=== PATIENT | male | born 1960 | race Caucasian/White ===

== ENCOUNTER 2021-01-16 08:51 | Inpatient (IN) | payer MEDICARE, OTHER ==
--- NOTE | 2021-01-16 10:03 | ED ---
Weakness HPI - General Chief complaint: Weakness Stated complaint: SOB Time Seen by Provider: 01/16/21 09:28 Source: patient, family, RN notes reviewed Mode of arrival: wheelchair Limitations: no limitations - History of Present Illness Initial comments: This is a 60-year-old male with no major medical issues who did have approximately 20 pound weight loss to trying to do this during the cold without break. Who presents with complaints of some generalized weakness and low energy some decreased oral intake exertional dyspnea and increased heart rate with source of breath when he does try to exert himself also abdominal both bloating and is getting worse. This is For about 6 months. No nausea vomiting no diarrhea he's urine has become dark apparently. No history of cold and 19 he did get vaccine the last one was on August 23. No other current complaints modifying factors he does state that he get a new mattress over [place] this past year he's been sleeping as abdomen a lot breast didn't hurt for a while now and not quite as tender. There is a family history of a sister with breast cancer but no male breast cancer. MD Complaint: generalized weakness - Related Data Home Medications Medication Instructions Recorded Confirmed No Known Home Medications 01/16/21 01/16/21 Allergies Allergy/AdvReac Type Severity Reaction Status Date / Time Penicillins Allergy Rash/Hives Verified 01/16/21 10:23 Review of Systems ROS Statement: Those systems with pertinent positive or pertinent negative responses have been documented in the HPI. ROS Other: All systems not noted in ROS Statement are negative. Past Medical History Past Medical History: No Reported History History of Any Multi-Drug Resistant Organisms: None Reported Past Surgical History: No Surgical Hx Reported Past Psychological History: No Psychological Hx Reported Smoking Status: Current every day smoker Past Alcohol Use History: Daily Past Drug Use History: Marijuana General Exam - General Exam Comments Initial Comments: This is a well-developed asthenic appearing male who is awake alert oriented 3 Limitations: no limitations General appearance: alert, in no apparent distress Head exam: Present: atraumatic, normocephalic, normal inspection Eye exam: Present: normal appearance, PERRL, EOMI. Absent: scleral icterus, conjunctival injection, periorbital swelling ENT exam: Present: mucous membranes dry Neck exam: Present: normal inspection, full ROM, other. Absent: tenderness, meningismus, lymphadenopathy Respiratory exam: Present: normal lung sounds bilaterally. Absent: respiratory distress, wheezes, rales, rhonchi, stridor Cardiovascular Exam: Present: normal rhythm, tachycardia, normal heart sounds. Absent: systolic murmur, diastolic murmur, rubs, gallop, clicks GI/Abdominal exam: Present: soft, distended, normal bowel sounds, other (Fullness on examination). Absent: tenderness, guarding, rebound, rigid, bruit, pulsatile mass Rectal exam: Present: deferred Extremities exam: Present: normal inspection, full ROM, normal capillary refill. Absent: tenderness, pedal edema, joint swelling, calf tenderness Back exam: Present: normal inspection Neurological exam: Present: alert, oriented X3, CN II-XII intact Psychiatric exam: Present: normal affect, normal mood Skin exam: Present: warm, dry, intact, normal color. Absent: rash Course Vital Signs 01/16/21 01/16/21 09:08 10:20 Temperature 98.8 F Pulse Rate 113 H 114 H Respiratory 18 22 Rate Blood Pressure 99/62 117/82 O2 Sat by Pulse 100 100 Oximetry Medical Decision Making - Medical Decision Making I did discuss the findings with patient family as well as Dr. Abreu who did come the emergency department see the patient patient will be admitted for inpatient evaluation and treatment of anemia. Evaluation will include a CAT scan of the chest abdomen pelvis. - Lab Data Result diagrams: 01/16/21 10:06 01/16/21 10:06 Lab Results 01/16/21 01/16/21 01/16/21 Range/Units 10:06 10:06 10:06 WBC 7.6 (3.8-10.6) k/uL RBC 2.42 L (4.30-5.90) m/uL Hgb 5.0 L* (13.0-17.5) gm/dL Hct 17.3 L* (39.0-53.0) % MCV 71.7 L (80.0-100.0) fL MCH 20.8 L (25.0-35.0) pg MCHC 29.0 L (31.0-37.0) g/dL RDW 18.7 H (11.5-15.5) % Plt Count 297 (150-450) k/uL MPV 7.6 Neutrophils % 81 % Lymphocytes % 11 % Monocytes % 5 % Eosinophils % 0 % Basophils % 0 % Neutrophils # 6.2 (1.3-7.7) k/uL Lymphocytes # 0.8 L (1.0-4.8) k/uL Monocytes # 0.4 (0-1.0) k/uL Eosinophils # 0.0 (0-0.7) k/uL Basophils # 0.0 (0-0.2) k/uL Manual Slide Review Performed Polychromasia Present Hypochromasia Marked Poikilocytosis Slight Anisocytosis Slight Microcytosis Marked Sodium 131 L (137-145) mmol/L Potassium 4.3 (3.5-5.1) mmol/L Chloride 104 (98-107) mmol/L Carbon Dioxide 18 L (22-30) mmol/L Anion Gap 9 mmol/L BUN 16 (9-20) mg/dL Creatinine 0.62 L (0.66-1.25) mg/dL Est GFR (CKD-EPI)AfAm >90 (>60 ml/min/1.73 sqM) Est GFR (CKD-EPI)NonAf >90 (>60 ml/min/1.73 sqM) Glucose 89 (74-99) mg/dL Plasma Lactic Acid Curtis 1.6 (0.7-2.0) mmol/L Calcium 8.2 L (8.4-10.2) mg/dL Magnesium 2.0 (1.6-2.3) mg/dL Total Bilirubin 0.8 (0.2-1.3) mg/dL AST 161 H (17-59) U/L ALT 31 (4-49) U/L Alkaline Phosphatase 364 H (38-126) U/L Creatine Kinase 128 (55-170) U/L Troponin I (0.000-0.034) ng/mL Total Protein 5.8 L (6.3-8.2) g/dL Albumin 2.8 L (3.5-5.0) g/dL Amylase 33 (30-110) U/L TSH 0.020 L (0.465-4.680) mIU/L Coronavirus (PCR) (Not Detectd) 01/16/21 01/16/21 Range/Units 10:06 10:06 WBC (3.8-10.6) k/uL RBC (4.30-5.90) m/uL Hgb (13.0-17.5) gm/dL Hct (39.0-53.0) % MCV (80.0-100.0) fL MCH (25.0-35.0) pg MCHC (31.0-37.0) g/dL RDW (11.5-15.5) % Plt Count (150-450) k/uL MPV Neutrophils % % Lymphocytes % % Monocytes % % Eosinophils % % Basophils % % Neutrophils # (1.3-7.7) k/uL Lymphocytes # (1.0-4.8) k/uL Monocytes # (0-1.0) k/uL Eosinophils # (0-0.7) k/uL Basophils # (0-0.2) k/uL Manual Slide Review Polychromasia Hypochromasia Poikilocytosis Anisocytosis Microcytosis Sodium (137-145) mmol/L Potassium (3.5-5.1) mmol/L Chloride (98-107) mmol/L Carbon Dioxide (22-30) mmol/L Anion Gap mmol/L BUN (9-20) mg/dL Creatinine (0.66-1.25) mg/dL Est GFR (CKD-EPI)AfAm (>60 ml/min/1.73 sqM) Est GFR (CKD-EPI)NonAf (>60 ml/min/1.73 sqM) Glucose (74-99) mg/dL Plasma Lactic Acid Curtis (0.7-2.0) mmol/L Calcium (8.4-10.2) mg/dL Magnesium (1.6-2.3) mg/dL Total Bilirubin (0.2-1.3) mg/dL AST (17-59) U/L ALT (4-49) U/L Alkaline Phosphatase (38-126) U/L Creatine Kinase (55-170) U/L Troponin I <0.012 (0.000-0.034) ng/mL Total Protein (6.3-8.2) g/dL Albumin (3.5-5.0) g/dL Amylase (30-110) U/L TSH (0.465-4.680) mIU/L Coronavirus (PCR) Not Detected (Not Detectd) - EKG Data -: EKG Interpreted by [place] EKG shows normal: sinus rhythm EKG Comments: Sinus tachycardia rate 1:15. Interval 126 QRS 134 daily since QTC 366/506) block pattern - Radiology Data Radiology results: report reviewed, image reviewed Disposition Clinical Impression: Anemia, Failure to thrive in adult, Abdominal bloating Disposition: ADMITTED IP TO THIS HOSP Condition: Fair Referrals: None,Stated [Primary Care Provider] - 1-2 days
[2021-01-16 10:24] LABS: Anisocytosis Slight; Basophils % (A) 0 %; Eosinophils % (A) 0 %; Hypochromasia Marked; Lymphocytes # (A) 0.8 k/uL (1.0-4.8); Lymphocytes % (A) 11 %; MCH 20.8 pg (25.0-35.0); MCV 71.7 fL (80.0-100.0); Mean Platelet Volume 7.6; Microcytosis Marked; Monocytes # (A) 0.4 k/uL (0-1.0); Monocytes % (A) 5 %; Neutrophils # (A) 6.2 k/uL (1.3-7.7); Neutrophils % (A) 81 %; Platelet Count 297 k/uL (150-450); Poikilocytosis Slight; RBC 2.42 m/uL (4.30-5.90); RDW 18.7 % (11.5-15.5); WBC 7.6 k/uL (3.8-10.6)
[2021-01-16 10:35] LABS: ALT 31 U/L (4-49); AST 161 U/L (17-59); African American GFR (CKD) >90 (>60 ml/min/1.73 sqM); Albumin 2.8 g/dL (3.5-5.0); Alkaline Phosphatase 364 U/L (38-126); Amylase 33 U/L (30-110); Anion Gap 9 mmol/L; Blood Urea Nitrogen 16 mg/dL (9-20); Calcium 8.2 mg/dL (8.4-10.2); Carbon Dioxide 18 mmol/L (22-30); Chloride 104 mmol/L (98-107); Creatine Kinase 128 U/L (55-170); Glucose 89 mg/dL (74-99); Non-African American GFR(CKD) >90 (>60 ml/min/1.73 sqM); Potassium 4.3 mmol/L (3.5-5.1); Sodium 131 mmol/L (137-145); Total Bilirubin 0.8 mg/dL (0.2-1.3); Total Protein 5.8 g/dL (6.3-8.2)
[2021-01-16 10:39] LABS: HCT 17.3 % (39.0-53.0)
--- NOTE | 2021-01-16 10:40 | XR ---
EXAMINATION TYPE: XR chest 2V DATE OF EXAM: 01/16/2021 COMPARISON: NONE HISTORY: Weakness. TECHNIQUE: Frontal and lateral views of the chest are obtained. FINDINGS: Background chronic emphysematous change suspected. There is no suspicious focal air space o pacity, pleural effusion, or pneumothorax seen. The cardiac silhouette size is within normal limits. The osseous structures are intact. Overlying EKG leads. IMPRESSION: No acute process.
--- NOTE | 2021-01-16 10:46 | XR ---
EXAMINATION TYPE: XR KUB DATE OF EXAM: 01/16/2021 10:32 AM CLINICAL HISTORY: Bloating and pain. TECHNIQUE: Single upright KUB image of the abdomen is obtained. COMPARISON: None. FINDINGS: Scattered gas is seen in non-distended small and large bowel loops. Some paucity of bowel g as in the central abdomen. Slight underlying scoliotic curvature. Some vascular pelvis occasional kallie t abdominal aorta. No free air. IMPRESSION: Overall nonspecific but favor nonobstructive bowel gas pattern.
[2021-01-16 11:35] LABS: Polychromasia Present
[2021-01-16 12:11] LABS: T4, Free (Free Thyroxine) 1.82 ng/dL (0.78-2.19)
[2021-01-16] MEDS ORDERED: NALOXONE 0.4 MG/ML 1 ML VIAL IV PRN (12:14)
[2021-01-16] MEDS ORDERED: IOPAMIDOL CONTRAST (ORAL USE) VIAL PO PRN (12:17)
--- NOTE | 2021-01-16 12:20 | ED ---
Medical Decision Making - Medical Decision Making Rectal exam performed no overt masses no evidence of bleeding at this time. CAT scan chest abdomen pelvis ordered neoplasm suspected - Lab Data Result diagrams: 01/16/21 10:06 01/16/21 10:06 Lab Results 01/16/21 01/16/21 01/16/21 Range/Units 10:06 10:06 10:06 WBC 7.6 (3.8-10.6) k/uL RBC 2.42 L (4.30-5.90) m/uL Hgb 5.0 L* (13.0-17.5) gm/dL Hct 17.3 L* (39.0-53.0) % MCV 71.7 L (80.0-100.0) fL MCH 20.8 L (25.0-35.0) pg MCHC 29.0 L (31.0-37.0) g/dL RDW 18.7 H (11.5-15.5) % Plt Count 297 (150-450) k/uL MPV 7.6 Neutrophils % 81 % Lymphocytes % 11 % Monocytes % 5 % Eosinophils % 0 % Basophils % 0 % Neutrophils # 6.2 (1.3-7.7) k/uL Lymphocytes # 0.8 L (1.0-4.8) k/uL Monocytes # 0.4 (0-1.0) k/uL Eosinophils # 0.0 (0-0.7) k/uL Basophils # 0.0 (0-0.2) k/uL Manual Slide Review Performed Polychromasia Present Hypochromasia Marked Poikilocytosis Slight Anisocytosis Slight Microcytosis Marked Sodium 131 L (137-145) mmol/L Potassium 4.3 (3.5-5.1) mmol/L Chloride 104 (98-107) mmol/L Carbon Dioxide 18 L (22-30) mmol/L Anion Gap 9 mmol/L BUN 16 (9-20) mg/dL Creatinine 0.62 L (0.66-1.25) mg/dL Est GFR (CKD-EPI)AfAm >90 (>60 ml/min/1.73 sqM) Est GFR (CKD-EPI)NonAf >90 (>60 ml/min/1.73 sqM) Glucose 89 (74-99) mg/dL Plasma Lactic Acid Curtis 1.6 (0.7-2.0) mmol/L Calcium 8.2 L (8.4-10.2) mg/dL Magnesium 2.0 (1.6-2.3) mg/dL Total Bilirubin 0.8 (0.2-1.3) mg/dL AST 161 H (17-59) U/L ALT 31 (4-49) U/L Alkaline Phosphatase 364 H (38-126) U/L Creatine Kinase 128 (55-170) U/L Troponin I (0.000-0.034) ng/mL Total Protein 5.8 L (6.3-8.2) g/dL Albumin 2.8 L (3.5-5.0) g/dL Amylase 33 (30-110) U/L TSH 0.020 L (0.465-4.680) mIU/L Free T4 1.82 (0.78-2.19) ng/dL Coronavirus (PCR) (Not Detectd) 01/16/21 01/16/21 Range/Units 10:06 10:06 WBC (3.8-10.6) k/uL RBC (4.30-5.90) m/uL Hgb (13.0-17.5) gm/dL Hct (39.0-53.0) % MCV (80.0-100.0) fL MCH (25.0-35.0) pg MCHC (31.0-37.0) g/dL RDW (11.5-15.5) % Plt Count (150-450) k/uL MPV Neutrophils % % Lymphocytes % % Monocytes % % Eosinophils % % Basophils % % Neutrophils # (1.3-7.7) k/uL Lymphocytes # (1.0-4.8) k/uL Monocytes # (0-1.0) k/uL Eosinophils # (0-0.7) k/uL Basophils # (0-0.2) k/uL Manual Slide Review Polychromasia Hypochromasia Poikilocytosis Anisocytosis Microcytosis Sodium (137-145) mmol/L Potassium (3.5-5.1) mmol/L Chloride (98-107) mmol/L Carbon Dioxide (22-30) mmol/L Anion Gap mmol/L BUN (9-20) mg/dL Creatinine (0.66-1.25) mg/dL Est GFR (CKD-EPI)AfAm (>60 ml/min/1.73 sqM) Est GFR (CKD-EPI)NonAf (>60 ml/min/1.73 sqM) Glucose (74-99) mg/dL Plasma Lactic Acid Curtis (0.7-2.0) mmol/L Calcium (8.4-10.2) mg/dL Magnesium (1.6-2.3) mg/dL Total Bilirubin (0.2-1.3) mg/dL AST (17-59) U/L ALT (4-49) U/L Alkaline Phosphatase (38-126) U/L Creatine Kinase (55-170) U/L Troponin I <0.012 (0.000-0.034) ng/mL Total Protein (6.3-8.2) g/dL Albumin (3.5-5.0) g/dL Amylase (30-110) U/L TSH (0.465-4.680) mIU/L Free T4 (0.78-2.19) ng/dL Coronavirus (PCR) Not Detected (Not Detectd) Critical Care Time Critical Care Time: Yes Total Critical Care Time: 31 Critical Care Time: Critical care time includes initial presentation with history physical labs x- rays multiple reevaluation the patient discussed with patient family regarding findings discussion with the main physician admission orders and documentation of the above. Disposition Clinical Impression: Anemia, Failure to thrive in adult, Abdominal bloating Disposition: ADMITTED IP TO THIS [facility] Condition: Fair Referrals: None,Stated [Primary Care Provider] - 1-2 days
[2021-01-16] MEDS ORDERED: LORazepam 2 MG/ML INJ IV PRN (13:00)
[2021-01-16] MEDS ORDERED: HYDROcodone/APAP 5-325MG 1 EACH TAB PO PRN (13:00)
--- NOTE | 2021-01-16 13:09 | CT ---
EXAMINATION TYPE: CT ChestAbdPelvis w con DATE OF EXAM: 01/16/2021 COMPARISON: Same day chest x-ray and abdominal x-ray HISTORY: Shortness of breath and anemia. CT DLP: 742.1 mGycm. Automated Exposure Control for Dose Reduction was Utilized. CONTRAST: CT scan of the thorax, abdomen and pelvis is performed without oral but with IV Contrast, patient inj ected with 100 mL of Isovue 300. FINDINGS: LUNGS: Moderate underlying emphysematous change greatest in the upper lungs is redemonstrated. A few scattered small subcentimeter nodules in the bilateral lower lungs. Largest measured nodule is 12 x 1 0 mm in the periphery of the right lower lobe axial image 47. No pleural effusion or pneumothorax see n bilaterally. No suspicious focal consolidation. MEDIASTINUM: There are no greater than 1 cm hilar or mediastinal lymph nodes. No cardiomegaly or pe ricardial effusion is seen. Coronary artery calcification is present which is noted marker for under lying coronary artery disease. Ascending thoracic aortic aneurysm up to 4.6 cm axial image 31 noted. OTHER: Bilateral gynecomastia. LIVER/GB: Marked hepatomegaly occupying nearly entire right abdomen with local mass effect. There are innumerable hypodense lesions consistent with diffuse metastatic disease. PANCREAS: No significant abnormality is seen. SPLEEN: Spleen normal in size with incidental splenule in the hilum axial image 63. ADRENALS: No significant abnormality is seen. KIDNEYS: Symmetric cortical medullary uptake and excretion without hydronephrosis seen bilaterally. M ild to moderately distended bladder. BOWEL: Suboptimal evaluation without enteric contrast and patient having little intra-abdominal fat. Stomach poorly distended deviated posterior and left from hepatomegaly. No suspicious small or large bowel dilatation. Prominent diverticulosis in the sigmoid colon in the pelvis presacral region. No c onvincing CT evidence for acute diverticulitis. GENITAL ORGANS: No gross abnormality seen. LYMPH NODES: No definitive greater than 1cm abdominal or pelvic lymph nodes are appreciated. Symmetri c prominent but subcentimeter bilateral groin lymph nodes OSSEOUS STRUCTURES: Slight S-shaped scoliosis. Severe disc space narrowing lumbosacral junction. Prom inent Schmorl node superior T12 endplate. Moderate disc space narrowing T8-T9 level. Facet arthropath y lower lumbar spine. OTHER: Mild to moderate calcified plaque of the aorta extends into branch vessels. IMPRESSION: Marked hepatomegaly with innumerable hypodense masses. Significant local mass effect is p resent. Suspicious bilateral lower lung nodules. Both suggestive of metastatic neoplasm. Moderate emp hysematous change without acute pulmonary process. No acute intra-abdominal finding clearly seen.
[2021-01-16 15:55] LABS: INR 1.1 (<1.2); Partial Thromboplastin Time 22.4 sec (22.0-30.0); Prothrombin Time 11.3 sec (9.0-12.0)
[2021-01-16] MEDS: SODIUM CHLORIDE 0.9% 1,000 ML IV SCH ×2 (16:36→20:41)
--- NOTE | 2021-01-16 16:51 | HP ---
HISTORY AND PHYSICAL DATE OF SERVICE: 01/16/2021 CHIEF COMPLAINTS: Weakness and weight loss. HISTORY OF PRESENT ILLNESS: This 60-year-old gentleman with a past medical history of no significant medical issues, not being followed by a primary physician in the outpatient setting, was complaining of some generalized weakness. Patient apparently lost about 20 pounds. Patient was also actively trying to lose some weight. There is no active bleeding. Hemoglobin was found to be 5 and the patient was admitted for further evaluation and treatment. There is no history of any fever or rigors. No history of headache, loss of consciousness , seizures at this time. Initial evaluation showed hemoglobin of 5 with MCV 71, indicating microcytic anemia. Sodium is 131. Alcohol was also elevated at 364. Albumin is 2.8 and total protein is 5.2. TSH is 0.20. Free T4 is normal. Covid-19 is negative. There is no history of any fever, rigors, chills at this time. PAST MEDICAL HISTORY: History of no significant medical illness. MEDICATIONS PRIOR TO ADMISSION: None. ALLERGIES: PENICILLIN. FAMILY HISTORY: No history of heart disease or stroke in the family. SOCIAL HISTORY: History of smoking, history of EtOH and history of THC. REVIEW OF SYSTEMS: ENT: No diminished hearing. No diminished vision. CARDIOVASCULAR SYSTEM: No angina, palpitations. RESPIRATORY SYSTEM: As mentioned earlier. GI: As mentioned earlier. : No dysuria. NERVOUS SYSTEM: No numbness, weakness. ALLERGY/IMMUNOLOGY: No asthma or hay fever. MUSCULOSKELETAL: As mentioned earlier. HEMATOLOGY/ONCOLOGY: No history of anemia. ENDOCRINE: No history of hypothyroidism. CONSTITUTIONAL: As mentioned earlier. DERMATOLOGY: Negative. RHEUMATOLOGY: Negative. PSYCHIATRY: As mentioned earlier. PHYSICAL EXAMINATION: Patient alert and oriented x3. Pulse is 114, blood pressure 117/82, respiration 12, temperature 98.8, pulse ox 100% on room air. HEENT: Conjunctivae pale. Oral mucosa pale. NECK: No jugular venous distention. No carotid bruit. No lymph node enlargement. CARDIOVASCULAR: S1, S2 muffled. No S3. No S4. Ejection systolic murmur present. RESPIRATION: Breath sounds diminished at the bases. A few scattered rhonchi. ABDOMEN: Soft. Mild diffuse distention. No ascites. Hepatomegaly present. Possible nodular mass in the upper abdomen also present. LEGS: No edema. No swelling. NERVOUS SYSTEM: Higher functions as mentioned earlier. Moves all 4 limbs. No focal motor or sensory deficit. LYMPHATICS: No lymph node palpable in neck, axillae or groin. SKIN: No ulcer, rash, bleeding. JOINTS: No active deforming arthropathy. LABS: WBC 7.6, hemoglobin is 5 and MCV is 71.7. Sodium , potassium 4.3. Alkaline phosphatase is 364. ASSESSMENT: 1. Microcytic anemia for evaluation. Rule out occult GI blood loss anemia. 2. Rule out cirrhosis of the liver or malignancy. 3. Microcytosis. 4. Hyponatremia. 5. Mild hypocalcemia. 6. Elevated AST, possibly alcoholic hepatitis. 7. Elevated alkaline phosphatase. 8. Hypoalbuminemia with mild protein-calorie malnutrition. 9. Low TSH and normal free T4, possibly sick euthyroid syndrome. 10.FULL CODE. RECOMMENDATIONS AND DISCUSSION: In this 60-year-old gentleman who presented with multiple complex medical issues, at this time I recommend to continue the current medications, continue symptomatic treatment. Continue with a CT scan of the abdomen and pelvis. Hepatitis panel. I would also recommend 2 units of transfusion. Monitor hemoglobin closely. Stool OB. Surgical evaluation. Guarded prognosis because of multiple complex medical issues. Further recommendations to follow. I also recommend that the patient follow up with a primary physician closely after discharge. MMODL / IJN: [id number] / FRENCH
[2021-01-16] MEDS ORDERED: PEG 3350-NA SULF,BICARB,CL/KCL 4,000 ML BOTTLE PO ONE (17:10)
[2021-01-16 17:19] LABS: Appearance,Urine Clear (Clear); Bilirubin,Urine Negative (Negative); Blood,Urine Negative (Negative); Color,Urine Yellow; Glucose,Urine (UA) Negative (Negative); Ketones,Urine 1+ (Negative); Leukocyte Esterase,Urine Negative (Negative); Nitrite,Urine Negative (Negative); PH, Urine 5.5 (5.0-8.0); Protein,Urine Trace (Negative)
[2021-01-16 17:21] LABS: Specific Gravity,Urine 1.051 (1.001-1.035)
[2021-01-16 17:46] LABS: Amphetamine Screen,Urine Not Detected (NotDetected); Barbiturate Screen,Urine Not Detected (NotDetected); Benzodiazepines Screen,Urine Not Detected (NotDetected); Cocaine Screen,Urine Not Detected (NotDetected); Methadone Screen, Urine Not Detected (NotDetected); Opiate Screen,Urine Not Detected (NotDetected); Oxycodone Screen, Urine Not Detected (NotDetected); Phencyclidine Screen,Urine Not Detected (NotDetected); Tricyclic Antidepressant,Urine Not Detected (NotDetected); Urn Cannabinoid Scrn Detected (NotDetected)
[2021-01-16] MEDS ORDERED: ACETAMINOPHEN TAB 325 MG TAB PO PRN (18:50)
[2021-01-16 23:51] LABS: Hepatitis A Antibody IgM Non-Reactive (Non-Reactive); Hepatitis B Core IgM Non-Reactive (Non-Reactive); Hepatitis B Surface Antigen Non-Reactive (Non-Reactive); Hepatitis C IgG Antibody Non-Reactive (Non-Reactive)
[2021-01-17 00:39] LABS: Anisocytosis Moderate; Basophils % (A) 0 %; Eosinophils % (A) 0 %; Hypochromasia Marked; Lymphocytes % (A) 15 %; MCH 24.2 pg (25.0-35.0); MCHC 32.2 g/dL (31.0-37.0); MCV 75.3 fL (80.0-100.0); Mean Platelet Volume 7.9; Microcytosis Moderate; Monocytes # (A) 0.4 k/uL (0-1.0); Monocytes % (A) 6 %; Neutrophils # (A) 5.1 k/uL (1.3-7.7); Neutrophils % (A) 76 %; Platelet Count 228 k/uL (150-450); Poikilocytosis Slight; RBC 2.44 m/uL (4.30-5.90); RDW 20.1 % (11.5-15.5); WBC 6.7 k/uL (3.8-10.6)
[2021-01-17 00:48] LABS: HGB 5.9 gm/dL (13.0-17.5)
[2021-01-17 00:49] LABS: HCT 18.4 % (39.0-53.0)
[2021-01-17] MEDS: NICOTINE 14MG/24HR PATCH TRANSDERM SCH ×2 (06:13→07:30)
[2021-01-17] MEDS ORDERED: PEG 3350-NA SULF,BICARB,CL/KCL 4,000 ML BOTTLE PO ONE (07:00)
[2021-01-17] MEDS: PANTOPRAZOLE 40 MG/10 ML VIAL IV SCH (07:30)
[2021-01-17] MEDS: FOLIC ACID 1 MG TAB PO SCH (11:40)
[2021-01-17] MEDS: THIAMINE 100 MG TAB PO SCH (11:40)
[2021-01-17] MEDS: MULTIVITAMINS, THERA 1 EACH TAB PO SCH (11:40)
[2021-01-17 13:00] LABS: Anisocytosis Slight; Basophils % (A) 0 %; Eosinophils % (A) 0 %; HCT 23.6 % (39.0-53.0); HGB 7.3 gm/dL (13.0-17.5); Hypochromasia Marked; Lymphocytes % (A) 12 %; MCH 24.2 pg (25.0-35.0); MCHC 31.1 g/dL (31.0-37.0); MCV 77.9 fL (80.0-100.0); Mean Platelet Volume 7.8; Microcytosis Slight; Monocytes # (A) 0.4 k/uL (0-1.0); Monocytes % (A) 4 %; Neutrophils # (A) 7.2 k/uL (1.3-7.7); Neutrophils % (A) 82 %; Platelet Count 237 k/uL (150-450); Poikilocytosis Moderate; RBC 3.03 m/uL (4.30-5.90); RDW 19.7 % (11.5-15.5); WBC 8.8 k/uL (3.8-10.6)
[2021-01-17 13:13] LABS: ALT 31 U/L (4-49); AST 147 U/L (17-59); African American GFR (CKD) >90 (>60 ml/min/1.73 sqM); Albumin 2.8 g/dL (3.5-5.0); Alkaline Phosphatase 367 U/L (38-126); Anion Gap 6 mmol/L; Blood Urea Nitrogen 12 mg/dL (9-20); Calcium 8.1 mg/dL (8.4-10.2); Carbon Dioxide 21 mmol/L (22-30); Chloride 103 mmol/L (98-107); Glucose 104 mg/dL (74-99); Non-African American GFR(CKD) >90 (>60 ml/min/1.73 sqM); Potassium 4.2 mmol/L (3.5-5.1); Sodium 130 mmol/L (137-145); Total Bilirubin 1.5 mg/dL (0.2-1.3); Total Protein 5.8 g/dL (6.3-8.2)
--- NOTE | 2021-01-17 15:34 | PN ---
PROGRESS NOTE DATE OF SERVICE: 01/17/2021 This 60-year-old gentleman who was admitted with significant anemia is being evaluated. The CT scan of the chest, abdomen and pelvis done in the ER showed evidence of marked hepatomegaly and innumerable hypodense mass lesions also. Significant local mass effect was also noted. Bilateral lower lung nodules were suspected also, indicative of metastatic neoplasm. Moderate emphysematous changes also suspected. The patient is being closely monitored at this time. The patient is awaiting a colonoscopy by Surgery at this time. Hematology/Oncology following the patient closely. Past medical history reviewed. REVIEW OF SYSTEMS: CARDIOVASCULAR SYSTEM: No angina. RESPIRATION: As mentioned earlier. GI: As mentioned earlier. : No dysuria. NERVOUS SYSTEM: No numbness, weakness. CURRENT MEDICATIONS: Reviewed. They include Tylenol, Fajardo, folic acid, Ativan, multivitamins, Narcan, Habitrol, Protonix, vitamin B1. PHYSICAL EXAMINATION: Patient is alert, oriented x3. Pulse is 101, blood pressure 90/60, respiration 18, temperature 97.8, pulse ox 98% on room air. HEENT: Conjunctivae normal. NECK: No jugular venous distention. CARDIOVASCULAR: S1, S2 muffled. RESPIRATION: Breath sounds diminished at the bases. A few scattered rhonchi. No crackles. ABDOMEN: Soft. Hepatomegaly present, nodular. No ascites. LEGS: No edema. No swelling. NERVOUS SYSTEM: No focal deficit. LABS: WBC 8.8, hemoglobin 7.3, sodium , potassium 4.2. ASSESSMENT: 1. Severe symptomatic anemia, microcytic, possibly secondary from gastrointestinal blood loss anemia, status post blood transfusions. 2. Multiple metastatic liver lesions with metastatic malignancy possibly with possible lower lung nodules as well. 3. Microcytosis. 4. Hyponatremia. 5. Mild hypercalcemia. 6. Elevated ALT; possibly alcoholic hepatitis history. 7. Elevated alkaline phosphatase. 8. Hypoalbuminemia with mild protein-calorie malnutrition. 9. Low TSH and normal free T4, possibly sick euthyroid syndrome. 10.FULL CODE. 11.History of weight loss. 12.Mild protein-calorie malnutrition with body mass index of 19.8. RECOMMENDATIONS AND DISCUSSION: In this 60-year-old gentleman who presented with multiple complex medical issues, we will monitor the patient closely, continue the current medications, continue symptomatic treatment, await colonoscopy and biopsy. Hepatitis panel is negative. Covid- 19 is also negative. Repeat labs will be ordered. Hemoglobin has come up to 7.3. I would also recommend one unit transfusion because of the symptomatic nature of the anemia. Patient has also already received 3 units. Otherwise, we will closely follow with Hematology/Oncology as well. Prognosis is extremely guarded because of multiple complex medical issues. I discussed the case at length with the patient and his at the bedside, who understand and agree. Further recommendations to follow. MMODL / IJN: [id number] / FRENCH
[2021-01-17] MEDS ORDERED: RX INFO: IV CONTRAST WAS GIVEN 1 EACH MISC MISCELLANE PRN (15:50)
--- NOTE | 2021-01-17 16:05 | P.CONS ---
History of Present Illness - Reason for Consult Consult date: 01/17/21 liver masses Requesting physician: Clark Abreu - Chief Complaint anemia, failure to thrive - History of Present Illness Mr. Monge is a very pleasant man who denies any significant PMH or chronic health conditions. He states that he started a diet when the pandemic began and lost 25# and felt pretty good. He says that he is recently retired and wasn't really using his strength much any more but noted loss of muscles and strength. Over the last 4 months he has noted another 15# wt. loss, unintentionally, and progressive abd distansion. He denies any unusual bleeding, no changes in bowel habits, his appetite is poor because his abd is bloated, his energy levels are down and as is his strength. No N,V, chest pain, difficulty breathing, chest pain, swelling, he is not currently in any pain. No personal Hx of cancer, his father at a young age of cancer, unsure what kind. Review of Systems 10 point ROS is neg except as stated in HPI Past Medical History Past Medical History: No Reported History History of Any Multi-Drug Resistant Organisms: None Reported Past Surgical History: No Surgical Hx Reported Past Psychological History: No Psychological Hx Reported Smoking Status: Current every day smoker Past Alcohol Use History: Daily Past Drug Use History: Unable to Obtain - Past Family History Father Family Medical History: Cancer Medications and Allergies Home Medications Medication Instructions Recorded Confirmed Type No Known Home Medications 01/16/21 01/16/21 History Allergies Allergy/AdvReac Type Severity Reaction Status Date / Time Penicillins Allergy Rash/Hives Verified 01/16/21 10:23 Physical Exam Vitals: Vital Signs Temp Pulse Pulse Resp BP BP Pulse Ox 01/17/21 14:00 110 H 18 01/17/21 11:48 98.5 F 110 H 18 110/67 99 01/17/21 09:19 97.8 F 101 H 18 95/60 98 01/17/21 07:39 100 18 01/17/21 07:34 98.0 F 100 18 98/64 99 01/17/21 07:27 98.0 F 100 18 98/64 98 01/17/21 06:57 98.1 F 100 16 101/66 98 01/17/21 06:47 98.4 F 100 18 100/61 98 01/17/21 04:00 98.4 F 101 H 18 102/74 95 01/17/21 02:00 104 H 18 01/17/21 00:00 104 H 18 108/70 97 01/16/21 21:32 98.7 F 100 16 101/68 98 01/16/21 20:11 16 01/16/21 20:07 99.1 F 112 H 18 94/63 01/16/21 20:00 103 H 16 01/16/21 19:12 98.8 F 100 18 101/66 98 01/16/21 18:42 100.6 F H 112 H 16 99 01/16/21 18:32 99.7 F H 112 H 18 99/67 98 01/16/21 17:40 98.3 F 92 16 104/63 98 01/16/21 16:41 97.8 F 103 H 18 122/69 99 01/16/21 16:01 107 H 18 103/62 100 01/16/21 15:51 110 H 18 103/65 100 01/16/21 15:46 98.7 F 106 H 18 103/65 100 Intake and Output 01/17/21 01/17/21 01/17/21 06:59 14:59 22:59 Intake Total 140 399 Balance 140 399 Intake: Intake, IV Titration 20 Amount Sodium Chloride 0.9% 1, 20 000 ml @ 20 mls/hr IV . Q24H [facility] Rx#:[id number] Oral 120 118 Blood Product 0 281 Rc Pheresis As-3 Unit 0 281 [id number] Other: Voiding Method Toilet Toilet # Voids 2 1 # Bowel Movements 1 Weight 59 kg - Constitutional loss of muscle mass in extremities, face General appearance: cooperative, no acute distress, thin - EENT Eyes: anicteric sclerae, EOMI ENT: hearing grossly normal, normal oropharynx - Neck Neck: no lymphadenopathy - Respiratory Respiratory: bilateral: CTA - Cardiovascular Rhythm: regular Heart sounds: normal: S1, S2 Abnormal Heart Sounds: no systolic murmur, no diastolic murmur, no rub, no S3 Gallop, no S4 Gallop, no click, no other leg Peripheral Edema: bilateral: None - Gastrointestinal General gastrointestinal: no absent bowel sounds, no decreased bowel sounds, distended, hepatomegaly, no hyperactive bowel sounds, normal bowel sounds, no organomegaly, no rigid, no scaphoid, soft, no splenomegaly, no tenderness, no umbilical hernia, no ventral hernia - Integumentary dark skin color - Neurologic Neurologic: CNII-XII intact - Musculoskeletal Musculoskeletal: strength equal bilaterally - Psychiatric Psychiatric: A&O x's 3, appropriate affect, intact judgment & insight Results CBC & Chem 7: 01/17/21 12:37 01/17/21 12:37 Labs: Abnormal Lab Results - Last 24 Hours (Table) 01/16/21 01/16/21 01/17/21 Range/Units 12:50 17:01 00:16 RBC 2.44 L (4.30-5.90) m/uL Hgb 5.9 L* (13.0-17.5) gm/dL Hct 18.4 L* (39.0-53.0) % MCV 75.3 L (80.0-100.0) fL MCH 24.2 L (25.0-35.0) pg RDW 20.1 H (11.5-15.5) % Sodium (137-145) mmol/L Carbon Dioxide (22-30) mmol/L Creatinine (0.66-1.25) mg/dL Glucose (74-99) mg/dL Calcium (8.4-10.2) mg/dL Total Bilirubin (0.2-1.3) mg/dL AST (17-59) U/L Alkaline Phosphatase (38-126) U/L Total Protein (6.3-8.2) g/dL Albumin (3.5-5.0) g/dL Ur Specific Willis 1.051 H (1.001-1.035) Urine Protein Trace H (Negative) Urine Ketones 1+ H (Negative) U Marijuana (THC) Screen Detected H (NotDetected) Crossmatch See Detail 01/17/21 01/17/21 Range/Units 12:37 12:37 RBC 3.03 L (4.30-5.90) m/uL Hgb 7.3 L (13.0-17.5) gm/dL Hct 23.6 L (39.0-53.0) % MCV 77.9 L (80.0-100.0) fL MCH 24.2 L (25.0-35.0) pg RDW 19.7 H (11.5-15.5) % Sodium 130 L (137-145) mmol/L Carbon Dioxide 21 L (22-30) mmol/L Creatinine 0.57 L (0.66-1.25) mg/dL Glucose 104 H (74-99) mg/dL Calcium 8.1 L (8.4-10.2) mg/dL Total Bilirubin 1.5 H (0.2-1.3) mg/dL AST 147 H (17-59) U/L Alkaline Phosphatase 367 H (38-126) U/L Total Protein 5.8 L (6.3-8.2) g/dL Albumin 2.8 L (3.5-5.0) g/dL Ur Specific Willis (1.001-1.035) Urine Protein (Negative) Urine Ketones (Negative) U Marijuana (THC) Screen (NotDetected) Crossmatch CT scan - abdomen: report reviewed, image reviewed CT scan - pelvis: report reviewed, image reviewed Assessment and Plan (1) Hepatomegaly Current Visit: Yes Status: Acute Priority: High Code(s): R16.0 - HEPATOMEGALY, NOT ELSEWHERE CLASSIFIED SNOMED Code(s): 97115869 (2) Liver lesion Current Visit: Yes Status: Acute Priority: High Code(s): K76.9 - LIVER DISEASE, UNSPECIFIED SNOMED Code(s): 207082825 (3) Anemia Narrative/Plan: Requested anemia work up on blood collected at admit, pre-transfusion. Transfuse for Hgb < 7 Current Visit: Yes Status: Acute Priority: High Code(s): D64.9 - ANEMIA, UNSPECIFIED SNOMED Code(s): 120323192 (4) Failure to thrive in adult Current Visit: Yes Status: Acute Priority: High Code(s): R62.7 - ADULT FAILURE TO THRIVE SNOMED Code(s): 216314158 Plan: Referring to failure to thrive, hempatomegaly and liver lesions-highly suspicious for malignancy. Surgery consulted for upper and lower endoscopy as pt has never had. F/U as results become available Doctor attests: I performed a history and physical examination of this patient, developed impression and plan of care, discussed with dictator. I agree with dictators note, documented as a scribe.
[2021-01-18] MEDS: SODIUM CHLORIDE 0.9% 1,000 ML IV SCH (07:24)
[2021-01-18 07:43] LABS: Anisocytosis Moderate; Basophils % (A) 0 %; Eosinophils % (A) 1 %; HCT 21.4 % (39.0-53.0); Hypochromasia Marked; Lymphocytes # (A) 1.1 k/uL (1.0-4.8); Lymphocytes % (A) 15 %; MCH 22.8 pg (25.0-35.0); MCHC 29.2 g/dL (31.0-37.0); MCV 78.1 fL (80.0-100.0); Mean Platelet Volume 7.5; Microcytosis Slight; Monocytes # (A) 0.4 k/uL (0-1.0); Monocytes % (A) 5 %; Neutrophils # (A) 5.6 k/uL (1.3-7.7); Neutrophils % (A) 78 %; Platelet Count 204 k/uL (150-450); Poikilocytosis Moderate; RBC 2.74 m/uL (4.30-5.90); WBC 7.2 k/uL (3.8-10.6)
[2021-01-18] MEDS: PANTOPRAZOLE 40 MG/10 ML VIAL IV SCH (07:50)
[2021-01-18] MEDS: NICOTINE 14MG/24HR PATCH TRANSDERM SCH (07:50)
[2021-01-18 07:53] LABS: HGB 6.3 gm/dL (13.0-17.5)
--- NOTE | 2021-01-18 09:10 | P.GSCN ---
History of Present Illness Consult date: 01/16/21 Reason for Consult: Anemia, weight loss History of present illness: This is a 60-year-old male who has undergone approximately 20 pounds weight loss over the last 4 months. Patient has developed severe anemia. Patient was worked up emergency room found have evidence of possible hepatic recesses. I been asked see the patient regarding colonoscopy. Past Medical History Past Medical History: No Reported History History of Any Multi-Drug Resistant Organisms: None Reported Past Surgical History: No Surgical Hx Reported Past Psychological History: No Psychological Hx Reported Smoking Status: Current every day smoker Past Alcohol Use History: Daily Past Drug Use History: Unable to Obtain - Past Family History Father Family Medical History: Cancer Medications and Allergies Home Medications Medication Instructions Recorded Confirmed Type No Known Home Medications 01/16/21 01/16/21 History Allergies Allergy/AdvReac Type Severity Reaction Status Date / Time Penicillins Allergy Rash/Hives Verified 01/16/21 10:23 Surgical - Exam Vital Signs Temp Pulse Resp BP Pulse Ox 98.8 F 113 H 18 99/62 100 01/16/21 09:08 01/16/21 09:08 01/16/21 09:08 01/16/21 09:08 01/16/21 09:08 - General well developed, no distress - Eyes PERRL - ENT normal pinna - Neck no masses - Respiratory normal expansion - Cardiovascular Rhythm: regular - Abdomen Mildly distended Abdomen: soft, non tender Results - Labs 01/18/21 07:03 01/17/21 12:37 Abnormal Lab Results - Last 24 Hours (Table) 01/16/21 01/17/21 01/17/21 Range/Units 12:50 12:37 12:37 RBC 3.03 L (4.30-5.90) m/uL Hgb 7.3 L (13.0-17.5) gm/dL Hct 23.6 L (39.0-53.0) % MCV 77.9 L (80.0-100.0) fL MCH 24.2 L (25.0-35.0) pg MCHC (31.0-37.0) g/dL RDW 19.7 H (11.5-15.5) % Sodium 130 L (137-145) mmol/L Carbon Dioxide 21 L (22-30) mmol/L Creatinine 0.57 L (0.66-1.25) mg/dL Glucose 104 H (74-99) mg/dL Calcium 8.1 L (8.4-10.2) mg/dL Total Bilirubin 1.5 H (0.2-1.3) mg/dL AST 147 H (17-59) U/L Alkaline Phosphatase 367 H (38-126) U/L Total Protein 5.8 L (6.3-8.2) g/dL Albumin 2.8 L (3.5-5.0) g/dL Crossmatch See Detail 01/18/21 Range/Units 07:03 RBC 2.74 L (4.30-5.90) m/uL Hgb 6.3 L* (13.0-17.5) gm/dL Hct 21.4 L (39.0-53.0) % MCV 78.1 L (80.0-100.0) fL MCH 22.8 L (25.0-35.0) pg MCHC 29.2 L (31.0-37.0) g/dL RDW 20.0 H (11.5-15.5) % Sodium (137-145) mmol/L Carbon Dioxide (22-30) mmol/L Creatinine (0.66-1.25) mg/dL Glucose (74-99) mg/dL Calcium (8.4-10.2) mg/dL Total Bilirubin (0.2-1.3) mg/dL AST (17-59) U/L Alkaline Phosphatase (38-126) U/L Total Protein (6.3-8.2) g/dL Albumin (3.5-5.0) g/dL Crossmatch Diabetes panel 01/17/21 Range/Units 12:37 Sodium 130 L (137-145) mmol/L Potassium 4.2 (3.5-5.1) mmol/L Chloride 103 (98-107) mmol/L Carbon Dioxide 21 L (22-30) mmol/L BUN 12 (9-20) mg/dL Creatinine 0.57 L (0.66-1.25) mg/dL Glucose 104 H (74-99) mg/dL Calcium 8.1 L (8.4-10.2) mg/dL AST 147 H (17-59) U/L ALT 31 (4-49) U/L Alkaline Phosphatase 367 H (38-126) U/L Total Protein 5.8 L (6.3-8.2) g/dL Albumin 2.8 L (3.5-5.0) g/dL Calcium panel 01/17/21 Range/Units 12:37 Calcium 8.1 L (8.4-10.2) mg/dL Albumin 2.8 L (3.5-5.0) g/dL Pituitary panel 01/17/21 Range/Units 12:37 Sodium 130 L (137-145) mmol/L Potassium 4.2 (3.5-5.1) mmol/L Chloride 103 (98-107) mmol/L Carbon Dioxide 21 L (22-30) mmol/L BUN 12 (9-20) mg/dL Creatinine 0.57 L (0.66-1.25) mg/dL Glucose 104 H (74-99) mg/dL Calcium 8.1 L (8.4-10.2) mg/dL Adrenal panel 01/17/21 Range/Units 12:37 Sodium 130 L (137-145) mmol/L Potassium 4.2 (3.5-5.1) mmol/L Chloride 103 (98-107) mmol/L Carbon Dioxide 21 L (22-30) mmol/L BUN 12 (9-20) mg/dL Creatinine 0.57 L (0.66-1.25) mg/dL Glucose 104 H (74-99) mg/dL Calcium 8.1 L (8.4-10.2) mg/dL Total Bilirubin 1.5 H (0.2-1.3) mg/dL AST 147 H (17-59) U/L ALT 31 (4-49) U/L Alkaline Phosphatase 367 H (38-126) U/L Total Protein 5.8 L (6.3-8.2) g/dL Albumin 2.8 L (3.5-5.0) g/dL Assessment and Plan Assessment: Weight loss Anemia Possible liver metastasis. Patient be scheduled for colonoscopy.
--- NOTE | 2021-01-18 09:11 | P.PN ---
Progress Note - Text Progress Note Date: 01/17/21 Patient remains stable. He has started his bowel prep. On exam vitals are stable. Abdomen soft. Patient will undergo colonoscopy in the a.m.
[2021-01-18] MEDS ORDERED: IV FLUID CONTINUATION 1,000 ML IV ONE (12:30)
[2021-01-18] MEDS ORDERED: PROPOFOL 10 MG/ML 20 ML VIAL IV ONE (12:32)
[2021-01-18] MEDS ORDERED: LIDOCAINE 1% INJ 10MG/ML (20 ML MDV) ONE (12:32)
[2021-01-18] MEDS ORDERED: SODIUM CHLORIDE 0.9% 500 ML 500 ML IV ONE (13:01)
--- NOTE | 2021-01-18 13:06 | P.OP ---
Date of Procedure: 01/18/21 Preoperative Diagnosis: Anemia Postoperative Diagnosis: Esophageal mass Internal and external hemorrhoids Procedure(s) Performed: EGD Colonoscopy Anesthesia: MAC Surgeon: Jaime Barragan Pathology: other (Esophageal biopsy) Condition: stable Disposition: PACU Description of Procedure: The patient's placed on the endoscopy table lateral position. She received IV sedation. The gastro-placed down the oropharynx into the esophagus. The floor there is esophagus there was a ulcerated mass. Scope was then placed into the stomach. Scope was placed through the pylorus. The first and second portion appeared normal. The scope was then brought back into the esophagus. The mass appeared to be confined and lower third of the esophagus. This was biopsied. The masses friable and bleeding. It was PHOTOGRAPHED. The proximal esophagus appeared normal. Scope was withdrawn for patient. Next digital rectal exam is performed which revealed internal hemorrhoids. Flexible cystoscopy then placed patient anus passed in the colon. The scope mounted passed beyond the sigmoid colon due to tortuous bowel. This was withdrawn. Pediatric pediatric scope was then placed the rectum. Admitted to [place] placed beyond the sigmoid colon secondary to tortuosity. At this point the scope was withdrawn. Patient tolerated procedure well and was sent back to recovery room stable condition.
[2021-01-18] MEDS: MULTIVITAMINS, THERA 1 EACH TAB PO SCH (13:30)
[2021-01-18] MEDS: FOLIC ACID 1 MG TAB PO SCH (13:30)
[2021-01-18] MEDS: THIAMINE 100 MG TAB PO SCH (13:30)
--- NOTE | 2021-01-18 15:08 | P.PN ---
Subjective Progress Note Date: 01/18/21 Principal diagnosis: Microcytic, hypochromic anemia, hepatomegaly with multiple lesions In follow-up today patient is pending EGD and colonoscopy. He denies any bleeding. He states that while he was taking the prep he did have one large, very dark stool but, none since. He is needing a blood transfusion today. He denies any other acute symptoms, he is not in any pain Objective - Vital Signs Vital signs: Vital Signs Temp 98.4 F 01/18/21 13:22 Pulse 101 H 01/18/21 13:33 Resp 17 01/18/21 13:33 BP 91/65 01/18/21 13:33 Pulse Ox 96 01/18/21 13:33 Intake & Output 01/17/21 01/18/21 01/18/21 18:59 06:59 18:59 Intake Total 639 240 310 Balance 639 240 310 Weight 60.3 kg Intake: Oral 358 240 Blood Product 281 310 Rc As-1 Unit 310 [id number] Rc Pheresis As-3 Unit 281 [id number] Other: Voiding Method Toilet Toilet # Voids 1 1 # Bowel Movements 1 3 - Constitutional General appearance: Present: cooperative, no acute distress, thin - EENT Eyes: Present: anicteric sclerae, EOMI ENT: Present: hearing grossly normal - Respiratory Respiratory: bilateral: CTA - Cardiovascular Rhythm: regular Heart sounds: normal: S1, S2 Abnormal Heart Sounds: Absent: systolic murmur, diastolic murmur, rub, S3 Gallop, S4 Gallop, click, other - Peripheral edema leg Peripheral Edema: bilateral: None - Gastrointestinal General gastrointestinal: Present: distended, hepatomegaly, soft - Neurologic Neurologic: Present: CNII-XII intact - Musculoskeletal Musculoskeletal: Present: strength equal bilaterally - Psychiatric Psychiatric: Present: A&O x's 3, appropriate affect, intact judgment & insight - Labs CBC & Chem 7: 01/18/21 07:03 01/17/21 12:37 Labs: Abnormal Lab Results - Last 24 Hours (Table) 01/16/21 01/18/21 Range/Units 12:50 07:03 RBC 2.74 L (4.30-5.90) m/uL Hgb 6.3 L* (13.0-17.5) gm/dL Hct 21.4 L (39.0-53.0) % MCV 78.1 L (80.0-100.0) fL MCH 22.8 L (25.0-35.0) pg MCHC 29.2 L (31.0-37.0) g/dL RDW 20.0 H (11.5-15.5) % Crossmatch See Detail Assessment and Plan (1) Hepatomegaly Current Visit: Yes Status: Acute Priority: High Code(s): R16.0 - HEPATOMEGALY, NOT ELSEWHERE CLASSIFIED SNOMED Code(s): 74168954 (2) Liver lesion Current Visit: Yes Status: Acute Priority: High Code(s): K76.9 - LIVER DISEASE, UNSPECIFIED SNOMED Code(s): 347017231 (3) Anemia Narrative/Plan: Requested anemia work up on blood collected at admit, pre-transfusion, still pending. 1 unit of blood transfused today for hemoglobin of 6.3. CBC in a.m., transfuse for Hgb < 7 Current Visit: Yes Status: Acute Priority: High Code(s): D64.9 - ANEMIA, UNSPECIFIED SNOMED Code(s): 544229354 (4) Failure to thrive in adult Current Visit: Yes Status: Acute Priority: High Code(s): R62.7 - ADULT FAILURE TO THRIVE SNOMED Code(s): 971316403 Plan: Referring to failure to thrive, hempatomegaly and liver lesions-highly suspicious for malignancy. Surgery consulted for upper and lower endoscopy as pt has never had. Procedure today. F/U as results become available
[2021-01-18 16:38] LABS: % Iron Saturation 3.72 (15.00-50.00)
[2021-01-18 17:50] LABS: Anisocytosis Slight; HCT 22.8 % (39.0-53.0); HGB 7.1 gm/dL (13.0-17.5); Hypochromasia Marked; MCHC 31.2 g/dL (31.0-37.0); MCV 76.8 fL (80.0-100.0); Mean Platelet Volume 7.2; Microcytosis Moderate; Platelet Count 203 k/uL (150-450); Poikilocytosis Moderate; RBC 2.96 m/uL (4.30-5.90); RDW 19.9 % (11.5-15.5); WBC 6.6 k/uL (3.8-10.6)
[2021-01-18 18:11] LABS: Ferritin 434.9 ng/mL (22.0-322.0)
--- NOTE | 2021-01-18 18:58 | CT ---
EXAMINATION TYPE: CT brain wo con DATE OF EXAM: 01/18/2021 COMPARISON: None HISTORY: History of esophageal cancer. Possible mets. CT DLP: 1080.4 mGycm Automated exposure control for dose reduction was used. Ventricles entricles of normal size. There is no mass effect nor midline shift. There is no sign of intracranial hemorrhage. The calvarium is intact. There is moderate symmetric anterior thalamic calci fication. Skull base is intact. IMPRESSION: Symmetric thalamic calcification. No acute intracranial abnormality.
[2021-01-18 20:36] LABS: ALT 28 U/L (4-49); AST 133 U/L (17-59); African American GFR (CKD) >90 (>60 ml/min/1.73 sqM); Albumin 2.4 g/dL (3.5-5.0); Alkaline Phosphatase 374 U/L (38-126); Anion Gap 5 mmol/L; Blood Urea Nitrogen 10 mg/dL (9-20); Calcium 7.8 mg/dL (8.4-10.2); Carbon Dioxide 21 mmol/L (22-30); Chloride 103 mmol/L (98-107); Glucose 93 mg/dL (74-99); Non-African American GFR(CKD) >90 (>60 ml/min/1.73 sqM); Potassium 4.5 mmol/L (3.5-5.1); Sodium 129 mmol/L (137-145); Total Bilirubin 1.4 mg/dL (0.2-1.3); Total Protein 5.3 g/dL (6.3-8.2)
--- NOTE | 2021-01-18 21:05 | PN ---
PROGRESS NOTE DATE OF SERVICE: 01/18/2021 This 60-year-old gentleman who was admitted with severe symptomatic anemia had a periodic drop in hemoglobin. The patient has been transfused at least 5 units at this time. The patient underwent EGD by Dr. Barragan. The CT scan showed multiple metastases in the liver and possibly in the lower part of the lung also. The EGD showed a lower third esophageal mass, which was biopsied. The mass was found to be friable and having bleeding. The biopsy reports are pending at this time. No chest pain. No palpitations. No fever. PHYSICAL EXAMINATION: Alert and oriented x3.. Pulse 70, blood pressure is 105/68, respirations 16, temperature 99.2, pulse ox 100% on room air. HEENT: Conjunctivae pale. NECK: No jugular venous distention. CARDIOVASCULAR: S1, S2 muffled. RESPIRATION: Breath sounds diminished at the bases. A few rhonchi. No crackles. ABDOMEN: Soft. Hepatomegaly present. NERVOUS SYSTEM: No focal deficit. LABS: WBC 6.6, hemoglobin 7.1. ASSESSMENT: 1. Severe symptomatic anemia, microcytic, possibly secondary to gastrointestinal blood loss anemia, status post blood transfusions. 2. Status post EGD and possible esophageal tumor and malignancy with multiple metastatic lesions in the liver and possibly in the lungs. 3. Microcytosis. 4. Hyponatremia. 5. Mild hypercalcemia. 6. Elevated ALT possibly secondary to liver metastases. 7. Elevated alkaline phosphatase. 8. Hypoalbuminemia with mild protein-calorie malnutrition. 9. Low TSH with normal free T4, possibly sick euthyroid syndrome. 10.History of weight loss. 11.Mild protein-calorie malnutrition with body mass index of 19.8. 12.FULL CODE. RECOMMENDATIONS AND DISCUSSION: I recommend to continue current medications, continue with symptomatic treatment. Follow closely with Hematology/Oncology and Surgery. One more unit of transfusion for symptomatic anemia. Otherwise, prognosis guarded. I would also recommend a bone scan. Guarded prognosis because of multiple complex medical issues. Further recommendations to follow. MMODL / IJN: [id number] /
[2021-01-19] MEDS: SODIUM CHLORIDE 0.9% 1,000 ML IV SCH ×2 (00:27→22:35)
[2021-01-19 08:01] LABS: Anisocytosis Moderate; Basophils % (A) 0 %; Eosinophils % (A) 1 %; HCT 21.8 % (39.0-53.0); HGB 7.1 gm/dL (13.0-17.5); Hypochromasia Marked; Lymphocytes # (A) 1.1 k/uL (1.0-4.8); Lymphocytes % (A) 16 %; MCH 24.9 pg (25.0-35.0); MCHC 32.3 g/dL (31.0-37.0); MCV 77.2 fL (80.0-100.0); Mean Platelet Volume 7.2; Microcytosis Moderate; Monocytes # (A) 0.3 k/uL (0-1.0); Monocytes % (A) 5 %; Neutrophils # (A) 4.9 k/uL (1.3-7.7); Neutrophils % (A) 75 %; Platelet Count 202 k/uL (150-450); Poikilocytosis Moderate; RBC 2.83 m/uL (4.30-5.90); RDW 20.4 % (11.5-15.5); WBC 6.5 k/uL (3.8-10.6)
[2021-01-19] MEDS: NICOTINE 14MG/24HR PATCH TRANSDERM SCH (08:17)
[2021-01-19] MEDS: PANTOPRAZOLE 40 MG/10 ML VIAL IV SCH (08:17)
--- NOTE | 2021-01-19 12:23 | NM ---
EXAMINATION TYPE: NM bone scan whole body DATE OF EXAM: 01/19/2021 COMPARISON: CT brain 01/18/2021, CT chest abdomen pelvis 01/16/2021 HISTORY: Anemia, esophageal carcinoma, evaluate for metastasis Delayed whole-body scanning was performed following the injection of 22.3 mCi Tc 99m MDP. Images acq uired 3 hours post injection. FINDINGS: Soft tissue uptake shows some prominence along anterior abdomen possibly related to patient's hepatom egaly and liver masses. No abnormal uptake to suggest metastatic disease to the skeleton. Uptake with in the knees, ankles, shoulders, wrists, sternoclavicular joints is likely degenerative. IMPRESSION: No evident bone metastasis. Suspicious liver lesions.
[2021-01-19] MEDS: FOLIC ACID 1 MG TAB PO SCH (12:26)
[2021-01-19] MEDS: MULTIVITAMINS, THERA 1 EACH TAB PO SCH (12:26)
[2021-01-19] MEDS: THIAMINE 100 MG TAB PO SCH (12:26)
[2021-01-19] MEDS ORDERED: FUROSEMIDE 10 MG/ML 2 ML VIAL IV ONE (12:30)
--- NOTE | 2021-01-19 13:50 | P.PN ---
Subjective Progress Note Date: 01/19/21 CHIEF COMPLAINT: Anemia HISTORY OF PRESENT ILLNESS: Patient is status post EGD and colonoscopy results showing an esophageal mass and internal and external hemorrhoids. Patient is currently tolerating regular diet he denies any difficulty swallowing. He is followed by oncology they've ordered a bone scan study for today. Afebrile. Mildly tachycardic. WBC 6.5 hgb 7.1 platelets 22 patient did require blood transfusion yesterday. PHYSICAL EXAM: VITAL SIGNS: Reviewed. GENERAL: Well-developed in no acute distress. HEENT: No sclera icterus. Extraocular movements grossly intact. Moist buccal mucosa. Head is atraumatic, normocephalic. ABDOMEN: Soft. Nondistended. Nontender. NEUROLOGIC: Alert and oriented. Cranial nerves II through XII grossly intact. ASSESSMENT: 1. Esophageal mass likely contributing to patient's anemia PLAN: -Continue regular diet -Patient scheduled for Port-A-Cath placement with Dr. Barragan on 01/24/2021 Outpatient Physician Director Career note has been reviewed by physician. Signing provider agrees with the documented findings, assessment, and plan of care. Objective - Vital Signs Vital signs: Vital Signs Temp 98.6 F 01/19/21 13:42 Pulse 103 H 01/19/21 13:42 Resp 17 01/19/21 13:42 BP 99/60 01/19/21 13:42 Pulse Ox 97 01/19/21 13:42 Intake & Output 01/18/21 01/19/21 01/19/21 18:59 06:59 18:59 Intake Total 490 273 0 Output Total 200 Balance 490 73 0 Weight 60.7 kg Intake: Oral 180 Blood Product 310 273 0 Rc As-1 Unit 310 [id number] Rc Pheresis 2 As3 Unit 0 [id number] Rc Pheresis As-3 Unit 273 [id number] Output: Urine 200 Other: Voiding Method Toilet # Voids 1 1 - Labs CBC & Chem 7: 01/19/21 07:18 01/18/21 17:11 Labs: Abnormal Lab Results - Last 24 Hours (Table) 01/16/21 01/16/21 01/18/21 Range/Units 10:06 12:50 17:11 RBC 2.96 L (4.30-5.90) m/uL Hgb 7.1 L (13.0-17.5) gm/dL Hct 22.8 L (39.0-53.0) % MCV 76.8 L (80.0-100.0) fL MCH 24.0 L (25.0-35.0) pg RDW 19.9 H (11.5-15.5) % Sodium (137-145) mmol/L Carbon Dioxide (22-30) mmol/L Creatinine (0.66-1.25) mg/dL Calcium (8.4-10.2) mg/dL Iron 10 L (65-175) ug/dL % Saturation 3.72 L (15.00-50.00) Ferritin 434.9 H (22.0-322.0) ng/mL Total Bilirubin (0.2-1.3) mg/dL AST (17-59) U/L Alkaline Phosphatase (38-126) U/L Total Protein (6.3-8.2) g/dL Albumin (3.5-5.0) g/dL Crossmatch See Detail 01/18/21 01/19/21 Range/Units 17:11 07:18 RBC 2.83 L (4.30-5.90) m/uL Hgb 7.1 L (13.0-17.5) gm/dL Hct 21.8 L (39.0-53.0) % MCV 77.2 L (80.0-100.0) fL MCH 24.9 L (25.0-35.0) pg RDW 20.4 H (11.5-15.5) % Sodium 129 L (137-145) mmol/L Carbon Dioxide 21 L (22-30) mmol/L Creatinine 0.58 L (0.66-1.25) mg/dL Calcium 7.8 L (8.4-10.2) mg/dL Iron (65-175) ug/dL % Saturation (15.00-50.00) Ferritin (22.0-322.0) ng/mL Total Bilirubin 1.4 H (0.2-1.3) mg/dL AST 133 H (17-59) U/L Alkaline Phosphatase 374 H (38-126) U/L Total Protein 5.3 L (6.3-8.2) g/dL Albumin 2.4 L (3.5-5.0) g/dL Crossmatch
--- NOTE | 2021-01-19 14:17 | P.PN ---
Subjective Progress Note Date: 01/19/21 Principal diagnosis: Microcytic, hypochromic anemia, hepatomegaly with multiple lesions, esophageal mass In follow-up today patient has had EGD and colonoscopy, we discussed results and what is most likely going on. He continues to report that he has not had hematemesis, persistent black or bloody stool. In retrospect he thinks he started having dysphagia about 3-4 mo ago. If he takes small bites and chews really well he had no dysphagia or odynophagia. His Hgb is stable despite 2 units of PRBCs yesterday. He denies any other acute symptoms, he is not in any pain Objective - Vital Signs Vital signs: Vital Signs Temp 98.6 F 01/19/21 13:42 Pulse 103 H 01/19/21 13:42 Resp 17 01/19/21 13:42 BP 99/60 01/19/21 13:42 Pulse Ox 97 01/19/21 13:42 Intake & Output 01/18/21 01/19/21 01/19/21 18:59 06:59 18:59 Intake Total 490 273 0 Output Total 200 Balance 490 73 0 Weight 60.7 kg Intake: Oral 180 Blood Product 310 273 0 Rc As-1 Unit 310 [id number] Rc Pheresis 2 As3 Unit 0 [id number] Rc Pheresis As-3 Unit 273 [id number] Output: Urine 200 Other: Voiding Method Toilet # Voids 1 1 - Constitutional General appearance: Present: cooperative, no acute distress, thin - EENT Eyes: Present: anicteric sclerae, EOMI ENT: Present: hearing grossly normal - Respiratory Respiratory: bilateral: CTA - Cardiovascular Heart sounds: normal: S1, S2 Abnormal Heart Sounds: Absent: systolic murmur, diastolic murmur, rub, S3 Gallop, S4 Gallop, click, other - Peripheral edema leg Peripheral Edema: bilateral: None - Gastrointestinal General gastrointestinal: Present: distended, normal bowel sounds, soft - Integumentary Integumentary Comment(s): costa/bronzed skin color - Neurologic Neurologic: Present: CNII-XII intact - Musculoskeletal Musculoskeletal: Present: strength equal bilaterally - Psychiatric Psychiatric: Present: A&O x's 3, appropriate affect, intact judgment & insight - Labs CBC & Chem 7: 01/19/21 07:18 01/18/21 17:11 Labs: Abnormal Lab Results - Last 24 Hours (Table) 01/16/21 01/16/21 01/18/21 Range/Units 10:06 12:50 17:11 RBC 2.96 L (4.30-5.90) m/uL Hgb 7.1 L (13.0-17.5) gm/dL Hct 22.8 L (39.0-53.0) % MCV 76.8 L (80.0-100.0) fL MCH 24.0 L (25.0-35.0) pg RDW 19.9 H (11.5-15.5) % Sodium (137-145) mmol/L Carbon Dioxide (22-30) mmol/L Creatinine (0.66-1.25) mg/dL Calcium (8.4-10.2) mg/dL Iron 10 L (65-175) ug/dL % Saturation 3.72 L (15.00-50.00) Ferritin 434.9 H (22.0-322.0) ng/mL Total Bilirubin (0.2-1.3) mg/dL AST (17-59) U/L Alkaline Phosphatase (38-126) U/L Total Protein (6.3-8.2) g/dL Albumin (3.5-5.0) g/dL Crossmatch See Detail 01/18/21 01/19/21 Range/Units 17:11 07:18 RBC 2.83 L (4.30-5.90) m/uL Hgb 7.1 L (13.0-17.5) gm/dL Hct 21.8 L (39.0-53.0) % MCV 77.2 L (80.0-100.0) fL MCH 24.9 L (25.0-35.0) pg RDW 20.4 H (11.5-15.5) % Sodium 129 L (137-145) mmol/L Carbon Dioxide 21 L (22-30) mmol/L Creatinine 0.58 L (0.66-1.25) mg/dL Calcium 7.8 L (8.4-10.2) mg/dL Iron (65-175) ug/dL % Saturation (15.00-50.00) Ferritin (22.0-322.0) ng/mL Total Bilirubin 1.4 H (0.2-1.3) mg/dL AST 133 H (17-59) U/L Alkaline Phosphatase 374 H (38-126) U/L Total Protein 5.3 L (6.3-8.2) g/dL Albumin 2.4 L (3.5-5.0) g/dL Crossmatch - Imaging and Cardiology CT Scan - head: report reviewed (without contrast, no mets seen) Assessment and Plan (1) Hepatomegaly Current Visit: Yes Status: Acute Priority: High Code(s): R16.0 - HEPATOMEGALY, NOT ELSEWHERE CLASSIFIED SNOMED Code(s): 50938549 (2) Liver lesion Current Visit: Yes Status: Acute Priority: High Code(s): K76.9 - LIVER DISEASE, UNSPECIFIED SNOMED Code(s): 721938231 (3) Anemia Narrative/Plan: Requested anemia work up on blood collected at admit, low iron but elevated ferritin-anemia of inflammation. Pt had Hgb of 5 on admit, he is s/p 5 units of PRBCs with Hgb of 7.1 (2 units yesterday for Hgb of 7.1, no change). Cont to transfuse for Hgb <7. Rad Onc consulted for evaluation of short course of radiation for bleeding. Await their review of case and recommendations. Discussed with pt the role of Rad Onc to palliate bleeding. We discussed the need to monitor Hgb closely so he can be transfused PRN for Hgb <7. Current Visit: Yes Status: Acute Priority: High Code(s): D64.9 - ANEMIA, UNSPECIFIED SNOMED Code(s): 601336206 (4) Failure to thrive in adult Current Visit: Yes Status: Acute Priority: High Code(s): R62.7 - ADULT FAILURE TO THRIVE SNOMED Code(s): 509772851 Plan: Referring to failure to thrive, hempatomegaly and liver lesions-highly suspicious for malignancy. We talked today about what the Surgeon saw on EGD. With his other symptoms, labs and scan findings this is going to unfortunately be cancer. He is interested in treatment. I told him we would go into more details about treatment one we had all the info. I did recommend port placement as most GI malignancy treatments require port access. He was agreeable. Spoke to Surgery PA, plan for placement Saturday. Specimen will be sent for NGS testing F/U with Medical ONc Dr. Costa in 2 weeks Time with Patient: Greater than 30
--- NOTE | 2021-01-19 15:54 | P.CONS ---
History of Present Illness - Reason for Consult Consult date: 01/19/21 Bleeding esophageal cancer - Chief Complaint Bleeding, generalized weakness, and failure to thrive - History of Present Illness 60 years old gentleman admitted to the hospital for generalized weakness. He has lost about 20 pounds his hemoglobin was found to be 5, the patient denies any sign of active bleeding through lower or upper GI. CT of the chest abdomen and pelvis revealed multiple bilateral nodules in the lungs with mediastinal lymph nodes, markedly hepatomegaly occupying nearly the entire right abdomen with local mass effect, the liver has innumerable hypodense lesions consistent with diffuse metastatic disease. Subsequently the patient underwent for endoscopy and it was found he has a mass in the distal esophagus ,the mass is a friable and bleeding. Biopsy of the mass came back positive for malignancy. The patient has at least 6 units of blood transfusion and his hemoglobin in the range of 6-7 platelets a 22. Bone scan was negative for osseous metastasis is disease. CT of the brain revealed no suspicious lesions. At this time, the patient still anemic with low hemoglobin . He has received 6 units of blood transfusion. Review of Systems Constitutional: Reports as per HPI Ears, nose, mouth and throat: Reports as per HPI Cardiovascular: Reports as per HPI Gastrointestinal: Reports as per HPI Genitourinary: Reports as per HPI Musculoskeletal: Reports as per HPI Integumentary: Reports as per HPI Neurological: Reports as per HPI Psychiatric: Reports as per HPI Hematologic/Lymphatic: Reports as per HPI Past Medical History Past Medical History: No Reported History History of Any Multi-Drug Resistant Organisms: None Reported Past Surgical History: No Surgical Hx Reported Past Psychological History: No Psychological Hx Reported Smoking Status: Current every day smoker Past Alcohol Use History: Daily Past Drug Use History: Unable to Obtain - Past Family History Father Family Medical History: Cancer Medications and Allergies Home Medications Medication Instructions Recorded Confirmed Type No Known Home Medications 01/16/21 01/16/21 History Allergies Allergy/AdvReac Type Severity Reaction Status Date / Time Penicillins Allergy Rash/Hives Verified 01/16/21 10:23 Physical Exam Vitals: Vital Signs Temp Pulse Pulse Pulse Resp BP BP 01/19/21 14:12 99.4 F 101 H 17 100/65 01/19/21 13:42 98.6 F 103 H 17 99/60 01/19/21 13:32 98.8 F 105 H 17 97/63 01/19/21 12:00 115 H 16 95/64 01/19/21 08:20 98 F 106 H 16 104/67 01/19/21 04:00 98 F 101 H 18 96/60 01/19/21 02:00 110 H 20 01/18/21 23:22 98.4 F 110 H 17 103/66 01/18/21 21:20 99.1 F 107 H 17 110/64 01/18/21 21:07 99.1 F 01/18/21 20:00 67 17 01/18/21 19:53 99.5 F 67 17 105/68 01/18/21 19:47 99.5 F 67 17 105/68 01/18/21 19:17 98.9 F 112 H 16 108/69 01/18/21 19:07 98.3 F 113 H 112 H 105/71 01/18/21 16:00 99.2 F 70 16 105/68 Pulse Ox 01/19/21 14:12 100 01/19/21 13:42 97 01/19/21 13:32 01/19/21 12:00 99 01/19/21 08:20 98 01/19/21 04:00 96 01/19/21 02:00 01/18/21 23:22 97 01/18/21 21:20 97 01/18/21 21:07 01/18/21 20:00 01/18/21 19:53 96 01/18/21 19:47 96 01/18/21 19:17 100 01/18/21 19:07 100 01/18/21 16:00 100 Intake and Output 01/19/21 01/19/21 01/19/21 06:59 14:59 22:59 Intake Total 180 Balance 180 Intake: Oral 180 Blood Product 0 Rc Pheresis 2 As3 Unit 0 [id number] Other: Voiding Method Toilet # Voids 1 Weight 60.7 kg - Constitutional General appearance: mild distress, no acute distress, thin - EENT Eyes: PERRLA - Neck Neck: normal ROM - Respiratory Respiratory: bilateral: rhonchi - Cardiovascular Rhythm: regular - Gastrointestinal General gastrointestinal: normal bowel sounds - Integumentary Integumentary: normal turgor, pale - Neurologic Neurologic: CNII-XII intact - Musculoskeletal Musculoskeletal: gait normal - Psychiatric Psychiatric: A&O x's 3, appropriate affect, intact judgment & insight Results CBC & Chem 7: 01/19/21 07:18 01/18/21 17:11 Labs: Abnormal Lab Results - Last 24 Hours (Table) 01/16/21 01/16/21 01/18/21 Range/Units 10:06 12:50 17:11 RBC 2.96 L (4.30-5.90) m/uL Hgb 7.1 L (13.0-17.5) gm/dL Hct 22.8 L (39.0-53.0) % MCV 76.8 L (80.0-100.0) fL MCH 24.0 L (25.0-35.0) pg RDW 19.9 H (11.5-15.5) % Sodium (137-145) mmol/L Carbon Dioxide (22-30) mmol/L Creatinine (0.66-1.25) mg/dL Calcium (8.4-10.2) mg/dL Iron 10 L (65-175) ug/dL % Saturation 3.72 L (15.00-50.00) Ferritin 434.9 H (22.0-322.0) ng/mL Total Bilirubin (0.2-1.3) mg/dL AST (17-59) U/L Alkaline Phosphatase (38-126) U/L Total Protein (6.3-8.2) g/dL Albumin (3.5-5.0) g/dL Crossmatch See Detail 01/18/21 01/19/21 Range/Units 17:11 07:18 RBC 2.83 L (4.30-5.90) m/uL Hgb 7.1 L (13.0-17.5) gm/dL Hct 21.8 L (39.0-53.0) % MCV 77.2 L (80.0-100.0) fL MCH 24.9 L (25.0-35.0) pg RDW 20.4 H (11.5-15.5) % Sodium 129 L (137-145) mmol/L Carbon Dioxide 21 L (22-30) mmol/L Creatinine 0.58 L (0.66-1.25) mg/dL Calcium 7.8 L (8.4-10.2) mg/dL Iron (65-175) ug/dL % Saturation (15.00-50.00) Ferritin (22.0-322.0) ng/mL Total Bilirubin 1.4 H (0.2-1.3) mg/dL AST 133 H (17-59) U/L Alkaline Phosphatase 374 H (38-126) U/L Total Protein 5.3 L (6.3-8.2) g/dL Albumin 2.4 L (3.5-5.0) g/dL Crossmatch Assessment and Plan Assessment: Distal esophageal cancer with metastatic to the liver, likely contributing to uncontrolled bleeding and anemia. (1) Esophageal carcinoma Current Visit: Yes Status: Acute Code(s): C15.9 - MALIGNANT NEOPLASM OF ESOPHAGUS, UNSPECIFIED SNOMED Code(s): 734352479 (2) Anemia Current Visit: Yes Status: Acute Priority: High Code(s): D64.9 - ANEMIA, UNSPECIFIED SNOMED Code(s): 049257432 (3) Failure to thrive in adult Current Visit: Yes Status: Acute Priority: High Code(s): R62.7 - ADULT FAILURE TO THRIVE SNOMED Code(s): 422233591 Plan: Images reviewed , the patient would have a benefit of palliative external radiation therapy to be delivered to the distal esophagus to control upper GI bleeding. I talked to the patient about the rational , the technique, and the potential acute and late side effects of radiation , the patient agreed to proceed. we will do simulation today to start the treatment tomorrow.
--- NOTE | 2021-01-19 20:38 | PN ---
PROGRESS NOTE DATE OF SERVICE: 01/19/2021 This 60-year-old gentleman who was admitted with severe symptomatic anemia also had EGD showing esophageal lesion. The patient was also seen by Radiation Oncology. Palliative radiation is being considered at this time. Hemoglobin is 7.1 at this time. Patient has already received 6 units of RBCs. No chest pain. No palpitations. No fever. PHYSICAL EXAMINATION: Alert and oriented x3. Pulse 102, blood pressure 101/64, respiration 17, temperature 98.2, pulse ox 96% on room air. HEENT: Conjunctivae pale. Oral mucosa moist. NECK: No jugular venous distention. CARDIOVASCULAR: S1, S2 muffled. RESPIRATION: Breath sounds diminished at the bases. ABDOMEN: Soft. Hepatomegaly present. LAB STUDIES: WBC 6.3, hemoglobin 7.1. Sodium 129. The pathology shows adenocarcinoma with high-grade dysplasia. ASSESSMENT: 1. Severe symptomatic anemia, microcytic, possibly secondary to gastrointestinal bleed and esophageal malignancy adenocarcinoma, status post blood transfusions x6. 2. Status post EGD and possible esophageal tumor with malignancy with multiple metastatic lesions in the liver and possibly in the lungs. 3. Microcytosis. 4. Hyponatremia. 5. Mild hypercalcemia. 6. Elevated ALT possibly secondary to liver metastases. 7. Elevated alkaline phosphatase. 8. Hypoalbuminemia with mild protein-calorie malnutrition. 9. Low TSH and normal free T4 with possible sick euthyroid syndrome. 10.History of weight loss. 11.Mild protein-calorie malnutrition with body mass index 19.8. 12.FULL CODE. RECOMMENDATIONS AND DISCUSSION: I recommend to continue current medications, continue with symptomatic treatment. Monitor the patient closely. Repeat labs will be ordered. Palliative radiation. Closely follow with multiple consultants. Prognosis guarded. Discussed with the family at length. Further recommendations to follow. MMODL / IJN: [id number] /
[2021-01-20 06:53] LABS: Anisocytosis Moderate; Basophils % (A) 0 %; Eosinophils # (A) 0.1 k/uL (0-0.7); Eosinophils % (A) 1 %; HCT 22.9 % (39.0-53.0); HGB 7.4 gm/dL (13.0-17.5); Hypochromasia Marked; Lymphocytes # (A) 1.1 k/uL (1.0-4.8); Lymphocytes % (A) 15 %; MCH 25.5 pg (25.0-35.0); MCHC 32.4 g/dL (31.0-37.0); MCV 78.5 fL (80.0-100.0); Mean Platelet Volume 7.4; Microcytosis Moderate; Monocytes # (A) 0.4 k/uL (0-1.0); Monocytes % (A) 5 %; Neutrophils # (A) 5.5 k/uL (1.3-7.7); Neutrophils % (A) 77 %; Platelet Count 214 k/uL (150-450); Poikilocytosis Moderate; RBC 2.92 m/uL (4.30-5.90); RDW 20.6 % (11.5-15.5); WBC 7.2 k/uL (3.8-10.6)
[2021-01-20 07:03] LABS: ALT 26 U/L (4-49); AST 120 U/L (17-59); African American GFR (CKD) >90 (>60 ml/min/1.73 sqM); Albumin 2.2 g/dL (3.5-5.0); Alkaline Phosphatase 372 U/L (38-126); Anion Gap 6 mmol/L; Blood Urea Nitrogen 12 mg/dL (9-20); Calcium 7.9 mg/dL (8.4-10.2); Carbon Dioxide 22 mmol/L (22-30); Chloride 102 mmol/L (98-107); Glucose 93 mg/dL (74-99); Non-African American GFR(CKD) >90 (>60 ml/min/1.73 sqM); Sodium 130 mmol/L (137-145); Total Bilirubin 1.2 mg/dL (0.2-1.3); Total Protein 4.9 g/dL (6.3-8.2)
[2021-01-20] MEDS: NICOTINE 14MG/24HR PATCH TRANSDERM SCH (08:14)
[2021-01-20] MEDS: PANTOPRAZOLE 40 MG/10 ML VIAL IV SCH (08:14)
[2021-01-20] MEDS: MULTIVITAMINS, THERA 1 EACH TAB PO SCH (11:15)
[2021-01-20] MEDS: THIAMINE 100 MG TAB PO SCH (11:15)
[2021-01-20] MEDS: FOLIC ACID 1 MG TAB PO SCH (11:15)
--- NOTE | 2021-01-20 13:31 | P.PN ---
Subjective Progress Note Date: 01/20/21 CHIEF COMPLAINT: Anemia HISTORY OF PRESENT ILLNESS: Patient is status post EGD and colonoscopy results showing an esophageal mass and internal and external hemorrhoids. Patient is currently tolerating regular diet. He denies any difficulty swallowing. Patient's path results for esophageal mass shows superficially invasive adenocarcinoma. Patient is scheduled be started on radiation treatment today. Afebrile. Hemoglobin 7.4 PHYSICAL EXAM: VITAL SIGNS: Reviewed. GENERAL: Well-developed in no acute distress. HEENT: No sclera icterus. Extraocular movements grossly intact. Moist buccal mucosa. Head is atraumatic, normocephalic. ABDOMEN: Soft. Nondistended. Nontender. NEUROLOGIC: Alert and oriented. Cranial nerves II through XII grossly intact. ASSESSMENT: 1. Esophageal mass likely contributing to patient's anemia PLAN: -Continue regular diet -Patient scheduled for Port-A-Cath placement with Dr. Barragan on 01/24/2021 can be done Inpatient or Outpatient Physician Sexual Assault Counsellor note has been reviewed by physician. Signing provider agrees with the documented findings, assessment, and plan of care. Objective - Vital Signs Vital signs: Vital Signs Temp 98.1 F 01/20/21 11:51 Pulse 110 H 01/20/21 11:51 Resp 17 01/20/21 11:51 BP 99/63 01/20/21 11:51 Pulse Ox 98 01/20/21 11:51 Intake & Output 01/19/21 01/20/21 01/20/21 18:59 06:59 18:59 Intake Total 704 520 Balance 704 520 Weight 60.5 kg Intake: Oral 420 520 Blood Product 284 Rc Pheresis 2 As3 Unit 284 [id number] Other: Voiding Method Toilet # Voids 1 1 - Labs CBC & Chem 7: 01/20/21 06:18 01/20/21 06:18 Labs: Abnormal Lab Results - Last 24 Hours (Table) 01/16/21 01/16/21 01/20/21 Range/Units 10:06 12:50 06:18 RBC (4.30-5.90) m/uL Hgb (13.0-17.5) gm/dL Hct (39.0-53.0) % MCV (80.0-100.0) fL RDW (11.5-15.5) % Sodium 130 L (137-145) mmol/L Creatinine 0.56 L (0.66-1.25) mg/dL Calcium 7.9 L (8.4-10.2) mg/dL Iron 10 L (65-175) ug/dL % Saturation 3.72 L (15.00-50.00) Ferritin 434.9 H (22.0-322.0) ng/mL AST 120 H (17-59) U/L Alkaline Phosphatase 372 H (38-126) U/L Total Protein 4.9 L (6.3-8.2) g/dL Albumin 2.2 L (3.5-5.0) g/dL Crossmatch See Detail 01/20/21 Range/Units 06:18 RBC 2.92 L (4.30-5.90) m/uL Hgb 7.4 L (13.0-17.5) gm/dL Hct 22.9 L (39.0-53.0) % MCV 78.5 L (80.0-100.0) fL RDW 20.6 H (11.5-15.5) % Sodium (137-145) mmol/L Creatinine (0.66-1.25) mg/dL Calcium (8.4-10.2) mg/dL Iron (65-175) ug/dL % Saturation (15.00-50.00) Ferritin (22.0-322.0) ng/mL AST (17-59) U/L Alkaline Phosphatase (38-126) U/L Total Protein (6.3-8.2) g/dL Albumin (3.5-5.0) g/dL Crossmatch
--- NOTE | 2021-01-20 15:41 | P.PN ---
Subjective Progress Note Date: 01/20/21 Principal diagnosis: Metastastatic Esophageal Cancer, Iron deficiency and symptomatic blood loss anemia Dr. spencer has spoken with Dr. Hanna regarding palliative radiation to bleeding malignancy. Hemoglobin continues to be monitored, supportive transfusions PRN. Despite multiple transfusions continues to only recover hemoglobin minimally. Additional hemolytic labs today. Objective - Vital Signs Vital signs: Vital Signs Temp 98.1 F 01/20/21 11:51 Pulse 110 H 01/20/21 11:51 Resp 17 01/20/21 11:51 BP 99/63 01/20/21 11:51 Pulse Ox 98 01/20/21 11:51 Intake & Output 01/19/21 01/20/21 01/20/21 18:59 06:59 18:59 Intake Total 704 760 Balance 704 760 Weight 60.5 kg Intake: Oral 420 760 Blood Product 284 Rc Pheresis 2 As3 Unit 284 [id number] Other: Voiding Method Toilet Toilet # Voids 1 1 - Exam - Constitutional General appearance: Present: cooperative, no acute distress, thin - EENT Eyes: Present: anicteric sclerae, EOMI ENT: Present: hearing grossly normal - Respiratory Respiratory: bilateral: CTA - Cardiovascular Heart sounds: normal: S1, S2 Abnormal Heart Sounds: Absent: systolic murmur, diastolic murmur, rub, S3 Gallop, S4 Gallop, click, other - Peripheral edema leg Peripheral Edema: bilateral: None - Gastrointestinal General gastrointestinal: Present: distended, normal bowel sounds, soft - Integumentary Integumentary Comment(s): costa/bronzed skin color - Neurologic Neurologic: Present: CNII-XII intact - Musculoskeletal Musculoskeletal: Present: strength equal bilaterally - Psychiatric Psychiatric: Present: A&O x's 3, appropriate affect, intact judgment & insight - Labs CBC & Chem 7: 01/20/21 06:18 01/20/21 06:18 Labs: Abnormal Lab Results - Last 24 Hours (Table) 01/16/21 01/16/21 01/20/21 Range/Units 10:06 12:50 06:18 RBC (4.30-5.90) m/uL Hgb (13.0-17.5) gm/dL Hct (39.0-53.0) % MCV (80.0-100.0) fL RDW (11.5-15.5) % Sodium 130 L (137-145) mmol/L Creatinine 0.56 L (0.66-1.25) mg/dL Calcium 7.9 L (8.4-10.2) mg/dL Iron 10 L (65-175) ug/dL % Saturation 3.72 L (15.00-50.00) Ferritin 434.9 H (22.0-322.0) ng/mL AST 120 H (17-59) U/L Alkaline Phosphatase 372 H (38-126) U/L Total Protein 4.9 L (6.3-8.2) g/dL Albumin 2.2 L (3.5-5.0) g/dL Crossmatch See Detail 01/20/21 Range/Units 06:18 RBC 2.92 L (4.30-5.90) m/uL Hgb 7.4 L (13.0-17.5) gm/dL Hct 22.9 L (39.0-53.0) % MCV 78.5 L (80.0-100.0) fL RDW 20.6 H (11.5-15.5) % Sodium (137-145) mmol/L Creatinine (0.66-1.25) mg/dL Calcium (8.4-10.2) mg/dL Iron (65-175) ug/dL % Saturation (15.00-50.00) Ferritin (22.0-322.0) ng/mL AST (17-59) U/L Alkaline Phosphatase (38-126) U/L Total Protein (6.3-8.2) g/dL Albumin (3.5-5.0) g/dL Crossmatch Assessment and Plan (1) Esophageal carcinoma Narrative/Plan: - Biopsy has been resulted revealing adenocarcinoma, this is likely a picture of metastatic esophageal carcinoma. - Further molecular testing is planned on pathology for NGS sent through our office Current Visit: Yes Status: Acute Code(s): C15.9 - MALIGNANT NEOPLASM OF ESOPHAGUS, UNSPECIFIED SNOMED Code(s): 957517740 Plan: - Imaging and Cardiology CT Scan - head: report reviewed (without contrast, no mets seen) Assessment and Plan (1) Hepatomegaly Current Visit: Yes Status: Acute Priority: High Code(s): R16.0 - HEPATOMEGALY, NOT ELSEWHERE CLASSIFIED SNOMED Code(s): 76249551 (2) Liver lesion Current Visit: Yes Status: Acute Priority: High Code(s): K76.9 - LIVER DISEASE, UNSPECIFIED SNOMED Code(s): 061717575 (3) Anemia - Minimal response to transfusions: due to ongoing bleeding of malignancy plus/minus additonal contributing factors. Hemolysis labs ordered - Radiation oncology for palliative radiation to stop bleeding - Metastatic to liver - Continue daily CBC, Transfusion support less than 7 Current Visit: Yes Status: Acute Priority: High Code(s): D64.9 - ANEMIA, UNSPECIFIED SNOMED Code(s): 655592732 Failure to thrive in adult Current Visit: Yes Status: Acute Priority: High Code(s): R62.7 - ADULT FAILURE TO THRIVE SNOMED Code(s): 915615760 Time with Patient: Greater than 30
[2021-01-20 16:24] LABS: Anisocytosis Moderate; HCT 23.5 % (39.0-53.0); HGB 7.6 gm/dL (13.0-17.5); Hypochromasia Marked; MCH 25.6 pg (25.0-35.0); MCHC 32.3 g/dL (31.0-37.0); MCV 79.3 fL (80.0-100.0); Mean Platelet Volume 7.9; Microcytosis Slight; Platelet Count 216 k/uL (150-450); Poikilocytosis Moderate; RBC 2.96 m/uL (4.30-5.90); RDW 20.6 % (11.5-15.5); WBC 7.5 k/uL (3.8-10.6)
[2021-01-20 17:18] LABS: Reticulocyte % 3.6 % (0.5-2.0)
--- NOTE | 2021-01-20 18:21 | PN ---
PROGRESS NOTE DATE OF SERVICE: 01/20/2021. HISTORY: This 60-year-old gentleman who was admitted with severe symptomatic anemia was found to have possible adenocarcinoma with METS. The patient already required 6 transfusions. Patient is undergoing palliative radiation for 10 courses and port was being planned on to be placed on Saturday. No chest pain. No palpitations. No fever. EXAM: Alert, oriented x3. Pulse 110, blood pressure 99/60, respirations 17, temperature 98.1, pulse ox 98 percent room air. S1, S2 muffled. Respiratory system breath sounds diminished at the bases, a few scattered rhonchi. Abdomen soft. Nervous system no focal deficits. LABS: WBC 7.2, hemoglobin 7.4, sodium 130. ASSESSMENT: 1. Esophageal adenocarcinoma with diffuse metastasis in the liver and lungs, possibly, with acute blood loss anemia status post blood transfusion x6. 2. Status post EGD and biopsy. 3. Status post radiation. 4. Local radiation for malignancy. 5. Microcytosis. 6. Hyponatremia. 7. Mild hypercalcemia. 8. Elevated ALT possibly secondary to liver mets. 9. Elevated alkaline phosphatase. 10.Hypoalbuminemia mild protein calorie malnutrition. 11.Low TSH and normal free T4, possible euthyroid. 12.History of weight loss. 13.Mild protein calorie malnutrition with body mass index 19.8. 14.Full code. RECOMMENDATIONS: Continue current medical management and symptomatic treatment. Otherwise at this time we will monitor the hemoglobin closely, if the hemoglobin falls less than 7 we will recommend transfusion. Closely monitor. Continue the rest of medications. Proton pump inhibitors. Further recommendations to follow. MMODL / IJN: [id number] /
[2021-01-20] MEDS: DOCUSATE 100 MG CAP PO SCH (21:44)
[2021-01-21] MEDS: PANTOPRAZOLE 40 MG/10 ML VIAL IV SCH (09:38)
[2021-01-21] MEDS: NICOTINE 14MG/24HR PATCH TRANSDERM SCH (09:38)
[2021-01-21] MEDS: DOCUSATE 100 MG CAP PO SCH ×2 (09:38→20:05)
[2021-01-21 09:57] LABS: Anisocytosis Moderate; Basophils % (A) 0 %; Eosinophils % (A) 0 %; HGB 7.5 gm/dL (13.0-17.5); Hypochromasia Marked; Lymphocytes # (A) 0.6 k/uL (1.0-4.8); Lymphocytes % (A) 9 %; MCH 25.6 pg (25.0-35.0); MCHC 32.5 g/dL (31.0-37.0); MCV 78.9 fL (80.0-100.0); Mean Platelet Volume 7.3; Microcytosis Moderate; Monocytes # (A) 0.2 k/uL (0-1.0); Monocytes % (A) 3 %; Neutrophils # (A) 5.9 k/uL (1.3-7.7); Neutrophils % (A) 87 %; Platelet Count 233 k/uL (150-450); Poikilocytosis Moderate; RBC 2.92 m/uL (4.30-5.90); WBC 6.8 k/uL (3.8-10.6)
[2021-01-21 10:13] LABS: ALT 29 U/L (4-49); AST 158 U/L (17-59); African American GFR (CKD) >90 (>60 ml/min/1.73 sqM); Albumin 2.4 g/dL (3.5-5.0); Alkaline Phosphatase 401 U/L (38-126); Anion Gap 9 mmol/L; Blood Urea Nitrogen 12 mg/dL (9-20); Calcium 7.8 mg/dL (8.4-10.2); Carbon Dioxide 19 mmol/L (22-30); Chloride 102 mmol/L (98-107); Glucose 154 mg/dL (74-99); Magnesium 1.9 mg/dL (1.6-2.3); Non-African American GFR(CKD) >90 (>60 ml/min/1.73 sqM); Potassium 3.9 mmol/L (3.5-5.1); Sodium 130 mmol/L (137-145); Total Protein 5.2 g/dL (6.3-8.2)
[2021-01-21] MEDS: MULTIVITAMINS, THERA 1 EACH TAB PO SCH (12:47)
[2021-01-21] MEDS: FOLIC ACID 1 MG TAB PO SCH (12:47)
--- NOTE | 2021-01-21 12:48 | P.PN ---
Subjective Progress Note Date: 01/21/21 CHIEF COMPLAINT: Esophageal mass HISTORY OF PRESENT ILLNESS: The patient is a 60-year-old male with dysphagia due to esophageal mass. He reports intolerance of regular diet as it is difficult to digest. He did receive radiation therapy for his esophageal mass. ROS: No fevers or chills. No new chest pain. No productive sputum PHYSICAL EXAM: VITAL SIGNS: Reviewed CONSTITUTIONAL: Well developed and in no acute distress. EYES: Conjuctivae without sclera icterus. Extraocular movements grossly intact. HEAD, EARS, NOSE, THROAT: Moist buccal mucosa. Head is atraumatic, normocephalic. Hears conversational speech. No nasal drainage. NECK: No gross thyroidomegaly. RESPIRATORY: Non-labored respirations and equal bilateral excursions. CARDIOVASCULAR: Palpable 2+ radial pulses. ABDOMEN: No peritonitis. MUSCULOSKELETAL: No gross deformity of the lower extremities noted. No clubbi ng. No cyanosis. SKIN: Good skin turgor. Well perfused. NEUROLOGIC: Cranial nerves II through XII grossly intact. No focal or lateralizing signs. PSYCH: Appropriate affect. Alert and oriented to person, place and time. CLINICAL LABS: White blood cell count normal at 6.8. Hemoglobin with anemia at 7.5. Sodium low 130. ASSESSMENT: 1. Esophageal malignancy 2. Anemia 3. Hyponatremia PLAN: 1. Correction of hyponatremia 2. Oncology following for new esophageal malignancy 3. Will adjust diet to dysphagia due to partial esophageal obstruction. Objective - Vital Signs Vital signs: Vital Signs Temp 98 F 01/21/21 09:35 Pulse 115 H 01/21/21 09:35 Resp 18 01/21/21 09:35 BP 100/66 01/21/21 09:35 Pulse Ox 98 01/21/21 09:35 Intake & Output 01/20/21 01/21/21 01/21/21 18:59 06:59 18:59 Intake Total 1000 Balance 1000 Weight 61.9 kg Intake: Oral 1000 Other: Voiding Method Toilet Toilet # Voids 2 1 - Labs CBC & Chem 7: 01/21/21 09:27 01/21/21 09:27 Labs: Abnormal Lab Results - Last 24 Hours (Table) 01/20/21 01/20/21 01/20/21 Range/Units 16:04 16:04 16:04 RBC 2.96 L (4.30-5.90) m/uL Hgb 7.6 L (13.0-17.5) gm/dL Hct 23.5 L (39.0-53.0) % MCV 79.3 L (80.0-100.0) fL RDW 20.6 H (11.5-15.5) % Lymphocytes # (1.0-4.8) k/uL Retic Count 3.6 H (0.5-2.0) % Sodium (137-145) mmol/L Carbon Dioxide (22-30) mmol/L Creatinine (0.66-1.25) mg/dL Glucose (74-99) mg/dL Calcium (8.4-10.2) mg/dL AST (17-59) U/L Alkaline Phosphatase (38-126) U/L Lactate Dehydrogenase 6150 H (313-618) U/L Total Protein (6.3-8.2) g/dL Albumin (3.5-5.0) g/dL 01/21/21 01/21/21 Range/Units 09:27 09:27 RBC 2.92 L (4.30-5.90) m/uL Hgb 7.5 L (13.0-17.5) gm/dL Hct 23.0 L (39.0-53.0) % MCV 78.9 L (80.0-100.0) fL RDW 21.0 H (11.5-15.5) % Lymphocytes # 0.6 L (1.0-4.8) k/uL Retic Count (0.5-2.0) % Sodium 130 L (137-145) mmol/L Carbon Dioxide 19 L (22-30) mmol/L Creatinine 0.51 L (0.66-1.25) mg/dL Glucose 154 H (74-99) mg/dL Calcium 7.8 L (8.4-10.2) mg/dL AST 158 H (17-59) U/L Alkaline Phosphatase 401 H (38-126) U/L Lactate Dehydrogenase (313-618) U/L Total Protein 5.2 L (6.3-8.2) g/dL Albumin 2.4 L (3.5-5.0) g/dL Assessment and Plan (1) Overdose-radiation in therapy Current Visit: Yes Status: Acute Code(s): Y63.2 - OVERDOSE OF RADIATION GIVEN DURING THERAPY SNOMED Code(s): 866244804 (2) Dysphagia Current Visit: Yes Status: Acute Code(s): R13.10 - DYSPHAGIA, UNSPECIFIED SNOMED Code(s): 96177796 (3) Esophageal carcinoma Current Visit: Yes Status: Acute Code(s): C15.9 - MALIGNANT NEOPLASM OF ESOPHAGUS, UNSPECIFIED SNOMED Code(s): 346034593 (4) Failure to thrive in adult Current Visit: Yes Status: Acute Priority: High Code(s): R62.7 - ADULT FAILURE TO THRIVE SNOMED Code(s): 166172847 (5) Hepatomegaly Current Visit: Yes Status: Acute Priority: High Code(s): R16.0 - HEPATOMEGALY, NOT ELSEWHERE CLASSIFIED SNOMED Code(s): 19677010
[2021-01-21] MEDS: THIAMINE 100 MG TAB PO SCH (12:53)
[2021-01-21] MEDS ORDERED: FUROSEMIDE 10 MG/ML 2 ML VIAL IV ONE (14:08)
--- NOTE | 2021-01-21 15:55 | DS ---
DISCHARGE SUMMARY DATE OF SERVICE: 01/21/2021 FINAL DIAGNOSES: 1. 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 2. Status post EGD and biopsy. 3. Status post radiation, local radiation for malignancy. 4. Microcytosis. 5. Hyponatremia. 6. Mild hypercalcemia. 7. Elevated ALT, possibly secondary to liver METS. 8. Elevated alkaline phosphatase. 9. Hypoalbuminemia with mild protein calorie malnutrition. 10.Low TSH and normal free T4 possibly sick euthyroid syndrome. 11.History of weight loss. 12.Mild protein calorie malnutrition, BMI of 19.8. 13.FULL CODE. DISCHARGE DISPOSITION: The patient being discharged in stable condition with guarded prognosis. Total time taken is 35 minutes. HISTORY OF PRESENT ILLNESS: This 60-year-old gentleman with a past medical history of multiple medical problems as mentioned earlier, admitted with severe symptomatic anemia. The patient's hemoglobin on presentation was 5. Patient was transfused multiply. The patient received so far 7 units of transfusion. Evaluation revealed possibly carcinoma. Biopsy came back positive as adenocarcinoma. The case was seen by Dr. Costa, Dr. Barragan and as well as Radiation Oncology and surgery. Currently the patient's hemoglobin 7.5. One unit transfusion being arranged. The patient also has some hemorrhoidal bleeding. Overall patient is stable but the patient is discharged in stable condition with guarded prognosis. On exam, vitals are stable. Cardiovascular: S1, S2. Abdomen soft. Distended liver. Hepatomegaly present. Legs: Minimal edema. Nervous system: No focal deficits. DISCHARGE MEDICATIONS AND INSTRUCTIONS: 1. Diet is cardiac. 2. Activity limited until followup. 3. Follow up with Dr. Cheney in 2-3 days. 4. Follow up with Dr. Costa and Dr. Barragan and Radiation Oncology as mentioned earlier. 5. Colace 100 mg p.o. b.i.d. 6. Habitrol 14 daily. 7. [place] 5 mg q.6 p.r.n. 8. Protonix 40 mg. 9. Tylenol p.r.n. 10.Anusol hydrocortisone twice daily. MMODL / IJN: [id number] / MTDD
[2021-01-21 18:50] VITALS: PULSE 113; RESP 18
[2021-01-21 21:09] VITALS: BP 94/60; TEMP 98.8
== END 2021-01-21 21:15 | disposition home or self-care (01) | DRG 375 ==
LOC: EC 08:51 → 3SCARD 12:14
PROVIDERS: ADMIT Hospitalist; ATTEND Hospitalist
PROC: 0DB38ZX Excision of Lower Esophagus, Via Natural or Artificial Opening Endoscopic, Diagnostic (ICD-10-PCS; principal; 2021-01-18 12:30)
PROC: 0DJD8ZZ Inspection of Lower Intestinal Tract, Via Natural or Artificial Opening Endoscopic (ICD-10-PCS; 2021-01-18 12:30)
PROC: DD001ZZ Beam Radiation of Esophagus using Photons 1 - 10 MeV (ICD-10-PCS; 2021-01-20)
DX: C15.5 Malignant neoplasm of lower third of esophagus (principal); Q43.8 Other specified congenital malformations of intestine; C78.00 Secondary malignant neoplasm of unspecified lung; C78.7 Secondary malignant neoplasm of liver and intrahepatic bile duct; E44.1 Mild protein-calorie malnutrition; E87.1 Hypo-osmolality and hyponatremia; Z68.1 Body mass index [BMI] 19.9 or less, adult; K64.4 Residual hemorrhoidal skin tags; K64.8 Other hemorrhoids; D50.0 Iron deficiency anemia secondary to blood loss (chronic); D64.89 Other specified anemias; E83.51 Hypocalcemia; E83.52 Hypercalcemia; F17.200 Nicotine dependence, unspecified, uncomplicated; Z20.822 Contact with and (suspected) exposure to COVID-19; Z80.3 Family history of malignant neoplasm of breast; Z92.3 Personal history of irradiation; R62.7 Adult failure to thrive
CPT/HCPCS: 43239; 45378; 70450; 71046; 71260; 74018; 74177; 77280; 77290; 77295; 77300; 77334; 77412; 78306; 80053; 80074; 80306; 81003; 82150; 82550; 82607; 82728; 82747; 83010; 83540; 83550; 83605; 83615; 83735; 83921; 84439; 84443; 84484; 85025; 85027; 85045; 85610; 85730; 86850; 86900; 86901; 86920; 87635; 88305; 88342; 93005; 99285

== ENCOUNTER 2021-01-24 09:16 | Day surgery (SDC) | payer MEDICARE, OTHER ==
[2021-01-24] MEDS ORDERED: LACTATED RINGERS 1,000 ML IV ONE (10:26)
[2021-01-24] MEDS ORDERED: LIDOCAINE 1% (10MG/ML) FOR IV START INTRADERMA ONE (10:27)
[2021-01-24] MEDS ORDERED: ONDANSETRON 4 MG/2 ML VIAL ONE (10:28)
[2021-01-24] MEDS ORDERED: ONDANSETRON 4 MG/2 ML VIAL IVP ONE (10:30)
[2021-01-24] MEDS ORDERED: DEXAMETHASONE SOD PHOSPHATE 4 MG/ML 1 ML VIAL IVP ONE (10:30)
[2021-01-24 10:35] LABS: Anisocytosis Moderate; Basophils % (A) 0 %; Eosinophils % (A) 0 %; HCT 24.1 % (39.0-53.0); HGB 7.9 gm/dL (13.0-17.5); Hypochromasia Moderate; Lymphocytes # (A) 0.8 k/uL (1.0-4.8); Lymphocytes % (A) 8 %; MCHC 32.6 g/dL (31.0-37.0); MCV 79.7 fL (80.0-100.0); Mean Platelet Volume 7.5; Microcytosis Moderate; Monocytes # (A) 0.4 k/uL (0-1.0); Monocytes % (A) 4 %; Neutrophils # (A) 7.7 k/uL (1.3-7.7); Neutrophils % (A) 85 %; Platelet Count 244 k/uL (150-450); Poikilocytosis Slight; RBC 3.03 m/uL (4.30-5.90)
--- NOTE | 2021-01-24 11:31 | P.GSHP ---
History of Present Illness H&P Date: 01/24/21 Chief Complaint: Esophageal cancer This is a 60-year-old male previously diagnosed esophageal cancer. Patient is today for Port-A-Cath insertion. Past Medical History Past Medical History: No Reported History History of Any Multi-Drug Resistant Organisms: None Reported Past Surgical History: No Surgical Hx Reported Past Psychological History: No Psychological Hx Reported Smoking Status: Current every day smoker Past Alcohol Use History: Daily Past Drug Use History: Unable to Obtain - Past Family History Father Family Medical History: Cancer Medications and Allergies Home Medications Medication Instructions Recorded Confirmed Type Acetaminophen Tab [Tylenol] 650 mg PO Q6HR PRN tab 01/21/21 01/24/21 Rx Docusate [Colace] 100 mg PO BID PRN #30 cap 01/21/21 01/24/21 Rx HYDROcodone/APAP 5-325MG [[place] 1 each PO Q6HR PRN #10 tab 01/21/21 01/24/21 Rx 5-325] Hydrocortisone Suppository 25 mg RECTAL BID #1 supp 01/21/21 01/24/21 Rx [Anusol-Hc] Nicotine 14Mg/24Hr Patch [Habitrol] 1 patch TRANSDERM DAILY #30 patch 01/21/21 01/24/21 Rx Pantoprazole Sodium [Protonix] 40 mg PO DAILY #20 tab 01/21/21 01/24/21 Rx Allergies Allergy/AdvReac Type Severity Reaction Status Date / Time Penicillins Allergy Rash/Hives Verified 01/16/21 10:23 Surgical - Exam Vital Signs Temp 99.0 F 01/24/21 10:07 - General well developed, well nourished, no distress - Eyes PERRL - ENT normal pinna - Neck no masses - Respiratory normal expansion - Cardiovascular Rhythm: regular - Abdomen Abdomen: soft, non tender Results - Labs 01/24/21 10:20 Abnormal Lab Results - Last 24 Hours (Table) 01/24/21 Range/Units 10:20 RBC 3.03 L (4.30-5.90) m/uL Hgb 7.9 L (13.0-17.5) gm/dL Hct 24.1 L (39.0-53.0) % MCV 79.7 L (80.0-100.0) fL RDW 21.0 H (11.5-15.5) % Lymphocytes # 0.8 L (1.0-4.8) k/uL Assessment and Plan Assessment: Esophageal cancer. We'll perform Port-A-Cath placement.
[2021-01-24] MEDS ORDERED: PROPOFOL 10 MG/ML 20 ML VIAL IV ONE (11:42)
[2021-01-24] MEDS ORDERED: KETAMINE 10 MG/ML 20 ML VIAL ONE (11:42)
[2021-01-24] MEDS ORDERED: fentaNYL (PF) 50 MCG/ML 2 ML AMP ONE (11:42)
[2021-01-24] MEDS ORDERED: SODIUM CHLORIDE 0.9% 50 ML with ceFAZolin 2,000 MG IV ONE ×2 (12:11)
[2021-01-24] MEDS ORDERED: IOPAMIDOL-250 100ML BTL IV ONE (12:18)
[2021-01-24] MEDS ORDERED: HEPARIN SODIUM,PORCINE 100 UNIT/ML 5 ML VIAL IV ONE ×2 (12:18)
[2021-01-24] MEDS ORDERED: BUPIVACAINE (PF) 0.5% 30 ML VIAL SQ ONE (12:18)
--- NOTE | 2021-01-24 12:37 | P.OP ---
Date of Procedure: 01/24/21 Preoperative Diagnosis: Esophageal cancer Postoperative Diagnosis: Esophageal cancer Procedure(s) Performed: Right subclavian Port-A-Cath Anesthesia: MAC Surgeon: Jaime Barragan Estimated Blood Loss (ml): 5 Pathology: none sent Condition: stable Disposition: PACU Description of Procedure: PROCEDURE: The patient was placed on the operating table in the supine position. She received MAC anesthetic. The [right] chest was prepped and draped in the usual sterile fashion. The skin underneath the right clavicle was anesthetized with 1% Xylocaine and using Seldinger technique, the right subclavian vein was cannulized. The wire was placed through the needle and positioned under fluoroscopy. Next, the needle was removed and the port site was anesthetized with 1% Xylocaine. Skin was incised with #15 blade and port pocket was made using blunt and sharp dissection. Following this the catheter was attached to the sport and the port was flushed. The port was positioned into the pocket site and was secured with 3-0 Vicryl suture. The catheter was then brought out through the wire site and then the dilator sheath was placed over the wire and the dilator and the wire were removed. The catheter was placed through the sheath and the sheath was removed. The port was flushed with hep-lock solution. Skin was closed with interrupted 3-0 Vicryl sutures. Steri-Strips were applied. The patient tolerated the procedure well. The patient was sent to recovery room for chest x-ray after the procedure.
[2021-01-24 13:01] VITALS: TEMP 98.5
--- NOTE | 2021-01-24 13:27 | FL ---
EXAMINATION TYPE: FL guided central line placemt HISTORY: Fluoroscopy time Impression: 1. Fluoroscopy support of 9 seconds was provided to the referring physician.
--- NOTE | 2021-01-24 13:31 | XR ---
EXAMINATION TYPE: XR chest 1V portable DATE OF EXAM: 01/24/2021 COMPARISON: 01/16/2021 HISTORY: Mediport placement TECHNIQUE: Single frontal view of the chest is obtained. FINDINGS: Mediport catheter seen with the tip overlying the SVC and no sizable pneumothorax. Coarsened intersti tium and underlying COPD is noted. Subsegmental infiltrate or atelectasis left lung base. Arthropathy of the shoulders. IMPRESSION: 1. Mediport appears in good position with no postprocedural complication. 2. Basilar infiltrate or atelectasis on the left correlate clinically. 3. Correlate for COPD
[2021-01-24 13:52] VITALS: RESP 16
[2021-01-24 14:09] VITALS: BP 101/67; PULSE 104
== END 2021-01-24 14:24 | disposition home or self-care (01) ==
LOC: OR 09:16
PROVIDERS: ATTEND Surgery
DX: C15.9 Malignant neoplasm of esophagus, unspecified (principal); C79.9 Secondary malignant neoplasm of unspecified site; K21.9 Gastro-esophageal reflux disease without esophagitis; Z87.891 Personal history of nicotine dependence; Z79.899 Other long term (current) drug therapy; Z88.0 Allergy status to penicillin
CPT/HCPCS: 36556; 85025; 77001; 71045; C1788; J1642; J1100; J2405; J0690; J3010; J2704; Q9966

== ENCOUNTER → 2021-01-26 | Outpatient (CLI) | payer MEDICARE, OTHER ==
[2021-01-26 10:12] LABS: Anisocytosis Moderate; Basophils % (A) 0 %; Eosinophils % (A) 0 %; HCT 24.4 % (39.0-53.0); HGB 7.7 gm/dL (13.0-17.5); Hypochromasia Marked; Lymphocytes # (A) 0.7 k/uL (1.0-4.8); Lymphocytes % (A) 8 %; MCH 25.8 pg (25.0-35.0); MCHC 31.5 g/dL (31.0-37.0); MCV 81.9 fL (80.0-100.0); Mean Platelet Volume 7.3; Microcytosis Slight; Monocytes # (A) 0.4 k/uL (0-1.0); Monocytes % (A) 5 %; Neutrophils # (A) 7.3 k/uL (1.3-7.7); Neutrophils % (A) 85 %; Platelet Count 200 k/uL (150-450); Poikilocytosis Slight; RBC 2.98 m/uL (4.30-5.90); RDW 21.3 % (11.5-15.5); WBC 8.5 k/uL (3.8-10.6)
== END | disposition home or self-care (01) ==
LOC: LABWHC1 09:21
PROVIDERS: ATTEND Radiology Radiation Oncology
DX: C78.7 Secondary malignant neoplasm of liver and intrahepatic bile duct (principal); C15.5 Malignant neoplasm of lower third of esophagus
CPT/HCPCS: 36415; 85025

== ENCOUNTER 2021-01-30 11:51 | Inpatient (IN) | payer MEDICARE, OTHER ==
[2021-01-30 13:15] LABS: Anisocytosis Moderate; Basophils % (A) 0 %; Eosinophils % (A) 0 %; HCT 26.3 % (39.0-53.0); Hypochromasia Marked; Lymphocytes # (A) 0.7 k/uL (1.0-4.8); Lymphocytes % (A) 6 %; MCH 26.6 pg (25.0-35.0); MCHC 30.5 g/dL (31.0-37.0); Microcytosis Slight; Monocytes # (A) 0.7 k/uL (0-1.0); Monocytes % (A) 6 %; Neutrophils % (A) 85 %; Platelet Count 170 k/uL (150-450); Poikilocytosis Slight; RBC 3.02 m/uL (4.30-5.90); RDW 23.1 % (11.5-15.5); WBC 11.7 k/uL (3.8-10.6)
--- NOTE | 2021-01-30 13:16 | XR ---
EXAMINATION TYPE: XR chest 2V DATE OF EXAM: 01/30/2021 COMPARISON: Chest x-ray [address] January 16, 2021 HISTORY: Difficulty breathing. History of Metastatic neoplasm. TECHNIQUE: Frontal and lateral views of the chest are obtained. FINDINGS: Improved inspiration current study. Background chronic emphysematous change with suspected worsening bilateral pulmonary nodules on current study. No pleural effusion or pneumothorax seen bi laterally. The cardiac silhouette size is stable and within normal limits. Stable right subclavian Me diport catheter. The osseous structures are intact. IMPRESSION: Chronic emphysematous change with worsening bilateral pulmonary nodules suggesting short interval metastatic neoplastic progression.
[2021-01-30 13:21] LABS: MCV 87.1 fL (80.0-100.0)
[2021-01-30 13:23] LABS: African American GFR (CKD) >90 (>60 ml/min/1.73 sqM); Albumin 2.7 g/dL (3.5-5.0); Anion Gap 19 mmol/L; Blood Urea Nitrogen 37 mg/dL (9-20); Calcium 8.6 mg/dL (8.4-10.2); Carbon Dioxide 12 mmol/L (22-30); Chloride 99 mmol/L (98-107); Glucose 77 mg/dL (74-99); Non-African American GFR(CKD) >90 (>60 ml/min/1.73 sqM); Sodium 130 mmol/L (137-145); Total Bilirubin 5.3 mg/dL (0.2-1.3)
[2021-01-30 13:32] LABS: ALT 439 U/L (4-49); Alkaline Phosphatase 354 U/L (38-126); Potassium 5.9 mmol/L (3.5-5.1)
[2021-01-30 13:33] LABS: Partial Thromboplastin Time 23.2 sec (22.0-30.0); Prothrombin Time 19.3 sec (9.0-12.0)
[2021-01-30 13:42] LABS: AST 1844 U/L (17-59)
--- NOTE | 2021-01-30 14:26 | ED ---
General Adult HPI - General Chief complaint: Recheck/Abnormal Lab/Rx Stated complaint: elevated heart rate, SOB Time Seen by Provider: 01/30/21 12:20 Source: patient Mode of arrival: wheelchair Limitations: no limitations - History of Present Illness Initial comments: 60-year-old male recently diagnosed with esophageal cancer with metastasis to the liver who presents emergency department with reported shortness of breath. Patient was just hospitalized a week ago with new diagnosis of cancer. He does follow with Dr. Hanna and Dr. Costa. He is currently on radiation. States he went today to have his 6 radiation treatments. His radiation oncologist noted that his heart rate was high and the patient had some increased worker breathing. He informed him that he does feels breathing has been worse over the past couple of days. He was instructed to come into the emergency room. is at bedside and helps provide history. States that his heart rate was high throughout his hospitalization. They are more concerned about the shortness of breath. They report to worsening abdominal distention. I note some on this to the patient's skin. states that this was not present previously. They deny any fevers or chills. Admits to a cough with brown sputum production. He denies any abdominal pain. No changes in his bowel or bladder habits. No other alleviating, precipitating or modifying factors - Related Data Previous Rx's Medication Instructions Recorded Acetaminophen Tab [Tylenol] 650 mg PO Q6HR PRN tab 01/21/21 Docusate [Colace] 100 mg PO BID PRN #30 cap 01/21/21 HYDROcodone/APAP 5-325MG [[place] 1 each PO Q6HR PRN #10 tab 01/21/21 5-325] Nicotine 14Mg/24Hr Patch [Habitrol] 1 patch TRANSDERM DAILY #30 patch 01/21/21 Pantoprazole Sodium [Protonix] 40 mg PO DAILY #20 tab 01/21/21 Hydrocortisone Suppository 25 mg RECTAL BID PRN supp 02/08/21 [Anusol-Hc] Melatonin 6 mg PO HS PRN #60 tablet 02/08/21 Metoprolol Tartrate 25 mg PO BID 30 Days #60 tab 02/08/21 Petrolatum, White [Aquaphor] 1 applic TOPICAL QID gm 02/08/21 Allergies Allergy/AdvReac Type Severity Reaction Status Date / Time Penicillins Allergy Rash/Hives Verified 02/16/21 12:51 Review of Systems ROS Statement: Those systems with pertinent positive or pertinent negative responses have been documented in the HPI. ROS Other: All systems not noted in ROS Statement are negative. Past Medical History Past Medical History: No Reported History History of Any Multi-Drug Resistant Organisms: None Reported Past Surgical History: No Surgical Hx Reported Past Psychological History: No Psychological Hx Reported Smoking Status: Former smoker Past Alcohol Use History: Daily Past Drug Use History: Unable to Obtain - Past Family History Father Family Medical History: Cancer General Exam Limitations: no limitations General appearance: alert, in no apparent distress, cachectic Head exam: Present: atraumatic, normocephalic, normal inspection Eye exam: Present: PERRL, EOMI, scleral icterus. Absent: conjunctival injection, periorbital swelling ENT exam: Present: mucous membranes dry Neck exam: Present: normal inspection. Absent: tenderness, meningismus, lymphadenopathy Respiratory exam: Present: normal lung sounds bilaterally. Absent: respiratory distress, wheezes, rales, rhonchi, stridor Cardiovascular Exam: Present: normal rhythm, tachycardia, normal heart sounds. Absent: systolic murmur, diastolic murmur, rubs, gallop, clicks GI/Abdominal exam: Present: soft, distended, normal bowel sounds. Absent: tenderness, guarding, rebound, rigid Extremities exam: Present: normal inspection, full ROM, normal capillary refill. Absent: tenderness, pedal edema, joint swelling, calf tenderness Back exam: Present: normal inspection Neurological exam: Present: alert, oriented X3, CN II-XII intact Psychiatric exam: Present: flat affect Skin exam: Present: warm, dry, intact, other (jaundice). Absent: rash Course Vital Signs 01/30/21 01/30/21 01/30/21 12:18 15:09 16:18 Temperature 97.5 F L Pulse Rate 128 H 114 H 116 H Respiratory 18 20 18 Rate Blood Pressure 113/79 148/84 110/67 Blood Pressure [Right Arm] O2 Sat by Pulse 99 98 100 Oximetry 01/30/21 01/30/21 01/30/21 18:17 18:33 20:00 Temperature Pulse Rate 116 H 116 H Respiratory 18 20 24 Rate Blood Pressure 108/64 121/69 Blood Pressure 114/76 [Right Arm] O2 Sat by Pulse 99 99 97 Oximetry 01/31/21 01:54 Temperature Pulse Rate 118 H Respiratory 18 Rate Blood Pressure 106/65 Blood Pressure [Right Arm] O2 Sat by Pulse 97 Oximetry EKG Findings - EKG Comments: EKG Findings:: EKG demonstrates sinus tachycardia with a ventricular rate of 123. AL interval 120. QRS 122. QTC of 515. No acute ST segment elevations. Some ST depression due to right bundle branch block in V1 through V6 Medical Decision Making - Medical Decision Making On arrival patient is placed in a trauma 2. A thorough history and physical exam is performed. IV is established. Laboratory studies were conducted. Patient is saturating 100% with increased worker breathing. Laboratory studies reveal a hemoglobin of 8. D-dimer is 29.25. INR 2. Sodium 130. Potassium is 5.9 however slightly hemolyzed. Lactic acid 13.9. AST 1844. ALT 439. Bilirubin 5.3. Chest x-ray demonstrates chronic emphysematous changes with worsening bilateral pulmonary nodules suggesting progression of metastatic disease. CT of the patient's brain demonstrates age-related atrophic and chronic small vessel ischemic change without acute process. CT of the patient's chest demonstrates marked hepatomegaly with innumerable hypodense metastatic lesions. There is ascites present. CT of the chest demonstrates no central PE. Progression of the patient's pulmonary nodules. This information is discussed with family. Spoke with Dr. gonzalez who agreed to admit the patient. Paged Dr. Costa to discuss the patients care. Patient awaiting a bed on the floor - Lab Data Result diagrams: 02/08/21 05:04 02/08/21 05:04 Lab Results 01/30/21 01/30/21 01/30/21 Range/Units 12:58 12:58 12:58 WBC 11.7 H (3.8-10.6) k/uL RBC 3.02 L (4.30-5.90) m/uL Hgb 8.0 L (13.0-17.5) gm/dL Hct 26.3 L (39.0-53.0) % MCV 87.1 D (80.0-100.0) fL MCH 26.6 (25.0-35.0) pg MCHC 30.5 L (31.0-37.0) g/dL RDW 23.1 H (11.5-15.5) % Plt Count 170 (150-450) k/uL MPV 9.0 Neutrophils % 85 % Lymphocytes % 6 % Monocytes % 6 % Eosinophils % 0 % Basophils % 0 % Neutrophils # 10.0 H (1.3-7.7) k/uL Lymphocytes # 0.7 L (1.0-4.8) k/uL Monocytes # 0.7 (0-1.0) k/uL Eosinophils # 0.0 (0-0.7) k/uL Basophils # 0.0 (0-0.2) k/uL Hypochromasia Marked Poikilocytosis Slight Anisocytosis Moderate Microcytosis Slight PT 19.3 H (9.0-12.0) sec INR 2.0 H (<1.2) APTT 23.2 (22.0-30.0) sec D-Dimer 29.25 H (<0.60) mg/L FEU Sodium 130 L (137-145) mmol/L Potassium 5.9 H (3.5-5.1) mmol/L Chloride 99 (98-107) mmol/L Carbon Dioxide 12 L (22-30) mmol/L Anion Gap 19 mmol/L BUN 37 H (9-20) mg/dL Creatinine 0.80 (0.66-1.25) mg/dL Est GFR (CKD-EPI)AfAm >90 (>60 ml/min/1.73 sqM) Est GFR (CKD-EPI)NonAf >90 (>60 ml/min/1.73 sqM) Glucose 77 (74-99) mg/dL Lactic Ac Sepsis Rflx Plasma Lactic Acid Curtis (0.7-2.0) mmol/L Calcium 8.6 (8.4-10.2) mg/dL Total Bilirubin 5.3 H (0.2-1.3) mg/dL AST 1844 H (17-59) U/L ALT 439 H (4-49) U/L Alkaline Phosphatase 354 H (38-126) U/L Troponin I (0.000-0.034) ng/mL NT-Pro-B Natriuret Pep pg/mL Total Protein 6.0 L (6.3-8.2) g/dL Albumin 2.7 L (3.5-5.0) g/dL 09/13/21 09/13/21 09/13/21 Range/Units 12:58 12:58 12:58 WBC (3.8-10.6) k/uL RBC (4.30-5.90) m/uL Hgb (13.0-17.5) gm/dL Hct (39.0-53.0) % MCV (80.0-100.0) fL MCH (25.0-35.0) pg MCHC (31.0-37.0) g/dL RDW (11.5-15.5) % Plt Count (150-450) k/uL MPV Neutrophils % % Lymphocytes % % Monocytes % % Eosinophils % % Basophils % % Neutrophils # (1.3-7.7) k/uL Lymphocytes # (1.0-4.8) k/uL Monocytes # (0-1.0) k/uL Eosinophils # (0-0.7) k/uL Basophils # (0-0.2) k/uL Hypochromasia Poikilocytosis Anisocytosis Microcytosis PT (9.0-12.0) sec INR (<1.2) APTT (22.0-30.0) sec D-Dimer (<0.60) mg/L FEU Sodium (137-145) mmol/L Potassium (3.5-5.1) mmol/L Chloride (98-107) mmol/L Carbon Dioxide (22-30) mmol/L Anion Gap mmol/L BUN (9-20) mg/dL Creatinine (0.66-1.25) mg/dL Est GFR (CKD-EPI)AfAm (>60 ml/min/1.73 sqM) Est GFR (CKD-EPI)NonAf (>60 ml/min/1.73 sqM) Glucose (74-99) mg/dL Lactic Ac Sepsis Rflx Plasma Lactic Acid [place] 13.9 H* (0.7-2.0) mmol/L Calcium (8.4-10.2) mg/dL Total Bilirubin (0.2-1.3) mg/dL AST (17-59) U/L ALT (4-49) U/L Alkaline Phosphatase (38-126) U/L Troponin I <0.012 (0.000-0.034) ng/mL NT-Pro-B Natriuret Pep 215 pg/mL Total Protein (6.3-8.2) g/dL Albumin (3.5-5.0) g/dL 01/30/21 Range/Units 13:36 WBC (3.8-10.6) k/uL RBC (4.30-5.90) m/uL Hgb (13.0-17.5) gm/dL Hct (39.0-53.0) % MCV (80.0-100.0) fL MCH (25.0-35.0) pg MCHC (31.0-37.0) g/dL RDW (11.5-15.5) % Plt Count (150-450) k/uL MPV Neutrophils % % Lymphocytes % % Monocytes % % Eosinophils % % Basophils % % Neutrophils # (1.3-7.7) k/uL Lymphocytes # (1.0-4.8) k/uL Monocytes # (0-1.0) k/uL Eosinophils # (0-0.7) k/uL Basophils # (0-0.2) k/uL Hypochromasia Poikilocytosis Anisocytosis Microcytosis PT (9.0-12.0) sec INR (<1.2) APTT (22.0-30.0) sec D-Dimer (<0.60) mg/L FEU Sodium (137-145) mmol/L Potassium (3.5-5.1) mmol/L Chloride (98-107) mmol/L Carbon Dioxide (22-30) mmol/L Anion Gap mmol/L BUN (9-20) mg/dL Creatinine (0.66-1.25) mg/dL Est GFR (CKD-EPI)AfAm (>60 ml/min/1.73 sqM) Est GFR (CKD-EPI)NonAf (>60 ml/min/1.73 sqM) Glucose (74-99) mg/dL Lactic Ac Sepsis Rflx Y Plasma Lactic Acid Curtis (0.7-2.0) mmol/L Calcium (8.4-10.2) mg/dL Total Bilirubin (0.2-1.3) mg/dL AST (17-59) U/L ALT (4-49) U/L Alkaline Phosphatase (38-126) U/L Troponin I (0.000-0.034) ng/mL NT-Pro-B Natriuret Pep pg/mL Total Protein (6.3-8.2) g/dL Albumin (3.5-5.0) g/dL Disposition Clinical Impression: Anemia, Ascites, Esophageal carcinoma, Overdose-radiation in therapy, Liver metastases, Hyperbilirubinemia, Transaminitis, Lactic acidosis, Tachycardia Disposition: ADMITTED IP TO THIS HOSP Condition: Stable Is patient prescribed a controlled substance at d/c from ED?: No Decision to Admit Reason: Admit from EC Decision Date: 01/30/21 Decision Time: 15:58
[2021-01-30] MEDS: SODIUM CHLORIDE 0.9% 1,000 ML IV SCH (14:50)
[2021-01-30] MEDS ORDERED: CEFEPIME 2 GM in SODIUM CHLORIDE 0.9% 100 ML IVPB STA (14:55)
[2021-01-30] MEDS ORDERED: VANCOMYCIN IV PER PHARMACY 1 EACH MISC MISCELLANE PRN (14:55)
--- NOTE | 2021-01-30 15:17 | CT ---
EXAMINATION TYPE: CT brain wo con DATE OF EXAM: 01/30/2021 COMPARISON: 01/18/21 HISTORY: Shortness of breath and tachycardia. CT DLP: 1060.[address] of the brain was performed. The ventricles, basal cisterns and sulci overlying the cerebral convexities demonstrate mild enlargem ent. There is no evidence for intracranial hemorrhage or sulcal effacement. Basal ganglia calcifications noted. There is decreased attenuation about the periventricular white matter and deep white matter of both c erebral hemispheres, compatible with chronic small vessel ischemia. Differential diagnosis does inclu de demyelination. No mass effects are seen.No midline shift. Osseous calvarium is intact. If symptoms persist consider MRI. IMPRESSION: 1. Age related atrophic and chronic small vessel ischemic change without acute intracranial process s een at this time.
--- NOTE | 2021-01-30 15:41 | CT ---
EXAMINATION TYPE: CT abdomen pelvis w con DATE OF EXAM: 01/30/2021 COMPARISON: Prior whole body CT 13 days ago HISTORY: Abdominal pain, history of esophageal cancer. CT DLP: 904.1 mGycm, Automated Exposure Control for Dose Reduction was Utilized. CONTRAST: CT scan of the abdomen and pelvis is performed without oral but with IV Contrast, patient injected w ith 100ml mL of Isovue 370. FINDINGS: LUNG BASES: Please refer to same day CTA chest study for complete details on the lung bases LIVER/GB: Marked hepatomegaly occupying nearly entire right abdomen with local mass effect is redemon strated. There are innumerable hypodense lesions consistent with diffuse metastatic disease redemonst rated. PANCREAS: Difficult to evaluate due to marked hepatomegaly and no intra-abdominal fat. SPLEEN: Spleen normal in size with incidental splenule in the hilum axial image 19 redemonstrated. ADRENALS: No significant abnormality is seen. KIDNEYS: No visualized excretion bilaterally on current study. Symmetric cortical medullary uptake wi thout hydronephrosis noted. Mild to moderately distended bladder demonstrated. BOWEL: Suboptimal evaluation without enteric contrast and patient having no intra-abdominal fat. Sto mach poorly distended deviated posterior and left from hepatomegaly. No suspicious small or large bow el dilatation and bowel loops deviated into the left lower quadrant and pelvis. GENITAL ORGANS: No gross abnormality seen. LYMPH NODES: No definitive greater than 1cm abdominal or pelvic lymph nodes are appreciated. Symmetri c prominent but subcentimeter bilateral groin lymph nodes OSSEOUS STRUCTURES: Severe disc space narrowing lumbosacral junction. Prominent Schmorl node superior T12 endplate redemonstrated. Facet arthropathy lower lumbar spine. OTHER: Moderate calcified plaque of the aorta extends into branch vessels. [id number] diffuse s oft tissue anasarca on current study. IMPRESSION: Marked hepatomegaly with innumerable hypodense metastatic mass is redemonstrated. Signifi cant local mass effect is redemonstrated. No new or acute intra-abdominal finding clearly seen. Subop timal study noted.
--- NOTE | 2021-01-30 15:48 | CT ---
EXAMINATION TYPE: CT chest angio for PE DATE OF EXAM: 01/30/2021 COMPARISON: CT chest January 16, 2021 HISTORY: Shortness of breath and tachycardia. History of metastatic esophageal cancer. CT DLP: 302.8 mGycm. Automated Exposure Control for Dose Reduction was Utilized. CONTRAST: CTA scan of the thorax is performed with IV Contrast, patient injected with 100ml mL of Isovue 370, p ulmonary embolism protocol. MIP Images are created on CT scanner and reviewed. FINDINGS: LUNGS: Moderate underlying emphysematous change greatest in the upper lungs is redemonstrated. Some s cattered small subcentimeter nodules in the bilateral lower lungs remain present. There is 13 x 12 mm right lower lobe subpleural nodule axial image 126 slightly larger in size from prior. There are new subcentimeter nodules throughout the bilateral lungs from 2 weeks earlier. There is new upper lung i nvolvement reference coronal image 77. No pleural effusion or pneumothorax seen bilaterally. No suspi cious focal consolidation. MEDIASTINUM: There are no greater than 1 cm hilar or mediastinal lymph nodes. No cardiomegaly or pe ricardial effusion is seen. Coronary artery calcification is present which is noted marker for under lying coronary artery disease. Ascending thoracic aortic aneurysm up to 4 4.7 cm axial image 94 curre nt study. Suboptimal bolus without acute pulmonary embolism. Moderate peripheral plaque in the descen ding thoracic aorta. OTHER: Bilateral gynecomastia is redemonstrated. Moderate disc space narrowing left T8-T9 level redem onstrated. Please refer to same-day CT abdomen and pelvis report for complete details in the upper ab domen. IMPRESSION: 1. Slightly suboptimal study without acute pulmonary embolism. 2. Background moderate underlying emphysematous change redemonstrated. Short-term interval metastatic pulmonary progression noted as suspected on chest x-ray. No new acute pulmonary process identified.
[2021-01-30] MEDS ORDERED: NALOXONE 0.4 MG/ML 1 ML VIAL IV PRN (15:59)
[2021-01-30] MEDS ORDERED: VANCOMYCIN 1,000 MG in SODIUM CHLORIDE 0.9% 250 ML IVPB ONE (16:00)
[2021-01-30] MEDS ORDERED: DOCUSATE 100 MG CAP PO PRN (16:02)
[2021-01-30] MEDS ORDERED: SODIUM CHLORIDE 0.9% 1,000 ML IV STA (17:35)
--- NOTE | 2021-01-30 18:52 | P.HPIM ---
History of Present Illness This is a pleasant 60 years old male with past medical history of esophageal carcinoma with esophageal mass with diffuse metastasis to the liver, lung, possibly with acute blood loss and iron deficiency anemia status post multiple b lood transfusion during the last admission, and he is undergoing radiotherapy. With elevated liver enzymes mostly secondary to liver metastases. He is status post right upper chest Port-A-Cath insertion. He was recently admitted to this hospital 01/16-, for failure to summarize with hepatic lesion. EGD done and found esophageal mass positive for esophageal adenocarcinoma. With bleeding mass, at that point radiotherapy treatment recommended radiotherapy to control the bleeding mass. Patient was undergoing 6 round of radiotherapy recently where he was noticed to have worsening dyspnea and tachycardia so he was referred to the emergency room. Patient and at bedside, patient is cachectic with distended abdomen, dyspneic and mild to moderate respiratory distress states that his been having dyspnea for the last 1.5 months however he became more dyspneic yesterday and today with cough and total greenish phlegm but no chest pain. He has no urinary symptoms and bowel movement is alternating between regular and diarrhea. Patient basically consumes liquids merely Saavedra and 3-4 bottles of Ensure every day. On admission he was tachycardic with heart rate 114-1.8, where last time he was discharged with heart rate of 113 , compared to last time his breathing rate was 18 and currently is around 20. And he is saturating 100% on room air. His blood pressure is stable. He is afebrile But mild hypothermia His leukocytosis almost doubled from last time 6.8 up to 11.7. Hemoglobin is 8.0 compared to 7.5 and platelet count is normal on 170. INR is elevated at 2.0 Sodium 1:30 similar to last time, potassium is elevated at 5.9. Carbon dioxide is lower than last time 19 down to 12. Creatinine is stable at 0.8 which is within the reference range. Elevated lactic acid 13.9 and 15.2. Elevated d-dimer at 29 Elevated bilirubin 5.3 AST is elevated 1844, ALT is also elevated at 439. Troponin is normal less than 0.012. Coronavirus not detected. EKG shows sinus tachycardia at 123 with QTC of 5:15. Right bundle branch block. Elevated d-dimer CTA of the chest showing no pulmonary embolism. Also background moderate underlying emphysematous changes rhythm demonstrates is. Short-term interval metastatic pulmonary progression noted as suspected on chest x-ray. No acute pulmonary process identified. Chest x-ray showing chronic emphysematous changes with worsening bilateral pulmonary nodules suggesting showed interval metastatic neoplastic progression CT of the abdomen and pelvis: Marked hepatomegaly with innumerable hypodense metastatic mass is redemonstrated. Significant local mass effect is redemonstrated. No new acute intra-abdominal finding clearly seen. CT of the brain: Age-related atrophic and chronic small vessel ischemic change without acute intracranial process seen at this time In the emergency room he was started on normal saline 75 mL/h and antibiotics with cefepime and IV vancomycin Review of Systems CONSTITUTIONAL: No fever, no malaise HEENT: No recent visual problems or hearing problems. Denied any sore throat. CARDIOVASCULAR: No orthopnea, PND, no palpitations, no syncope. PULMONARY: No chest wall tenderness, no hemoptysis. GASTROINTESTINAL: no nausea, no vomiting, no abdominal pain. Normoactive bowel sounds. NEUROLOGICAL: No headaches, no weakness, no numbness. HEMATOLOGICAL: Denies any bleeding or petechiae. GENITOURINARY: Denies any burning micturition, frequency, or urgency. MUSCULOSKELETAL/RHEUMATOLOGICAL: Denies any joint pain, swelling, or any muscle pain. ENDOCRINE: Denies any polyuria or polydipsia. Past Medical History Past Medical History: No Reported History History of Any Multi-Drug Resistant Organisms: None Reported Past Surgical History: No Surgical Hx Reported Past Psychological History: No Psychological Hx Reported Smoking Status: Former smoker Past Alcohol Use History: Daily Past Drug Use History: Unable to Obtain - Past Family History Father Family Medical History: Cancer Medications and Allergies Home Medications Medication Instructions Recorded Confirmed Type Acetaminophen Tab [Tylenol] 650 mg PO Q6HR PRN tab 01/21/21 01/30/21 Rx Docusate [Colace] 100 mg PO BID PRN #30 cap 01/21/21 01/30/21 Rx HYDROcodone/APAP 5-325MG [[place] 1 each PO Q6HR PRN #10 tab 01/21/21 01/30/21 Rx 5-325] Nicotine 14Mg/24Hr Patch [Habitrol] 1 patch TRANSDERM DAILY #30 patch 01/21/21 01/30/21 Rx Pantoprazole Sodium [Protonix] 40 mg PO DAILY #20 tab 01/21/21 01/30/21 Rx Allergies Allergy/AdvReac Type Severity Reaction Status Date / Time Penicillins Allergy Rash/Hives Verified 01/30/21 13:35 Physical Exam Vitals: Vital Signs Temp Pulse Resp BP Pulse Ox 01/30/21 12:18 97.5 F L 128 H 18 113/79 99 Intake and Output 01/29/21 01/30/21 01/30/21 22:59 06:59 14:59 Other: Weight 60.781 kg GENERAL: The patient is alert and oriented x3, not in any acute distress. Cachectic HEENT: Pupils are round and equally reacting to light. EOMI. No scleral icterus. No conjunctival pallor. Normocephalic, atraumatic. No pharyngeal erythema. No thyromegaly. CARDIOVASCULAR: S1 and S2 present. No murmurs, rubs, or gallops. -PULMONARY: Chest is clear to auscultation, no wheezing . Tachypneic with bilateral crepitation -ABDOMEN: Soft, nontender, distended, normoactive bowel sounds. No palpable organomegaly. MUSCULOSKELETAL: No joint swelling or deformity. EXTREMITIES: No cyanosis, clubbing, no leg edema. NEUROLOGICAL: Gross neurological examination did not reveal any focal deficits. SKIN: No rashes. No petechiae Results CBC & Chem 7: 01/30/21 12:58 01/30/21 12:58 Labs: Abnormal Lab Results - Last 24 Hours (Table) 01/30/21 01/30/21 01/30/21 Range/Units 12:58 12:58 12:58 WBC 11.7 H (3.8-10.6) k/uL RBC 3.02 L (4.30-5.90) m/uL Hgb 8.0 L (13.0-17.5) gm/dL Hct 26.3 L (39.0-53.0) % MCHC 30.5 L (31.0-37.0) g/dL RDW 23.1 H (11.5-15.5) % Neutrophils # 10.0 H (1.3-7.7) k/uL Lymphocytes # 0.7 L (1.0-4.8) k/uL PT 19.3 H (9.0-12.0) sec INR 2.0 H (<1.2) D-Dimer 29.25 H (<0.60) mg/L FEU Sodium 130 L (137-145) mmol/L Potassium 5.9 H (3.5-5.1) mmol/L Carbon Dioxide 12 L (22-30) mmol/L BUN 37 H (9-20) mg/dL Plasma Lactic Acid Curtis (0.7-2.0) mmol/L Total Bilirubin 5.3 H (0.2-1.3) mg/dL AST 1844 H (17-59) U/L ALT 439 H (4-49) U/L Alkaline Phosphatase 354 H (38-126) U/L Total Protein 6.0 L (6.3-8.2) g/dL Albumin 2.7 L (3.5-5.0) g/dL 01/30/21 Range/Units 12:58 WBC (3.8-10.6) k/uL RBC (4.30-5.90) m/uL Hgb (13.0-17.5) gm/dL Hct (39.0-53.0) % MCHC (31.0-37.0) g/dL RDW (11.5-15.5) % Neutrophils # (1.3-7.7) k/uL Lymphocytes # (1.0-4.8) k/uL PT (9.0-12.0) sec INR (<1.2) D-Dimer (<0.60) mg/L FEU Sodium (137-145) mmol/L Potassium (3.5-5.1) mmol/L Carbon Dioxide (22-30) mmol/L BUN (9-20) mg/dL Plasma Lactic Acid Curtis 13.9 H* (0.7-2.0) mmol/L Total Bilirubin (0.2-1.3) mg/dL AST (17-59) U/L ALT (4-49) U/L Alkaline Phosphatase (38-126) U/L Total Protein (6.3-8.2) g/dL Albumin (3.5-5.0) g/dL Assessment and Plan Assessment: worsening acute on chronic dyspnea secondary to metastatic pulmonary disease, massive hepatomegaly, rule out infection Possible sepsis versus dehydration with leukocytosis, tachycardia and tachypnea. Esophageal adenocarcinoma with esophageal mass with metastatic disease to the liver and lung, status post 6 rounds of radiotherapy Short interval pulmonary metastatic progression, rule out pneumonia Massive Hepatomegaly , with worsening liver enzymes coagulopathy, mostly secondary to liver disease Metabolic acidosis secondary to lactic acidosis Iron deficiency anemia, needed several courses of blood transfusion before Moderate to severe calorie protein malnutrition Chronic hyponatremia Elevated lactic acid Plan: This is a pleasant 60 years old male who presents with worsening dyspnea in view of his worsening with metastatic esophageal cancer to the lung, liver Continue gentle hydration Continue with broad-spectrum antibiotics cefepime, check a procalcitonin. Check C-reactive protein Follow-up sputum culture and blood culture Oncology team were consulted Monitor INR, hemoglobin went liver enzymes Labs and medication were reviewed.. Continue same treatment. Continue with symptomatic treatment. Resume home medication. Monitor lytes and vitals. DVT and GI prophylaxis. Further recommendations as per clinical course of the patient DVT prophylaxis: No anticoagulation in view of coagulopathy heparin GI Prophylaxis: Ppi PT/OT: Pending Prognosis is guarded Full code, checked with patient and at bedside
[2021-01-30] MEDS: PANTOPRAZOLE 40 MG TABLET PO SCH (19:17)
[2021-01-30] MEDS: NICOTINE 14MG/24HR PATCH TRANSDERM SCH (19:21)
[2021-01-31] MEDS ORDERED: VANCOMYCIN 1,000 MG in SODIUM CHLORIDE 0.9% 250 ML IVPB SCH ×2
[2021-01-31] MEDS: CEFEPIME 2 GM in SODIUM CHLORIDE 0.9% 100 ML IVPB SCH ×3 (00:39→17:55)
[2021-01-31] MEDS: SODIUM CHLORIDE 0.9% 1,000 ML IV SCH ×2 (02:10→17:28)
[2021-01-31 05:42] LABS: African American GFR (CKD) >90 (>60 ml/min/1.73 sqM); Albumin 2.1 g/dL (3.5-5.0); Alkaline Phosphatase 307 U/L (38-126); Anion Gap 8 mmol/L; Blood Urea Nitrogen 52 mg/dL (9-20); Calcium 8.1 mg/dL (8.4-10.2); Carbon Dioxide 20 mmol/L (22-30); Chloride 102 mmol/L (98-107); Glucose 82 mg/dL (74-99); Non-African American GFR(CKD) >90 (>60 ml/min/1.73 sqM); Potassium 5.1 mmol/L (3.5-5.1); Sodium 130 mmol/L (137-145); Total Bilirubin 4.7 mg/dL (0.2-1.3); Total Protein 5.1 g/dL (6.3-8.2)
[2021-01-31 05:45] LABS: Anisocytosis Marked; Hypochromasia Marked; MCH 27.1 pg (25.0-35.0); MCHC 30.7 g/dL (31.0-37.0); MCV 88.1 fL (80.0-100.0); Macrocytosis Slight; Mean Platelet Volume 8.9; Microcytosis Slight; Platelet Count 144 k/uL (150-450); Poikilocytosis Slight; RBC 2.39 m/uL (4.30-5.90); RDW 24.9 % (11.5-15.5); WBC 10.6 k/uL (3.8-10.6)
[2021-01-31 05:49] LABS: ALT 455 U/L (4-49)
[2021-01-31 05:59] LABS: HGB 6.5 gm/dL (13.0-17.5)
[2021-01-31 06:00] LABS: INR 1.8 (<1.2); Prothrombin Time 17.9 sec (9.0-12.0)
[2021-01-31 06:09] LABS: AST 1903 U/L (17-59)
[2021-01-31 06:32] LABS: Anisocytosis (M) Present; Band Neutrophils % 5 %; Hypochromasia (M) Present; Lymphocytes # (M) 0.95 k/uL (1.0-4.8); Mixed Population RBC Present; Monocytes # (M) 0.32 k/uL (0-1.0); Neutrophils % (M) 83 %; Nucleated Red Blood Cells 0 /100 WBC (0-0); Polychromasia Present; Total Cells Counted 100
[2021-01-31] MEDS: PANTOPRAZOLE 40 MG TABLET PO SCH (06:38)
[2021-01-31] MEDS: NICOTINE 14MG/24HR PATCH TRANSDERM SCH (08:55)
--- NOTE | 2021-01-31 10:41 | P.PN ---
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 With elevated liver enzymes mostly secondary to liver metastases. He is status post right upper chest Port-A-Cath insertion. He was recently admitted to this hospital 01/16-, for failure to summarize with hepatic lesion. EGD done and found esophageal mass positive for esophageal adenocarcinoma. With bleeding mass, at that point radiotherapy treatment recommended radiotherapy to control the bleeding mass. Patient was undergoing 6 round of radiotherapy recently where he was noticed to have worsening dyspnea and tachycardia so he was referred to the emergency room. Patient and at bedside, patient is cachectic with distended abdomen, dyspneic and mild to moderate respiratory distress states that his been having dyspnea for the last 1.5 months however he became more dyspneic yesterday and today with cough and total greenish phlegm but no chest pain. He has no urinary symptoms and bowel movement is alternating between regular and diarrhea. Patient basically consumes liquids merely Saavedra and 3-4 bottles of Ensure every day. On admission he was tachycardic with heart rate 114-1.8, where last time he was discharged with heart rate of 113 , compared to last time his breathing rate was 18 and currently is around 20. And he is saturating 100% on room air. His blood pressure is stable. He is afebrile But mild hypothermia His leukocytosis almost doubled from last time 6.8 up to 11.7. Hemoglobin is 8.0 compared to 7.5 and platelet count is normal on 170. INR is elevated at 2.0 Sodium 1:30 similar to last time, potassium is elevated at 5.9. Carbon dioxide is lower than last time 19 down to 12. Creatinine is stable at 0.8 which is within the reference range. Elevated lactic acid 13.9 and 15.2. Elevated d-dimer at 29 Elevated bilirubin 5.3 AST is elevated 1844, ALT is also elevated at 439. Troponin is normal less than 0.012. Coronavirus not detected. EKG shows sinus tachycardia at 123 with QTC of 5:15. Right bundle branch block. Elevated d-dimer CTA of the chest showing no pulmonary embolism. Also background moderate underlying emphysematous changes rhythm demonstrates is. Short-term interval metastatic pulmonary progression noted as suspected on chest x-ray. No acute pulmonary process identified. Chest x-ray showing chronic emphysematous changes with worsening bilateral pulmonary nodules suggesting showed interval metastatic neoplastic progression CT of the abdomen and pelvis: Marked hepatomegaly with innumerable hypodense metastatic mass is redemonstrated. Significant local mass effect is redemonstrated. No new acute intra-abdominal finding clearly seen. CT of the brain: Age-related atrophic and chronic small vessel ischemic change without acute intracranial process seen at this time In the emergency room he was started on normal saline 75 mL/h and antibiotics with cefepime and IV vancomycin 01/31/2021 Patient is still significantly tachypneic although he reports improvement compared to yesterday. He is saturating 98% 200% on 2 L oxygen via nasal cannula. Distal tachycardic with 116-122. He is afebrile. Labs showing improving INR to 1.8, drop of hemoglobin down to 6.5, lactic acid improved significantly to 5.0. WBC stable around 10.6 which is within the r eference range, stable sodium at 1:30. Liver enzymes still elevated with AST 1903 and ALT of 4329 and is improving to 5.3 down to 4.7. His calcitonin is elevated at 2.4. He seemed to 1 L of bolus normal saline last night, he is still on cefepime 2 g 3 times a day and normal sinus 75 mL per hour We are going to consult infectious disease team Objective - Vital Signs Vital signs: Vital Signs Temp 98.2 F 01/31/21 10:14 Pulse 122 H 01/31/21 10:14 Resp 19 01/31/21 10:14 BP 106/71 01/31/21 10:14 Pulse Ox 99 01/31/21 10:14 Intake & Output 01/30/21 01/31/21 01/31/21 18:59 06:59 18:59 Intake Total 75 0 Balance 75 0 Weight 60.781 kg 61.5 kg Intake: IV 75 Sodium Chloride 0.9% 1, 75 000 ml @ 75 mls/hr IV . [id number] [facility] Rx#:[id number] Blood Product 0 Rc As-1 Unit 0 [id number] Other: Voiding Method Urinal # Voids 1 1 # Bowel Movements 1 - Exam GENERAL: The patient is alert and oriented x3, not in any acute distress. Cachectic HEENT: Pupils are round and equally reacting to light. EOMI. No scleral icterus. No conjunctival pallor. Normocephalic, atraumatic. No pharyngeal erythema. No thyromegaly. CARDIOVASCULAR: S1 and S2 present. No murmurs, rubs, or gallops. -PULMONARY: Chest is clear to auscultation, no wheezing . Tachypneic with bilateral crepitation -ABDOMEN: Soft, nontender, distended, normoactive bowel sounds. No palpable organomegaly. MUSCULOSKELETAL: No joint swelling or deformity. EXTREMITIES: No cyanosis, clubbing, no leg edema. NEUROLOGICAL: Gross neurological examination did not reveal any focal deficits. SKIN: No rashes. No petechiae - Labs CBC & Chem 7: 01/31/21 05:16 01/31/21 05:16 Labs: Abnormal Lab Results - Last 24 Hours (Table) 01/30/21 01/30/21 01/30/21 Range/Units 12:58 12:58 12:58 WBC 11.7 H (3.8-10.6) k/uL RBC 3.02 L (4.30-5.90) m/uL Hgb 8.0 L (13.0-17.5) gm/dL Hct 26.3 L (39.0-53.0) % MCHC 30.5 L (31.0-37.0) g/dL RDW 23.1 H (11.5-15.5) % Plt Count (150-450) k/uL Neutrophils # 10.0 H (1.3-7.7) k/uL Neutrophils # (Manual) (1.3-7.7) k/uL Lymphocytes # 0.7 L (1.0-4.8) k/uL Lymphocytes # (Manual) (1.0-4.8) k/uL PT 19.3 H (9.0-12.0) sec INR 2.0 H (<1.2) D-Dimer 29.25 H (<0.60) mg/L FEU Sodium 130 L (137-145) mmol/L Potassium 5.9 H (3.5-5.1) mmol/L Carbon Dioxide 12 L (22-30) mmol/L BUN 37 H (9-20) mg/dL Plasma Lactic Acid Curtis (0.7-2.0) mmol/L Calcium (8.4-10.2) mg/dL Total Bilirubin 5.3 H (0.2-1.3) mg/dL AST 1844 H (17-59) U/L ALT 439 H (4-49) U/L Alkaline Phosphatase 354 H (38-126) U/L C-Reactive Protein (<1.0) mg/dL Total Protein 6.0 L (6.3-8.2) g/dL Albumin 2.7 L (3.5-5.0) g/dL Procalcitonin (0.02-0.09) ng/mL Crossmatch 01/30/21 01/30/21 01/30/21 Range/Units 12:58 16:00 16:11 WBC (3.8-10.6) k/uL RBC (4.30-5.90) m/uL Hgb (13.0-17.5) gm/dL Hct (39.0-53.0) % MCHC (31.0-37.0) g/dL RDW (11.5-15.5) % Plt Count (150-450) k/uL Neutrophils # (1.3-7.7) k/uL Neutrophils # (Manual) (1.3-7.7) k/uL Lymphocytes # (1.0-4.8) k/uL Lymphocytes # (Manual) (1.0-4.8) k/uL PT (9.0-12.0) sec INR (<1.2) D-Dimer (<0.60) mg/L FEU Sodium (137-145) mmol/L Potassium (3.5-5.1) mmol/L Carbon Dioxide (22-30) mmol/L BUN (9-20) mg/dL Plasma Lactic Acid Curtis 13.9 H* 15.2 H* (0.7-2.0) mmol/L Calcium (8.4-10.2) mg/dL Total Bilirubin (0.2-1.3) mg/dL AST (17-59) U/L ALT (4-49) U/L Alkaline Phosphatase (38-126) U/L C-Reactive Protein (<1.0) mg/dL Total Protein (6.3-8.2) g/dL Albumin (3.5-5.0) g/dL Procalcitonin 2.46 H (0.02-0.09) ng/mL Crossmatch 01/30/21 01/30/21 01/31/21 Range/Units 18:47 22:31 01:29 WBC (3.8-10.6) k/uL RBC (4.30-5.90) m/uL Hgb (13.0-17.5) gm/dL Hct (39.0-53.0) % MCHC (31.0-37.0) g/dL RDW (11.5-15.5) % Plt Count (150-450) k/uL Neutrophils # (1.3-7.7) k/uL Neutrophils # (Manual) (1.3-7.7) k/uL Lymphocytes # (1.0-4.8) k/uL Lymphocytes # (Manual) (1.0-4.8) k/uL PT (9.0-12.0) sec INR (<1.2) D-Dimer (<0.60) mg/L FEU Sodium (137-145) mmol/L Potassium (3.5-5.1) mmol/L Carbon Dioxide (22-30) mmol/L BUN (9-20) mg/dL Plasma Lactic Acid Curtis 13.8 H* 11.8 H* 7.2 H* (0.7-2.0) mmol/L Calcium (8.4-10.2) mg/dL Total Bilirubin (0.2-1.3) mg/dL AST (17-59) U/L ALT (4-49) U/L Alkaline Phosphatase (38-126) U/L C-Reactive Protein (<1.0) mg/dL Total Protein (6.3-8.2) g/dL Albumin (3.5-5.0) g/dL Procalcitonin (0.02-0.09) ng/mL Crossmatch 01/31/21 01/31/21 01/31/21 Range/Units 05:16 05:16 05:16 WBC (3.8-10.6) k/uL RBC 2.39 L (4.30-5.90) m/uL Hgb 6.5 L* D (13.0-17.5) gm/dL Hct 21.0 L (39.0-53.0) % MCHC 30.7 L (31.0-37.0) g/dL RDW 24.9 H (11.5-15.5) % Plt Count 144 L (150-450) k/uL Neutrophils # (1.3-7.7) k/uL Neutrophils # (Manual) 9.30 H (1.3-7.7) k/uL Lymphocytes # (1.0-4.8) k/uL Lymphocytes # (Manual) 0.95 L (1.0-4.8) k/uL PT 17.9 H (9.0-12.0) sec INR 1.8 H (<1.2) D-Dimer (<0.60) mg/L FEU Sodium 130 L (137-145) mmol/L Potassium (3.5-5.1) mmol/L Carbon Dioxide 20 L (22-30) mmol/L BUN 52 H (9-20) mg/dL Plasma Lactic Acid Curtis (0.7-2.0) mmol/L Calcium 8.1 L (8.4-10.2) mg/dL Total Bilirubin 4.7 H (0.2-1.3) mg/dL AST 1903 H (17-59) U/L ALT 455 H (4-49) U/L Alkaline Phosphatase 307 H (38-126) U/L C-Reactive Protein 9.0 H (<1.0) mg/dL Total Protein 5.1 L (6.3-8.2) g/dL Albumin 2.1 L (3.5-5.0) g/dL Procalcitonin (0.02-0.09) ng/mL Crossmatch 01/31/21 01/31/21 01/31/21 Range/Units 05:16 07:35 07:35 WBC (3.8-10.6) k/uL RBC (4.30-5.90) m/uL Hgb (13.0-17.5) gm/dL Hct (39.0-53.0) % MCHC (31.0-37.0) g/dL RDW (11.5-15.5) % Plt Count (150-450) k/uL Neutrophils # (1.3-7.7) k/uL Neutrophils # (Manual) (1.3-7.7) k/uL Lymphocytes # (1.0-4.8) k/uL Lymphocytes # (Manual) (1.0-4.8) k/uL PT (9.0-12.0) sec INR (<1.2) D-Dimer (<0.60) mg/L FEU Sodium (137-145) mmol/L Potassium (3.5-5.1) mmol/L Carbon Dioxide (22-30) mmol/L BUN (9-20) mg/dL Plasma Lactic Acid Curtis 5.6 H* 5.0 H* (0.7-2.0) mmol/L Calcium (8.4-10.2) mg/dL Total Bilirubin (0.2-1.3) mg/dL AST (17-59) U/L ALT (4-49) U/L Alkaline Phosphatase (38-126) U/L C-Reactive Protein (<1.0) mg/dL Total Protein (6.3-8.2) g/dL Albumin (3.5-5.0) g/dL Procalcitonin (0.02-0.09) ng/mL Crossmatch See Detail Assessment and Plan Assessment: worsening acute on chronic dyspnea secondary to metastatic pulmonary disease, massive hepatomegaly,, I suspect superimposed pneumonia Possible sepsis versus dehydration with leukocytosis, tachycardia and tachypnea. 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 Needing another blood transfusion Moderate to severe calorie protein malnutrition Chronic hyponatremia Elevated lactic acid Plan: This is a pleasant 60 years old male who presents with worsening dyspnea in view of his worsening with metastatic esophageal cancer to the lung, liver Continue IV hydration Continue with broad-spectrum antibiotics cefepime, consult infectious disease team Follow-up sputum culture and blood culture Oncology team were consulted Monitor INR, hemoglobin went liver enzymes Give 1 unit of blood transfusion for acute drop in hemoglobin patient informed about risks and benefits and he agrees Labs and medication were reviewed.. Continue same treatment. Continue with symptomatic treatment. Resume home medication. Monitor lytes and vitals. DVT and GI prophylaxis. Further recommendations as per clinical course of the patient DVT prophylaxis: No anticoagulation in view of coagulopathy heparin GI Prophylaxis: Ppi PT/OT: Pending Prognosis is guarded Full code, checked with patient and at bedside
[2021-01-31] MEDS: DEXAMETHASONE SOD PHOSPHATE 10 MG/ML 1 ML VIAL IV ONE ×2 (17:27→17:28)
[2021-01-31] MEDS ORDERED: ONDANSETRON 16 MG in SODIUM CHLORIDE 0.9% 50 ML IVPB ONE (17:30)
[2021-01-31] MEDS ORDERED: FAMOTIDINE 20 MG/2 ML VIAL IVP ONE (17:30)
[2021-01-31] MEDS ORDERED: LEUCOVORIN 700 MG in DEXTROSE 5% IN WATER 500 ML IV ONE ×2 (18:00)
[2021-01-31] MEDS ORDERED: OXALIPLATIN 100 MG, OXALIPLATIN 50 MG in DEXTROSE 5% IN WATER 500 ML IV ONE ×3 (18:00)
[2021-01-31] MEDS: PHYTONADIONE 5 MG in SODIUM CHLORIDE 0.9% 50 ML IVPB SCH (19:06)
--- NOTE | 2021-01-31 19:33 | P.CONS ---
History of Present Illness - Reason for Consult Consult date: 01/31/21 eso adeno Requesting physician: Roni E Sheet - Chief Complaint resp failure - History of Present Illness Mr. Monge is a very pleasant man who prior to his admit in 01/17/31 denied any significant PMH or chronic health conditions. He started a diet when the pandemic began and lost 25# and felt pretty good. He recently retired and wasn't really using his strength much any more but, noted loss of muscles and strength. Over the last 4 months he has noted another 15# wt. loss, unintentionally, and progressive abd distension. He denied unusual bleeding, bruising, changes in bowel habits. Appetite poor because abd bloating, energy levels poor. Had no personal Hx of cancer, his father at a young age of cancer, unsure what kind. He has CT AP showing bilateral lung nodules and hepatomegaly, he required 7 units of PRBCs, had EGD on 01/18 with an ulcerated mas s in the lower 2/3's of the esophagus, biopsied, returned superficially invasive adenocarcinoma with high grade dysplasia, Her2 neg by IHC. CT brain and NM bone scan were neg for mets. He was started on palliative XRT for bleeding mass while inpt. He port placed 01/24 and was discharged. Orders were sent to start chemo, pt was going to start after XRT was complete (next Saturday). Unfortunately he ended up back in the ER with c/o progressive NEY, he is not able to eat much because of the abd distension, denies current nausea or vomiting. On admit liver enzymes are continuing to increase, INR 1.8, Hgb 6.5, lactic acid 7.2. CTA neg for PE, suspect progression of pulm mets, CT AP no new disease in liver, CT without contrast of the brain was neg for hemorrhagic stroke or mets. Pt is not c/o any pain at this time. Review of Systems 10 point ROS is neg except as stated in HPI Past Medical History Past Medical History: No Reported History, Cancer History of Any Multi-Drug Resistant Organisms: None Reported Past Surgical History: No Surgical Hx Reported Additional Past Surgical History / Comment(s): EGD with biopsy Past Anesthesia/Blood Transfusion Reactions: No Reported Reaction Past Psychological History: No Psychological Hx Reported Smoking Status: Former smoker Past Alcohol Use History: Daily Past Drug Use History: Unable to Obtain - Past Family History Father Family Medical History: Cancer Medications and Allergies Home Medications Medication Instructions Recorded Confirmed Type Acetaminophen Tab [Tylenol] 650 mg PO Q6HR PRN tab 01/21/21 01/30/21 Rx Docusate [Colace] 100 mg PO BID PRN #30 cap 01/21/21 01/30/21 Rx HYDROcodone/APAP 5-325MG [Sanderson 1 each PO Q6HR PRN #10 tab 01/21/21 01/30/21 Rx 5-325] Nicotine 14Mg/24Hr Patch [Habitrol] 1 patch TRANSDERM DAILY #30 patch 01/21/21 01/30/21 Rx Pantoprazole Sodium [Protonix] 40 mg PO DAILY #20 tab 01/21/21 01/30/21 Rx Allergies Allergy/AdvReac Type Severity Reaction Status Date / Time Penicillins Allergy Rash/Hives Verified 01/30/21 13:35 Physical Exam Vitals: Vital Signs Temp Pulse Pulse Resp BP BP Pulse Ox 01/31/21 03:24 97.9 F 120 H 16 107/49 100 01/31/21 01:54 118 H 18 106/65 97 01/30/21 20:00 116 H 24 121/69 97 01/30/21 18:33 116 H 20 108/64 99 01/30/21 18:17 18 114/76 99 01/30/21 16:18 116 H 18 110/67 100 01/30/21 15:09 114 H 20 148/84 98 01/30/21 12:18 97.5 F L 128 H 18 113/79 99 Intake and Output 01/30/21 01/31/21 01/31/21 22:59 06:59 14:59 Intake Total 75 Balance 75 Intake: IV 75 Sodium Chloride 0.9% 1, 75 000 ml @ 75 mls/hr IV . [id number] [id number] Rx#:[id number] Other: # Voids 1 Weight 60.781 kg 61.5 kg - Constitutional General appearance: cooperative, mild distress, thin - EENT Eyes: EOMI, scleral icterus ENT: hearing grossly normal - Neck Neck: no lymphadenopathy - Respiratory Respiratory: bilateral: diminished, other (shallow inspirations) - Cardiovascular tachycardia Heart sounds: normal: S1, S2 Abnormal Heart Sounds: no systolic murmur, no diastolic murmur, no rub, no S3 Gallop, no S4 Gallop, no click, no other leg Peripheral Edema: bilateral: None - Gastrointestinal General gastrointestinal: distended, hepatomegaly, normal bowel sounds, soft, tenderness - Integumentary Integumentary: jaundiced - Neurologic Neurologic: CNII-XII intact - Musculoskeletal Musculoskeletal: generalized weakness, strength equal bilaterally - Psychiatric Psychiatric: A&O x's 3, appropriate affect, intact judgment & insight Results CBC & Chem 7: 01/31/21 05:16 01/31/21 05:16 Labs: Abnormal Lab Results - Last 24 Hours (Table) 01/30/21 01/30/21 01/30/21 Range/Units 12:58 12:58 12:58 WBC 11.7 H (3.8-10.6) k/uL RBC 3.02 L (4.30-5.90) m/uL Hgb 8.0 L (13.0-17.5) gm/dL Hct 26.3 L (39.0-53.0) % MCHC 30.5 L (31.0-37.0) g/dL RDW 23.1 H (11.5-15.5) % Plt Count (150-450) k/uL Neutrophils # 10.0 H (1.3-7.7) k/uL Neutrophils # (Manual) (1.3-7.7) k/uL Lymphocytes # 0.7 L (1.0-4.8) k/uL Lymphocytes # (Manual) (1.0-4.8) k/uL PT 19.3 H (9.0-12.0) sec INR 2.0 H (<1.2) D-Dimer 29.25 H (<0.60) mg/L FEU Sodium 130 L (137-145) mmol/L Potassium 5.9 H (3.5-5.1) mmol/L Carbon Dioxide 12 L (22-30) mmol/L BUN 37 H (9-20) mg/dL Plasma Lactic Acid Curtis (0.7-2.0) mmol/L Calcium (8.4-10.2) mg/dL Total Bilirubin 5.3 H (0.2-1.3) mg/dL AST 1844 H (17-59) U/L ALT 439 H (4-49) U/L Alkaline Phosphatase 354 H (38-126) U/L C-Reactive Protein (<1.0) mg/dL Total Protein 6.0 L (6.3-8.2) g/dL Albumin 2.7 L (3.5-5.0) g/dL Procalcitonin (0.02-0.09) ng/mL 01/30/21 01/30/21 01/30/21 Range/Units 12:58 16:00 16:11 WBC (3.8-10.6) k/uL RBC (4.30-5.90) m/uL Hgb (13.0-17.5) gm/dL Hct (39.0-53.0) % MCHC (31.0-37.0) g/dL RDW (11.5-15.5) % Plt Count (150-450) k/uL Neutrophils # (1.3-7.7) k/uL Neutrophils # (Manual) (1.3-7.7) k/uL Lymphocytes # (1.0-4.8) k/uL Lymphocytes # (Manual) (1.0-4.8) k/uL PT (9.0-12.0) sec INR (<1.2) D-Dimer (<0.60) mg/L FEU Sodium (137-145) mmol/L Potassium (3.5-5.1) mmol/L Carbon Dioxide (22-30) mmol/L BUN (9-20) mg/dL Plasma Lactic Acid Curtis 13.9 H* 15.2 H* (0.7-2.0) mmol/L Calcium (8.4-10.2) mg/dL Total Bilirubin (0.2-1.3) mg/dL AST (17-59) U/L ALT (4-49) U/L Alkaline Phosphatase (38-126) U/L C-Reactive Protein (<1.0) mg/dL Total Protein (6.3-8.2) g/dL Albumin (3.5-5.0) g/dL Procalcitonin 2.46 H (0.02-0.09) ng/mL 01/30/21 01/30/21 01/31/21 Range/Units 18:47 22:31 01:29 WBC (3.8-10.6) k/uL RBC (4.30-5.90) m/uL Hgb (13.0-17.5) gm/dL Hct (39.0-53.0) % MCHC (31.0-37.0) g/dL RDW (11.5-15.5) % Plt Count (150-450) k/uL Neutrophils # (1.3-7.7) k/uL Neutrophils # (Manual) (1.3-7.7) k/uL Lymphocytes # (1.0-4.8) k/uL Lymphocytes # (Manual) (1.0-4.8) k/uL PT (9.0-12.0) sec INR (<1.2) D-Dimer (<0.60) mg/L FEU Sodium (137-145) mmol/L Potassium (3.5-5.1) mmol/L Carbon Dioxide (22-30) mmol/L BUN (9-20) mg/dL Plasma Lactic Acid Curtis 13.8 H* 11.8 H* 7.2 H* (0.7-2.0) mmol/L Calcium (8.4-10.2) mg/dL Total Bilirubin (0.2-1.3) mg/dL AST (17-59) U/L ALT (4-49) U/L Alkaline Phosphatase (38-126) U/L C-Reactive Protein (<1.0) mg/dL Total Protein (6.3-8.2) g/dL Albumin (3.5-5.0) g/dL Procalcitonin (0.02-0.09) ng/mL 01/31/21 01/31/21 01/31/21 Range/Units 05:16 05:16 05:16 WBC (3.8-10.6) k/uL RBC 2.39 L (4.30-5.90) m/uL Hgb 6.5 L* D (13.0-17.5) gm/dL Hct 21.0 L (39.0-53.0) % MCHC 30.7 L (31.0-37.0) g/dL RDW 24.9 H (11.5-15.5) % Plt Count 144 L (150-450) k/uL Neutrophils # (1.3-7.7) k/uL Neutrophils # (Manual) 9.30 H (1.3-7.7) k/uL Lymphocytes # (1.0-4.8) k/uL Lymphocytes # (Manual) 0.95 L (1.0-4.8) k/uL PT 17.9 H (9.0-12.0) sec INR 1.8 H (<1.2) D-Dimer (<0.60) mg/L FEU Sodium 130 L (137-145) mmol/L Potassium (3.5-5.1) mmol/L Carbon Dioxide 20 L (22-30) mmol/L BUN 52 H (9-20) mg/dL Plasma Lactic Acid Curtis (0.7-2.0) mmol/L Calcium 8.1 L (8.4-10.2) mg/dL Total Bilirubin 4.7 H (0.2-1.3) mg/dL AST 1903 H (17-59) U/L ALT 455 H (4-49) U/L Alkaline Phosphatase 307 H (38-126) U/L C-Reactive Protein 9.0 H (<1.0) mg/dL Total Protein 5.1 L (6.3-8.2) g/dL Albumin 2.1 L (3.5-5.0) g/dL Procalcitonin (0.02-0.09) ng/mL 01/31/21 01/31/21 Range/Units 05:16 07:35 WBC (3.8-10.6) k/uL RBC (4.30-5.90) m/uL Hgb (13.0-17.5) gm/dL Hct (39.0-53.0) % MCHC (31.0-37.0) g/dL RDW (11.5-15.5) % Plt Count (150-450) k/uL Neutrophils # (1.3-7.7) k/uL Neutrophils # (Manual) (1.3-7.7) k/uL Lymphocytes # (1.0-4.8) k/uL Lymphocytes # (Manual) (1.0-4.8) k/uL PT (9.0-12.0) sec INR (<1.2) D-Dimer (<0.60) mg/L FEU Sodium (137-145) mmol/L Potassium (3.5-5.1) mmol/L Carbon Dioxide (22-30) mmol/L BUN (9-20) mg/dL Plasma Lactic Acid Curtis 5.6 H* 5.0 H* (0.7-2.0) mmol/L Calcium (8.4-10.2) mg/dL Total Bilirubin (0.2-1.3) mg/dL AST (17-59) U/L ALT (4-49) U/L Alkaline Phosphatase (38-126) U/L C-Reactive Protein (<1.0) mg/dL Total Protein (6.3-8.2) g/dL Albumin (3.5-5.0) g/dL Procalcitonin (0.02-0.09) ng/mL CT scan - abdomen: report reviewed CT scan - chest: report reviewed CT Scan - head: report reviewed CT scan - pelvis: report reviewed Assessment and Plan (1) Esophageal carcinoma Narrative/Plan: Dr. Costa discused with the pt the CTA-no PE but suggestive of progression of disease. Performance status is declining rapidly. Pt condition is worsening all 2/2 cancer. It was explained to pt that treatment is going to be risky because of how ill pt is already. Pt verbalized that he understood the risks and is willing to try chemo. Orders have been sent for the same. Oncology unit alerted. Pt has port already. Labs daily Supportive meds ordered Daily f/u Current Visit: Yes Status: Acute Priority: High Code(s): C15.9 - MALIGNANT NEOPLASM OF ESOPHAGUS, UNSPECIFIED SNOMED Code(s): 547219391 (2) Coagulopathy Narrative/Plan: Vit K today and in AM. Cont to monitor coags. Current Visit: Yes Status: Acute Priority: High Code(s): D68.9 - COAGULATION DEFECT, UNSPECIFIED SNOMED Code(s): 12088651 (3) Blood loss anemia Narrative/Plan: Radiation will be held at this time. Pt did have a few sessions. Systemic treatment has become critical. Pt is aware that he is at high risk for fatal hemorrhage. Current Visit: Yes Status: Acute Priority: High Code(s): D50.0 - IRON DEFICIENCY ANEMIA SECONDARY TO BLOOD LOSS (CHRONIC) SNOMED Code(s): 348603044 Plan: Attests: I have performed H&P and developed impression and plan of care for pt. Discussed with dictator. I agree with dictated note, documented as a scribe. Time with Patient: Greater than 30
[2021-01-31] MEDS ORDERED: ONDANSETRON 4 MG/2 ML VIAL IVP PRN (19:34)
[2021-01-31] MEDS ORDERED: FLUOROURACIL IV ONE (21:00)
[2021-01-31] MEDS: SALT AND SODA MOUTHWASH 1,000 ML PO SCH (21:34)
[2021-02-01] MEDS: CEFEPIME 2 GM in SODIUM CHLORIDE 0.9% 100 ML IVPB SCH ×2 (06:07→07:50)
[2021-02-01] MEDS: SALT AND SODA MOUTHWASH 1,000 ML PO SCH ×6 (06:07→23:38)
[2021-02-01] MEDS: SODIUM CHLORIDE 0.9% 1,000 ML IV SCH ×2 (06:08→18:17)
[2021-02-01 06:54] LABS: ALT 429 U/L (4-49); African American GFR (CKD) >90 (>60 ml/min/1.73 sqM); Albumin 1.9 g/dL (3.5-5.0); Albumin/Globulin Ratio 0.6; Alkaline Phosphatase 342 U/L (38-126); Anion Gap 7 mmol/L; Blood Urea Nitrogen 37 mg/dL (9-20); Calcium 7.9 mg/dL (8.4-10.2); Carbon Dioxide 20 mmol/L (22-30); Chloride 105 mmol/L (98-107); Glucose 106 mg/dL (74-99); Magnesium 2.3 mg/dL (1.6-2.3); Non-African American GFR(CKD) >90 (>60 ml/min/1.73 sqM); Sodium 132 mmol/L (137-145); Total Bilirubin 5.2 mg/dL (0.2-1.3); Total Protein 4.9 g/dL (6.3-8.2)
[2021-02-01 06:57] LABS: Lactic Acid, Venous 5.6 mmol/L (0.7-2.0)
[2021-02-01 07:14] LABS: Anisocytosis Marked; HCT 23.4 % (39.0-53.0); HGB 7.7 gm/dL (13.0-17.5); Hypochromasia Moderate; MCH 28.6 pg (25.0-35.0); MCHC 32.8 g/dL (31.0-37.0); MCV 87.3 fL (80.0-100.0); Macrocytosis Slight; Mean Platelet Volume 8.4; Microcytosis Slight; Platelet Count 160 k/uL (150-450); Poikilocytosis Moderate; RBC 2.68 m/uL (4.30-5.90)
[2021-02-01 07:15] LABS: AST 1364 U/L (17-59); RDW 25.2 % (11.5-15.5)
[2021-02-01] MEDS: PANTOPRAZOLE 40 MG TABLET PO SCH (07:50)
--- NOTE | 2021-02-01 08:12 | P.CONS ---
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 for the patient is currently undergoing radiation therapy and has received about 6 treatment patient was noticed yesterday at the time of radiation to be having tachycardia and increased work of breathing for the patient was sent to [facility] ER for further evaluation patient has been complaining of increasing shortness of breath for the last few days patient denies having any chest pain patient did have very minimal cough no sputum production the patient denies any nausea no vomiting patient had 2 take some liquid food however denies having any choking on the food or any deric aspiration denies any nausea no vomiting no abdominal pain or any diarrhea with the symptom the patient has been evaluated by the ER physician on arrival to the ER the patient was afebrile and no fever has been recorded since admission to the hospital patient did have a low hemoglobin of 6.5 white count was 10.6 creatinine was 0.76 liver enzymes significantly elevated patient did have a chest x-ray chronic and severe emphysematous changes with increasing bilateral pulmonary nodule CT abdominal pelvis mild hepatomegaly with innumerable hypodense metastatic mass is redemonstrated slight local mass-effect is but he demonstrated no new or acute intra-abdominal pathology CT angiogram of the chest did not show any PE did shows background moderate emphysematous changes with metastatic pulmonary progression no new acute pulmonary process is identified patient was started on cefepime concerning for pneumonia infectious disease was consulted for further management of antibiotic therapy , CT were reviewed with radiologist Review of system: CONSTITUTIONAL: Positive for weakness however denies fever. EYES: No complaint. ENT: No complaint. RESPIRATORY: As per history of present illness. CARDIOVASCULAR: As per history of present illness GENITOURINARY: No complaint. GASTROINTESTINAL: As per history of present illness MUSCULOSKELETAL: No complaint. INTEGUMENTARY: No complaint. PSYCHOLOGIC: No complaint. ENDOCRINE: No complaint. NEUROLOGIC: No complaint. Past medical history : Reviewed, documented below Past surgical history : Reviewed, documented below Social history: Reviewed, documented below Medications: Reviewed, as documented below EXAMINATION: Vital sigans= Reviewed and documented below GENERAL DESCRIPTION: Middle-aged male lying in bed, no distress. No tachypnea or accessory muscle of respiration use. HEENT: Shows Pallor , no scleral icterus. Oral mucous membrane is dry. NECK: Trachea central, no thyromegaly. LUNGS: Unlabored breathing. Decreased breath sound at the base. No wheeze or crackle. HEART: S1, S2, regular rate and rhythm. ABDOMEN: Soft, no tenderness , guarding or rigidity EXTREMITIES: No edema of feet. SKIN: No rash, no masses palpable. NEUROLOGICAL: The patient is awake, alert, oriented x3, mood and affect normal. LABS AND RADIOLOGY: Reviewed results see below Assessment : Patient presented to hospital with increasing shortness of breath and tachycardia which is more likely related to his underlying metastatic esophageal cancer with evidence of multiple mets to the lungs, CT angiogram did not show any acute pulmonary disease such as pneumonia patient is clinically not behaving as pneumonia with no fever or elevated white count Plan: 1-recommend to discontinue antibiotics as clinical suspicion is low for pneumonia 2-management of underlying metastatic esophageal cancer per oncology team We will follow on clinical condition and cultures to further adjust medication if needed Thank you for this consultation we will follow the patient along with you Past Medical History Past Medical History: No Reported History History of Any Multi-Drug Resistant Organisms: None Reported Past Surgical History: No Surgical Hx Reported Past Psychological History: No Psychological Hx Reported Smoking Status: Former smoker Past Alcohol Use History: Daily Past Drug Use History: Unable to Obtain - Past Family History Father Family Medical History: Cancer Medications and Allergies Home Medications Medication Instructions Recorded Confirmed Type Acetaminophen Tab [Tylenol] 650 mg PO Q6HR PRN tab 01/21/21 01/30/21 Rx Docusate [Colace] 100 mg PO BID PRN #30 cap 01/21/21 01/30/21 Rx HYDROcodone/APAP 5-325MG [[place] 1 each PO Q6HR PRN #10 tab 01/21/21 01/30/21 Rx 5-325] Nicotine 14Mg/24Hr Patch [Habitrol] 1 patch TRANSDERM DAILY #30 patch 01/21/21 01/30/21 Rx Pantoprazole Sodium [Protonix] 40 mg PO DAILY #20 tab 01/21/21 01/30/21 Rx Allergies Allergy/AdvReac Type Severity Reaction Status Date / Time Penicillins Allergy Rash/Hives Verified 01/30/21 13:35 Physical Exam Vitals: Vital Signs Temp Pulse Pulse Resp BP BP Pulse Ox 01/31/21 10:44 98.4 F 118 H 19 113/74 98 01/31/21 10:14 98.2 F 122 H 19 106/71 99 01/31/21 10:04 98.2 F 124 H 20 106/70 100 01/31/21 08:00 131 H 19 01/31/21 07:45 98.2 F 131 H 19 105/69 100 01/31/21 03:24 97.9 F 120 H 16 107/49 100 01/31/21 01:54 118 H 18 106/65 97 01/30/21 20:00 116 H 24 121/69 97 01/30/21 18:33 116 H 20 108/64 99 01/30/21 18:17 18 114/76 99 01/30/21 16:18 116 H 18 110/67 100 01/30/21 15:09 114 H 20 148/84 98 01/30/21 12:18 97.5 F L 128 H 18 113/79 99 Intake and Output 01/30/21 01/31/21 01/31/21 22:59 06:59 14:59 Intake Total 75 0 Balance 75 0 Intake: IV 75 Sodium Chloride 0.9% 1, 75 000 ml @ 75 mls/hr IV . [id number] [facility] Rx#:[id number] Blood Product 0 Rc As-1 Unit 0 [id number] Other: Voiding Method Urinal # Voids 1 1 # Bowel Movements 1 Weight 60.781 kg 61.5 kg Results CBC & Chem 7: 02/01/21 06:21 02/01/21 06:21 Labs: Abnormal Lab Results - Last 24 Hours (Table) 01/30/21 01/30/21 01/30/21 Range/Units 12:58 12:58 12:58 WBC 11.7 H (3.8-10.6) k/uL RBC 3.02 L (4.30-5.90) m/uL Hgb 8.0 L (13.0-17.5) gm/dL Hct 26.3 L (39.0-53.0) % MCHC 30.5 L (31.0-37.0) g/dL RDW 23.1 H (11.5-15.5) % Plt Count (150-450) k/uL Neutrophils # 10.0 H (1.3-7.7) k/uL Neutrophils # (Manual) (1.3-7.7) k/uL Lymphocytes # 0.7 L (1.0-4.8) k/uL Lymphocytes # (Manual) (1.0-4.8) k/uL PT 19.3 H (9.0-12.0) sec INR 2.0 H (<1.2) D-Dimer 29.25 H (<0.60) mg/L FEU Sodium 130 L (137-145) mmol/L Potassium 5.9 H (3.5-5.1) mmol/L Carbon Dioxide 12 L (22-30) mmol/L BUN 37 H (9-20) mg/dL Plasma Lactic Acid Curtis (0.7-2.0) mmol/L Calcium (8.4-10.2) mg/dL Total Bilirubin 5.3 H (0.2-1.3) mg/dL AST 1844 H (17-59) U/L ALT 439 H (4-49) U/L Alkaline Phosphatase 354 H (38-126) U/L C-Reactive Protein (<1.0) mg/dL Total Protein 6.0 L (6.3-8.2) g/dL Albumin 2.7 L (3.5-5.0) g/dL Procalcitonin (0.02-0.09) ng/mL Crossmatch 01/30/21 01/30/21 01/30/21 Range/Units 12:58 16:00 16:11 WBC (3.8-10.6) k/uL RBC (4.30-5.90) m/uL Hgb (13.0-17.5) gm/dL Hct (39.0-53.0) % MCHC (31.0-37.0) g/dL RDW (11.5-15.5) % Plt Count (150-450) k/uL Neutrophils # (1.3-7.7) k/uL Neutrophils # (Manual) (1.3-7.7) k/uL Lymphocytes # (1.0-4.8) k/uL Lymphocytes # (Manual) (1.0-4.8) k/uL PT (9.0-12.0) sec INR (<1.2) D-Dimer (<0.60) mg/L FEU Sodium (137-145) mmol/L Potassium (3.5-5.1) mmol/L Carbon Dioxide (22-30) mmol/L BUN (9-20) mg/dL Plasma Lactic Acid Curtis 13.9 H* 15.2 H* (0.7-2.0) mmol/L Calcium (8.4-10.2) mg/dL Total Bilirubin (0.2-1.3) mg/dL AST (17-59) U/L ALT (4-49) U/L Alkaline Phosphatase (38-126) U/L C-Reactive Protein (<1.0) mg/dL Total Protein (6.3-8.2) g/dL Albumin (3.5-5.0) g/dL Procalcitonin 2.46 H (0.02-0.09) ng/mL Crossmatch 01/30/21 01/30/21 01/31/21 Range/Units 18:47 22:31 01:29 WBC (3.8-10.6) k/uL RBC (4.30-5.90) m/uL Hgb (13.0-17.5) gm/dL Hct (39.0-53.0) % MCHC (31.0-37.0) g/dL RDW (11.5-15.5) % Plt Count (150-450) k/uL Neutrophils # (1.3-7.7) k/uL Neutrophils # (Manual) (1.3-7.7) k/uL Lymphocytes # (1.0-4.8) k/uL Lymphocytes # (Manual) (1.0-4.8) k/uL PT (9.0-12.0) sec INR (<1.2) D-Dimer (<0.60) mg/L FEU Sodium (137-145) mmol/L Potassium (3.5-5.1) mmol/L Carbon Dioxide (22-30) mmol/L BUN (9-20) mg/dL Plasma Lactic Acid Curtis 13.8 H* 11.8 H* 7.2 H* (0.7-2.0) mmol/L Calcium (8.4-10.2) mg/dL Total Bilirubin (0.2-1.3) mg/dL AST (17-59) U/L ALT (4-49) U/L Alkaline Phosphatase (38-126) U/L C-Reactive Protein (<1.0) mg/dL Total Protein (6.3-8.2) g/dL Albumin (3.5-5.0) g/dL Procalcitonin (0.02-0.09) ng/mL Crossmatch 01/31/21 01/31/21 01/31/21 Range/Units 05:16 05:16 05:16 WBC (3.8-10.6) k/uL RBC 2.39 L (4.30-5.90) m/uL Hgb 6.5 L* D (13.0-17.5) gm/dL Hct 21.0 L (39.0-53.0) % MCHC 30.7 L (31.0-37.0) g/dL RDW 24.9 H (11.5-15.5) % Plt Count 144 L (150-450) k/uL Neutrophils # (1.3-7.7) k/uL Neutrophils # (Manual) 9.30 H (1.3-7.7) k/uL Lymphocytes # (1.0-4.8) k/uL Lymphocytes # (Manual) 0.95 L (1.0-4.8) k/uL PT 17.9 H (9.0-12.0) sec INR 1.8 H (<1.2) D-Dimer (<0.60) mg/L FEU Sodium 130 L (137-145) mmol/L Potassium (3.5-5.1) mmol/L Carbon Dioxide 20 L (22-30) mmol/L BUN 52 H (9-20) mg/dL Plasma Lactic Acid Curtis (0.7-2.0) mmol/L Calcium 8.1 L (8.4-10.2) mg/dL Total Bilirubin 4.7 H (0.2-1.3) mg/dL AST 1903 H (17-59) U/L ALT 455 H (4-49) U/L Alkaline Phosphatase 307 H (38-126) U/L C-Reactive Protein 9.0 H (<1.0) mg/dL Total Protein 5.1 L (6.3-8.2) g/dL Albumin 2.1 L (3.5-5.0) g/dL Procalcitonin (0.02-0.09) ng/mL Crossmatch 01/31/21 01/31/21 01/31/21 Range/Units 05:16 07:35 07:35 WBC (3.8-10.6) k/uL RBC (4.30-5.90) m/uL Hgb (13.0-17.5) gm/dL Hct (39.0-53.0) % MCHC (31.0-37.0) g/dL RDW (11.5-15.5) % Plt Count (150-450) k/uL Neutrophils # (1.3-7.7) k/uL Neutrophils # (Manual) (1.3-7.7) k/uL Lymphocytes # (1.0-4.8) k/uL Lymphocytes # (Manual) (1.0-4.8) k/uL PT (9.0-12.0) sec INR (<1.2) D-Dimer (<0.60) mg/L FEU Sodium (137-145) mmol/L Potassium (3.5-5.1) mmol/L Carbon Dioxide (22-30) mmol/L BUN (9-20) mg/dL Plasma Lactic Acid Curtis 5.6 H* 5.0 H* (0.7-2.0) mmol/L Calcium (8.4-10.2) mg/dL Total Bilirubin (0.2-1.3) mg/dL AST (17-59) U/L ALT (4-49) U/L Alkaline Phosphatase (38-126) U/L C-Reactive Protein (<1.0) mg/dL Total Protein (6.3-8.2) g/dL Albumin (3.5-5.0) g/dL Procalcitonin (0.02-0.09) ng/mL Crossmatch See Detail
[2021-02-01 08:32] LABS: Band Neutrophils % 2 %; Metamyelocytes % 2 %; Neutrophils % (M) 89 %; Nucleated Red Blood Cells 1 /100 WBC (0-0); Total Cells Counted 200
[2021-02-01 08:33] LABS: Polychromasia Present; WBC 9.9 k/uL (3.8-10.6)
[2021-02-01 09:46] LABS: INR 1.5 (0.90-1.11); Prothrombin Time 15.9 sec (9.9-11.9)
[2021-02-01] MEDS: PHYTONADIONE 5 MG in SODIUM CHLORIDE 0.9% 50 ML IVPB SCH (09:54)
[2021-02-01] MEDS: NICOTINE 14MG/24HR PATCH TRANSDERM SCH (09:54)
--- NOTE | 2021-02-01 12:08 | CDI ---
Documentation Clarification Form Date: 02/01/2021 11:54:34 AM From: Dora Leyva CCS, CCDS Admit Date: 01/30/2021 03:59:00 PM Patient Name: Yoav Monge Visit Number: [id number] Discharge Date: ATTENTION: The Clinical Documentation Specialists (CDI) and [facility] Coding Staff appreciate your assistance in clarifying documentation. Please respond to the clarification below the line at the bottom and electronically sign. The CDI & [facility] Coding staff will review the response and follow-up if needed. Please note: Queries are made part of the Legal Health Record. If you have any questions, please contact the author of this message via ITS. Dr. Roni Pollard. Sheet: Malnutrition is documented in the 01/30 History & Physical and the 01/31 Progress Note as Moderate to Severe Calorie Protein Malnutrition. Additional clarification regarding the specific severity of malnutrition is requested. 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 Clinical Indicators: Presented to the ED on 01/30 with Elevated Heart Rate and SOB. Recently diagnosed with Esophageal CA w/Mets to the Liver and Lung status post 6 radiation treatments. Abdominal distention, Cough with brown sputum production. ED Clinical Impression: Anemia, Ascites, Esophageal Carcinoma, Overdose radiation therapy, Liver metastasis, Hyperbilirubinemia, Transaminitis, Lactic Acidosis, Tachycardia. Per the H/P, the patient is cachectic with distended abdomen and has weight loss in the past four months. Nutritional Assessment: Current BMI (01/30): 18.9 Height: 5 ft 8 in. Weight: 56.6 kg [place] Body Weight: 67.2, @ 92% of IBW. Consumed 50-75% of intake, difficulty swallowing, underfeeding due to esophageal carcinoma. Treatment: Ensure Enlive supplement TID. Hernandez Magic Cup w/Dinner. Telemetry, O2 2Lnc, IV fl Rate 75 mls/hr q13Hr, IV Cefepime, IV Vancomycin, IV fl bolus 999 mls/hr q1H, IV Phytonadione in Na Cl Daily, Please clarify the specific severity of malnutrition, if known: [ ] Moderate Protein-Calorie Malnutrition [ ] Severe Protein-Calorie Malnutrition [ ] Other condition, please specify [ ] Unable to Determine (Template Last Revised: July 2020) Severe Protein-Calorie Malnutrition MTDD
--- NOTE | 2021-02-01 14:20 | P.PN ---
Subjective Progress Note Date: 02/01/21 Patient continues to have significant shortness of breath. He is continuing on oxygen. He has ongoing abdominal distention and tightness. However he feels that his symptoms are possibly slightly better compared to yesterday. No obvious bleeding. No nausea, vomiting, or mouth sores. Objective - Vital Signs Vital signs: Vital Signs Temp 97.8 F 02/01/21 12:00 Pulse 109 H 02/01/21 12:00 Resp 20 02/01/21 12:00 BP 107/67 02/01/21 12:00 Pulse Ox 99 02/01/21 12:00 Intake & Output 01/31/21 02/01/21 02/01/21 18:59 06:59 18:59 Intake Total 1075 600 650 Output Total 100 Balance 975 600 650 Weight 61.5 kg 56.5 kg Intake: IV 225 600 Sodium Chloride 0.9% 1, 225 600 000 ml @ 75 mls/hr IV . [id number] [facility] Rx#:[id number] Intake, IV Titration 650 Amount Phytonadione 5 mg In 50 Sodium Chloride 0.9% 50 ml @ 100 mls/hr IVPB DAILY [facility] Rx#:[id number] Sodium Chloride 0.9% 1, 600 000 ml @ 75 mls/hr IV . [id number] [facility] Rx#:[id number] Oral 540 Blood Product 310 Rc As-1 Unit 310 [id number] Output: Urine 100 Other: Voiding Method Urinal Bedside Commode Bedside Commode Urinal Urinal # Voids 2 # Bowel Movements 1 - Constitutional General appearance: Present: mild distress - EENT Eyes: Present: EOMI ENT: Present: hearing grossly normal, normal oropharynx - Respiratory Respiratory: bilateral: CTA - Cardiovascular Rhythm: regular Heart sounds: normal: S1, S2 - Gastrointestinal General gastrointestinal: Present: distended, soft Localized gastrointestinal: tender: RUQ (Massive hepatomegaly extending into the right lower quadrant), mass: RUQ - Integumentary Integumentary: Present: jaundiced - Neurologic Neurologic: Present: CNII-XII intact - Musculoskeletal Musculoskeletal: Present: generalized weakness, strength equal bilaterally - Psychiatric Psychiatric: Present: A&O x's 3 - Labs CBC & Chem 7: 02/01/21 06:21 02/01/21 06:21 Labs: Abnormal Lab Results - Last 24 Hours (Table) 01/31/21 02/01/21 02/01/21 Range/Units 05:16 06:21 06:21 RBC 2.68 L (4.30-5.90) m/uL Hgb 7.7 L (13.0-17.5) gm/dL Hct 23.4 L (39.0-53.0) % RDW 25.2 H (11.5-15.5) % Neutrophils # (Manual) 9.00 H (1.3-7.7) k/uL Lymphocytes # (Manual) 0.40 L (1.0-4.8) k/uL Metamyelocytes # (Man) 0.20 H (0) k/uL Nucleated RBCs 1 H (0-0) /100 WBC PT 15.9 H (9.9-11.9) sec INR 1.50 H (0.90-1.11) Sodium (137-145) mmol/L Carbon Dioxide (22-30) mmol/L BUN (9-20) mg/dL Creatinine (0.66-1.25) mg/dL Glucose (74-99) mg/dL Plasma Lactic Acid Curtis 5.6 H* (0.7-2.0) mmol/L Calcium (8.4-10.2) mg/dL Total Bilirubin (0.2-1.3) mg/dL AST (17-59) U/L ALT (4-49) U/L Alkaline Phosphatase (38-126) U/L Total Protein (6.3-8.2) g/dL Albumin (3.5-5.0) g/dL 02/01/21 02/01/21 Range/Units 06:21 06:21 RBC (4.30-5.90) m/uL Hgb (13.0-17.5) gm/dL Hct (39.0-53.0) % RDW (11.5-15.5) % Neutrophils # (Manual) (1.3-7.7) k/uL Lymphocytes # (Manual) (1.0-4.8) k/uL Metamyelocytes # (Man) (0) k/uL Nucleated RBCs (0-0) /100 WBC PT (9.9-11.9) sec INR (0.90-1.11) Sodium 132 L (137-145) mmol/L Carbon Dioxide 20 L (22-30) mmol/L BUN 37 H (9-20) mg/dL Creatinine 0.51 L (0.66-1.25) mg/dL Glucose 106 H (74-99) mg/dL Plasma Lactic Acid Curtis 3.6 H* (0.7-2.0) mmol/L Calcium 7.9 L (8.4-10.2) mg/dL Total Bilirubin 5.2 H (0.2-1.3) mg/dL AST 1364 H (17-59) U/L ALT 429 H (4-49) U/L Alkaline Phosphatase 342 H (38-126) U/L Total Protein 4.9 L (6.3-8.2) g/dL Albumin 1.9 L (3.5-5.0) g/dL Assessment and Plan (1) Metastasis from esophageal cancer Narrative/Plan: The patient has been started on infusional 5-FU plus oxaliplatin, the FOLFOX regimen, on 02/01/21 emergent basis due to very rapid progression of his esophageal cancer with lung and liver metastasis, and labs showing developing liver and respiratory failure. He is on day 2. So far he has had no untoward side effects from treatment and symptomatically feels slightly better. I again had a detailed discussion with him, and his was present at the bedside. It was reiterated that his cancer is not curable and the objective of treatment is prolonged duration of life and palliation of symptoms. We also discussed that his prognosis is very guarded given the very rapid progression of disease and possible impending organ failure. Specifically I discussed the p ossibility of increasing liver inflammation related to tumor necrosis from chemotherapy effect, which can precipitate liver failure in an already compromised liver. The patient is therefore certainly at high risk for adverse events related to treatment because of this, as well as decline in performance status, weight loss, as well as increased risk of bleeding from the primary site. However without treatment, his prognosis is likely to be very limited definitely. Based on that the patient had made a decision with good understanding of risk versus benefit, to start treatment. His had multiple questions that were answered to the best of my ability. She expressed understanding of the above issues and was quite in agreement with the decision to proceed with treatment. We also discussed monitoring protocols and supportive care as the patient goes through treatment. Current Visit: Yes Status: Acute Code(s): C79.9 - SECONDARY MALIGNANT NEOPLASM OF UNSPECIFIED SITE; C15.9 - MALIGNANT NEOPLASM OF ESOPHAGUS, UNSPECIFIED SNOMED Code(s): 046515986 (2) Coagulopathy Narrative/Plan: Due to severe liver decompensation. The patient will be receiving vitamin K and will have ongoing monitoring of coags. We will also need to monitor for recurrent bleeding especially from the primary site in the setting of coagulopathy. Current Visit: Yes Status: Acute Priority: High Code(s): D68.9 - COAGULATION DEFECT, UNSPECIFIED SNOMED Code(s): 54491974 (3) Blood loss anemia Narrative/Plan: Patient's anemia has mainly from blood loss from the primary site. That was why he was started on palliative radiation initially. However radiation had to be interrupted because of rapid progression of systemic disease to start chemotherapy. This does place him at increased risk of recurrent bleeding from the primary site with chemotherapy, due to factors such as tumor necrosis, and drop in platelet counts. In addition he also has underlying Coagulopathy from liver decompensation. Hopefully the risk would have been medicated at least partially by the radiation the patient was able to receive. In addition we will monitor closely and attempt to keep his coags and platelets at a safe level. Transfuse to keep hemoglobin greater than 7 Current Visit: Yes Status: Acute Priority: High Code(s): D50.0 - IRON DEFICIENCY ANEMIA SECONDARY TO BLOOD LOSS (CHRONIC) SNOMED Code(s): 900734636 Plan: Case was also discussed in detail with the admitting service
--- NOTE | 2021-02-01 14:52 | P.PN ---
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 With elevated liver enzymes mostly secondary to liver metastases. He is status post right upper chest Port-A-Cath insertion. He was recently admitted to this hospital 01/16-, for failure to summarize with hepatic lesion. EGD done and found esophageal mass positive for esophageal adenocarcinoma. With bleeding mass, at that point radiotherapy treatment recommended radiotherapy to control the bleeding mass. Patient was undergoing 6 round of radiotherapy recently where he was noticed to have worsening dyspnea and tachycardia so he was referred to the emergency room. Patient and at bedside, patient is cachectic with distended abdomen, dyspneic and mild to moderate respiratory distress states that his been having dyspnea for the last 1.5 months however he became more dyspneic yesterday and today with cough and total greenish phlegm but no chest pain. He has no urinary symptoms and bowel movement is alternating between regular and diarrhea. Patient basically consumes liquids merely Saavedra and 3-4 bottles of Ensure every day. On admission he was tachycardic with heart rate 114-1.8, where last time he was discharged with heart rate of 113 , compared to last time his breathing rate was 18 and currently is around 20. And he is saturating 100% on room air. His blood pressure is stable. He is afebrile But mild hypothermia His leukocytosis almost doubled from last time 6.8 up to 11.7. Hemoglobin is 8.0 compared to 7.5 and platelet count is normal on 170. INR is elevated at 2.0 Sodium 1:30 similar to last time, potassium is elevated at 5.9. Carbon dioxide is lower than last time 19 down to 12. Creatinine is stable at 0.8 which is within the reference range. Elevated lactic acid 13.9 and 15.2. Elevated d-dimer at 29 Elevated bilirubin 5.3 AST is elevated 1844, ALT is also elevated at 439. Troponin is normal less than 0.012. Coronavirus not detected. EKG shows sinus tachycardia at 123 with QTC of 5:15. Right bundle branch block. Elevated d-dimer CTA of the chest showing no pulmonary embolism. Also background moderate underlying emphysematous changes rhythm demonstrates is. Short-term interval metastatic pulmonary progression noted as suspected on chest x-ray. No acute pulmonary process identified. Chest x-ray showing chronic emphysematous changes with worsening bilateral pulmonary nodules suggesting showed interval metastatic neoplastic progression CT of the abdomen and pelvis: Marked hepatomegaly with innumerable hypodense metastatic mass is redemonstrated. Significant local mass effect is redemonstrated. No new acute intra-abdominal finding clearly seen. CT of the brain: Age-related atrophic and chronic small vessel ischemic change without acute intracranial process seen at this time In the emergency room he was started on normal saline 75 mL/h and antibiotics with cefepime and IV vancomycin 01/31/2021 Patient is still significantly tachypneic although he reports improvement compared to yesterday. He is saturating 98% 200% on 2 L oxygen via nasal cannula. Distal tachycardic with 116-122. He is afebrile. Labs showing improving INR to 1.8, drop of hemoglobin down to 6.5, lactic acid improved significantly to 5.0. WBC stable around 10.6 which is within the r eference range, stable sodium at 1:30. Liver enzymes still elevated with AST 1903 and ALT of 4329 and is improving to 5.3 down to 4.7. His calcitonin is elevated at 2.4. He seemed to 1 L of bolus normal saline last night, he is still on cefepime 2 g 3 times a day and normal sinus 75 mL per hour We are going to consult infectious disease team 02/01/2021 Patient generally looks same day when he came into the hospital although his breathing and strength. Little better and improving, no significant abdominal pain. Hemodynamically stable except for mild tachycardia at 110. Saturation of oxygen is 99% on 2 L oxygen. looks stable, INR is down to 1.5, hemoglobin improved 7.7. Lactic acid down to 3.6. Liver enzymes slightly up and bilirubin at 5.2 which is slightly increased. Antibiotics as stopped per ID team as there is no suspicious for infection She was started on chemotherapy per oncologist, if no improvement then might consider less aggressive and more comfortable measures. Objective - Vital Signs Vital signs: Vital Signs Temp 97.8 F 02/01/21 12:00 Pulse 109 H 02/01/21 12:00 Resp 20 02/01/21 12:00 BP 107/67 02/01/21 12:00 Pulse Ox 99 02/01/21 12:00 Intake & Output 01/31/21 02/01/21 02/01/21 18:59 06:59 18:59 Intake Total 1075 600 650 Output Total 100 Balance 975 600 650 Weight 61.5 kg 56.5 kg Intake: IV 225 600 Sodium Chloride 0.9% 1, 225 600 000 ml @ 75 mls/hr IV . [id number] [facility] Rx#:[id number] Intake, IV Titration 650 Amount Phytonadione 5 mg In 50 Sodium Chloride 0.9% 50 ml @ 100 mls/hr IVPB DAILY [facility] Rx#:[id number] Sodium Chloride 0.9% 1, 600 000 ml @ 75 mls/hr IV . [id number] [facility] Rx#:[id number] Oral 540 Blood Product 310 Rc As-1 Unit 310 [id number] Output: Urine 100 Other: Voiding Method Urinal Bedside Commode Bedside Commode Urinal Urinal # Voids 2 # Bowel Movements 1 - Exam GENERAL: The patient is alert and oriented x3, not in any acute distress. C achectic HEENT: Pupils are round and equally reacting to light. EOMI. No scleral icterus. No conjunctival pallor. Normocephalic, atraumatic. No pharyngeal erythema. No thyromegaly. CARDIOVASCULAR: S1 and S2 present. No murmurs, rubs, or gallops. -PULMONARY: Chest is clear to auscultation, no wheezing . Tachypneic with bilateral crepitation -ABDOMEN: Soft, nontender, distended, normoactive bowel sounds. No palpable organomegaly. MUSCULOSKELETAL: No joint swelling or deformity. EXTREMITIES: No cyanosis, clubbing, no leg edema. NEUROLOGICAL: Gross neurological examination did not reveal any focal deficits. SKIN: No rashes. No petechiae - Labs CBC & Chem 7: 02/01/21 06:21 02/01/21 06:21 Labs: Abnormal Lab Results - Last 24 Hours (Table) 01/31/21 02/01/21 02/01/21 Range/Units 05:16 06:21 06:21 RBC 2.68 L (4.30-5.90) m/uL Hgb 7.7 L (13.0-17.5) gm/dL Hct 23.4 L (39.0-53.0) % RDW 25.2 H (11.5-15.5) % Neutrophils # (Manual) 9.00 H (1.3-7.7) k/uL Lymphocytes # (Manual) 0.40 L (1.0-4.8) k/uL Metamyelocytes # (Man) 0.20 H (0) k/uL Nucleated RBCs 1 H (0-0) /100 WBC PT 15.9 H (9.9-11.9) sec INR 1.50 H (0.90-1.11) Sodium (137-145) mmol/L Carbon Dioxide (22-30) mmol/L BUN (9-20) mg/dL Creatinine (0.66-1.25) mg/dL Glucose (74-99) mg/dL Plasma Lactic Acid Curtis 5.6 H* (0.7-2.0) mmol/L Calcium (8.4-10.2) mg/dL Total Bilirubin (0.2-1.3) mg/dL AST (17-59) U/L ALT (4-49) U/L Alkaline Phosphatase (38-126) U/L Total Protein (6.3-8.2) g/dL Albumin (3.5-5.0) g/dL 02/01/21 02/01/21 Range/Units 06:21 06:21 RBC (4.30-5.90) m/uL Hgb (13.0-17.5) gm/dL Hct (39.0-53.0) % RDW (11.5-15.5) % Neutrophils # (Manual) (1.3-7.7) k/uL Lymphocytes # (Manual) (1.0-4.8) k/uL Metamyelocytes # (Man) (0) k/uL Nucleated RBCs (0-0) /100 WBC PT (9.9-11.9) sec INR (0.90-1.11) Sodium 132 L (137-145) mmol/L Carbon Dioxide 20 L (22-30) mmol/L BUN 37 H (9-20) mg/dL Creatinine 0.51 L (0.66-1.25) mg/dL Glucose 106 H (74-99) mg/dL Plasma Lactic Acid Curtis 3.6 H* (0.7-2.0) mmol/L Calcium 7.9 L (8.4-10.2) mg/dL Total Bilirubin 5.2 H (0.2-1.3) mg/dL AST 1364 H (17-59) U/L ALT 429 H (4-49) U/L Alkaline Phosphatase 342 H (38-126) U/L Total Protein 4.9 L (6.3-8.2) g/dL Albumin 1.9 L (3.5-5.0) g/dL Assessment and Plan Assessment: worsening acute on chronic dyspnea secondary to metastatic pulmonary disease, massive hepatomegaly,, I suspect superimposed pneumonia Possible sepsis versus dehydration with leukocytosis, tachycardia and tachypnea. 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 Needing another blood transfusion Moderate to severe calorie protein malnutrition Chronic hyponatremia Elevated lactic acid Plan: This is a pleasant 60 years old male who presents with worsening dyspnea in view of his worsening with metastatic esophageal cancer to the lung, liver Continue IV hydration Discontinue antibiotics per infectious disease team Patient undergoing chemotherapy by oncology team Oncology team were consulted Labs and medication were reviewed.. Continue same treatment. Continue with symptomatic treatment. Resume home medication. Monitor lytes and vitals. DVT and GI prophylaxis. Further recommendations as per clinical course of the patient DVT prophylaxis: No anticoagulation in view of coagulopathy heparin GI Prophylaxis: Ppi PT/OT: Pending Prognosis is guarded Full code, checked with patient and at bedside
[2021-02-01] MEDS ORDERED: HYDROCORTISONE SUPPOSITORY 25 MG SUPP RECTAL PRN (15:08)
[2021-02-01] MEDS ORDERED: ALPRAZolam 0.25 MG TAB PO PRN (18:05)
[2021-02-02] MEDS: SALT AND SODA MOUTHWASH 1,000 ML PO SCH ×5 (05:01→23:56)
[2021-02-02] MEDS: SODIUM CHLORIDE 0.9% 1,000 ML IV SCH ×2 (05:01→20:54)
[2021-02-02] MEDS ORDERED: ALPRAZolam 0.25 MG TAB PO PRN (08:40)
[2021-02-02 09:15] LABS: Anisocytosis Marked; Basophils % (A) 0 %; Eosinophils % (A) 0 %; HCT 22.6 % (39.0-53.0); Hypochromasia Marked; Lymphocytes # (A) 0.6 k/uL (1.0-4.8); Lymphocytes % (A) 8 %; MCH 28.9 pg (25.0-35.0); MCHC 31.1 g/dL (31.0-37.0); Macrocytosis Slight; Mean Platelet Volume 8.9; Microcytosis Slight; Monocytes # (A) 0.2 k/uL (0-1.0); Monocytes % (A) 3 %; Neutrophils # (A) 6.8 k/uL (1.3-7.7); Neutrophils % (A) 88 %; Platelet Count 120 k/uL (150-450); Poikilocytosis Slight; RBC 2.44 m/uL (4.30-5.90); WBC 7.7 k/uL (3.8-10.6)
[2021-02-02] MEDS: PETROLATUM, WHITE OINT 50 GM TUBE TOPICAL SCH ×4 (09:15→20:53)
[2021-02-02] MEDS: PANTOPRAZOLE 40 MG TABLET PO SCH (09:15)
[2021-02-02] MEDS: NICOTINE 14MG/24HR PATCH TRANSDERM SCH (09:15)
[2021-02-02 09:16] LABS: MCV 92.7 fL (80.0-100.0)
[2021-02-02 09:17] LABS: RDW 26.3 % (11.5-15.5)
[2021-02-02 09:24] LABS: ALT 328 U/L (4-49); African American GFR (CKD) >90 (>60 ml/min/1.73 sqM); Albumin 1.8 g/dL (3.5-5.0); Albumin/Globulin Ratio 0.7; Alkaline Phosphatase 386 U/L (38-126); Anion Gap 5 mmol/L; Blood Urea Nitrogen 30 mg/dL (9-20); Calcium 7.5 mg/dL (8.4-10.2); Carbon Dioxide 21 mmol/L (22-30); Chloride 106 mmol/L (98-107); Globulin 2.7 g/dL; Glucose 85 mg/dL (74-99); Non-African American GFR(CKD) >90 (>60 ml/min/1.73 sqM); Potassium 5.1 mmol/L (3.5-5.1); Sodium 132 mmol/L (137-145); Total Protein 4.5 g/dL (6.3-8.2)
[2021-02-02 09:52] LABS: AST 847 U/L (17-59)
--- NOTE | 2021-02-02 09:53 | CDI ---
Documentation Clarification Form Date: 02/02/2021 09:32:59 AM From: Dora Leyva CCS, CCDS Admit Date: 01/30/2021 03:59:00 PM Patient Name: Yoav Monge Visit Number: [id number] Discharge Date: ATTENTION: The Clinical Documentation Specialists (CDI) and [facility] Coding Staff appreciate your assistance in clarifying documentation. Please respond to the clarification below the line at the bottom and electronically sign. The CDI & [facility] Coding staff will review the response and follow-up if needed. Please note: Queries are made part of the Legal Health Record. If you have any questions, please contact the author of this message via ITS. Dr. Roni Pollard. Sheet: Per the 01/30 History & Physical and subsequent Progress Notes, the patient has been receiving radiotherapy for metastatic esophageal cancer and presented with worsening dyspnea & tachycardia, cough with greenish phlegm, no chest pain. Per the 02/01 Oncology Progress Note: The patient has been started on infusional 5-FU plus Oxaliplatin, the FOLFOX regimen, on 02/01/21 emergent basis due to very rapid progression of his esophageal cancer with lung and liver metastasis, and labs showing developing liver and respiratory failure. Based on this information and the findings below, is there an additional diagnosis that is clinically appropriate for this patient? History/Risk Factors per the 01/30 H/P: Clinical Indicators: (Per the 01/30 H/P): Esophageal Cancer with esophageal mass with diffuse metastasis to the liver & lung, possibly acute blood loss & iron deficiency anemia status post multiple transfusions. Admitted 01/16 - 01/20 for failure to summarize with hepatic lesion. EGD found Esophageal mass positive for Esophageal Adenocarcinoma. Patient is cachectic with distended abdomen, dyspneic and mild to moderate respiratory distress, has been having dyspnea for the last 1.5 months however he became more dyspneic yesterday and today with cough and total greenish phlegm but no chest pain. 01/30 VS: T 97.5, P 128, R 18 - 20 - 24, BP 113/79 - 148/84, PO 99 RA - 99 2Lnc, BMI: 18.8 02/01 VS: T 98.2, P 124 (regular), R 19 - 20 (SOB, Tachypnea), BP 106/70, PO 98- 100 4Lnc 01/30 LAB: WBC 11.7, RBC 3.02, Hgb 8.0, Hct 26.3, Neut 10.0, Lymph 0.7; PT 19.3, INR 2.0, D Dimer 29.25; Na 130, K 5.9, CO2 12, BUN 37, Lactic Acid 13.9, 13.8, 11.8; Total Bili 5.4, AST 1844, ALT 439, Alk Phos 354, total Protein 6.0, Albumin 2.7, Procalcitonin 2.46. 01/30 Sputum Culture ordered, no culture result documented. 01/30 CXR: Chronic emphysematous change with worsening bilateral pulmonary nodules suggesting short interval metastatic neoplastic progression. Treatment 01/30: O2 2Lnc, IV fl rate 75 mls/hr q13H, IV Cefepime 200 mls x1, IV Vancomycin 125 mls x1, Nicotine Patch, IV fl bolus 999 mls/hr q1H. 01/31: O2 2 - 4Lnc, IV Chemotherapy started emergently. Is there an additional diagnosis that is clinically appropriate for this patient? [ ] Acute Hypoxic Respiratory Failure [ ] Acute Hypercapnic Respiratory Failure [ ] Acute on Chronic Respiratory Failure [ ] Chronic Hypoxic Respiratory Failure [ ] Chronic Hypercapnic Respiratory Failure [ ] Respiratory Failure ruled out [ ] Other Diagnosis, please specify [ ] Unable to determine (Template Last Revised: July 2020) no resp failure MTDD
[2021-02-02] MEDS: MAG HYDROX/AL HYDROX/SIMETH 30 ML, diphenhydrAMINE ELIXIR 75 MG, LIDOCAINE VISCOUS 30 ML PO SCH ×9 (11:38→20:53)
--- NOTE | 2021-02-02 16:49 | P.PN ---
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 With elevated liver enzymes mostly secondary to liver metastases. He is status post right upper chest Port-A-Cath insertion. He was recently admitted to this hospital 01/16-, for failure to summarize with hepatic lesion. EGD done and found esophageal mass positive for esophageal adenocarcinoma. With bleeding mass, at that point radiotherapy treatment recommended radiotherapy to control the bleeding mass. Patient was undergoing 6 round of radiotherapy recently where he was noticed to have worsening dyspnea and tachycardia so he was referred to the emergency room. Patient and at bedside, patient is cachectic with distended abdomen, dyspneic and mild to moderate respiratory distress states that his been having dyspnea for the last 1.5 months however he became more dyspneic yesterday and today with cough and total greenish phlegm but no chest pain. He has no urinary symptoms and bowel movement is alternating between regular and diarrhea. Patient basically consumes liquids merely Saavedra and 3-4 bottles of Ensure every day. On admission he was tachycardic with heart rate 114-1.8, where last time he was discharged with heart rate of 113 , compared to last time his breathing rate was 18 and currently is around 20. And he is saturating 100% on room air. His blood pressure is stable. He is afebrile But mild hypothermia His leukocytosis almost doubled from last time 6.8 up to 11.7. Hemoglobin is 8.0 compared to 7.5 and platelet count is normal on 170. INR is elevated at 2.0 Sodium 1:30 similar to last time, potassium is elevated at 5.9. Carbon dioxide is lower than last time 19 down to 12. Creatinine is stable at 0.8 which is within the reference range. Elevated lactic acid 13.9 and 15.2. Elevated d-dimer at 29 Elevated bilirubin 5.3 AST is elevated 1844, ALT is also elevated at 439. Troponin is normal less than 0.012. Coronavirus not detected. EKG shows sinus tachycardia at 123 with QTC of 5:15. Right bundle branch block. Elevated d-dimer CTA of the chest showing no pulmonary embolism. Also background moderate underlying emphysematous changes rhythm demonstrates is. Short-term interval metastatic pulmonary progression noted as suspected on chest x-ray. No acute pulmonary process identified. Chest x-ray showing chronic emphysematous changes with worsening bilateral pulmonary nodules suggesting showed interval metastatic neoplastic progression CT of the abdomen and pelvis: Marked hepatomegaly with innumerable hypodense metastatic mass is redemonstrated. Significant local mass effect is redemonstrated. No new acute intra-abdominal finding clearly seen. CT of the brain: Age-related atrophic and chronic small vessel ischemic change without acute intracranial process seen at this time In the emergency room he was started on normal saline 75 mL/h and antibiotics with cefepime and IV vancomycin 01/31/2021 Patient is still significantly tachypneic although he reports improvement compared to yesterday. He is saturating 98% 200% on 2 L oxygen via nasal cannula. Distal tachycardic with 116-122. He is afebrile. Labs showing improving INR to 1.8, drop of hemoglobin down to 6.5, lactic acid improved significantly to 5.0. WBC stable around 10.6 which is within the r eference range, stable sodium at 1:30. Liver enzymes still elevated with AST 1903 and ALT of 4329 and is improving to 5.3 down to 4.7. His calcitonin is elevated at 2.4. He seemed to 1 L of bolus normal saline last night, he is still on cefepime 2 g 3 times a day and normal sinus 75 mL per hour We are going to consult infectious disease team 02/01/2021 Patient generally looks same day when he came into the hospital although his breathing and strength. Little better and improving, no significant abdominal pain. Hemodynamically stable except for mild tachycardia at 110. Saturation of oxygen is 99% on 2 L oxygen. looks stable, INR is down to 1.5, hemoglobin improved 7.7. Lactic acid down to 3.6. Liver enzymes slightly up and bilirubin at 5.2 which is slightly increased. Antibiotics as stopped per ID team as there is no suspicious for infection She was started on chemotherapy per oncologist, if no improvement then might consider less aggressive and more comfortable measures. 02/02/2021 Patient lying in bed finishing his chemotherapy this morning. He looks less tachypneic however his heart rate is 120 this morning. He is saturating 98% on 4 L. His liver looks mildly less tender and slightly smaller in size compared to yesterday however is still significantly enlarged and painful. His pain is controlled. Patient is starts to show slight a drop in his cell parameters with WBC 9.9 down to 7.7, hemoglobin 7.7 down to 7.0 and platelets 160 down to 120. Sodium is stable at 132. Liver enzymes significantly trending down with AST 847 and ALT 328 which are decreasing. Bilirubin is stable at 5.0. He remains on normal saline 75 mL/h The patient and at bedside and they request no code. Other than the patient was able to tolerate some diet this morning with eggs and ensure Objective - Vital Signs Vital signs: Vital Signs Temp 98.3 F 02/02/21 16:00 Pulse 120 H 02/02/21 16:00 Resp 18 02/02/21 16:00 BP 112/71 02/02/21 16:00 Pulse Ox 98 02/02/21 16:00 Intake & Output 02/01/21 02/02/21 02/02/21 18:59 06:59 18:59 Intake Total 650 1422 Balance 650 1422 Weight 56 kg 56 kg Intake: Intake, IV Titration 650 922 Amount Phytonadione 5 mg In 50 Sodium Chloride 0.9% 50 ml @ 100 mls/hr IVPB DAILY [facility] Rx#:[id number] Sodium Chloride 0.9% 1, 600 900 000 ml @ 75 mls/hr IV . [id number] [facility] Rx#:[id number] fluorouraciL 4,200 mg In 22 Empty Bag 1 bag @ 1.826 mls/hr IV ONCE@2100 [facility] Rx#:[id number] Oral 500 Other: Voiding Method Bedside Commode Bedside Commode Bedside Commode Urinal Urinal Urinal # Voids 2 - Exam GENERAL: The patient is alert and oriented x3, not in any acute distress. Cachectic HEENT: Pupils are round and equally reacting to light. EOMI. No scleral icterus. No conjunctival pallor. Normocephalic, atraumatic. No pharyngeal erythema. No thyromegaly. CARDIOVASCULAR: S1 and S2 present. No murmurs, rubs, or gallops. -PULMONARY: Chest is clear to auscultation, no wheezing . Tachypneic with bilateral crepitation -ABDOMEN: Soft, nontender, distended, normoactive bowel sounds. No palpable o rganomegaly. MUSCULOSKELETAL: No joint swelling or deformity. EXTREMITIES: No cyanosis, clubbing, no leg edema. NEUROLOGICAL: Gross neurological examination did not reveal any focal deficits. SKIN: No rashes. No petechiae - Labs CBC & Chem 7: 02/02/21 04:22 02/02/21 04:22 Labs: Abnormal Lab Results - Last 24 Hours (Table) 02/02/21 02/02/21 Range/Units 04:22 04:22 RBC 2.44 L (4.30-5.90) m/uL Hgb 7.0 L (13.0-17.5) gm/dL Hct 22.6 L (39.0-53.0) % RDW 26.3 H (11.5-15.5) % Plt Count 120 L (150-450) k/uL Lymphocytes # 0.6 L (1.0-4.8) k/uL Sodium 132 L (137-145) mmol/L Carbon Dioxide 21 L (22-30) mmol/L BUN 30 H (9-20) mg/dL Creatinine 0.40 L (0.66-1.25) mg/dL Calcium 7.5 L (8.4-10.2) mg/dL Total Bilirubin 5.0 H (0.2-1.3) mg/dL AST 847 H (17-59) U/L ALT 328 H (4-49) U/L Alkaline Phosphatase 386 H (38-126) U/L Total Protein 4.5 L (6.3-8.2) g/dL Albumin 1.8 L (3.5-5.0) g/dL Assessment and Plan Assessment: worsening acute on chronic dyspnea secondary to metastatic pulmonary disease, massive hepatomegaly,, I suspect superimposed pneumonia Possible sepsis versus dehydration with leukocytosis, tachycardia and tachypnea. 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 Needing another blood transfusion Moderate to severe calorie protein malnutrition Chronic hyponatremia Elevated lactic acid Plan: This is a pleasant 60 years old male who presents with worsening dyspnea in view of his worsening with metastatic esophageal cancer to the lung, liver Continue IV hydration Patient undergoing chemotherapy by oncology team Oncology team were consulted Labs and medication were reviewed.. Continue same treatment. Continue with symptomatic treatment. Resume home medication. Monitor lytes and vitals. DVT and GI prophylaxis. Further recommendations as per clinical course of the patient DVT prophylaxis: No anticoagulation in view of coagulopathy heparin GI Prophylaxis: Ppi PT/OT: Pending Prognosis is guarded no code, checked with patient and at bedside today
--- NOTE | 2021-02-02 20:43 | P.PN ---
Subjective Progress Note Date: 02/02/21 Principal diagnosis: metastatic eso adenocarcinoma In f/u today, pt is at bedside. Pt has dry mouth, mild nausea, SOB at rest, abd is persistently distended and tender, he is weak. Objective - Vital Signs Vital signs: Vital Signs Temp 98.3 F 02/02/21 12:00 Pulse 117 H 02/02/21 12:00 Resp 18 02/02/21 12:00 BP 109/71 02/02/21 12:00 Pulse Ox 98 02/02/21 12:00 Intake & Output 02/01/21 02/02/21 02/02/21 18:59 06:59 18:59 Intake Total 650 1422 Balance 650 1422 Weight 56 kg Intake: Intake, IV Titration 650 922 Amount Phytonadione 5 mg In 50 Sodium Chloride 0.9% 50 ml @ 100 mls/hr IVPB DAILY [facility] Rx#:[id number] Sodium Chloride 0.9% 1, 600 900 000 ml @ 75 mls/hr IV . [id number] [facility] Rx#:[id number] fluorouraciL 4,200 mg In 22 Empty Bag 1 bag @ 1.826 mls/hr IV ONCE@2100 [facility] Rx#:[id number] Oral 500 Other: Voiding Method Bedside Commode Bedside Commode Bedside Commode Urinal Urinal Urinal # Voids 2 - Constitutional Constitutional Comment(s): frail, muscle wasting General appearance: Present: thin - EENT Eyes: Present: EOMI, scleral icterus ENT: Present: hearing grossly normal, normal oropharynx - Respiratory Respiratory: bilateral: CTA, rales (in bilateral bases) - Cardiovascular Rhythm: regular Heart sounds: normal: S1, S2 Abnormal Heart Sounds: Absent: systolic murmur, diastolic murmur, rub, S3 Gallop, S4 Gallop, click, other - Peripheral edema leg Peripheral Edema: bilateral: 1+ - Gastrointestinal Gastrointestinal Comment(s): distant bowel sounds General gastrointestinal: Present: distended, organomegaly - Integumentary Integumentary: Present: jaundiced - Neurologic Neurologic: Present: CNII-XII intact - Musculoskeletal Musculoskeletal: Present: generalized weakness - Psychiatric Psychiatric: Present: A&O x's 3, appropriate affect, intact judgment & insight - Labs CBC & Chem 7: 02/02/21 04:22 02/02/21 04:22 Labs: Abnormal Lab Results - Last 24 Hours (Table) 02/02/21 02/02/21 Range/Units 04:22 04:22 RBC 2.44 L (4.30-5.90) m/uL Hgb 7.0 L (13.0-17.5) gm/dL Hct 22.6 L (39.0-53.0) % RDW 26.3 H (11.5-15.5) % Plt Count 120 L (150-450) k/uL Lymphocytes # 0.6 L (1.0-4.8) k/uL Sodium 132 L (137-145) mmol/L Carbon Dioxide 21 L (22-30) mmol/L BUN 30 H (9-20) mg/dL Creatinine 0.40 L (0.66-1.25) mg/dL Calcium 7.5 L (8.4-10.2) mg/dL Total Bilirubin 5.0 H (0.2-1.3) mg/dL AST 847 H (17-59) U/L ALT 328 H (4-49) U/L Alkaline Phosphatase 386 H (38-126) U/L Total Protein 4.5 L (6.3-8.2) g/dL Albumin 1.8 L (3.5-5.0) g/dL Assessment and Plan (1) Esophageal carcinoma Narrative/Plan: Pt and confirmed that they understood the risks of chemo. We reviewed some of the common side effects-mucositis, PPE, diarrhea, usually mild nausea. SE usually start when the chomo is complete and last for several days, fluids encouraged. He completes the 46 hour 5FU infusion for cycle 1 tonight. Labs daily Supportive meds ordered including meds for mucus membranes, aquaphor for hands and feet Daily f/u Current Visit: Yes Status: Acute Priority: High Code(s): C15.9 - MALIGNANT NEOPLASM OF ESOPHAGUS, UNSPECIFIED SNOMED Code(s): 085330376 (2) Coagulopathy Narrative/Plan: Cont to monitor coags. Vit K PRN. SCDs for DVT prophylaxis Current Visit: Yes Status: Acute Priority: High Code(s): D68.9 - COAGULATION DEFECT, UNSPECIFIED SNOMED Code(s): 36661542 (3) Blood loss anemia Narrative/Plan: Radiation will be held at this time. Pt did have a few sessions. Systemic treatment has become critical. Pt is aware that he is at high risk for fatal hemorrhage. Hgb 7 today. Transfuse when Hgb<7. CBC daily Current Visit: Yes Status: Acute Priority: High Code(s): D50.0 - IRON DEFICIENCY ANEMIA SECONDARY TO BLOOD LOSS (CHRONIC) SNOMED Code(s): 372599258 Plan: Attests: I have performed H&P and developed impression and plan of care for pt. Discussed with dictator. I agree with dictated note, documented as a scribe.
[2021-02-02] MEDS: METOPROLOL TARTRATE 12.5 MG TAB PO SCH (20:52)
[2021-02-03] MEDS: SALT AND SODA MOUTHWASH 1,000 ML PO SCH ×5 (04:24→23:48)
[2021-02-03 06:48] LABS: ALT 244 U/L (4-49); AST 585 U/L (17-59); African American GFR (CKD) >90 (>60 ml/min/1.73 sqM); Albumin 1.8 g/dL (3.5-5.0); Albumin/Globulin Ratio 0.6; Alkaline Phosphatase 351 U/L (38-126); Anion Gap 3 mmol/L; Blood Urea Nitrogen 24 mg/dL (9-20); Calcium 7.4 mg/dL (8.4-10.2); Carbon Dioxide 22 mmol/L (22-30); Chloride 106 mmol/L (98-107); Globulin 2.8 g/dL; Glucose 78 mg/dL (74-99); Non-African American GFR(CKD) >90 (>60 ml/min/1.73 sqM); Potassium 4.8 mmol/L (3.5-5.1); Sodium 131 mmol/L (137-145); Total Protein 4.6 g/dL (6.3-8.2)
[2021-02-03 06:49] LABS: INR 1.3 (<1.2); Partial Thromboplastin Time 28.2 sec (22.0-30.0)
[2021-02-03 06:58] LABS: Anisocytosis Marked; Hypochromasia Moderate; MCH 29.9 pg (25.0-35.0); MCHC 33.1 g/dL (31.0-37.0); MCV 90.2 fL (80.0-100.0); Macrocytosis Slight; Mean Platelet Volume 7.9; Microcytosis Slight; Platelet Count 137 k/uL (150-450); Poikilocytosis Slight; RBC 2.33 m/uL (4.30-5.90); WBC 7.2 k/uL (3.8-10.6)
[2021-02-03 07:08] LABS: RDW 26.7 % (11.5-15.5)
[2021-02-03 07:57] LABS: Eosinophils # (M) 0.07 k/uL (0-0.7); Lymphocytes # (M) 0.58 k/uL (1.0-4.8); Neutrophils # (M) 6.55 k/uL (1.3-7.7); Neutrophils % (M) 91 %; Nucleated Red Blood Cells 0 /100 WBC (0-0); Total Cells Counted 100
[2021-02-03 08:05] LABS: Basophilic Stippling Present
--- NOTE | 2021-02-03 08:27 | XR ---
EXAMINATION TYPE: XR chest 1V DATE OF EXAM: 02/03/2021 COMPARISON: Chest x-ray and CT 01/30/2021 HISTORY: Shortness of breath TECHNIQUE: Single frontal view of the chest is obtained. FINDINGS: Patchy airspace disease, interstitial changes are again noted bilaterally. Right-sided por t is stable, distal tip is overlying the superior vena cava. No evident pneumothorax or pleural effus ion. Cardiomediastinal silhouette is stable. There is some lung nodularity. IMPRESSION: Findings are similar to prior exam. There is underlying emphysema, small lung nodules ar e present.
[2021-02-03] MEDS: PANTOPRAZOLE 40 MG TABLET PO SCH (08:43)
[2021-02-03] MEDS: NICOTINE 14MG/24HR PATCH TRANSDERM SCH (08:43)
[2021-02-03] MEDS: PETROLATUM, WHITE OINT 50 GM TUBE TOPICAL SCH ×4 (08:45→20:59)
[2021-02-03] MEDS: MAG HYDROX/AL HYDROX/SIMETH 30 ML, diphenhydrAMINE ELIXIR 75 MG, LIDOCAINE VISCOUS 30 ML PO SCH ×9 (08:46→20:59)
[2021-02-03] MEDS: METOPROLOL TARTRATE 12.5 MG TAB PO SCH ×2 (09:10→20:59)
[2021-02-03 11:52] LABS: Phosphorus 2.6 mg/dL (2.5-4.5); Uric Acid 6.4 mg/dL (3.5-8.5)
[2021-02-03] MEDS: SODIUM CHLORIDE 0.9% 1,000 ML IV SCH ×2 (12:05→23:46)
[2021-02-03] MEDS: HYDROcodone/APAP 5-325MG 1 EACH TAB PO PRN (14:19)
--- NOTE | 2021-02-03 17:07 | P.PN ---
Subjective Progress Note Date: 02/03/21 Principal diagnosis: metastatic eso adenocarcinoma In f/u today, pt is at bedside. Pt has dry mouth but little better, SOB is stable, not worse, abd is still distended but does not seem to be getting worse. Cont to be weak but he is getting up. Objective - Vital Signs Vital signs: Vital Signs Temp 97.9 F 02/03/21 11:59 Pulse 109 H 02/03/21 11:59 Resp 12 02/03/21 11:59 BP 99/65 02/03/21 11:59 Pulse Ox 90 L 02/03/21 08:28 Intake & Output 02/02/21 02/03/21 02/03/21 18:59 06:59 18:59 Intake Total 921.84 908 Balance 921.84 908 Weight 56 kg 57 kg Intake: IV 900 Sodium Chloride 0.9% 1, 900 000 ml @ 75 mls/hr IV . [id number] [facility] Rx#:[id number] Intake, IV Titration 21.84 908 Amount Sodium Chloride 0.9% 1, 900 000 ml @ 75 mls/hr IV . [id number] [facility] Rx#:[id number] fluorouraciL 4,200 mg In 21.84 8 Empty Bag 1 bag @ 1.826 mls/hr IV ONCE@2100 [facility] Rx#:[id number] Other: Voiding Method Bedside Commode Bedside Commode Bedside Commode Urinal Urinal Urinal # Voids 2 - Constitutional General appearance: Present: cooperative, mild distress, thin - EENT Eyes: Present: EOMI, scleral icterus ENT: Present: hearing grossly normal - Respiratory Respiratory: bilateral: CTA (shallow) - Cardiovascular Heart sounds: normal: S1, S2 - Peripheral edema leg Peripheral Edema: bilateral: 2+ - Gastrointestinal General gastrointestinal: Present: distended, normal bowel sounds, soft, tender ness - Integumentary Integumentary: Present: jaundiced - Neurologic Neurologic: Present: CNII-XII intact - Musculoskeletal Musculoskeletal: Present: generalized weakness - Psychiatric Psychiatric: Present: A&O x's 3, appropriate affect, intact judgment & insight - Labs CBC & Chem 7: 02/03/21 06:08 02/03/21 06:08 Labs: Abnormal Lab Results - Last 24 Hours (Table) 02/02/21 02/03/21 02/03/21 Range/Units 04:22 06:08 06:08 RBC 2.33 L (4.30-5.90) m/uL Hgb 7.0 L (13.0-17.5) gm/dL Hct 21.0 L (39.0-53.0) % RDW 26.7 H (11.5-15.5) % Plt Count 137 L (150-450) k/uL Lymphocytes # (Manual) 0.58 L (1.0-4.8) k/uL PT (9.0-12.0) sec INR (<1.2) Sodium 131 L (137-145) mmol/L BUN 24 H (9-20) mg/dL Creatinine 0.37 L (0.66-1.25) mg/dL Calcium 7.4 L (8.4-10.2) mg/dL Total Bilirubin 5.0 H (0.2-1.3) mg/dL AST 585 H (17-59) U/L ALT 244 H (4-49) U/L Alkaline Phosphatase 351 H (38-126) U/L Total Protein 4.6 L (6.3-8.2) g/dL Albumin 1.8 L (3.5-5.0) g/dL Procalcitonin 2.22 H (0.02-0.09) ng/mL 02/03/21 Range/Units 06:08 RBC (4.30-5.90) m/uL Hgb (13.0-17.5) gm/dL Hct (39.0-53.0) % RDW (11.5-15.5) % Plt Count (150-450) k/uL Lymphocytes # (Manual) (1.0-4.8) k/uL PT 13.0 H (9.0-12.0) sec INR 1.3 H (<1.2) Sodium (137-145) mmol/L BUN (9-20) mg/dL Creatinine (0.66-1.25) mg/dL Calcium (8.4-10.2) mg/dL Total Bilirubin (0.2-1.3) mg/dL AST (17-59) U/L ALT (4-49) U/L Alkaline Phosphatase (38-126) U/L Total Protein (6.3-8.2) g/dL Albumin (3.5-5.0) g/dL Procalcitonin (0.02-0.09) ng/mL Assessment and Plan (1) Esophageal carcinoma Narrative/Plan: Has completed cycle one of FOLFOX including 46 hour 5FU infusion. Reviewed recommendations for self care-fliberal fluids, out of bed, mouth care and skin care. Cont Labs daily-his labs do not look too bad today... Daily f/u Her 2 on tumor specimen was neg Pending send out for other biomarker testing Current Visit: Yes Status: Acute Priority: High Code(s): C15.9 - MALIGNANT NEOPLASM OF ESOPHAGUS, UNSPECIFIED SNOMED Code(s): 907551065 (2) Coagulopathy Narrative/Plan: Cont to monitor coags-stable, slightly improved todya. Vit K PRN. SCDs for DVT prophylaxis Current Visit: Yes Status: Acute Priority: High Code(s): D68.9 - COAGULATION DEFECT, UNSPECIFIED SNOMED Code(s): 96565809 (3) Blood loss anemia Narrative/Plan: Radiation held. Pt did have a few sessions. Pt is aware that he is at high risk for fatal hemorrhage. Hgb 7 today-stable. Transfuse when Hgb<7. CBC daily Current Visit: Yes Status: Acute Priority: High Code(s): D50.0 - IRON DEFICIENCY ANEMIA SECONDARY TO BLOOD LOSS (CHRONIC) SNOMED Code(s): 936003969 Plan: Attests: I have performed H&P and developed impression and plan of care for pt. Discussed with dictator. I agree with dictated note, documented as a scribe.
[2021-02-04] MEDS: SALT AND SODA MOUTHWASH 1,000 ML PO SCH ×5 (05:28→23:11)
[2021-02-04 07:04] LABS: Anisocytosis Marked; Basophils % (A) 0 %; Eosinophils % (A) 1 %; HCT 21.1 % (39.0-53.0); Hypochromasia Marked; Lymphocytes # (A) 0.6 k/uL (1.0-4.8); Lymphocytes % (A) 11 %; MCH 29.6 pg (25.0-35.0); MCHC 31.2 g/dL (31.0-37.0); MCV 94.9 fL (80.0-100.0); Macrocytosis Moderate; Mean Platelet Volume 8.7; Microcytosis Slight; Monocytes # (A) 0.1 k/uL (0-1.0); Monocytes % (A) 2 %; Neutrophils # (A) 4.5 k/uL (1.3-7.7); Neutrophils % (A) 86 %; Platelet Count 123 k/uL (150-450); RBC 2.23 m/uL (4.30-5.90); WBC 5.3 k/uL (3.8-10.6)
[2021-02-04 07:14] LABS: HGB 6.6 gm/dL (13.0-17.5)
[2021-02-04 07:54] LABS: ALT 202 U/L (4-49); AST 464 U/L (17-59); African American GFR (CKD) >90 (>60 ml/min/1.73 sqM); Albumin 1.7 g/dL (3.5-5.0); Albumin/Globulin Ratio 0.6; Alkaline Phosphatase 310 U/L (38-126); Anion Gap 4 mmol/L; Blood Urea Nitrogen 21 mg/dL (9-20); Calcium 7.3 mg/dL (8.4-10.2); Carbon Dioxide 22 mmol/L (22-30); Chloride 106 mmol/L (98-107); Globulin 2.7 g/dL; Glucose 71 mg/dL (74-99); Non-African American GFR(CKD) >90 (>60 ml/min/1.73 sqM); Phosphorus 2.5 mg/dL (2.5-4.5); Potassium 4.5 mmol/L (3.5-5.1); Sodium 132 mmol/L (137-145); Total Bilirubin 5.3 mg/dL (0.2-1.3); Total Protein 4.4 g/dL (6.3-8.2); Uric Acid 3.4 mg/dL (3.5-8.5)
[2021-02-04] MEDS: PANTOPRAZOLE 40 MG TABLET PO SCH (08:58)
[2021-02-04] MEDS: NICOTINE 14MG/24HR PATCH TRANSDERM SCH (08:59)
[2021-02-04] MEDS: METOPROLOL TARTRATE 12.5 MG TAB PO SCH ×2 (08:59→21:06)
[2021-02-04] MEDS: MAG HYDROX/AL HYDROX/SIMETH 30 ML, diphenhydrAMINE ELIXIR 75 MG, LIDOCAINE VISCOUS 30 ML PO SCH ×9 (09:01→21:07)
[2021-02-04] MEDS: PETROLATUM, WHITE OINT 50 GM TUBE TOPICAL SCH ×4 (09:01→21:07)
--- NOTE | 2021-02-04 14:56 | P.PN ---
Subjective Progress Note Date: 02/04/21 Principal diagnosis: Rapidly Progressing Esophageal Cancer Telemedicine visit due to ABBEY encinas. Hemoglobin 6.5, PRBC ordered to be transfused. Completed FOLFOX Salvage therapy/ Objective - Vital Signs Vital signs: Vital Signs Temp 98.0 F 02/04/21 14:30 Pulse 111 H 02/04/21 14:30 Resp 20 02/04/21 14:30 BP 111/69 02/04/21 14:30 Pulse Ox 98 02/04/21 14:30 Intake & Output 02/03/21 02/04/21 02/04/21 18:59 06:59 18:59 Intake Total 900 900 310 Balance 900 900 310 Weight 56.5 kg 56.5 kg Intake: Intake, IV Titration 900 900 Amount Sodium Chloride 0.9% 1, 900 900 000 ml @ 75 mls/hr IV . [id number] [facility] Rx#:[id number] Blood Product 310 Rc As-1 Unit 310 [id number] Other: Voiding Method Bedside Commode Bedside Commode Bedside Commode Urinal Urinal Urinal # Voids 3 - Exam Telemed VIsit, no in person exam. - Labs CBC & Chem 7: 02/04/21 06:14 02/04/21 06:14 Labs: Abnormal Lab Results - Last 24 Hours (Table) 02/04/21 02/04/21 02/04/21 Range/Units 06:14 06:14 07:56 RBC 2.23 L (4.30-5.90) m/uL Hgb 6.6 L* (13.0-17.5) gm/dL Hct 21.1 L (39.0-53.0) % RDW 26.0 H (11.5-15.5) % Plt Count 123 L (150-450) k/uL Lymphocytes # 0.6 L (1.0-4.8) k/uL Sodium 132 L (137-145) mmol/L BUN 21 H (9-20) mg/dL Creatinine 0.38 L (0.66-1.25) mg/dL Glucose 71 L (74-99) mg/dL Uric Acid 3.4 L (3.5-8.5) mg/dL Calcium 7.3 L (8.4-10.2) mg/dL Total Bilirubin 5.3 H (0.2-1.3) mg/dL AST 464 H (17-59) U/L ALT 202 H (4-49) U/L Alkaline Phosphatase 310 H (38-126) U/L Total Protein 4.4 L (6.3-8.2) g/dL Albumin 1.7 L (3.5-5.0) g/dL Crossmatch See Detail Assessment and Plan (1) Anemia Current Visit: Yes Status: Acute Priority: High Code(s): D64.9 - ANEMIA, UNSPECIFIED SNOMED Code(s): 374667229 (2) Esophageal carcinoma Current Visit: Yes Status: Acute Priority: High Code(s): C15.9 - MALIGNANT NEOPLASM OF ESOPHAGUS, UNSPECIFIED SNOMED Code(s): 797118872 (3) Hyperbilirubinemia Current Visit: Yes Status: Acute Code(s): E80.6 - OTHER DISORDERS OF BILIRUBIN METABOLISM SNOMED Code(s): 08434526 (4) Liver metastases Current Visit: Yes Status: Acute Code(s): C78.7 - SECONDARY MALIG NEOPLASM OF LIVER AND INTRAHEPATIC BILE DUCT SNOMED Code(s): 75632351 (5) Transaminitis Current Visit: Yes Status: Acute Code(s): R74.01 - ELEVATION OF LEVELS OF LIVER TRANSAMINASE LEVELS SNOMED Code(s): 409858391 (6) Dysphagia Current Visit: No Status: Acute Code(s): R13.10 - DYSPHAGIA, UNSPECIFIED SNOMED Code(s): 96713991 Plan: Transfuse one unit PRBC today Monitor Daily CBC, CMP, Mag Supportive Care post FOLFOX Salvage for rapidly progressing metastatic Cancer
[2021-02-04] MEDS: SODIUM CHLORIDE 0.9% 1,000 ML IV SCH (15:59)
[2021-02-04] MEDS: HYDROcodone/APAP 5-325MG 1 EACH TAB PO PRN (17:09)
[2021-02-05] MEDS: SODIUM CHLORIDE 0.9% 1,000 ML IV SCH ×2 (04:00→17:07)
[2021-02-05] MEDS: SALT AND SODA MOUTHWASH 1,000 ML PO SCH ×5 (05:22→23:11)
[2021-02-05 07:07] LABS: ALT 166 U/L (4-49); AST 343 U/L (17-59); African American GFR (CKD) >90 (>60 ml/min/1.73 sqM); Albumin 1.6 g/dL (3.5-5.0); Albumin/Globulin Ratio 0.6; Alkaline Phosphatase 308 U/L (38-126); Anion Gap 2 mmol/L; Blood Urea Nitrogen 17 mg/dL (9-20); Calcium 7.1 mg/dL (8.4-10.2); Carbon Dioxide 22 mmol/L (22-30); Chloride 106 mmol/L (98-107); Globulin 2.7 g/dL; Glucose 72 mg/dL (74-99); Magnesium 1.9 mg/dL (1.6-2.3); Non-African American GFR(CKD) >90 (>60 ml/min/1.73 sqM); Potassium 4.2 mmol/L (3.5-5.1); Sodium 130 mmol/L (137-145); Total Bilirubin 4.7 mg/dL (0.2-1.3); Total Protein 4.3 g/dL (6.3-8.2)
[2021-02-05 07:25] LABS: Anisocytosis Marked; Basophils % (A) 0 %; Eosinophils % (A) 1 %; HCT 21.8 % (39.0-53.0); HGB 7.1 gm/dL (13.0-17.5); Hypochromasia Slight; Lymphocytes # (A) 0.6 k/uL (1.0-4.8); Lymphocytes % (A) 15 %; MCH 29.5 pg (25.0-35.0); MCHC 32.7 g/dL (31.0-37.0); MCV 90.3 fL (80.0-100.0); Macrocytosis Slight; Microcytosis Slight; Monocytes # (A) 0.1 k/uL (0-1.0); Monocytes % (A) 1 %; Neutrophils # (A) 3.3 k/uL (1.3-7.7); Neutrophils % (A) 82 %; Platelet Count 110 k/uL (150-450); Poikilocytosis Moderate; RBC 2.41 m/uL (4.30-5.90); RDW 24.7 % (11.5-15.5); WBC 4.1 k/uL (3.8-10.6)
[2021-02-05] MEDS: PANTOPRAZOLE 40 MG TABLET PO SCH (08:27)
[2021-02-05] MEDS: PETROLATUM, WHITE OINT 50 GM TUBE TOPICAL SCH ×4 (08:27→20:40)
[2021-02-05] MEDS: METOPROLOL TARTRATE 12.5 MG TAB PO SCH ×2 (08:27→20:40)
[2021-02-05] MEDS: NICOTINE 14MG/24HR PATCH TRANSDERM SCH (08:27)
[2021-02-05] MEDS: MAG HYDROX/AL HYDROX/SIMETH 30 ML, diphenhydrAMINE ELIXIR 75 MG, LIDOCAINE VISCOUS 30 ML PO SCH ×9 (08:28→20:40)
--- NOTE | 2021-02-05 10:36 | P.PN ---
Subjective Progress Note Date: 02/03/21 Mr. Monge is a very pleasant man who prior to his admit in 01/17/31 denied any significant PMH or chronic health conditions. He started a diet when the pandemic began and lost 25# and felt pretty good. He recently retired and wasn't really using his strength much any more but, noted loss of muscles and strength. Over the last 4 months he has noted another 15# wt. loss, unintentionally, and progressive abd distension. He denied unusual bleeding, bruising, changes in bowel habits. Appetite poor because abd bloating, energy levels poor. Had no personal Hx of cancer, his father at a young age of cancer, unsure what kind. He has CT AP showing bilateral lung nodules and hepatomegaly, he required 7 units of PRBCs, had EGD on 01/18 with an ulcerated mass in the lower 2/3's of the esophagus, biopsied, returned superficially invasive adenocarcinoma with high grade dysplasia, Her2 neg by IHC. CT brain and NM bone scan were neg for mets. He was started on palliative XRT for bleeding mass while inpt. He port placed 01/24 and was discharged. Orders were sent to start chemo, pt was going to start after XRT was complete (next Saturday). Unfortunately he ended up back in the ER with c/o progressive NEY, he is not able to eat much because of the abd distension, denies current nausea or vomit ing. On admit liver enzymes are continuing to increase, INR 1.8, Hgb 6.5, lactic acid 7.2. CTA neg for PE, suspect progression of pulm mets, CT AP no new disease in liver, CT without contrast of the brain was neg for hemorrhagic stroke or mets. Pt is not c/o any pain at this time. Objective - Vital Signs Vital signs: Vital Signs Temp 97.9 F 02/03/21 11:59 Pulse 109 H 02/03/21 11:59 Resp 12 02/03/21 11:59 BP 99/65 02/03/21 11:59 Pulse Ox 90 L 02/03/21 08:28 Intake & Output 02/02/21 02/03/21 02/03/21 18:59 06:59 18:59 Intake Total 921.84 908 Balance 921.84 908 Weight 56 kg 57 kg Intake: IV 900 Sodium Chloride 0.9% 1, 900 000 ml @ 75 mls/hr IV . [id number] [facility] Rx#:[id number] Intake, IV Titration 908 Amount Sodium Chloride 0.9% 1, 900 000 ml @ 75 mls/hr IV . [id number] [facility] Rx#:[id number] fluorouraciL 4,200 mg In . 8 Empty Bag 1 bag @ 1.826 mls/hr IV ONCE@2100 [facility] Rx#:[id number] Other: Voiding Method Bedside Commode Bedside Commode Bedside Commode Urinal Urinal Urinal # Voids 2 - Exam GENERAL: The patient is alert and oriented x3, not in any acute distress. Cachectic HEENT: Pupils are round and equally reacting to light. EOMI. No scleral icterus. No conjunctival pallor. Normocephalic, atraumatic. No pharyngeal erythema. No thyromegaly. CARDIOVASCULAR: S1 and S2 present. No murmurs, rubs, or gallops. -PULMONARY: Chest is clear to auscultation, no wheezing . Tachypneic with bilateral crepitation -ABDOMEN: Soft, nontender, distended, normoactive bowel sounds. No palpable organomegaly. MUSCULOSKELETAL: No joint swelling or deformity. EXTREMITIES: No cyanosis, clubbing, no leg edema. NEUROLOGICAL: Gross neurological examination did not reveal any focal deficits. SKIN: No rashes. No petechiae - Labs CBC & Chem 7: 02/05/21 06:10 02/05/21 06:10 Labs: Abnormal Lab Results - Last 24 Hours (Table) 02/02/21 02/03/21 02/03/21 Range/Units 04:22 06:08 06:08 RBC 2.33 L (4.30-5.90) m/uL Hgb 7.0 L (13.0-17.5) gm/dL Hct 21.0 L (39.0-53.0) % RDW 26.7 H (11.5-15.5) % Plt Count 137 L (150-450) k/uL Lymphocytes # (Manual) 0.58 L (1.0-4.8) k/uL PT (9.0-12.0) sec INR (<1.2) Sodium 131 L (137-145) mmol/L BUN 24 H (9-20) mg/dL Creatinine 0.37 L (0.66-1.25) mg/dL Calcium 7.4 L (8.4-10.2) mg/dL Total Bilirubin 5.0 H (0.2-1.3) mg/dL AST 585 H (17-59) U/L ALT 244 H (4-49) U/L Alkaline Phosphatase 351 H (38-126) U/L Total Protein 4.6 L (6.3-8.2) g/dL Albumin 1.8 L (3.5-5.0) g/dL Procalcitonin 2.22 H (0.02-0.09) ng/mL 02/03/21 Range/Units 06:08 RBC (4.30-5.90) m/uL Hgb (13.0-17.5) gm/dL Hct (39.0-53.0) % RDW (11.5-15.5) % Plt Count (150-450) k/uL Lymphocytes # (Manual) (1.0-4.8) k/uL PT 13.0 H (9.0-12.0) sec INR 1.3 H (<1.2) Sodium (137-145) mmol/L BUN (9-20) mg/dL Creatinine (0.66-1.25) mg/dL Calcium (8.4-10.2) mg/dL Total Bilirubin (0.2-1.3) mg/dL AST (17-59) U/L ALT (4-49) U/L Alkaline Phosphatase (38-126) U/L Total Protein (6.3-8.2) g/dL Albumin (3.5-5.0) g/dL Procalcitonin (0.02-0.09) ng/mL Assessment and Plan Assessment: worsening acute on chronic dyspnea secondary to metastatic pulmonary disease, massive hepatomegaly,, I suspect superimposed pneumonia Possible sepsis versus dehydration with leukocytosis, tachycardia and tachypnea. Esophageal adenocarcinoma with esophageal mass with metastatic disease to the liver and lung, status post 6 rounds of radiotherapy Short interval pulmonary metastatic progression, most likely there is a pn eumonia competent Massive Hepatomegaly , with worsening liver enzymes coagulopathy, mostly secondary to liver disease Metabolic acidosis secondary to lactic acidosis Iron deficiency anemia, needed several courses of blood transfusion before. Needing another blood transfusion Moderate to severe calorie protein malnutrition Chronic hyponatremia Elevated lactic acid Plan: This is a pleasant 60 years old male who presents with worsening dyspnea in view of his worsening with metastatic esophageal cancer to the lung, liver Continue IV hydration Patient undergoing chemotherapy by oncology team Oncology team were consulted Labs and medication were reviewed.. Continue same treatment. Continue with symptomatic treatment. Resume home medication. Monitor lytes and vitals. DVT and GI prophylaxis. Further recommendations as per clinical course of the patient DVT prophylaxis: No anticoagulation in view of coagulopathy heparin GI Prophylaxis: Ppi PT/OT: Pending Prognosis is guarded
--- NOTE | 2021-02-05 10:40 | P.PN ---
Subjective Progress Note Date: 02/04/21 Principal diagnosis: Worsening acute on chronic dyspnea secondary to metastatic pulmonary disease/massive hepatomegaly/superimposed pneumonia Esophageal adenocarcinoma with esophageal mass with metastatic disease to the liver and lung, status post 6 rounds of radiotherapy Possible sepsis versus dehydration with leukocytosis, tachycardia and tachypnea Symptomatic anemia related to chemotherapy Mr. Monge is a very pleasant man who prior to his admit in 01/17/31 denied any significant PMH or chronic health conditions. He started a diet when the pandemic began and lost 25# and felt pretty good. He recently retired and wasn't really using his strength much any more but, noted loss of muscles and strength. Over the last 4 months he has noted another 15# wt. loss, uninte ntionally, and progressive abd distension. He denied unusual bleeding, bruising, changes in bowel habits. Appetite poor because abd bloating, energy levels poor. Had no personal Hx of cancer, his father at a young age of cancer, unsure what kind. He has CT AP showing bilateral lung nodules and hepatomegaly, he required 7 units of PRBCs, had EGD on 01/18 with an ulcerated mass in the lower 2/3's of the esophagus, biopsied, returned superficially invasive adenocarcinoma with high grade dysplasia, Her2 neg by IHC. CT brain and NM bone scan were neg for mets. He was started on palliative XRT for bleeding mass while inpt. He port placed 01/24 and was discharged. Orders were sent to start chemo, pt was going to start after XRT was complete (next Saturday). Unfortunately he ended up back in the ER with c/o progressive NEY, he is not able to eat much because of the abd distension, denies current nausea or vomiting. On admit liver enzymes are continuing to increase, INR 1.8, Hgb 6.5, lactic acid 7.2. CTA neg for PE, suspect progression of pulm mets, CT AP no new disease in liver, CT without contrast of the brain was neg for hemorrhagic stroke or mets. Pt is not c/o any pain at this time. 02/04/2021 Patient is seen and evaluated in room at bedside; complaints of feeling weak and sleepy Vital signs are reviewed with temperature 98.0, pulse 111 respiration 20 and blood pressure 111/69 Lab review shows a WBC 5.3, hemoglobin 6.6 and hematocrit 21.1 with platelet count of 123, sodium 132, potassium 4.5, BUN/creatinine of 21/0.38 Oncology on board and recommending transfusion with 1 unit of packed RBCs; patient remains on supportive care post FOLFOX Salvage for rapidly progressing metastatic Cancer Objective - Vital Signs Vital signs: Vital Signs Temp 98.5 F 02/04/21 11:45 Pulse 100 02/04/21 11:45 Resp 17 02/04/21 11:45 BP 105/68 02/04/21 11:45 Pulse Ox 100 02/04/21 11:45 Intake & Output 02/03/21 02/04/21 02/04/21 18:59 06:59 18:59 Intake Total 900 900 0 Balance 900 900 0 Weight 56.5 kg 56.5 kg Intake: Intake, IV Titration 900 900 Amount Sodium Chloride 0.9% 1, 900 900 000 ml @ 75 mls/hr IV . [id number] [facility] Rx#:[id number] Blood Product 0 Rc As-1 Unit 0 [id number] Other: Voiding Method Bedside Commode Bedside Commode Bedside Commode Urinal Urinal Urinal # Voids 3 - Exam GENERAL: The patient is alert and oriented x3, not in any acute distress. Cachectic HEENT: Pupils are round and equally reacting to light. EOMI. No scleral icterus. No conjunctival pallor. Normocephalic, atraumatic. No pharyngeal erythema. No thyromegaly. CARDIOVASCULAR: S1 and S2 present. No murmurs, rubs, or gallops. -PULMONARY: Chest is clear to auscultation, no wheezing . Tachypneic with bilateral crepitation -ABDOMEN: Soft, nontender, distended, normoactive bowel sounds. No palpable organomegaly. MUSCULOSKELETAL: No joint swelling or deformity. EXTREMITIES: No cyanosis, clubbing, no leg edema. NEUROLOGICAL: Gross neurological examination did not reveal any focal deficits. SKIN: No rashes. No petechiae - Labs CBC & Chem 7: 02/05/21 06:10 02/05/21 06:10 Labs: Abnormal Lab Results - Last 24 Hours (Table) 02/04/21 02/04/21 02/04/21 Range/Units 06:14 06:14 07:56 RBC 2.23 L (4.30-5.90) m/uL Hgb 6.6 L* (13.0-17.5) gm/dL Hct 21.1 L (39.0-53.0) % RDW 26.0 H (11.5-15.5) % Plt Count 123 L (150-450) k/uL Lymphocytes # 0.6 L (1.0-4.8) k/uL Sodium 132 L (137-145) mmol/L BUN 21 H (9-20) mg/dL Creatinine 0.38 L (0.66-1.25) mg/dL Glucose 71 L (74-99) mg/dL Uric Acid 3.4 L (3.5-8.5) mg/dL Calcium 7.3 L (8.4-10.2) mg/dL Total Bilirubin 5.3 H (0.2-1.3) mg/dL AST 464 H (17-59) U/L ALT 202 H (4-49) U/L Alkaline Phosphatase 310 H (38-126) U/L Total Protein 4.4 L (6.3-8.2) g/dL Albumin 1.7 L (3.5-5.0) g/dL Crossmatch See Detail Assessment and Plan Assessment: worsening acute on chronic dyspnea secondary to metastatic pulmonary disease, massive hepatomegaly,, I suspect superimposed pneumonia Possible sepsis versus dehydration with leukocytosis, tachycardia and tachypnea. 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 Needing another blood transfusion Moderate to severe calorie protein malnutrition Chronic hyponatremia Elevated lactic acid Plan: This is a pleasant 60 years old male who presents with worsening dyspnea in view of his worsening with metastatic esophageal cancer to the lung, liver Continue IV hydration Patient undergoing chemotherapy by oncology team Oncology team were consulted Labs and medication were reviewed.. Continue same treatment. Continue with symptomatic treatment. Resume home medication. Monitor lytes and vitals. DVT and GI prophylaxis. Further recommendations as per clinical course of the patient DVT prophylaxis: No anticoagulation in view of coagulopathy heparin GI Prophylaxis: Ppi PT/OT: Pending Prognosis is guarded
--- NOTE | 2021-02-05 20:26 | P.PN ---
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 Monge is a very pleasant man who prior to his admit in 01/17/31 denied any significant PMH or chronic health conditions. He started a diet when the pandemic began and lost 25# and felt pretty good. He recently retired and wasn't really using his strength much any more but, noted loss of muscles and strength. Over the last 4 months he has noted another 15# wt. loss, uninte ntionally, and progressive abd distension. He denied unusual bleeding, bruising, changes in bowel habits. Appetite poor because abd bloating, energy levels poor. Had no personal Hx of cancer, his father at a young age of cancer, unsure what kind. He has CT AP showing bilateral lung nodules and hepatomegaly, he required 7 units of PRBCs, had EGD on 01/18 with an ulcerated mass in the lower 2/3's of the esophagus, biopsied, returned superficially invasive adenocarcinoma with high grade dysplasia, Her2 neg by IHC. CT brain and NM bone scan were neg for mets. He was started on palliative XRT for bleeding mass while inpt. He port placed 01/24 and was discharged. Orders were sent to start chemo, pt was going to start after XRT was complete (next Saturday). Unfortunately he ended up back in the ER with c/o progressive NEY, he is not able to eat much because of the abd distension, denies current nausea or vomiting. On admit liver enzymes are continuing to increase, INR 1.8, Hgb 6.5, lactic acid 7.2. CTA neg for PE, suspect progression of pulm mets, CT AP no new disease in liver, CT without contrast of the brain was neg for hemorrhagic stroke or mets. Pt is not c/o any pain at this time. 02/04/2021 Patient is seen and evaluated in room at bedside; complaints of feeling weak and sleepy Vital signs are reviewed with temperature 98.0, pulse 111 respiration 20 and blood pressure 111/69 Lab review shows a WBC 5.3, hemoglobin 6.6 and hematocrit 21.1 with platelet count of 123, sodium 132, potassium 4.5, BUN/creatinine of 21/0.38 Oncology on board and recommending transfusion with 1 unit of packed RBCs; patient remains on supportive care post FOLFOX Salvage for rapidly progressing metastatic Cancer 02/05/2021 Patient is seen and evaluated in room with family members at bedside and discussed with nursing staff; concern about possible fluid overload; plan to discontinue IV fluids was discussed with patient and at bedside was concerned about patient getting hypotensive once IV fluids are discontinued; lab review reveals WBC of 4.1, hemoglobin 7.1 and platelet count of 110; hemoglobin was down to 6.6 yesterday and is up to 7.1 this morning after transfusion with 1 unit of packed RBCs; oncology recommending to continue to monitor patient closely and supplement with transfusions as needed; renal function is stable; we will discontinue IV fluids Objective - Vital Signs Vital signs: Vital Signs Temp 97.7 F 02/05/21 20:18 Pulse 115 H 02/05/21 20:18 Resp 18 02/05/21 20:18 BP 114/72 02/05/21 20:18 Pulse Ox 99 02/05/21 20:18 Intake & Output 02/05/21 02/05/21 02/06/21 06:59 18:59 06:59 Intake Total 1400 Balance 1400 Weight 57 kg Intake: IV 900 Sodium Chloride 0.9% 1, 900 000 ml @ 75 mls/hr IV . [id number] [facility] Rx#:[id number] Oral 500 Other: Voiding Method Bedside Commode Bedside Commode Urinal Urinal # Voids 3 2 - Exam GENERAL: The patient is alert and oriented x3, not in any acute distress. Cachectic HEENT: Pupils are round and equally reacting to light. EOMI. No scleral icterus. No conjunctival pallor. Normocephalic, atraumatic. No pharyngeal erythema. No thyromegaly. CARDIOVASCULAR: S1 and S2 present. No murmurs, rubs, or gallops. -PULMONARY: Chest is clear to auscultation, no wheezing . Tachypneic with bilateral crepitation -ABDOMEN: Soft, nontender, distended, normoactive bowel sounds. No palpable organomegaly. MUSCULOSKELETAL: No joint swelling or deformity. EXTREMITIES: No cyanosis, clubbing, no leg edema. NEUROLOGICAL: Gross neurological examination did not reveal any focal deficits. SKIN: No rashes. No petechiae - Labs CBC & Chem 7: 02/05/21 06:10 02/05/21 06:10 Labs: Abnormal Lab Results - Last 24 Hours (Table) 02/05/21 02/05/21 Range/Units 06:10 06:10 RBC 2.41 L (4.30-5.90) m/uL Hgb 7.1 L (13.0-17.5) gm/dL Hct 21.8 L (39.0-53.0) % RDW 24.7 H (11.5-15.5) % Plt Count 110 L (150-450) k/uL Lymphocytes # 0.6 L (1.0-4.8) k/uL Sodium 130 L (137-145) mmol/L Creatinine 0.34 L (0.66-1.25) mg/dL Glucose 72 L (74-99) mg/dL Calcium 7.1 L (8.4-10.2) mg/dL Total Bilirubin 4.7 H (0.2-1.3) mg/dL AST 343 H (17-59) U/L ALT 166 H (4-49) U/L Alkaline Phosphatase 308 H (38-126) U/L Total Protein 4.3 L (6.3-8.2) g/dL Albumin 1.6 L (3.5-5.0) g/dL Assessment and Plan Assessment: worsening acute on chronic dyspnea secondary to metastatic pulmonary disease, massive hepatomegaly,, I suspect superimposed pneumonia Possible sepsis versus dehydration with leukocytosis, tachycardia and tachypnea. 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 Needing another blood transfusion Moderate to severe calorie protein malnutrition Chronic hyponatremia Elevated lactic acid Plan: This is a pleasant 60 years old male who presents with worsening dyspnea in view of his worsening with metastatic esophageal cancer to the lung, liver Continue IV hydration Patient undergoing chemotherapy by oncology team Oncology team were consulted Labs and medication were reviewed.. Continue same treatment. Continue with symptomatic treatment. Resume home medication. Monitor lytes and vitals. DVT and GI prophylaxis. Further recommendations as per clinical course of the patient DVT prophylaxis: No anticoagulation in view of coagulopathy heparin GI Prophylaxis: Ppi PT/OT: Pending Prognosis is guarded
[2021-02-06] MEDS: SALT AND SODA MOUTHWASH 1,000 ML PO SCH ×4 (04:35→19:53)
[2021-02-06 06:05] LABS: Anisocytosis Marked; HCT 20.9 % (39.0-53.0); Hypochromasia Moderate; MCH 29.8 pg (25.0-35.0); MCHC 32.2 g/dL (31.0-37.0); MCV 92.4 fL (80.0-100.0); Macrocytosis Slight; Mean Platelet Volume 8.9; Microcytosis Slight; Poikilocytosis Slight; RBC 2.26 m/uL (4.30-5.90); RDW 24.6 % (11.5-15.5); WBC 5.7 k/uL (3.8-10.6)
[2021-02-06 06:23] LABS: ALT 134 U/L (4-49); AST 291 U/L (17-59); African American GFR (CKD) >90 (>60 ml/min/1.73 sqM); Albumin 1.6 g/dL (3.5-5.0); Albumin/Globulin Ratio 0.6; Alkaline Phosphatase 313 U/L (38-126); Anion Gap 3 mmol/L; Blood Urea Nitrogen 16 mg/dL (9-20); Calcium 7.1 mg/dL (8.4-10.2); Carbon Dioxide 22 mmol/L (22-30); Chloride 107 mmol/L (98-107); Globulin 2.6 g/dL; Glucose 75 mg/dL (74-99); HGB 6.7 gm/dL (13.0-17.5); Non-African American GFR(CKD) >90 (>60 ml/min/1.73 sqM); Potassium 4.1 mmol/L (3.5-5.1); Sodium 132 mmol/L (137-145); Total Bilirubin 4.3 mg/dL (0.2-1.3); Total Protein 4.2 g/dL (6.3-8.2)
[2021-02-06 06:42] LABS: Band Neutrophils % 2 %; Lymphocytes # (M) 0.23 k/uL (1.0-4.8); Neutrophils % (M) 94 %; Nucleated Red Blood Cells 0 /100 WBC (0-0); Total Cells Counted 100
[2021-02-06 06:43] LABS: Anisocytosis (M) Present; Platelet Count 97 k/uL (150-450)
[2021-02-06] MEDS: PANTOPRAZOLE 40 MG TABLET PO SCH (07:49)
[2021-02-06] MEDS: METOPROLOL TARTRATE 12.5 MG TAB PO SCH ×2 (07:49→21:05)
[2021-02-06] MEDS: NICOTINE 14MG/24HR PATCH TRANSDERM SCH (07:49)
[2021-02-06] MEDS: MAG HYDROX/AL HYDROX/SIMETH 30 ML, diphenhydrAMINE ELIXIR 75 MG, LIDOCAINE VISCOUS 30 ML PO SCH ×9 (07:50→21:06)
[2021-02-06] MEDS: PETROLATUM, WHITE OINT 50 GM TUBE TOPICAL SCH ×4 (07:50→21:06)
[2021-02-06] MEDS ORDERED: FUROSEMIDE 10 MG/ML 2 ML VIAL IV ONE (10:56)
[2021-02-06] MEDS ORDERED: MELATONIN 3 MG TABLET PO PRN (15:33)
--- NOTE | 2021-02-06 19:58 | P.PN ---
Subjective Progress Note Date: 02/06/21 Principal diagnosis: metastatic eso adenocarcinoma In f/u today, pt is at bedside. Pt is sleeping all day and up all night. His breathing is slightly better, no chemo SE to report, he feels ok today Objective - Vital Signs Vital signs: Vital Signs Temp 97.4 F L 02/06/21 04:31 Pulse 111 H 02/06/21 07:46 Resp 18 02/06/21 04:31 BP 110/64 02/06/21 07:46 Pulse Ox 98 02/06/21 07:46 Intake & Output 02/05/21 02/06/21 02/06/21 18:59 06:59 18:59 Intake Total 600 Balance 600 Weight 58 kg Intake: Oral 600 Other: Voiding Method Bedside Commode Bedside Commode Urinal Urinal # Voids 2 2 - Constitutional General appearance: Present: cooperative, no acute distress, thin - EENT Eyes: Present: EOMI, scleral icterus (look slightly better) ENT: Present: hearing grossly normal - Respiratory Respiratory: bilateral: CTA - Cardiovascular Rhythm: regular Heart sounds: normal: S1, S2 Abnormal Heart Sounds: Absent: systolic murmur, diastolic murmur, rub, S3 Gallop, S4 Gallop, click, other - Peripheral edema leg Peripheral Edema: bilateral: 3+, Pitting - Gastrointestinal General gastrointestinal: Present: distended, hepatomegaly, normal bowel sounds, soft - Integumentary Integumentary: Present: jaundiced - Neurologic Neurologic: Present: CNII-XII intact - Musculoskeletal Musculoskeletal: Present: generalized weakness, strength equal bilaterally - Psychiatric Psychiatric: Present: A&O x's 3, appropriate affect, intact judgment & insight - Labs CBC & Chem 7: 02/06/21 05:16 02/06/21 05:16 Labs: Abnormal Lab Results - Last 24 Hours (Table) 02/04/21 02/06/21 02/06/21 Range/Units 07:56 05:16 05:16 RBC 2.26 L (4.30-5.90) m/uL Hgb 6.7 L* (13.0-17.5) gm/dL Hct 20.9 L (39.0-53.0) % RDW 24.6 H (11.5-15.5) % Plt Count 97 L (150-450) k/uL Lymphocytes # (Manual) 0.23 L (1.0-4.8) k/uL Sodium 132 L (137-145) mmol/L Creatinine 0.36 L (0.66-1.25) mg/dL Calcium 7.1 L (8.4-10.2) mg/dL Total Bilirubin 4.3 H (0.2-1.3) mg/dL AST 291 H (17-59) U/L ALT 134 H (4-49) U/L Alkaline Phosphatase 313 H (38-126) U/L Total Protein 4.2 L (6.3-8.2) g/dL Albumin 1.6 L (3.5-5.0) g/dL Crossmatch See Detail Assessment and Plan (1) Esophageal carcinoma Narrative/Plan: Has completed cycle one of FOLFOX including 46 hour 5FU infusion. Reviewed recommendations for self care-liberal fluids, out of bed, mouth care and skin care. Cont Labs daily-his labs are stable today Daily f/u Her 2 on tumor specimen was neg Pending send out for other biomarker testing Current Visit: Yes Status: Acute Priority: High Code(s): C15.9 - MALIGNANT NEOPLASM OF ESOPHAGUS, UNSPECIFIED SNOMED Code(s): 244140217 (2) Coagulopathy Narrative/Plan: 2/2 liver involvement with malignancy. Cont to monitor coags. Vit K PRN. SCDs for DVT prophylaxis Current Visit: Yes Status: Acute Priority: High Code(s): D68.9 - COAGULATION DEFECT, UNSPECIFIED SNOMED Code(s): 85367651 (3) Blood loss anemia Narrative/Plan: Radiation held. Pt did have a few sessions. Pt is aware that he is at high risk for fatal hemorrhage. Hgb 6.7 today, 1 unit PRBCs, 20mg lasix post transfusion. CBC daily Current Visit: Yes Status: Acute Priority: High Code(s): D50.0 - IRON DEFICIENCY ANEMIA SECONDARY TO BLOOD LOSS (CHRONIC) SNOMED Code(s): 638365401 (4) Anasarca Narrative/Plan: 2/2 liver failure form malignancy, poor protein intake. Encouraged high protein foods/supplements. Will start daily wt. Current Visit: Yes Status: Acute Priority: High Code(s): R60.1 - GENERALIZED EDEMA SNOMED Code(s): 734025248 Plan: Attests: I have performed H&P and developed impression and plan of care for pt. Discussed with dictator. I agree with dictated note, documented as a scribe.
[2021-02-07] MEDS: SALT AND SODA MOUTHWASH 1,000 ML PO SCH ×5 (00:01→22:09)
--- NOTE | 2021-02-07 06:08 | P.PN ---
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 Monge is a very pleasant man who prior to his admit in 01/17/31 denied any significant PMH or chronic health conditions. He started a diet when the pandemic began and lost 25# and felt pretty good. He recently retired and wasn't really using his strength much any more but, noted loss of muscles and strength. Over the last 4 months he has noted another 15# wt. loss, unintentionally, and progressive abd distension. He denied unusual bleeding, bruising, changes in bowel habits. Appetite poor because abd bloating, energy levels poor. Had no personal Hx of cancer, his father at a young age of cancer, unsure what kind. He has CT AP showing bilateral lung nodules and hepatomegaly, he required 7 units of PRBCs, had EGD on 01/18 with an ulcerated mass in the lower 2/3's of the esophagus, biopsied, returned superficially invasive adenocarcinoma with high grade dysplasia, Her2 neg by IHC. CT brain and NM bone scan were neg for mets. He was started on palliative XRT for bleeding mass while inpt. He port placed 01/24 and was discharged. Orders were sent to start chemo, pt was going to start after XRT was complete (next Saturday). Unfortunately he ended up back in the ER with c/o progressive NEY, he is not a ble to eat much because of the abd distension, denies current nausea or vomiting. On admit liver enzymes are continuing to increase, INR 1.8, Hgb 6.5, lactic acid 7.2. CTA neg for PE, suspect progression of pulm mets, CT AP no new disease in liver, CT without contrast of the brain was neg for hemorrhagic stroke or mets. Pt is not c/o any pain at this time. 02/04/2021 Patient is seen and evaluated in room at bedside; complaints of feeling weak and sleepy Vital signs are reviewed with temperature 98.0, pulse 111 respiration 20 and blood pressure 111/69 Lab review shows a WBC 5.3, hemoglobin 6.6 and hematocrit 21.1 with platelet count of 123, sodium 132, potassium 4.5, BUN/creatinine of 21/0.38 Oncology on board and recommending transfusion with 1 unit of packed RBCs; patient remains on supportive care post FOLFOX Salvage for rapidly progressing metastatic Cancer 02/05/2021 Patient is seen and evaluated in room with family members at bedside and discussed with nursing staff; concern about possible fluid overload; plan to discontinue IV fluids was discussed with patient and at bedside was concerned about patient getting hypotensive once IV fluids are discontinued; lab review reveals WBC of 4.1, hemoglobin 7.1 and platelet count of 110; hemoglobin was down to 6.6 yesterday and is up to 7.1 this morning after transfusion with 1 unit of packed RBCs; oncology recommending to continue to monitor patient closely and supplement with transfusions as needed; renal function is stable; we will discontinue IV fluids 02/06/2021 Patient is seen in follow up this morning and IV fluids being discontinued and will also add fluid restrictions of 1500ml and IV lasix 40 mg daily as patient continues to appear clinically volume overloaded. Patient given a one time IV lasix today and reports to urinating. No reports of nausea or vomiting and tolerating diet. oncology and infectious disease following. Sodium is 132 today and hemoglobin is 6.7 and awaiting for PRBC. Infectious disease has discontinued all IV antibiotics and being closely monitored off antibiotics with no white count and patient is afebrile. Review of systems: Constitutional: reports of fatigue, no reports of fever, or chills Cardiovascular: No reports of chest pain or palpitations Respiratory: No reports of shortness of breath or cough GI: No reports of nausea, vomiting, or diarrhea : No reports of dysuria or retention Neurovascular: reports of weakness All medications have been reviewed Physical exam: GENERAL: The patient is alert and oriented x3, not in any acute distress. Cachectic HEENT: Pupils are round and equally reacting to light. EOMI. No scleral icterus. No conjunctival pallor. Normocephalic, atraumatic. No pharyngeal erythema. No thyromegaly. CARDIOVASCULAR: S1 and S2 present. No murmurs, rubs, or gallops. -PULMONARY: Chest is clear to auscultation, no wheezing . Scattered rhonchi noted throughout -ABDOMEN: Soft, nontender, distended, normoactive bowel sounds. No palpable organomegaly. MUSCULOSKELETAL: No joint swelling or deformity. EXTREMITIES: No cyanosis, clubbing, bilateral lower extremity edema noted. NEUROLOGICAL: Gross neurological examination did not reveal any focal deficits. SKIN: No rashes. No petechiae Assessment: worsening acute on chronic dyspnea secondary to metastatic pulmonary disease, massive hepatomegaly, ID evaluated the patient not behaving as pneumonia Possible sepsis versus dehydration with leukocytosis, tachycardia and tachypnea. 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 awaiting blood transfusion today hgb is 6.7 Moderate calorie protein malnutrition Chronic hyponatremia Elevated lactic acid GI prophylaxis DVT prophylaxis no anticoagulation due to coagulopathy NO CODE Plan: recommend to continue with transfusion of platelets and PRBC per oncology. Radiation oncology following as well and IV fluids have been discontinued and appears clinically volume overloaded and will start IV lasix and repeat am labs. Patient is off abx with no white count elevation and patient remains afebrile. Will add fluid restrictions as well and monitor. LFT slowly improving although still quite elevated. Prognosis remains guarded. Objective - Vital Signs Vital signs: Vital Signs Temp 97.4 F L 02/06/21 04:31 Pulse 111 H 02/06/21 07:46 Resp 18 02/06/21 04:31 BP 110/64 02/06/21 07:46 Pulse Ox 98 02/06/21 07:46 Intake & Output 02/05/21 02/06/21 02/06/21 18:59 06:59 18:59 Intake Total 600 Balance 600 Weight 58 kg Intake: Oral 600 Other: Voiding Method Bedside Commode Bedside Commode Urinal Urinal # Voids 2 2 - Labs CBC & Chem 7: 02/06/21 05:16 02/06/21 05:16 Labs: Abnormal Lab Results - Last 24 Hours (Table) 02/04/21 02/05/21 02/06/21 Range/Units 07:56 06:10 05:16 RBC 2.26 L (4.30-5.90) m/uL Hgb 6.7 L* (13.0-17.5) gm/dL Hct 20.9 L (39.0-53.0) % RDW 24.6 H (11.5-15.5) % Plt Count 97 L (150-450) k/uL Lymphocytes # 0.6 L (1.0-4.8) k/uL Lymphocytes # (Manual) 0.23 L (1.0-4.8) k/uL Sodium (137-145) mmol/L Creatinine (0.66-1.25) mg/dL Calcium (8.4-10.2) mg/dL Total Bilirubin (0.2-1.3) mg/dL AST (17-59) U/L ALT (4-49) U/L Alkaline Phosphatase (38-126) U/L Total Protein (6.3-8.2) g/dL Albumin (3.5-5.0) g/dL Crossmatch See Detail 02/06/21 Range/Units 05:16 RBC (4.30-5.90) m/uL Hgb (13.0-17.5) gm/dL Hct (39.0-53.0) % RDW (11.5-15.5) % Plt Count (150-450) k/uL Lymphocytes # (1.0-4.8) k/uL Lymphocytes # (Manual) (1.0-4.8) k/uL Sodium 132 L (137-145) mmol/L Creatinine 0.36 L (0.66-1.25) mg/dL Calcium 7.1 L (8.4-10.2) mg/dL Total Bilirubin 4.3 H (0.2-1.3) mg/dL AST 291 H (17-59) U/L ALT 134 H (4-49) U/L Alkaline Phosphatase 313 H (38-126) U/L Total Protein 4.2 L (6.3-8.2) g/dL Albumin 1.6 L (3.5-5.0) g/dL Crossmatch
[2021-02-07 07:08] LABS: INR 1.2 (<1.2); Partial Thromboplastin Time 25.4 sec (22.0-30.0); Prothrombin Time 12.2 sec (9.0-12.0)
[2021-02-07 07:19] LABS: Anisocytosis Marked; HCT 24.1 % (39.0-53.0); HGB 8.1 gm/dL (13.0-17.5); Hypochromasia Slight; MCH 30.5 pg (25.0-35.0); MCHC 33.5 g/dL (31.0-37.0); Macrocytosis Slight; Mean Platelet Volume 9.1; Microcytosis Slight; Poikilocytosis Slight; RBC 2.65 m/uL (4.30-5.90); RDW 24.2 % (11.5-15.5)
[2021-02-07 07:21] LABS: Platelet Count 85 k/uL (150-450)
[2021-02-07] MEDS: METOPROLOL TARTRATE 12.5 MG TAB PO SCH ×2 (08:39→22:06)
[2021-02-07] MEDS: PANTOPRAZOLE 40 MG TABLET PO SCH (08:39)
[2021-02-07] MEDS: MAG HYDROX/AL HYDROX/SIMETH 30 ML, diphenhydrAMINE ELIXIR 75 MG, LIDOCAINE VISCOUS 30 ML PO SCH ×9 (08:40→22:07)
[2021-02-07] MEDS: PETROLATUM, WHITE OINT 50 GM TUBE TOPICAL SCH ×4 (08:40→22:09)
[2021-02-07] MEDS: NICOTINE 14MG/24HR PATCH TRANSDERM SCH (08:40)
[2021-02-07] MEDS ORDERED: FUROSEMIDE 10 MG/ML 4 ML VIAL IV SCH (09:00)
[2021-02-07 10:11] LABS: Lymphocytes # (M) 0.56 k/uL (1.0-4.8); Monocytes # (M) 0.28 k/uL (0-1.0); Neutrophils # (M) 6.16 k/uL (1.3-7.7); Neutrophils % (M) 88 %; Nucleated Red Blood Cells 0 /100 WBC (0-0); Total Cells Counted 100
[2021-02-07 10:12] LABS: Hypersegmented Neutrophils Present; Polychromasia Present
[2021-02-07 12:52] LABS: African American GFR (CKD) 166.1 (60.0-200.0); Albumin 1.7 g/dL (3.80-4.90); Albumin/Globulin Ratio 0.74 (1.60-3.17); Anion Gap 10.2 mmol/L (4.00-12.00); BUN/Creat Ratio 63.33 Ratio (12.00-20.00); Calcium 6.9 mg/dL (8.7-10.3); Carbon Dioxide 21.8 mmol/L (21.6-31.8); Globulin 2.3 g/dL (1.6-3.3); Non-African American GFR(CKD) 143.3 (60.0-200.0); Total Bilirubin 4.2 mg/dL (0.2-1.2)
--- NOTE | 2021-02-07 14:00 | P.PN ---
Subjective Progress Note Date: 02/07/21 Principal diagnosis: metastatic eso adenocarcinoma In f/u today, pt is at bedside. His breathing is slightly better, decreased O2 needs, no chemo SE to report, abd is less distended, swelling in legs is stable. His appetite is fair, he con only tolerate very soft foods, l iquids. Objective - Vital Signs Vital signs: Vital Signs Temp 98.0 F 02/07/21 04:33 Pulse 104 H 02/07/21 04:35 Resp 16 02/07/21 04:33 BP 97/61 02/07/21 04:33 Pulse Ox 98 02/07/21 04:33 Intake & Output 02/06/21 02/07/21 02/07/21 18:59 06:59 18:59 Intake Total 310 600 Balance 310 600 Weight 57.5 kg Intake: Oral 600 Blood Product 310 Rc Cpda-1 Unit 310 [id number] Other: Voiding Method Bedside Commode Bedside Commode Urinal Urinal # Voids 2 2 - Constitutional General appearance: Present: cooperative, no acute distress, thin - EENT Eyes: Present: EOMI, scleral icterus (looks less intense) ENT: Present: hearing grossly normal, normal oropharynx - Respiratory Respiratory: bilateral: diminished - Cardiovascular Heart sounds: normal: S1, S2 Abnormal Heart Sounds: Absent: systolic murmur, diastolic murmur, rub, S3 Gallop , S4 Gallop, click, other - Peripheral edema leg Peripheral Edema: bilateral: 3+, Pitting - Gastrointestinal General gastrointestinal: Present: distended, hepatomegaly, normal bowel sounds, soft - Neurologic Neurologic: Present: CNII-XII intact - Musculoskeletal Musculoskeletal: Present: generalized weakness - Psychiatric Psychiatric: Present: A&O x's 3, appropriate affect, intact judgment & insight - Labs CBC & Chem 7: 02/07/21 06:01 02/07/21 06:01 Labs: Abnormal Lab Results - Last 24 Hours (Table) 02/04/21 02/07/21 02/07/21 Range/Units 07:56 06:01 06:01 RBC 2.65 L (4.30-5.90) m/uL Hgb 8.1 L (13.0-17.5) gm/dL Hct 24.1 L (39.0-53.0) % RDW 24.2 H (11.5-15.5) % Plt Count 85 L (150-450) k/uL Lymphocytes # (Manual) 0.56 L (1.0-4.8) k/uL PT 12.2 H (9.0-12.0) sec INR 1.2 H (<1.2) Crossmatch See Detail Assessment and Plan (1) Esophageal carcinoma Narrative/Plan: Has completed cycle one of FOLFOX including 46 hour 5FU infusion. Reviewed chemo cycle-every 2 weeks, would be due next week, reassured that pt receive this treatment outpt majority of the time. Reinforced liberal fluids, out of bed, mouth care and skin care. Encouraged protein intake (drinks) and ambulation CBC, CMP stable today Daily f/u Her 2 on tumor specimen was neg Pending send out for other biomarker testing Current Visit: Yes Status: Acute Priority: High Code(s): C15.9 - MALIGNANT NEOPLASM OF ESOPHAGUS, UNSPECIFIED SNOMED Code(s): 109652242 (2) Coagulopathy Narrative/Plan: 2/2 liver involvement with malignancy. Cont to monitor coags. Vit K PRN. SCDs for DVT prophylaxis INR 1.2 today Current Visit: Yes Status: Acute Priority: High Code(s): D68.9 - COAGULATION DEFECT, UNSPECIFIED SNOMED Code(s): 41588746 (3) Blood loss anemia Narrative/Plan: 2/2 to bleeding esophageal mass. Palliative radiation started then held due to symptomatic systemic disease. Pt did have a few sessions. May consider completing in-between cycles Pt is aware that he is at high risk for fatal hemorrhage. Hgb 8.1 today after 1 unit for Hgb 6.7 yesterday CBC daily while inpt Current Visit: Yes Status: Acute Priority: High Code(s): D50.0 - IRON DEFI CIENCY ANEMIA SECONDARY TO BLOOD LOSS (CHRONIC) SNOMED Code(s): 166522457 (4) Anasarca Narrative/Plan: 2/2 liver failure form malignancy, poor protein intake. Encouraged high protein foods/supplements. No lasix as this will remove intravascular fluid 1st and with poor nutritional status and liver dysfunction it will likely dehydrate the pt before helping with 3rd spacing. Cont daily wt Current Visit: Yes Status: Acute Priority: High Code(s): R60.1 - GENERALIZED EDEMA SNOMED Code(s): 699105223 Plan: Consult Dietitian, high protein diet Consult PT/OT to assess and make recommendations Consult [facility] for home care and home PT/OT Attests: I have performed H&P and developed impression and plan of care for pt. Discussed with dictator. I agree with dictated note, documented as a scribe.
[2021-02-07 15:39] VITALS: BMI 19.3
--- NOTE | 2021-02-07 16:31 | P.PN ---
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 Monge is a very pleasant man who prior to his admit in 01/17/31 denied any significant PMH or chronic health conditions. He started a diet when the pandemic began and lost 25# and felt pretty good. He recently retired and wasn't really using his strength much any more but, noted loss of muscles and strength. Over the last 4 months he has noted another 15# wt. loss, unintentionally, and progressive abd distension. He denied unusual bleeding, bruising, changes in bowel habits. Appetite poor because abd bloating, energy levels poor. Had no personal Hx of cancer, his father at a young age of cancer, unsure what kind. He has CT AP showing bilateral lung nodules and hepatomegaly, he required 7 units of PRBCs, had EGD on 01/18 with an ulcerated mass in the lower 2/3's of the esophagus, biopsied, returned superficially invasive adenocarcinoma with high grade dysplasia, Her2 neg by IHC. CT brain and NM bone scan were neg for mets. He was started on palliative XRT for bleeding mass while inpt. He port placed 01/24 and was discharged. Orders were sent to start chemo, pt was going to start after XRT was complete (next Saturday). Unfortunately he ended up back in the ER with c/o progressive NEY, he is not a ble to eat much because of the abd distension, denies current nausea or vomiting. On admit liver enzymes are continuing to increase, INR 1.8, Hgb 6.5, lactic acid 7.2. CTA neg for PE, suspect progression of pulm mets, CT AP no new disease in liver, CT without contrast of the brain was neg for hemorrhagic stroke or mets. Pt is not c/o any pain at this time. 02/04/2021 Patient is seen and evaluated in room at bedside; complaints of feeling weak and sleepy Vital signs are reviewed with temperature 98.0, pulse 111 respiration 20 and blood pressure 111/69 Lab review shows a WBC 5.3, hemoglobin 6.6 and hematocrit 21.1 with platelet count of 123, sodium 132, potassium 4.5, BUN/creatinine of 21/0.38 Oncology on board and recommending transfusion with 1 unit of packed RBCs; patient remains on supportive care post FOLFOX Salvage for rapidly progressing metastatic Cancer 02/05/2021 Patient is seen and evaluated in room with family members at bedside and discussed with nursing staff; concern about possible fluid overload; plan to discontinue IV fluids was discussed with patient and at bedside was concerned about patient getting hypotensive once IV fluids are discontinued; lab review reveals WBC of 4.1, hemoglobin 7.1 and platelet count of 110; hemoglobin was down to 6.6 yesterday and is up to 7.1 this morning after transfusion with 1 unit of packed RBCs; oncology recommending to continue to monitor patient closely and supplement with transfusions as needed; renal function is stable; we will discontinue IV fluids 02/06/2021 Patient is seen in follow up this morning and IV fluids being discontinued and will also add fluid restrictions of 1500ml and IV lasix 40 mg daily as patient continues to appear clinically volume overloaded. Patient given a one time IV lasix today and reports to urinating. No reports of nausea or vomiting and tolerating diet. oncology and infectious disease following. Sodium is 132 today and hemoglobin is 6.7 and awaiting for PRBC. Infectious disease has discontinued all IV antibiotics and being closely monitored off antibiotics with no white count and patient is afebrile. 02/07/2021 Patient is seen and evaluated in follow-up this morning and received a dose of Lasix yesterday and today and bilateral lower extremity swelling has improved and patient is also maintained on 1500 mL fluid restriction and sodium today improved at 138, BUN is 19 and creatinine is currently 0.3. Potassium is 4.0. ALT and AST slowly trending down and albumin continues to be low. Calcium is 6.9. White blood count is 7.0 with a hemoglobin of 8.1 and current platelets are 85. Encouraged increase activity as tolerated and continued to encourage oral intake especially protein. Patient to continue 1500 mL fluid restriction. Case management consulted for possible Homecare and rehab in the home setting. Will discuss with oncology about discharge planning. Review of systems: Constitutional: reports of fatigue, no reports of fever, or chills Cardiovascular: No reports of chest pain or palpitations Respiratory: No reports of shortness of breath or cough GI: No reports of nausea, vomiting, or diarrhea : No reports of dysuria or retention Neurovascular: reports of weakness All medications have been reviewed Active Medications Hydrocodone Bitart/Acetaminophen (Hydrocodone/Apap 5-325mg 1 Each Tab) 1 each PO Q6HR PRN PRN Reason: Pain Last Admin: 02/04/21 17:09 Dose: 1 each Documented by: Alprazolam (Alprazolam 0.25 Mg Tab) 0.25 mg PO TID PRN PRN Reason: Anxiety Last Admin: 02/02/21 23:58 Dose: 0.25 mg Documented by: Al Hydroxide/Mg Hydroxide 30 ml/ Diphenhydramine HCl 75 mg/Lidocaine HCl 30 ml 0 ml PO TID [facility] Last Admin: 02/07/21 08:40 Dose: 5 ml Documented by: Docusate Sodium (Docusate 100 Mg Cap) 100 mg PO BID PRN PRN Reason: Constipation Furosemide (Furosemide 10 Mg/Ml 4 Ml Vial) 20 mg IV DAILY [facility] Hydrocortisone Acetate (Hydrocortisone Suppository 25 Mg Supp) 25 mg RECTAL BID PRN PRN Reason: prolapse Last Admin: 02/01/21 16:03 Dose: 25 mg Documented by: Melatonin (Melatonin 3 Mg Tablet) 6 mg PO HS PRN PRN Reason: Insomnia Last Admin: 02/06/21 21:05 Dose: 6 mg Documented by: Metoprolol Tartrate (Metoprolol Tartrate 12.5 Mg Tab) 12.5 mg PO BID [facility] Last Admin: 02/07/21 08:39 Dose: 12.5 mg Documented by: Naloxone HCl (Naloxone 0.4 Mg/Ml 1 Ml Vial) 0.2 mg IV Q2M PRN PRN Reason: Opioid Reversal Nicotine (Nicotine 14mg/24hr Patch) 1 patch TRANSDERM DAILY [facility] Last Admin: 02/07/21 08:40 Dose: 1 patch Documented by: Ondansetron HCl (Ondansetron 4 Mg/2 Ml Vial) 4 mg IVP Q6HR PRN PRN Reason: Nausea And Vomiting Pantoprazole Sodium (Pantoprazole 40 Mg Tablet) 40 mg PO AC-BRKFST [facility] Last Admin: 02/07/21 08:39 Dose: 40 mg Documented by: Petrolatum (Petrolatum, White Oint 50 Gm Tube) 1 applic TOPICAL QID [facility]; Protocol Last Admin: 02/07/21 13:18 Dose: Not Given Documented by: Sodium Bicarbonate (Salt And Soda Mouthwash 1,000 Ml) 5 ml PO 5XD GINA Last Admin: 02/07/21 11:23 Dose: 5 ml Documented by: Physical exam: GENERAL: The patient is alert and oriented x3, not in any acute distress. Cachectic HEENT: Pupils are round and equally reacting to light. EOMI. No scleral icterus. No conjunctival pallor. Normocephalic, atraumatic. No pharyngeal erythema. No thyromegaly. CARDIOVASCULAR: S1 and S2 present. No murmurs, rubs, or gallops. -PULMONARY: Chest is clear to auscultation, no wheezing . Scattered rhonchi noted throughout -ABDOMEN: Soft, nontender, distended, normoactive bowel sounds. No palpable or ganomegaly. MUSCULOSKELETAL: No joint swelling or deformity. EXTREMITIES: No cyanosis, clubbing, bilateral lower extremity edema noted with improvement today. NEUROLOGICAL: Gross neurological examination did not reveal any focal deficits. SKIN: No rashes. No petechiae Assessment: worsening acute on chronic dyspnea secondary to metastatic pulmonary disease, massive hepatomegaly, ID evaluated the patient not behaving as pneumonia Possible sepsis versus dehydration with leukocytosis, tachycardia and tachypnea. 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 awaiting blood transfusion today hgb is 6.7 Moderate calorie protein malnutrition Chronic hyponatremia Elevated lactic acid GI prophylaxis DVT prophylaxis no anticoagulation due to coagulopathy NO CODE Plan: recommend to continue with transfusion of platelets and PRBC per oncology. No PRBC and platelets today as labs were within normal limits. Radiation oncology following as well and IV fluids have been discontinued and appears clinically volume overloaded and did give IV lasix which showed improvement in bilateral lower extremity swelling encourage the patient to increase activity along with elevating lower extremities while at rest. Patient is off abx with no white count elevation and patient remains afebrile. Will continue fluid restrictions as well and monitor. LFT slowly improving although still quite elevated. Prognosis remains guarded. Case management consulted for discharge planning with possible Homecare arrangements with physical therapy in the home. Will discuss with oncology about discharge planning and further recommendations. Objective - Vital Signs Vital signs: Vital Signs Temp 98.0 F 02/07/21 04:33 Pulse 104 H 02/07/21 04:35 Resp 16 02/07/21 04:33 BP 97/61 02/07/21 04:33 Pulse Ox 98 02/07/21 04:33 Intake & Output 02/06/21 02/07/21 02/07/21 18:59 06:59 18:59 Intake Total 310 600 Balance 310 600 Weight 57.5 kg Intake: Oral 600 Blood Product 310 Rc Cpda-1 Unit 310 [id number] Other: Voiding Method Bedside Commode Bedside Commode Urinal Urinal # Voids 2 2 - Labs CBC & Chem 7: 02/07/21 06:01 02/07/21 06:01 Labs: Abnormal Lab Results - Last 24 Hours (Table) 02/04/21 02/07/21 02/07/21 Range/Units 07:56 06:01 06:01 RBC 2.65 L (4.30-5.90) m/uL Hgb 8.1 L (13.0-17.5) gm/dL Hct 24.1 L (39.0-53.0) % RDW 24.2 H (11.5-15.5) % Plt Count 85 L (150-450) k/uL PT 12.2 H (9.0-12.0) sec INR 1.2 H (<1.2) Crossmatch See Detail
[2021-02-08] MEDS: SALT AND SODA MOUTHWASH 1,000 ML PO SCH ×3 (00:28→13:05)
[2021-02-08 05:23] VITALS: TEMP 98.1
[2021-02-08 05:33] LABS: Anisocytosis Marked; HCT 23.8 % (39.0-53.0); HGB 7.8 gm/dL (13.0-17.5); Hypochromasia Slight; MCH 30.4 pg (25.0-35.0); MCHC 32.7 g/dL (31.0-37.0); MCV 93.1 fL (80.0-100.0); Macrocytosis Slight; Mean Platelet Volume 8.9; Microcytosis Slight; Poikilocytosis Slight; RBC 2.56 m/uL (4.30-5.90)
[2021-02-08 05:34] LABS: Platelet Count 94 k/uL (150-450); RDW 25.6 % (11.5-15.5)
[2021-02-08 05:44] LABS: ALT 104 U/L (4-49); AST 220 U/L (17-59); Alkaline Phosphatase 376 U/L (38-126); Anion Gap 4 mmol/L; Carbon Dioxide 24 mmol/L (22-30); Chloride 106 mmol/L (98-107); Glucose 84 mg/dL (74-99); Sodium 134 mmol/L (137-145); Total Bilirubin 3.9 mg/dL (0.2-1.3)
[2021-02-08 05:45] LABS: Total Protein 4.3 g/dL (6.3-8.2)
[2021-02-08 05:46] LABS: Blood Urea Nitrogen 16 mg/dL (9-20)
[2021-02-08 05:58] LABS: African American GFR (CKD) >90 (>60 ml/min/1.73 sqM); Albumin 1.6 g/dL (3.5-5.0); Albumin/Globulin Ratio 0.6; Calcium 7.1 mg/dL (8.4-10.2); Globulin 2.7 g/dL; Non-African American GFR(CKD) >90 (>60 ml/min/1.73 sqM); Potassium 3.7 mmol/L (3.5-5.1)
[2021-02-08 06:04] LABS: Band Neutrophils % 2 %; Monocytes # (M) 0.13 k/uL (0-1.0); Myelocytes # (M) 0.06 k/uL (0); Myelocytes % 1 %; Neutrophils % (M) 88 %; Nucleated Red Blood Cells 2 /100 WBC (0-0); Total Cells Counted 200; WBC 6.3 k/uL (3.8-10.6)
[2021-02-08 06:05] LABS: Anisocytosis (M) Present; Poikilocytosis (M) Present; Polychromasia Present
[2021-02-08 06:06] LABS: Target Cells Present
[2021-02-08] MEDS: PANTOPRAZOLE 40 MG TABLET PO SCH (07:44)
[2021-02-08] MEDS: METOPROLOL TARTRATE 12.5 MG TAB PO SCH (07:44)
[2021-02-08] MEDS: NICOTINE 14MG/24HR PATCH TRANSDERM SCH (07:45)
[2021-02-08] MEDS: PETROLATUM, WHITE OINT 50 GM TUBE TOPICAL SCH ×2 (07:45→13:04)
[2021-02-08] MEDS: MAG HYDROX/AL HYDROX/SIMETH 30 ML, diphenhydrAMINE ELIXIR 75 MG, LIDOCAINE VISCOUS 30 ML PO SCH ×3 (07:52)
[2021-02-08] MEDS ORDERED: MAGNESIUM HYDROXIDE 2,400 MG/10 ML CUP PO PRN (08:51)
[2021-02-08] MEDS ORDERED: FUROSEMIDE 10 MG/ML 4 ML VIAL IV SCH (09:00)
--- NOTE | 2021-02-08 11:05 | P.PN ---
Subjective Progress Note Date: 02/08/21 Principal diagnosis: metastatic eso adenocarcinoma In f/u today, pt is at bedside. His breathing is much better, O2 at 1L, no chemo SE to report, abd continues to be less distended, swelling in legs is stable. His appetite is fair, early satiety, he only tolerates very soft foods, liquids. No documented BM, pt states having one yesterday. He is not in any pain, feels weak but is motivated to get moving Objective - Vital Signs Vital signs: Vital Signs Temp 98.1 F 02/08/21 05:00 Pulse 111 H 02/08/21 05:00 Resp 20 02/08/21 05:00 BP 104/69 02/08/21 05:00 Pulse Ox 93 L 02/07/21 21:00 Intake & Output 02/07/21 02/08/21 02/08/21 18:59 06:59 18:59 Weight 57.5 kg 57.8 kg Other: Voiding Method Bedside Commode Bedside Commode Urinal Urinal # Voids 2 2 - Constitutional General appearance: Present: cooperative, no acute distress, thin - EENT Eyes: Present: EOMI, scleral icterus (cont to improve) ENT: Present: hearing grossly normal, normal oropharynx - Respiratory Respiratory: bilateral: CTA - Cardiovascular Details: tachycardia, regular rhythm Heart sounds: normal: S1, S2 Abnormal Heart Sounds: Absent: systolic murmur, diastolic murmur, rub, S3 Gallop, S4 Gallop, click, other - Peripheral edema leg Peripheral Edema: bilateral: 3+, Pitting - Gastrointestinal General gastrointestinal: Present: distended, normal bowel sounds, soft - Neurologic Neurologic: Present: CNII-XII intact - Musculoskeletal Musculoskeletal: Present: generalized weakness, strength equal bilaterally - Psychiatric Psychiatric: Present: A&O x's 3, appropriate affect, intact judgment & insight - Labs CBC & Chem 7: 02/08/21 05:04 02/08/21 05:04 Labs: Abnormal Lab Results - Last 24 Hours (Table) 02/07/21 02/08/21 02/08/21 Range/Units 06:01 05:04 05:04 RBC 2.56 L (4.30-5.90) m/uL Hgb 7.8 L (13.0-17.5) gm/dL Hct 23.8 L (39.0-53.0) % RDW 25.6 H (11.5-15.5) % Plt Count 94 L (150-450) k/uL Lymphocytes # (Manual) 0.50 L (1.0-4.8) k/uL Myelocytes # (Manual) 0.06 H (0) k/uL Nucleated RBCs 2 H (0-0) /100 WBC Sodium 134 L (137-145) mmol/L Creatinine 0.3 L 0.37 L (0.6-1.5) mg/dL BUN/Creatinine Ratio 63.33 H (12.00-20.00) Ratio Calcium 6.9 L 7.1 L (8.7-10.3) mg/dL Total Bilirubin 4.2 H 3.9 H (0.2-1.2) mg/dL AST 238 H 220 H (14-35) U/L ALT 139 H 104 H (10-49) U/L Alkaline Phosphatase 370 H 376 H (41-126) U/L Total Protein 4.0 L 4.3 L (6.2-8.2) g/dL Albumin 1.70 L 1.6 L (3.80-4.90) g/dL Albumin/Globulin Ratio 0.74 L (1.60-3.17) g/dL Assessment and Plan (1) Esophageal carcinoma Narrative/Plan: Has completed cycle one of FOLFOX including 46 hour 5FU infusion. Reviewed chemo cycle-every 2 weeks, due next week for cycle 2. Reassured again tod ay that pts receive this treatment outpt, labs will be monitored. Reinforced liberal fluids, out of bed, mouth care and skin care. Encouraged protein intake (drinks) and ambulation at home. Home care and PT/OT ordered CBC, CMP stable today Her 2 on tumor specimen was neg Pending send out for other biomarker testing Current Visit: Yes Status: Acute Priority: High Code(s): C15.9 - MALIGNANT NEOPLASM OF ESOPHAGUS, UNSPECIFIED SNOMED Code(s): 122701114 (2) Coagulopathy Current Visit: Yes Status: Resolved Priority: High Code(s): D68.9 - COAGULATION DEFECT, UNSPECIFIED SNOMED Code(s): 62802444 (3) Blood loss anemia Narrative/Plan: 2/2 to bleeding esophageal mass. Palliative radiation started then held due to symptomatic systemic disease. Pt did have a few sessions. May consider completing in-between cycles Pt is aware that he is at high risk for fatal hemorrhage. Hgb 7.8 today, stable. Labs will be monitored weekly outpt Current Visit: Yes Status: Acute Priority: High Code(s): D50.0 - IRON DEFICIENCY ANEMIA SECONDARY TO BLOOD LOSS (CHRONIC) SNOMED Code(s): 423758605 (4) Anasarca Narrative/Plan: 2/2 liver failure form malignancy, poor protein intake. Encouraged high protein foods/supplements. Current Visit: Yes Status: Acute Priority: High Code(s): R60.1 - GENERA LIZED EDEMA SNOMED Code(s): 749860580 Plan: Case discussed with Attending MEAT CLERK-ok for DC Dr. Costa will assess pt prior to cycle 2 planned for next week Case discussed with Clinical Rehabilitation Coordinator-home care and other outpt services ordered Counseled and pt re: self care, follow up plans, all questions answered to the best of my ability and to their satisfaction Attests: I have performed H&P and developed impression and plan of care for pt. Discussed with dictator. I agree with dictated note, documented as a scribe.
[2021-02-08 12:11] VITALS: BP 95/59; PULSE 102; RESP 18
--- NOTE | 2021-02-10 11:42 | CDI ---
Documentation Clarification Form Date: 02/10/2021 11:36:10 AM From: Baldev Fuentes Admit Date: 01/30/2021 03:59:00 PM Patient Name: Yoav Monge Visit Number: [id number] Discharge Date: 02/08/2021 02:15:00 PM ATTENTION: The Clinical Documentation Specialists (CDI) and [facility] Coding Staff appreciate your assistance in clarifying documentation. Please respond to the clarification below the line at the bottom and electronically sign. The CDI & [facility] Coding staff will review the response and follow-up if needed. Please note: Queries are made part of the Legal Health Record. If you have any questions, please contact the author of this message via ITS. Dr. Tamayo E Sheet The patient presented with the following clinical indicators. Additional clarification regarding the etiology/cause of the clinical indicators is requested. Possible sepsis is noted in progress note 01/31. We need to determine if it was ruled out. History/Risk Factors: pneumonia Clinical Indicators: WBC: WNL Lactic acid: 13.9 Blood cultures: N/A Vitals signs: ED: BP 113/69, Temp 97.5, pulse 128, resp 18 Treatment: ID Consult: Antibiotics: IV abx IV Bolus: In your professional opinion, please clarify if these findings signify one of the following conditions: [ ] Sepsis POA [ ] Sepsis, Not POA [ ] Sepsis ruled out [ ] SIRS, without underlying infectious process [ ] Other, please specify [ ] Unable to determine SIRS Criteria: 2 or more of the following may indicate SIRS -Temperature < 96.8F (36C) or > 101.0F (38.3C) -Heart Rate > 90 bpm -Respiratory Rate > 20 breaths/min or PaCO2 < 32 mmHg -White Blood Cell Count > 12,000 or < 4,000 cells/mm3 or > 10% bands (Template Last Reviewed: June 2020) no sepsis MTDD
--- NOTE | 2021-02-13 02:17 | P.DS ---
Providers Date of admission: 01/30/21 15:59 Expected date of discharge: 02/08/21 Attending physician: Roni Rogel MD Consults: 01/30/21 16:01 Consult Physician Urgent Consulting Provider: Rashel Hanna Consult Reason/Comments: esophageal cancer with mets Do you want consulting provider notified?: Yes Consult Physician Urgent Consulting Provider: Dilan Costa Consult Reason/Comments: esophageal cancer with mets Do you want consulting provider notified?: Yes 01/31/21 07:48 Consult Physician Urgent Consulting Provider: Amber Mckee Consult Reason/Comments: possible pna Do you want consulting provider notified?: Yes Primary care physician: Stated None Hospital Course: Final Diagnosis worsening acute on chronic dyspnea secondary to metastatic pulmonary disease, massive hepatomegaly Possible sepsis, present on admission dehydration 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 Patient will follow-up with Dr. Costa in the outpatient setting upon discharge. Total time taken is greater than 35 minutes. Hospital course Mr. Monge is a very pleasant man who prior to his admit in 01/17/31 denied any significant PMH or chronic health conditions. He started a diet when the pandemic began and lost 25# and felt pretty good. He recently retired and wasn't really using his strength much any more but, noted loss of muscles and strength. Over the last 4 months he has noted another 15# wt. loss, unintentionally, and progressive abd distension. He denied unusual bleeding, bruising, changes in bowel habits. Appetite poor because abd bloating, energy levels poor. Had no personal Hx of cancer, his father at a young age of cancer, unsure what kind. He has CT AP showing bilateral lung nodules and hepatomegaly, he required 7 units of PRBCs, had EGD on 01/18 with an ulcerated mass in the lower 2/3's of the esophagus, biopsied, returned superficially invasive adenocarcinoma with high grade dysplasia, Her2 neg by IHC. CT brain and NM bone scan were neg for mets. He was started on palliative XRT for bleeding mass while inpt. He port placed 01/24 and was discharged. Orders were sent to start chemo, pt was going to start after XRT was complete (next Saturday). Unfortunately he ended up back in the ER with c/o progressive NEY, he is not able to eat much because of the abd distension, denies current nausea or vomiting. On admit liver enzymes are continuing to increase, INR 1.8, Hgb 6.5, lactic acid 7.2. CTA neg for PE, suspect progression of pulm mets, CT AP no new disease in liver, CT without contrast of the brain was neg for hemorrhagic stroke or mets. Pt is not c/o any pain at this time. 02/04/2021 Patient is seen and evaluated in room at bedside; complaints of feeling weak and sleepy Vital signs are reviewed with temperature 98.0, pulse 111 respiration 20 and blood pressure 111/69 Lab review shows a WBC 5.3, hemoglobin 6.6 and hematocrit 21.1 with platelet count of 123, sodium 132, potassium 4.5, BUN/creatinine of 21/0.38 Oncology on board and recommending transfusion with 1 unit of packed RBCs; patient remains on supportive care post F[employer] for rapidly progressing metastatic Cancer 02/05/2021 Patient is seen and evaluated in room with family members at bedside and discussed with nursing staff; concern about possible fluid overload; plan to discontinue IV fluids was discussed with patient and at bedside was concerned about patient getting hypotensive once IV fluids are discontinued; lab review reveals WBC of 4.1, hemoglobin 7.1 and platelet count of 110; hemoglobin was down to 6.6 yesterday and is up to 7.1 this morning after transfusion with 1 unit of packed RBCs; oncology recommending to continue to monitor patient closely and supplement with transfusions as needed; renal function is stable; we will discontinue IV fluids 02/06/2021 Patient is seen in follow up this morning and IV fluids being discontinued and will also add fluid restrictions of 1500ml and IV lasix 40 mg daily as patient continues to appear clinically volume overloaded. Patient given a one time IV lasix today and reports to urinating. No reports of nausea or vomiting and tolerating diet. oncology and infectious disease following. Sodium is 132 today and hemoglobin is 6.7 and awaiting for PRBC. Infectious disease has discontinued all IV antibiotics and being closely monitored off antibiotics with no white count and patient is afebrile. 02/07/2021 Patient is seen and evaluated in follow-up this morning and received a dose of Lasix yesterday and today and bilateral lower extremity swelling has improved and patient is also maintained on 1500 mL fluid restriction and sodium today improved at 138, BUN is 19 and creatinine is currently 0.3. Potassium is 4.0. ALT and AST slowly trending down and albumin continues to be low. Calcium is 6.9. White blood count is 7.0 with a hemoglobin of 8.1 and current platelets are 85. Encouraged increase activity as tolerated and continued to encourage oral intake especially protein. Patient to continue 1500 mL fluid restriction. Case management consulted for possible Homecare and rehab in the home setting. Will discuss with oncology about discharge planning. 02/08/2021 Patient is seen in follow-up with no acute overnight issues noted. Patient hemoglobin is 7.8 today and patient will follow up closely with oncology in the outpatient setting. Patient is having home care with rehab in the home arranged per as she is his caregiver and patient continues to be weak. Patient is on metoprolol and has been increased to 25mg BID and instructed to closely monitor HR and blood pressure and keep a diary of readings for follow up. Currently no reports of chest pain, shortness of breath, or palpitations. Patient is afebrile. No reports of nausea or vomiting and patient is tolerating diet. Patient will be discharged home. Gen: This is a 60-year-old male awake, alert and oriented 3, well-developed, well-nourished. HEENT: Head is atraumatic, normocephalic. Pupils equal, round. Sclerae is anict ana. NECK: Supple. No JVD. No lymphadenopathy. No thyromegaly. LUNGS: Diminished breath sounds bilaterally with no wheezing or rhonchi noted. No intercostal retractions. HEART: S1, S2 are muffled ABDOMEN: Soft. Bowel sounds are present. No masses. No tenderness. EXTREMITIES: No pedal edema. No calf tenderness. minimal lower extremity swelling noted. NEUROLOGICAL: Patient is awake, alert and oriented x3. Diffusely weak Please refer to medication reconciliation sheet for a list of medications. Patient Condition at Discharge: Stable Plan - Discharge Summary Discharge Rx Participant: No New Discharge Prescriptions: New Petrolatum, White [Aquaphor] 1 applic TOPICAL QID gm Melatonin 6 mg PO HS PRN #60 tablet PRN Reason: Insomnia Metoprolol Tartrate 25 mg PO BID 30 Days #60 tab Hydrocortisone Suppository [Anusol-Hc] 25 mg RECTAL BID PRN supp PRN Reason: prolapse Continue HYDROcodone/APAP 5-325MG [Olga 5-325] 1 each PO Q6HR PRN #10 tab PRN Reason: Pain Pantoprazole Sodium [Protonix] 40 mg PO DAILY #20 tab Acetaminophen Tab [Tylenol] 650 mg PO Q6HR PRN tab PRN Reason: Fever And/ Or Pain Docusate [Colace] 100 mg PO BID PRN #30 cap PRN Reason: Constipation Nicotine 14Mg/24Hr Patch [Habitrol] 1 patch TRANSDERM DAILY #30 patch Discharge Medication List Acetaminophen Tab [Tylenol] 650 mg PO Q6HR PRN tab 01/21/21 [Rx] Docusate [Colace] 100 mg PO BID PRN #30 cap 01/21/21 [Rx] HYDROcodone/APAP 5-325MG [Olga 5-325] 1 each PO Q6HR PRN #10 tab 01/21/21 [Rx] Nicotine 14Mg/24Hr Patch [Habitrol] 1 patch TRANSDERM DAILY #30 patch 01/21/21 [Rx] Pantoprazole Sodium [Protonix] 40 mg PO DAILY #20 tab 01/21/21 [Rx] Hydrocortisone Suppository [Anusol-Hc] 25 mg RECTAL BID PRN supp 02/08/21 [Rx] Melatonin 6 mg PO HS PRN #60 tablet 02/08/21 [Rx] Metoprolol Tartrate 25 mg PO BID 30 Days #60 tab 02/08/21 [Rx] Petrolatum, White [Aquaphor] 1 applic TOPICAL QID gm 02/08/21 [Rx] Follow up Appointment(s)/Referral(s): Dilan Costa MD [STAFF PHYSICIAN] - 02/20/21 2:45 pm (THIS APPT IS AT THE [address] [place] [address] OFFICE, [facility]IND [facility] ([facility])) None,Stated [Primary Care Provider] - 1-2 days Satya Lara [NON-STAFF] - 1 Week Patient Instructions/Handouts: Fluorouracil (By injection), Oxaliplatin (By injection) Activity/Diet/Wound Care/Special Instructions: Activity as tolerated-home care with PT/OT Diet-soft foods, protein drinks, fluid restrictions of 1500ml per day Continue skin care, oral care as done in the hospital Continue with lab draws as instructed by oncology CHEMOTHERAPY IS ORDERED TO BE GIVEN AT [facility] PER PT INSURANCE. WILL BE CONTACTED WITH APPT DATE AND TIME. RN explained where [facility] is located, and instructed patient and to Please go to the front office java developer if you have further questions [facility] the day of your appointment. Follow-up with primary care provider as well Continue with oncology appointments Continue to wrap bilateral lower extremities with Garrison wraps from the toes up to the knees and/or use compression hose and elevate lower extremities well at rest Continue fluid restrictions of 1500 mL per day Discharge Disposition: HOME WITH HOME HEALTH SERVICES
--- NOTE | 2021-02-23 16:20 | CDI ---
Documentation Clarification Form Date: 02/23/2021 04:12:33 PM From: Baldev Fuentes Admit Date: 01/30/2021 03:59:00 PM Patient Name: Yoav Monge Visit Number: [id number] Discharge Date: 02/08/2021 02:15:00 PM ATTENTION: The Clinical Documentation Specialists (CDI) and [facility] Coding Staff appreciate your assistance in clarifying documentation. Please respond to the clarification below the line at the bottom and electronically sign. The CDI & [facility] Coding staff will review the response and follow-up if needed. Please note: Queries are made part of the Legal Health Record. If you have any questions, please contact the author of this message via ITS. Dr. Anthony Ho There is documentation of liver failure due to malignancy in progress note 02/08/21. We need to establish the acuity of the liver failure as this would affect the coding DRG. History/Risk Factors: metastatic liver cancer, esophageal cancer, metastatic lung cancer Clinical Indicators: liver failure Treatment: Can you please the acuity of the liver failure? [x ] acute liver failure [ ] chronic liver failure [ ] Other, please specify [ ] Unable to determine [ ] acute on chronic liver failure MTDD
--- NOTE | 2021-02-23 16:29 | CDI ---
Documentation Clarification Form Date: 02/23/2021 04:23:57 PM From: Baldev Fuentes Admit Date: 01/30/2021 03:59:00 PM Patient Name: Yoav Monge Visit Number: [id number] Discharge Date: 02/08/2021 02:15:00 PM ATTENTION: The Clinical Documentation Specialists (CDI) and [facility] Coding Staff appreciate your assistance in clarifying documentation. Please respond to the clarification below the line at the bottom and electronically sign. The CDI & [facility] Coding staff will review the response and follow-up if needed. Please note: Queries are made part of the Legal Health Record. If you have any questions, please contact the author of this message via ITS. Dr. Anthony Ho Conflicting documentation has been found in the medical record. As attending physician, please provide clarification. Query answer by Dr Lai Sheet 02/01/21 states severe malnutrition. Your discharge summary of 02/08/21 states moderate malnutrition. The difference would affect the DRG. History/Risk Factors: malnutrition Clinical Indicators: Treatment: Please clarify which diagnosis is most appropriate: [ ] severe malnutrition [ ] moderate malnutrition [ ] Other (please specify) [ ] Unable to determine My opinion as per my note MTDD
== END 2021-02-08 14:15 | disposition home health service (06) | DRG 374 ==
LOC: EC 11:51 → 3SCARD 15:59 → 5NMEDONC 01-31 16:00
PROVIDERS: ADMIT Internal Medicine; ATTEND Internal Medicine
PROC: 3E03305 Introduction of Other Antineoplastic into Peripheral Vein, Percutaneous Approach (ICD-10-PCS; 2021-01-31)
PROC: 30233N1 Transfusion of Nonautologous Red Blood Cells into Peripheral Vein, Percutaneous Approach (ICD-10-PCS; principal; 2021-02-04)
DX: C15.9 Malignant neoplasm of esophagus, unspecified (principal); K72.00 Acute and subacute hepatic failure without coma; C78.01 Secondary malignant neoplasm of right lung; C78.7 Secondary malignant neoplasm of liver and intrahepatic bile duct; E87.1 Hypo-osmolality and hyponatremia; E87.2 Acidosis; R18.8 Other ascites; D68.4 Acquired coagulation factor deficiency; C78.02 Secondary malignant neoplasm of left lung; E44.0 Moderate protein-calorie malnutrition; D64.81 Anemia due to antineoplastic chemotherapy; E87.70 Fluid overload, unspecified; D50.0 Iron deficiency anemia secondary to blood loss (chronic); I45.10 Unspecified right bundle-branch block; K72.90 Hepatic failure, unspecified without coma; T45.1X5A Adverse effect of antineoplastic and immunosuppressive drugs, initial encounter; Z20.822 Contact with and (suspected) exposure to COVID-19; D53.9 Nutritional anemia, unspecified; Z85.01 Personal history of malignant neoplasm of esophagus; Z87.891 Personal history of nicotine dependence; Z79.899 Other long term (current) drug therapy; Z92.3 Personal history of irradiation; R68.0 Hypothermia, not associated with low environmental temperature; Z88.0 Allergy status to penicillin; E86.0 Dehydration; Z66 Do not resuscitate
CPT/HCPCS: 36415; 70450; 71045; 71046; 71275; 74177; 77387; 77412; 80053; 82140; 83605; 83735; 83880; 84100; 84145; 84484; 84550; 85025; 85379; 85610; 85730; 86140; 86850; 86900; 86901; 86920; 87635; 93005; 94760; 99285

== ENCOUNTER → 2021-02-16 | Outpatient (CLI) | payer OTHER ==
--- NOTE | 2021-02-16 15:12 | US ---
EXAMINATION TYPE: US venous doppler duplex UE RT DATE OF EXAM: 02/16/2021 COMPARISON: NONE CLINICAL HISTORY: 60-year-old male R22.31 swelling of right upper limb. SIDE PERFORMED: Right TECHNIQUE: Grayscale, color doppler, spectral doppler imaging performed of the deep veins of the uppe r extremities. Findings: Right Arm: Negative for DVT There is normal flow, compressibility and vascular waveforms. Condemnation Engineer notes: Sinewy neck, technically difficult at neck. Unable to visualize the cephalic vein. IMPRESSION: 1. Technically difficult exam of the neck. No evidence for DVT within the right upper extremity. 2. However, note that we are unable to identify the cephalic vein.
== END | disposition home or self-care (01) ==
LOC: RADUSWWP 14:16
PROVIDERS: ATTEND Internal Medicine Hematology & Oncology
DX: R22.31 Localized swelling, mass and lump, right upper limb (principal)

== ENCOUNTER 2021-02-21 16:49 | Inpatient (IN) | payer MEDICARE, OTHER ==
--- NOTE | 2021-02-21 17:48 | ED ---
Weakness HPI - General Chief complaint: Weakness Stated complaint: disoriented, SOB, trouble walking Source: patient Mode of arrival: wheelchair Limitations: no limitations - History of Present Illness Initial comments: Patient is a 60-year-old male with recently diagnosed esophageal cancer with liver and lung metastases resents the emergency room with weakness, shortness of breath and confusion. He was diagnosed with cancer at the end of December. Also Dr. Costa. He was started on chemotherapy in the middle of January. states that he has had 2 infusions. He is supposed to go every other week. His second infusion was canceled due to neutropenia. She states that he went to get his infusion this morning. Afterwards he had an appointment with Dr. Costa. He was seen in the office and is fatigued, short of breath, poor appetite with poor oral intake. He has also been disoriented. Dr. Costa recommended that he come into the emergency room for evaluation. The patient denies any chest pain. Does admit to some shortness of breath. Patient is tachycardic however patient has been persistently tachycardic since the diagnosis. He has progressed to have lower extremity swelling. He was on 5 days worth of Lasix however finished that. They deny any fevers. No cough. No changes in his urination. No other alleviating, precipitating or modifying factors. - Related Data Home Medications Medication Instructions Recorded Confirmed Metoprolol Tartrate 12.5 mg PO BID 02/21/21 02/21/21 Petrolatum, White [Aquaphor] 1 applic TOPICAL QID 02/21/21 02/21/21 Saline Mouthwash 1 dose PO 5XD 02/21/21 02/21/21 Temazepam [Restoril] 15 - 30 mg PO HS 02/22/21 02/22/21 Previous Rx's Medication Instructions Recorded Acetaminophen Tab [Tylenol] 650 mg PO Q6HR PRN tab 01/21/21 Docusate [Colace] 100 mg PO BID PRN #30 cap 01/21/21 Nicotine 14Mg/24Hr Patch [Habitrol] 1 patch TRANSDERM DAILY #30 patch 01/21/21 Pantoprazole Sodium [Protonix] 40 mg PO DAILY #20 tab 01/21/21 Allergies Allergy/AdvReac Type Severity Reaction Status Date / Time Penicillins Allergy Rash/Hives Verified 02/21/21 20:06 Review of Systems ROS Statement: Those systems with pertinent positive or pertinent negative responses have been documented in the HPI. ROS Other: All systems not noted in ROS Statement are negative. Past Medical History Past Medical History: No Reported History Additional Past Medical History / Comment(s): esophogeal tumor, liver cancer, possible lung ca History of Any Multi-Drug Resistant Organisms: None Reported Past Surgical History: No Surgical Hx Reported Additional Past Surgical History / Comment(s): EGD with biopsy Past Anesthesia/Blood Transfusion Reactions: No Reported Reaction Past Psychological History: No Psychological Hx Reported Smoking Status: Former smoker - Past Family History Father Family Medical History: Cancer General Exam Limitations: altered mental status General appearance: lethargic, cachectic Eye exam: Present: scleral icterus ENT exam: Present: mucous membranes dry Respiratory exam: Present: accessory muscle use, other (tachypnia) Cardiovascular Exam: Present: normal rhythm, tachycardia GI/Abdominal exam: Present: distended, organomegaly Neurological exam: Present: altered Psychiatric exam: Present: flat affect Course Vital Signs 02/21/21 02/21/21 02/22/21 17:08 22:00 01:56 Temperature 98.0 F 97.4 F L Pulse Rate 118 H 94 102 H Respiratory 24 18 18 Rate Blood Pressure 98/61 100/66 101/80 O2 Sat by Pulse 98 96 96 Oximetry EKG Findings - EKG Comments: EKG Findings:: EKG demonstrates sinus tachycardia with a ventricular rate of 113. WA interval 126. QRS 124. QTC of 502. Right bundle-branch block. No acute ST segment elevations or depressions Medical Decision Making - Medical Decision Making Upon arrival patient is placed into trauma bay 3. There are history and physical exam was performed. 12-lead EKG is obtained. Laboratory studies are conducted and reviewed. Hemoglobin 9.6. White blood cell count 10.8. INR 1.3. Sodium 1:30. Lactic acid 8.4. Elevated AST and ALT. LDH is 4266. He is started on 130 mL of saline per hour due to his lactic acidosis. Patient does go over for CT of his head which him and states no acute intracranial process. Chest x-ray demonstrates diffuse hazy reticular opacities bilaterally. . Patient denies cough, fevers or chills. Venous Doppler demonstrates no acute DVT. I did recommend admission for lactic acidosis, failure to thrive. Spoke with Vicente from [facility] to agree to admit the patient. We'll place Dr. Costa on consult. He is currently awaiting a bed on the floor - Lab Data Result diagrams: 02/24/21 06:32 02/24/21 06:32 Lab Results 02/21/21 02/21/21 02/21/21 Range/Units 18:01 18:01 18:01 WBC 10.8 H (3.8-10.6) k/uL RBC 3.04 L (4.30-5.90) m/uL Hgb 9.6 L (13.0-17.5) gm/dL Hct 31.9 L (39.0-53.0) % MCV 104.9 H (80.0-100.0) fL MCH 31.5 (25.0-35.0) pg MCHC 30.0 L (31.0-37.0) g/dL RDW 23.9 H (11.5-15.5) % Plt Count 225 (150-450) k/uL MPV 9.2 Neutrophils % 90 % Lymphocytes % 6 % Monocytes % 3 % Eosinophils % 0 % Basophils % 0 % Neutrophils # 9.7 H (1.3-7.7) k/uL Lymphocytes # 0.6 L (1.0-4.8) k/uL Monocytes # 0.4 (0-1.0) k/uL Eosinophils # 0.0 (0-0.7) k/uL Basophils # 0.0 (0-0.2) k/uL Hypochromasia Marked Anisocytosis Moderate Macrocytosis Marked A PT 12.9 H (9.0-12.0) sec INR 1.3 H (<1.2) APTT 24.1 (22.0-30.0) sec Sodium 130 L (137-145) mmol/L Potassium 5.0 (3.5-5.1) mmol/L Chloride 101 (98-107) mmol/L Carbon Dioxide 17 L (22-30) mmol/L Anion Gap 12 mmol/L BUN 17 (9-20) mg/dL Creatinine 0.46 L (0.66-1.25) mg/dL Est GFR (CKD-EPI)AfAm >90 (>60 ml/min/1.73 sqM) Est GFR (CKD-EPI)NonAf >90 (>60 ml/min/1.73 sqM) Glucose 123 H (74-99) mg/dL Lactic Ac Sepsis Rflx Plasma Lactic Acid Curtis (0.7-2.0) mmol/L Calcium 7.7 L (8.4-10.2) mg/dL Phosphorus 3.5 (2.5-4.5) mg/dL Magnesium 2.1 (1.6-2.3) mg/dL Total Bilirubin 4.2 H (0.2-1.3) mg/dL Conjugated Bilirubin 0.7 H (0.0-0.3) mg/dL Unconjugated Bilirubin 0.9 (0.0-1.1) mg/dL Delta Bilirubin 2.6 H (0.0-0.2) mg/dL AST 352 H (17-59) U/L ALT 114 H (4-49) U/L Alkaline Phosphatase 541 H (38-126) U/L Ammonia (<30) umol/L Lactate Dehydrogenase 4266 H (313-618) U/L Troponin I (0.000-0.034) ng/mL NT-Pro-B Natriuret Pep pg/mL Total Protein 6.2 L (6.3-8.2) g/dL Albumin 2.2 L (3.5-5.0) g/dL 02/21/21 02/21/21 02/21/21 Range/Units 18:01 18:01 18:01 WBC (3.8-10.6) k/uL RBC (4.30-5.90) m/uL Hgb (13.0-17.5) gm/dL Hct (39.0-53.0) % MCV (80.0-100.0) fL MCH (25.0-35.0) pg MCHC (31.0-37.0) g/dL RDW (11.5-15.5) % Plt Count (150-450) k/uL MPV Neutrophils % % Lymphocytes % % Monocytes % % Eosinophils % % Basophils % % Neutrophils # (1.3-7.7) k/uL Lymphocytes # (1.0-4.8) k/uL Monocytes # (0-1.0) k/uL Eosinophils # (0-0.7) k/uL Basophils # (0-0.2) k/uL Hypochromasia Anisocytosis Macrocytosis PT (9.0-12.0) sec INR (<1.2) APTT (22.0-30.0) sec Sodium (137-145) mmol/L Potassium (3.5-5.1) mmol/L Chloride (98-107) mmol/L Carbon Dioxide (22-30) mmol/L Anion Gap mmol/L BUN (9-20) mg/dL Creatinine (0.66-1.25) mg/dL Est GFR (CKD-EPI)AfAm (>60 ml/min/1.73 sqM) Est GFR (CKD-EPI)NonAf (>60 ml/min/1.73 sqM) Glucose (74-99) mg/dL Lactic Ac Sepsis Rflx Plasma Lactic Acid Curtis 8.4 H* (0.7-2.0) mmol/L Calcium (8.4-10.2) mg/dL Phosphorus (2.5-4.5) mg/dL Magnesium (1.6-2.3) mg/dL Total Bilirubin (0.2-1.3) mg/dL Conjugated Bilirubin (0.0-0.3) mg/dL Unconjugated Bilirubin (0.0-1.1) mg/dL Delta Bilirubin (0.0-0.2) mg/dL AST (17-59) U/L ALT (4-49) U/L Alkaline Phosphatase (38-126) U/L Ammonia (<30) umol/L Lactate Dehydrogenase (313-618) U/L Troponin I <0.012 (0.000-0.034) ng/mL NT-Pro-B Natriuret Pep 489 pg/mL Total Protein (6.3-8.2) g/dL Albumin (3.5-5.0) g/dL 02/21/21 02/21/21 Range/Units 18:34 19:16 WBC (3.8-10.6) k/uL RBC (4.30-5.90) m/uL Hgb (13.0-17.5) gm/dL Hct (39.0-53.0) % MCV (80.0-100.0) fL MCH (25.0-35.0) pg MCHC (31.0-37.0) g/dL RDW (11.5-15.5) % Plt Count (150-450) k/uL MPV Neutrophils % % Lymphocytes % % Monocytes % % Eosinophils % % Basophils % % Neutrophils # (1.3-7.7) k/uL Lymphocytes # (1.0-4.8) k/uL Monocytes # (0-1.0) k/uL Eosinophils # (0-0.7) k/uL Basophils # (0-0.2) k/uL Hypochromasia Anisocytosis Macrocytosis PT (9.0-12.0) sec INR (<1.2) APTT (22.0-30.0) sec Sodium (137-145) mmol/L Potassium (3.5-5.1) mmol/L Chloride (98-107) mmol/L Carbon Dioxide (22-30) mmol/L Anion Gap mmol/L BUN (9-20) mg/dL Creatinine (0.66-1.25) mg/dL Est GFR (CKD-EPI)AfAm (>60 ml/min/1.73 sqM) Est GFR (CKD-EPI)NonAf (>60 ml/min/1.73 sqM) Glucose (74-99) mg/dL Lactic Ac Sepsis Rflx Y Plasma Lactic Acid Curtis (0.7-2.0) mmol/L Calcium (8.4-10.2) mg/dL Phosphorus (2.5-4.5) mg/dL Magnesium (1.6-2.3) mg/dL Total Bilirubin (0.2-1.3) mg/dL Conjugated Bilirubin (0.0-0.3) mg/dL Unconjugated Bilirubin (0.0-1.1) mg/dL Delta Bilirubin (0.0-0.2) mg/dL AST (17-59) U/L ALT (4-49) U/L Alkaline Phosphatase (38-126) U/L Ammonia <9 (<30) umol/L Lactate Dehydrogenase (313-618) U/L Troponin I (0.000-0.034) ng/mL NT-Pro-B Natriuret Pep pg/mL Total Protein (6.3-8.2) g/dL Albumin (3.5-5.0) g/dL Disposition Clinical Impression: Acute encephalopathy, Metastasis from esophageal cancer, Tachycardia, Lactic acidosis Disposition: ADMITTED IP TO THIS HOSP Condition: Serious Is patient prescribed a controlled substance at d/c from ED?: No Decision to Admit Reason: Admit from EC Decision Date: 02/21/21 Decision Time: 19:48
[2021-02-21 18:18] LABS: INR 1.3 (<1.2); Partial Thromboplastin Time 24.1 sec (22.0-30.0); Prothrombin Time 12.9 sec (9.0-12.0)
[2021-02-21 18:20] LABS: AST 352 U/L (17-59); African American GFR (CKD) >90 (>60 ml/min/1.73 sqM); Albumin 2.2 g/dL (3.5-5.0); Alkaline Phosphatase 541 U/L (38-126); Anion Gap 12 mmol/L; Bilirubin, Conjugated 0.7 mg/dL (0.0-0.3); Bilirubin, Delta 2.6 mg/dL (0.0-0.2); Bilirubin,Unconjugated 0.9 mg/dL (0.0-1.1); Blood Urea Nitrogen 17 mg/dL (9-20); Calcium 7.7 mg/dL (8.4-10.2); Carbon Dioxide 17 mmol/L (22-30); Chloride 101 mmol/L (98-107); Glucose 123 mg/dL (74-99); Magnesium 2.1 mg/dL (1.6-2.3); Non-African American GFR(CKD) >90 (>60 ml/min/1.73 sqM); Phosphorus 3.5 mg/dL (2.5-4.5); Sodium 130 mmol/L (137-145); Total Bilirubin 4.2 mg/dL (0.2-1.3); Total Protein 6.2 g/dL (6.3-8.2)
[2021-02-21 18:29] LABS: ALT 114 U/L (4-49); LDH 4266 U/L (313-618)
--- NOTE | 2021-02-21 18:44 | CT ---
EXAMINATION TYPE: CT brain wo con DATE OF EXAM: 02/21/2021 COMPARISON: CT brain 01/30/2021 HISTORY: Weakness. CT DLP: 1086.4 mGycm Automated exposure control for dose reduction was used. FINDINGS: No acute intracranial hemorrhage, large vessel territory infarct, mass, mass effect or midline shift. No hydrocephalus or extra axial fluid collection. Mild patchy hypodensity of the periventricular sub cortical white matter. Dense mineralization of the bilateral basal ganglia similar to prior. The sanchez -white distinction is maintained. The subarachnoid basal cisterns and the cerebral sulci are mildly e ffaced. No Osseous abnormality. Globes and orbits are within normal limits. The visualized paranasal sinuses and air cells are well-developed and pneumatized. IMPRESSION: NO ACUTE INTRACRANIAL PROCESS. IF SYMPTOMS PERSIST, CONSIDER MRI.
--- NOTE | 2021-02-21 18:51 | XR ---
EXAMINATION TYPE: XR chest 2V DATE OF EXAM: 02/21/2021 COMPARISON: Chest CT 01/30/2021. Chest radiograph 02/03/2021 HISTORY: Weakness. TECHNIQUE: Frontal and lateral views of the chest are obtained. FINDINGS: Cardiomediastinal silhouette is within normal limits. The pulmonary vasculature is not wel l seen. There is diffuse hazy reticular opacity bilaterally which appears more confluent at the lung bases Right chest wall medical infusion port with the catheter tip over the SVC. IMPRESSION: There is diffuse hazy reticular opacity bilaterally which appears more confluent at the lung bases. Findings could relate to underlying chronic lung disease with superimposed infection. Cor relate clinically.
[2021-02-21 18:53] LABS: Anisocytosis Moderate; Basophils % (A) 0 %; Eosinophils % (A) 0 %; HCT 31.9 % (39.0-53.0); HGB 9.6 gm/dL (13.0-17.5); Hypochromasia Marked; Lymphocytes # (A) 0.6 k/uL (1.0-4.8); Lymphocytes % (A) 6 %; MCH 31.5 pg (25.0-35.0); MCV 104.9 fL (80.0-100.0); Macrocytosis Marked; Mean Platelet Volume 9.2; Monocytes # (A) 0.4 k/uL (0-1.0); Monocytes % (A) 3 %; Neutrophils # (A) 9.7 k/uL (1.3-7.7); Neutrophils % (A) 90 %; Platelet Count 225 k/uL (150-450); RBC 3.04 m/uL (4.30-5.90); RDW 23.9 % (11.5-15.5); WBC 10.8 k/uL (3.8-10.6)
[2021-02-21] MEDS ORDERED: NALOXONE 0.4 MG/ML 1 ML VIAL IV PRN (19:48)
--- NOTE | 2021-02-21 22:13 | US ---
EXAMINATION TYPE: US venous doppler duplex LE DATE OF EXAM: 02/21/2021 8:56 PM COMPARISON: NONE CLINICAL HISTORY: swelling, hx cancer. SIDE PERFORMED: Bilateral legs TECHNIQUE: The lower extremity deep venous system is examined utilizing real time linear array sonog berry with graded compression, doppler sonography and color-flow sonography. VESSELS IMAGED: Common Femoral Vein Deep Femoral Vein Greater Saphenous Vein * Femoral Vein Popliteal Vein Small Saphenous Vein * Proximal Calf Veins (* superficial vessels) Right Leg: Left Leg: IMPRESSION: No evidence of deep vein thrombosis in both legs.
[2021-02-21] MEDS: SODIUM CHLORIDE 0.9% 1,000 ML IV SCH (22:16)
[2021-02-21] MEDS ORDERED: DOCUSATE 100 MG CAP PO PRN (22:38)
[2021-02-22] MEDS: SODIUM CHLORIDE 0.9% 1,000 ML IV SCH ×3 (03:43→16:38)
[2021-02-22 05:46] LABS: Anisocytosis Marked; Basophils % (A) 0 %; Eosinophils % (A) 0 %; HCT 31.4 % (39.0-53.0); HGB 9.1 gm/dL (13.0-17.5); Hypochromasia Marked; Lymphocytes # (A) 0.7 k/uL (1.0-4.8); Lymphocytes % (A) 4 %; MCH 31.8 pg (25.0-35.0); MCHC 29.1 g/dL (31.0-37.0); MCV 109.1 fL (80.0-100.0); Macrocytosis Marked; Monocytes # (A) 0.3 k/uL (0-1.0); Monocytes % (A) 2 %; Neutrophils % (A) 93 %; Platelet Count 184 k/uL (150-450); RBC 2.87 m/uL (4.30-5.90); RDW 24.4 % (11.5-15.5); WBC 16.3 k/uL (3.8-10.6)
[2021-02-22 05:48] LABS: AST 313 U/L (17-59); African American GFR (CKD) >90 (>60 ml/min/1.73 sqM); Albumin 1.9 g/dL (3.5-5.0); Alkaline Phosphatase 479 U/L (38-126); Anion Gap 15 mmol/L; Blood Urea Nitrogen 20 mg/dL (9-20); Calcium 7.7 mg/dL (8.4-10.2); Carbon Dioxide 15 mmol/L (22-30); Chloride 103 mmol/L (98-107); Glucose 84 mg/dL (74-99); Non-African American GFR(CKD) >90 (>60 ml/min/1.73 sqM); Potassium 4.7 mmol/L (3.5-5.1); Sodium 133 mmol/L (137-145); Total Bilirubin 4.3 mg/dL (0.2-1.3); Total Protein 5.6 g/dL (6.3-8.2)
[2021-02-22 05:54] LABS: ALT 96 U/L (4-49)
[2021-02-22] MEDS: PANTOPRAZOLE 40 MG TABLET PO SCH (06:16)
[2021-02-22] MEDS: METOPROLOL TARTRATE 12.5 MG TAB PO SCH ×2 (08:46→21:07)
[2021-02-22] MEDS: NICOTINE 14MG/24HR PATCH TRANSDERM SCH (08:47)
[2021-02-22 11:56] LABS: Lactic Acid, Venous 9.9 mmol/L (0.7-2.0)
--- NOTE | 2021-02-22 13:17 | P.HPIM ---
History of Present Illness Patient is a pleasant 60-year-old male came in with complaints of confusion although patient appears to have hallucinations at night time and weird dreams as per the patient. Patient is alert oriented 3 when I valid the patient pat ient although is severely fatigued patient does have history of metastatic esophageal cancer. Patient also bit hyponatremic was on not diuretic therapy at home. Patient is persistently tachycardic. Denied any shortness of breath patient denied any significant pain at this time. Although as per the he was comparing of pain in the leg yesterday. Doppler of lower extremities is negative for DVT. Patient doesn't have any fever does have leukocytosis chest x-ray was read as diffuse hazy reticular pasty Y laterally more confluent in the lung bases but I didn't see any obvious pneumonic infiltrate. Patient denied any UTI symptoms and urinalysis, urine culture blood cultures are being obtained as the infection being considered cause for his delirium although patient is not being started on any antibiotics at this time. Patient is also on temazepam at home. I did obtain ammonia level because of elevated liver enzymes and L elevated INR of 1.3 ammonia level came back within normal limits. REVIEW OF SYSTEMS: CONSTITUTIONAL: No fever, no malaise, no fatigue. HEENT: No recent visual problems or hearing problems. Denied any sore throat. CARDIOVASCULAR: No chest pain, orthopnea, PND, no palpitations, no syncope. PULMONARY: No shortness of breath, no cough, no hemoptysis. GASTROINTESTINAL: No diarrhea, no nausea, no vomiting, no abdominal pain. NEUROLOGICAL: As mentioned in HPI HEMATOLOGICAL: Denies any bleeding or petechiae. GENITOURINARY: Denies any burning micturition, frequency, or urgency. MUSCULOSKELETAL/RHEUMATOLOGICAL: Denies any joint pain, swelling, or any muscle pain. ENDOCRINE: Denies any polyuria or polydipsia. The rest of the 14-point review of systems is negative. PHYSICAL EXAMINATION: GENERAL: The patient is alert and oriented x3, not in any acute distress. Well developed, well nourished. Appears to be slow fatigued, thin built HEENT: Pupils are round and equally reacting to light. EOMI. No scleral icterus. No conjunctival pallor. Normocephalic, atraumatic. No pharyngeal erythema. No thyromegaly. CARDIOVASCULAR: S1 and S2 present. No murmurs, rubs, or gallops. PULMONARY: Chest is clear to auscultation, no wheezing or crackles. ABDOMEN: Firm, nontender, nondistended, normoactive bowel sounds. No palpable organomegaly. MUSCULOSKELETAL: No joint swelling or deformity. EXTREMITIES: No cyanosis, clubbing, or pedal edema. NEUROLOGICAL: Gross neurological examination did not reveal any focal deficits. SKIN: No rashes. Assessment and plan -Altered mental status, hallucinations: Most probably secondary temazepam which will be discontinued and patient is also with the on the dehydrated side with a hyponatremia patient will be given IV fluids. He should although does have worsening leukocytosis no clear source of infection is evident at this time considering worsening leukocytosis was consulted infectious disease to get their opinion regarding use of antibiotics in this patient. Patient is presently not on any antibiotics. CT of the head did not show any metastatic disease -Hyperemic hyponatremia secondary to diuretics patient will be continued on IV fluids -Lactic acidosis: Secondary to liver dysfunction and dehydration continue with IV fluids for now repeat lactic acid -Metastatic disease to liver and a possible chronic liver dysfunction from that liver enzymes are elevated but fairly stable will repeat compresses metabolic profile again tomorrow -Metastatic esophageal cancer: Management as per oncology DVT prophylaxis: Lovenox Past Medical History Past Medical History: No Reported History Additional Past Medical History / Comment(s): esophogeal tumor, liver cancer, possible lung ca History of Any Multi-Drug Resistant Organisms: None Reported Past Surgical History: No Surgical Hx Reported Additional Past Surgical History / Comment(s): EGD with biopsy Past Anesthesia/Blood Transfusion Reactions: No Reported Reaction Past Psychological History: No Psychological Hx Reported Smoking Status: Former smoker Past Alcohol Use History: Daily Past Drug Use History: Unable to Obtain - Past Family History Father Family Medical History: Cancer Medications and Allergies Home Medications Medication Instructions Recorded Confirmed Type Acetaminophen Tab [Tylenol] 650 mg PO Q6HR PRN tab 01/21/21 02/21/21 Rx Docusate [Colace] 100 mg PO BID PRN #30 cap 01/21/21 02/21/21 Rx Nicotine 14Mg/24Hr Patch [Habitrol] 1 patch TRANSDERM DAILY #30 patch 01/21/21 02/21/21 Rx Pantoprazole Sodium [Protonix] 40 mg PO DAILY #20 tab 01/21/21 02/21/21 Rx Metoprolol Tartrate 12.5 mg PO BID 02/21/21 02/21/21 History Petrolatum, White [Aquaphor] 1 applic TOPICAL QID 02/21/21 02/21/21 History Saline Mouthwash 1 dose PO 5XD 02/21/21 02/21/21 History Temazepam [Restoril] 15 - 30 mg PO HS 02/22/21 02/22/21 History Allergies Allergy/AdvReac Type Severity Reaction Status Date / Time Penicillins Allergy Rash/Hives Verified 02/21/21 20:06 Physical Exam Vitals: Vital Signs Temp Pulse Pulse Resp BP BP Pulse Ox 02/22/21 08:00 97.4 F L 104 H 20 113/67 98 02/22/21 03:30 97.9 F 95 18 104/68 93 L 02/22/21 01:56 97.4 F L 102 H 18 101/80 96 02/21/21 22:00 94 18 100/66 96 02/21/21 17:08 98.0 F 118 H 24 98/61 98 Intake and Output 02/21/21 02/22/21 02/22/21 22:59 06:59 14:59 Intake Total 10 Balance 10 Intake: IV 10 Invasive Line 1 10 Other: Voiding Method Toilet # Voids 1 Weight 65.771 kg 37.5 kg 37.5 kg Results CBC & Chem 7: 02/22/21 04:35 02/22/21 04:35 Labs: Abnormal Lab Results - Last 24 Hours (Table) 02/21/21 02/21/21 02/21/21 Range/Units 18:01 18:01 18:01 WBC 10.8 H (3.8-10.6) k/uL RBC 3.04 L (4.30-5.90) m/uL Hgb 9.6 L (13.0-17.5) gm/dL Hct 31.9 L (39.0-53.0) % MCV 104.9 H (80.0-100.0) fL MCHC 30.0 L (31.0-37.0) g/dL RDW 23.9 H (11.5-15.5) % Neutrophils # 9.7 H (1.3-7.7) k/uL Lymphocytes # 0.6 L (1.0-4.8) k/uL Macrocytosis Marked A PT 12.9 H (9.0-12.0) sec INR 1.3 H (<1.2) Sodium 130 L (137-145) mmol/L Carbon Dioxide 17 L (22-30) mmol/L Creatinine 0.46 L (0.66-1.25) mg/dL Glucose 123 H (74-99) mg/dL Plasma Lactic Acid Curtis (0.7-2.0) mmol/L Calcium 7.7 L (8.4-10.2) mg/dL Total Bilirubin 4.2 H (0.2-1.3) mg/dL Conjugated Bilirubin 0.7 H (0.0-0.3) mg/dL Delta Bilirubin 2.6 H (0.0-0.2) mg/dL AST 352 H (17-59) U/L ALT 114 H (4-49) U/L Alkaline Phosphatase 541 H (38-126) U/L Lactate Dehydrogenase 4266 H (313-618) U/L Total Protein 6.2 L (6.3-8.2) g/dL Albumin 2.2 L (3.5-5.0) g/dL 02/21/21 02/21/21 02/22/21 Range/Units 18:01 21:35 00:37 WBC (3.8-10.6) k/uL RBC (4.30-5.90) m/uL Hgb (13.0-17.5) gm/dL Hct (39.0-53.0) % MCV (80.0-100.0) fL MCHC (31.0-37.0) g/dL RDW (11.5-15.5) % Neutrophils # (1.3-7.7) k/uL Lymphocytes # (1.0-4.8) k/uL Macrocytosis PT (9.0-12.0) sec INR (<1.2) Sodium (137-145) mmol/L Carbon Dioxide (22-30) mmol/L Creatinine (0.66-1.25) mg/dL Glucose (74-99) mg/dL Plasma Lactic Acid Curtis 8.4 H* 7.9 H* 9.0 H* (0.7-2.0) mmol/L Calcium (8.4-10.2) mg/dL Total Bilirubin (0.2-1.3) mg/dL Conjugated Bilirubin (0.0-0.3) mg/dL Delta Bilirubin (0.0-0.2) mg/dL AST (17-59) U/L ALT (4-49) U/L Alkaline Phosphatase (38-126) U/L Lactate Dehydrogenase (313-618) U/L Total Protein (6.3-8.2) g/dL Albumin (3.5-5.0) g/dL 02/22/21 02/22/21 02/22/21 Range/Units 04:35 04:35 04:35 WBC 16.3 H (3.8-10.6) k/uL RBC 2.87 L (4.30-5.90) m/uL Hgb 9.1 L (13.0-17.5) gm/dL Hct 31.4 L (39.0-53.0) % MCV 109.1 H (80.0-100.0) fL MCHC 29.1 L (31.0-37.0) g/dL RDW 24.4 H (11.5-15.5) % Neutrophils # 15.0 H (1.3-7.7) k/uL Lymphocytes # 0.7 L (1.0-4.8) k/uL Macrocytosis Marked A PT (9.0-12.0) sec INR (<1.2) Sodium 133 L (137-145) mmol/L Carbon Dioxide 15 L (22-30) mmol/L Creatinine 0.43 L (0.66-1.25) mg/dL Glucose (74-99) mg/dL Plasma Lactic Acid Curtis 10.3 H* (0.7-2.0) mmol/L Calcium 7.7 L (8.4-10.2) mg/dL Total Bilirubin 4.3 H (0.2-1.3) mg/dL Conjugated Bilirubin (0.0-0.3) mg/dL Delta Bilirubin (0.0-0.2) mg/dL AST 313 H (17-59) U/L ALT 96 H (4-49) U/L Alkaline Phosphatase 479 H (38-126) U/L Lactate Dehydrogenase (313-618) U/L Total Protein 5.6 L (6.3-8.2) g/dL Albumin 1.9 L (3.5-5.0) g/dL 02/22/21 02/22/21 Range/Units 08:20 11:12 WBC (3.8-10.6) k/uL RBC (4.30-5.90) m/uL Hgb (13.0-17.5) gm/dL Hct (39.0-53.0) % MCV (80.0-100.0) fL MCHC (31.0-37.0) g/dL RDW (11.5-15.5) % Neutrophils # (1.3-7.7) k/uL Lymphocytes # (1.0-4.8) k/uL Macrocytosis PT (9.0-12.0) sec INR (<1.2) Sodium (137-145) mmol/L Carbon Dioxide (22-30) mmol/L Creatinine (0.66-1.25) mg/dL Glucose (74-99) mg/dL Plasma Lactic Acid Curtis 10.8 H* 9.9 H* (0.7-2.0) mmol/L Calcium (8.4-10.2) mg/dL Total Bilirubin (0.2-1.3) mg/dL Conjugated Bilirubin (0.0-0.3) mg/dL Delta Bilirubin (0.0-0.2) mg/dL AST (17-59) U/L ALT (4-49) U/L Alkaline Phosphatase (38-126) U/L Lactate Dehydrogenase (313-618) U/L Total Protein (6.3-8.2) g/dL Albumin (3.5-5.0) g/dL Thrombosis Risk Factor Assmnt - Choose All That Apply Each Factor Represents 1 point: Swollen legs (current) Each Risk Factor Represents 2 Points: Age 61-74 years Thrombosis Risk Factor Assessment Total Risk Factor Score: 3 Thrombosis Risk Factor Assessment Level: Moderate Risk
--- NOTE | 2021-02-22 13:28 | P.CONS ---
History of Present Illness - Reason for Consult Consult date: 02/22/21 Esophageal Cancer on Chemo Requesting physician: Neris Abebe - Chief Complaint Disoriented - History of Present Illness Mr. Monge is currently receiving his second treatment with folfox, when he was admitted with increased mental status changes and disorientation. On admission he has an elevated lactic acid and leukocytosis. Chest Xray performed. We have also ordered Blood cultures (one port and one peripheral) as well as urinalysis with culture. He appears weak, cachexic and chronically ill. at bedside. Review of Systems All systems: negative Constitutional: Reports as per HPI Past Medical History Past Medical History: No Reported History Additional Past Medical History / Comment(s): esophogeal tumor, liver cancer, possible lung ca History of Any Multi-Drug Resistant Organisms: None Reported Past Surgical History: No Surgical Hx Reported Additional Past Surgical History / Comment(s): EGD with biopsy Past Anesthesia/Blood Transfusion Reactions: No Reported Reaction Past Psychological History: No Psychological Hx Reported Smoking Status: Former smoker Past Alcohol Use History: Daily Past Drug Use History: Unable to Obtain - Past Family History Father Family Medical History: Cancer Medications and Allergies Home Medications Medication Instructions Recorded Confirmed Type Acetaminophen Tab [Tylenol] 650 mg PO Q6HR PRN tab 01/21/21 02/21/21 Rx Docusate [Colace] 100 mg PO BID PRN #30 cap 01/21/21 02/21/21 Rx Nicotine 14Mg/24Hr Patch [Habitrol] 1 patch TRANSDERM DAILY #30 patch 01/21/21 02/21/21 Rx Pantoprazole Sodium [Protonix] 40 mg PO DAILY #20 tab 01/21/21 02/21/21 Rx Metoprolol Tartrate 12.5 mg PO BID 02/21/21 02/21/21 History Petrolatum, White [Aquaphor] 1 applic TOPICAL QID 02/21/21 02/21/21 History Saline Mouthwash 1 dose PO 5XD 02/21/21 02/21/21 History Temazepam [Restoril] 15 - 30 mg PO HS 02/22/21 02/22/21 History Allergies Allergy/AdvReac Type Severity Reaction Status Date / Time Penicillins Allergy Rash/Hives Verified 02/21/21 20:06 Physical Exam Vitals: Vital Signs Temp Pulse Pulse Resp BP BP Pulse Ox 02/22/21 03:30 97.9 F 95 18 104/68 93 L 02/22/21 01:56 97.4 F L 102 H 18 101/80 96 02/21/21 22:00 94 18 100/66 96 02/21/21 17:08 98.0 F 118 H 24 98/61 98 Intake and Output 02/21/21 02/22/21 02/22/21 22:59 06:59 14:59 Intake Total 10 Balance 10 Intake: IV 10 Invasive Line 1 10 Other: Voiding Method Toilet # Voids 1 Weight 65.771 kg 37.5 kg Thin, Cachexic Opens eyes to stimuli but quickly doses off Neck: Supple Lungs: Diminished bibasiliar Heart: Tachy Abdomen: Distended, hepatomegaly improving mildly Ext: Mild le edema. Results CBC & Chem 7: 02/22/21 04:35 02/22/21 04:35 Labs: Abnormal Lab Results - Last 24 Hours (Table) 02/21/21 02/21/21 02/21/21 Range/Units 18:01 18:01 18:01 WBC 10.8 H (3.8-10.6) k/uL RBC 3.04 L (4.30-5.90) m/uL Hgb 9.6 L (13.0-17.5) gm/dL Hct 31.9 L (39.0-53.0) % MCV 104.9 H (80.0-100.0) fL MCHC 30.0 L (31.0-37.0) g/dL RDW 23.9 H (11.5-15.5) % Neutrophils # 9.7 H (1.3-7.7) k/uL Lymphocytes # 0.6 L (1.0-4.8) k/uL Macrocytosis Marked A PT 12.9 H (9.0-12.0) sec INR 1.3 H (<1.2) Sodium 130 L (137-145) mmol/L Carbon Dioxide 17 L (22-30) mmol/L Creatinine 0.46 L (0.66-1.25) mg/dL Glucose 123 H (74-99) mg/dL Plasma Lactic Acid Curtis (0.7-2.0) mmol/L Calcium 7.7 L (8.4-10.2) mg/dL Total Bilirubin 4.2 H (0.2-1.3) mg/dL Conjugated Bilirubin 0.7 H (0.0-0.3) mg/dL Delta Bilirubin 2.6 H (0.0-0.2) mg/dL AST 352 H (17-59) U/L ALT 114 H (4-49) U/L Alkaline Phosphatase 541 H (38-126) U/L Lactate Dehydrogenase 4266 H (313-618) U/L Total Protein 6.2 L (6.3-8.2) g/dL Albumin 2.2 L (3.5-5.0) g/dL 02/21/21 02/21/21 02/22/21 Range/Units 18:01 21:35 00:37 WBC (3.8-10.6) k/uL RBC (4.30-5.90) m/uL Hgb (13.0-17.5) gm/dL Hct (39.0-53.0) % MCV (80.0-100.0) fL MCHC (31.0-37.0) g/dL RDW (11.5-15.5) % Neutrophils # (1.3-7.7) k/uL Lymphocytes # (1.0-4.8) k/uL Macrocytosis PT (9.0-12.0) sec INR (<1.2) Sodium (137-145) mmol/L Carbon Dioxide (22-30) mmol/L Creatinine (0.66-1.25) mg/dL Glucose (74-99) mg/dL Plasma Lactic Acid Curtis 8.4 H* 7.9 H* 9.0 H* (0.7-2.0) mmol/L Calcium (8.4-10.2) mg/dL Total Bilirubin (0.2-1.3) mg/dL Conjugated Bilirubin (0.0-0.3) mg/dL Delta Bilirubin (0.0-0.2) mg/dL AST (17-59) U/L ALT (4-49) U/L Alkaline Phosphatase (38-126) U/L Lactate Dehydrogenase (313-618) U/L Total Protein (6.3-8.2) g/dL Albumin (3.5-5.0) g/dL 02/22/21 02/22/21 02/22/21 Range/Units 04:35 04:35 04:35 WBC 16.3 H (3.8-10.6) k/uL RBC 2.87 L (4.30-5.90) m/uL Hgb 9.1 L (13.0-17.5) gm/dL Hct 31.4 L (39.0-53.0) % MCV 109.1 H (80.0-100.0) fL MCHC 29.1 L (31.0-37.0) g/dL RDW 24.4 H (11.5-15.5) % Neutrophils # 15.0 H (1.3-7.7) k/uL Lymphocytes # 0.7 L (1.0-4.8) k/uL Macrocytosis Marked A PT (9.0-12.0) sec INR (<1.2) Sodium 133 L (137-145) mmol/L Carbon Dioxide 15 L (22-30) mmol/L Creatinine 0.43 L (0.66-1.25) mg/dL Glucose (74-99) mg/dL Plasma Lactic Acid Curtis 10.3 H* (0.7-2.0) mmol/L Calcium 7.7 L (8.4-10.2) mg/dL Total Bilirubin 4.3 H (0.2-1.3) mg/dL Conjugated Bilirubin (0.0-0.3) mg/dL Delta Bilirubin (0.0-0.2) mg/dL AST 313 H (17-59) U/L ALT 96 H (4-49) U/L Alkaline Phosphatase 479 H (38-126) U/L Lactate Dehydrogenase (313-618) U/L Total Protein 5.6 L (6.3-8.2) g/dL Albumin 1.9 L (3.5-5.0) g/dL Abdominal x-ray: report reviewed CT Scan - head: report reviewed Assessment and Plan (1) Acute encephalopathy Current Visit: Yes Status: Acute Code(s): G93.40 - ENCEPHALOPATHY, UNSPECIFIED SNOMED Code(s): 28718535 (2) Lactic acidosis Current Visit: Yes Status: Acute Code(s): E87.2 - ACIDOSIS SNOMED Code(s): 70292298 (3) Tachycardia Current Visit: Yes Status: Acute Code(s): R00.0 - TACHYCARDIA, UNSPECIFIED SNOMED Code(s): 5382509 (4) Anemia Current Visit: No Status: Acute Priority: High Code(s): D64.9 - ANEMIA, UNSPECIFIED SNOMED Code(s): 674489677 (5) Esophageal carcinoma Current Visit: No Status: Acute Priority: High Code(s): C15.9 - MALIGNANT NEOPLASM OF ESOPHAGUS, UNSPECIFIED SNOMED Code(s): 519778840 (6) Hepatomegaly Current Visit: No Status: Acute Priority: High Code(s): R16.0 - HEPA TOMEGALY, NOT ELSEWHERE CLASSIFIED SNOMED Code(s): 49573621 (7) Hyperbilirubinemia Current Visit: No Status: Acute Code(s): E80.6 - OTHER DISORDERS OF BILIRUBIN METABOLISM SNOMED Code(s): 90738082 Plan: Drr. Mckee ID is following Long discussion on the severity of patients status - DNR Blood cultures (port and periph) ordered physician Attest: I have completed the full history and physical and agree with above dictation, dictated as a scribe.
[2021-02-22 18:31] LABS: Appearance,Urine Clear (Clear); Bilirubin,Urine 1+ (Negative); Blood,Urine Negative (Negative); Color,Urine Dark Yellow; Glucose,Urine (UA) Negative (Negative); Ketones,Urine Trace (Negative); Leukocyte Esterase,Urine Negative (Negative); Nitrite,Urine Negative (Negative); PH, Urine 5.5 (5.0-8.0); Protein,Urine Trace (Negative); Specific Gravity,Urine 1.018 (1.001-1.035)
[2021-02-22] MEDS ORDERED: TEMAZEPAM 15 MG CAP PO SCH (21:00)
[2021-02-22] MEDS ORDERED: TEMAZEPAM PO SCH (21:00)
--- NOTE | 2021-02-23 00:05 | P.CONS ---
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 currently on chemotherapy patient has been brought to the hospital yesterday for evaluation of weakness shortness of breath and confusion patient been complaining of feeling fatigued short of breath and has had poor appetite and decreased oral intake and abdominal tenderness slight discomfort disoriented however no clear history of any fever or any chills patient denies having any headache the patient is aware that he is at [facility] denies any photophobia no chest pain or shortness of air he did have a cough mild tenderness intensity not bringing the sputum some abdominal discomfort to the abdominal area which is more of a chronic parenchymal disorder worsening nausea but no vomiting and no diarrhea on presentation to the hospital the patient was afebrile and no fever has been going to subsequently patient had did have a normal white count admission that is slightly up to 16.3 today patient did have an elevated lactic acid kidney function has been normal liver enzymes are elevated urine is negative man PCR was negative patient did have a CT of the brain that has been negative for any bleed chest x-ray to be diffuse hazy reticular opacities bilaterally more confluent at the lung bases concerning for chronic lung disease with superimposed infection infectious was consulted with concern for possible infection sepsis and need for antibiotic therapy blood cultures have been obtained which are currently pending Review of system: CONSTITUTIONAL: Positive for weakness however denies fever. EYES: No complaint. ENT: No complaint. RESPIRATORY: As per history of present illness CARDIOVASCULAR: No complaint. GENITOURINARY: No complaint. GASTROINTESTINAL: As per history of present illness. MUSCULOSKELETAL: No complaint. INTEGUMENTARY: No complaint. PSYCHOLOGIC: No complaint. ENDOCRINE: No complaint. NEUROLOGIC: As per history of present illness. Past medical history : Reviewed, documented below Past surgical history : Reviewed, documented below Social history: Reviewed, documented below Medications: Reviewed, as documented below EXAMINATION: Vital sigans= Reviewed and documented below GENERAL DESCRIPTION: Middle-aged male lying in bed, no distress. No tachypnea or accessory muscle of respiration use. HEENT: Shows Pallor , no scleral icterus. Oral mucous membrane is dry. NECK: Trachea central, no thyromegaly. LUNGS: Unlabored breathing. Decreased breath sound at the base. No wheeze or crackle. HEART: S1, S2, regular rate and rhythm. ABDOMEN: Soft, hepatomegaly, no tenderness EXTREMITIES: No edema of feet. SKIN: No rash, no masses palpable. NEUROLOGICAL: The patient is awake, alert, oriented x3, mood and affect normal. LABS AND RADIOLOGY: Reviewed results see below Assessment : 1-Patient presented to hospital with weakness confusion in this patient who did have a esophageal cancer with mets to the lung and the liver this patient who did not have any fever during this hospital admission white count was normal patient subsequently has some cough and did have elevated lactic acid could be more likely due to his burden of underlying metastatic disease as the patient did have significant hepatomegaly on clinical examination patient currently do not have any obvious focus of infection however possible ascending cholangitis or pneumonia need to be kept in mind as possible source of infection 2-penicillin allergy that would limit the number of antibiotics safe to use Plan: 1-we will check a CRP and procalcitonin level and follow-up on the blood cultures 2-empirically add cefepime while waiting for the culture to finalize 3-gentle IV fluid We will follow on clinical condition and cultures to further adjust medication if needed Thank you for this consultation we will follow the patient along with you Past Medical History Past Medical History: No Reported History Additional Past Medical History / Comment(s): esophogeal tumor, liver cancer, possible lung ca History of Any Multi-Drug Resistant Organisms: None Reported Past Surgical History: No Surgical Hx Reported Additional Past Surgical History / Comment(s): EGD with biopsy Past Anesthesia/Blood Transfusion Reactions: No Reported Reaction Past Psychological History: No Psychological Hx Reported Smoking Status: Former smoker Past Alcohol Use History: Daily Past Drug Use History: Unable to Obtain - Past Family History Father Family Medical History: Cancer Medications and Allergies Home Medications Medication Instructions Recorded Confirmed Type Acetaminophen Tab [Tylenol] 650 mg PO Q6HR PRN tab 01/21/21 02/21/21 Rx Docusate [Colace] 100 mg PO BID PRN #30 cap 01/21/21 02/21/21 Rx Nicotine 14Mg/24Hr Patch [Habitrol] 1 patch TRANSDERM DAILY #30 patch 01/21/21 02/21/21 Rx Pantoprazole Sodium [Protonix] 40 mg PO DAILY #20 tab 01/21/21 02/21/21 Rx Metoprolol Tartrate 12.5 mg PO BID 02/21/21 02/21/21 History Petrolatum, White [Aquaphor] 1 applic TOPICAL QID 02/21/21 02/21/21 History Saline Mouthwash 1 dose PO 5XD 02/21/21 02/21/21 History Temazepam [Restoril] 15 - 30 mg PO HS 02/22/21 02/22/21 History Allergies Allergy/AdvReac Type Severity Reaction Status Date / Time Penicillins Allergy Rash/Hives Verified 02/21/21 20:06 Physical Exam Vitals: Vital Signs Temp Pulse Pulse Resp BP BP Pulse Ox 02/22/21 23:37 103 H 18 102/68 98 02/22/21 21:38 95 02/22/21 19:45 97.8 F 109 H 22 102/64 02/22/21 16:00 97.6 F 100 22 106/67 95 02/22/21 14:00 91 02/22/21 12:00 91 20 110/62 94 L 02/22/21 08:00 97.4 F L 104 H 20 113/67 98 02/22/21 03:30 97.9 F 95 18 104/68 93 L 02/22/21 01:56 97.4 F L 102 H 18 101/80 96 Intake and Output 02/22/21 02/22/21 02/23/21 14:59 22:59 06:59 Output Total 300 Balance -300 Output: Urine 300 Other: Voiding Method Toilet # Voids 2 1 Weight 37.5 kg Results CBC & Chem 7: 02/22/21 04:35 02/22/21 04:35 Labs: Abnormal Lab Results - Last 24 Hours (Table) 02/22/21 02/22/21 02/22/21 Range/Units 00:37 04:35 04:35 WBC 16.3 H (3.8-10.6) k/uL RBC 2.87 L (4.30-5.90) m/uL Hgb 9.1 L (13.0-17.5) gm/dL Hct 31.4 L (39.0-53.0) % MCV 109.1 H (80.0-100.0) fL MCHC 29.1 L (31.0-37.0) g/dL RDW 24.4 H (11.5-15.5) % Neutrophils # 15.0 H (1.3-7.7) k/uL Lymphocytes # 0.7 L (1.0-4.8) k/uL Macrocytosis Marked A Sodium 133 L (137-145) mmol/L Carbon Dioxide 15 L (22-30) mmol/L Creatinine 0.43 L (0.66-1.25) mg/dL Plasma Lactic Acid Curtis 9.0 H* (0.7-2.0) mmol/L Calcium 7.7 L (8.4-10.2) mg/dL Total Bilirubin 4.3 H (0.2-1.3) mg/dL AST 313 H (17-59) U/L ALT 96 H (4-49) U/L Alkaline Phosphatase 479 H (38-126) U/L Total Protein 5.6 L (6.3-8.2) g/dL Albumin 1.9 L (3.5-5.0) g/dL Urine Protein (Negative) Urine Ketones (Negative) Urine Bilirubin (Negative) 02/22/21 02/22/21 02/22/21 Range/Units 04:35 08:20 11:12 WBC (3.8-10.6) k/uL RBC (4.30-5.90) m/uL Hgb (13.0-17.5) gm/dL Hct (39.0-53.0) % MCV (80.0-100.0) fL MCHC (31.0-37.0) g/dL RDW (11.5-15.5) % Neutrophils # (1.3-7.7) k/uL Lymphocytes # (1.0-4.8) k/uL Macrocytosis Sodium (137-145) mmol/L Carbon Dioxide (22-30) mmol/L Creatinine (0.66-1.25) mg/dL Plasma Lactic Acid Curtis 10.3 H* 10.8 H* 9.9 H* (0.7-2.0) mmol/L Calcium (8.4-10.2) mg/dL Total Bilirubin (0.2-1.3) mg/dL AST (17-59) U/L ALT (4-49) U/L Alkaline Phosphatase (38-126) U/L Total Protein (6.3-8.2) g/dL Albumin (3.5-5.0) g/dL Urine Protein (Negative) Urine Ketones (Negative) Urine Bilirubin (Negative) 02/22/21 02/22/21 02/22/21 Range/Units 14:40 17:33 18:28 WBC (3.8-10.6) k/uL RBC (4.30-5.90) m/uL Hgb (13.0-17.5) gm/dL Hct (39.0-53.0) % MCV (80.0-100.0) fL MCHC (31.0-37.0) g/dL RDW (11.5-15.5) % Neutrophils # (1.3-7.7) k/uL Lymphocytes # (1.0-4.8) k/uL Macrocytosis Sodium (137-145) mmol/L Carbon Dioxide (22-30) mmol/L Creatinine (0.66-1.25) mg/dL Plasma Lactic Acid Curtis 8.9 H* 9.5 H* (0.7-2.0) mmol/L Calcium (8.4-10.2) mg/dL Total Bilirubin (0.2-1.3) mg/dL AST (17-59) U/L ALT (4-49) U/L Alkaline Phosphatase (38-126) U/L Total Protein (6.3-8.2) g/dL Albumin (3.5-5.0) g/dL Urine Protein Trace H (Negative) Urine Ketones Trace H (Negative) Urine Bilirubin 1+ H (Negative)
[2021-02-23] MEDS: CEFEPIME 2 GM in SODIUM CHLORIDE 0.9% 100 ML IVPB SCH ×4 (02:31→23:11)
[2021-02-23 03:08] LABS: Anisocytosis Marked; HCT 27.3 % (39.0-53.0); HGB 8.2 gm/dL (13.0-17.5); Hypochromasia Moderate; MCH 31.5 pg (25.0-35.0); MCHC 30.1 g/dL (31.0-37.0); MCV 104.7 fL (80.0-100.0); Macrocytosis Marked; Mean Platelet Volume 8.7; Platelet Count 179 k/uL (150-450); RDW 24.9 % (11.5-15.5); WBC 14.2 k/uL (3.8-10.6)
[2021-02-23 03:23] LABS: AST 364 U/L (17-59); African American GFR (CKD) >90 (>60 ml/min/1.73 sqM); Albumin 1.7 g/dL (3.5-5.0); Alkaline Phosphatase 553 U/L (38-126); Anion Gap 10 mmol/L; Blood Urea Nitrogen 21 mg/dL (9-20); C Reactive Protein 8.6 mg/dL (<1.0); Calcium 7.5 mg/dL (8.4-10.2); Carbon Dioxide 17 mmol/L (22-30); Chloride 106 mmol/L (98-107); Glucose 78 mg/dL (74-99); Non-African American GFR(CKD) >90 (>60 ml/min/1.73 sqM); Potassium 4.6 mmol/L (3.5-5.1); Sodium 133 mmol/L (137-145); Total Bilirubin 4.2 mg/dL (0.2-1.3); Total Protein 5.1 g/dL (6.3-8.2)
[2021-02-23 03:27] LABS: ALT 109 U/L (4-49)
[2021-02-23] MEDS: SODIUM CHLORIDE 0.9% 1,000 ML IV SCH ×2 (06:30→15:48)
[2021-02-23] MEDS: PANTOPRAZOLE 40 MG TABLET PO SCH (06:37)
[2021-02-23] MEDS: ENOXAPARIN 40 MG/0.4 ML SYRINGE SQ SCH (09:51)
[2021-02-23] MEDS: METOPROLOL TARTRATE 12.5 MG TAB PO SCH ×2 (09:51→20:28)
[2021-02-23] MEDS: NICOTINE 14MG/24HR PATCH TRANSDERM SCH (09:52)
[2021-02-23 12:06] LABS: Erythrocyte Sedimentation Rate 14 mm/hr (0-15)
[2021-02-24] MEDS: SODIUM CHLORIDE 0.9% 1,000 ML IV SCH ×3 (05:32→22:53)
--- NOTE | 2021-02-24 05:50 | P.PN ---
Subjective Progress Note Date: 02/23/21 Patient is a pleasant 60-year-old male came in with complaints of confusion although patient appears to have hallucinations at night time and weird dreams as per the patient. Patient is alert oriented 3 when I valid the patient patient although is severely fatigued patient does have history of metastatic esophageal cancer. Patient also bit hyponatremic was on not diuretic therapy at home. Patient is persistently tachycardic. Denied any shortness of breath patient denied any significant pain at this time. Although as per the he was comparing of pain in the leg yesterday. Doppler of lower extremities is negative for DVT. Patient doesn't have any fever does have leukocytosis chest x-ray was read as diffuse hazy reticular pasty Y laterally more confluent in the lung bases but I didn't see any obvious pneumonic infiltrate. Patient denied any UTI symptoms and urinalysis, urine culture blood cultures are being obtained as the infection being considered cause for his delirium although patient is not being started on any antibiotics at this time. Patient is also on temazepam at home. I did obtain ammonia level because of elevated liver enzymes and L elevated INR of 1.3 ammonia level came back within normal limits. 02/23/2021 Patient is seen in follow up this morning and extremely cachectic and lethargic although arousable. Patient being followed by ID and oncology and maintained on IV antibiotics in the form of Maxipime. Patient lactic acid continues to be elevated and maintained on gentle IV fluids. Monitor closely for volume overload. Patient intake is poor and at the bedside. Review of systems: Constitutional: reports of fatigue, no reports of fever, or chills Cardiovascular: No reports of chest pain or palpitations Respiratory: No reports of shortness of breath or cough GI: No reports of nausea, vomiting, or diarrhea, reports loose stool, and poor apetite : No reports of dysuria or retention Neurovascular: Reports generalized weakness PHYSICAL EXAMINATION: GENERAL: The patient is alert and oriented x3, not in any acute distress. extremely cachectic and fatigues although arousable but falls asleep quickly. Well developed, well nourished. Appears to be slow fatigued, thin built HEENT: Pupils are round and equally reacting to light. EOMI. No scleral icterus. No conjunctival pallor. Normocephalic, atraumatic. No pharyngeal erythema. No thyromegaly. Oral mucosa is dry CARDIOVASCULAR: S1 and S2 present. No murmurs, rubs, or gallops. PULMONARY: diminished breath sounds otherwise Chest is clear to auscultation, no wheezing or crackles. ABDOMEN: Firm, nontender, nondistended, normoactive bowel sounds. No palpable organomegaly. MUSCULOSKELETAL: No joint swelling or deformity. EXTREMITIES: No cyanosis, clubbing, or pedal edema. B/l lower extremities with generalized edema noted. NEUROLOGICAL: Gross neurological examination did not reveal any focal deficits. diffusely weak SKIN: No rashes. Assessment and plan: -Altered mental status, hallucinations: Most probably secondary to temazepam which will be discontinued and patient is also on the dehydrated side with hyponatremia patient will be given IV fluids. Patient also does have worsening leukocytosis no clear source of infection is evident at this time considering worsening leukocytosis infectious disease following and patient on IV maxipime. CT of the head did not show any metastatic disease -Hyperemic hyponatremia secondary to diuretics patient will be continued on IV fluids -Lactic acidosis: Secondary to liver dysfunction and dehydration continue with IV fluids for now repeat lactic acid -Metastatic disease to liver and a possible chronic liver dysfunction from that liver enzymes are elevated but fairly stable will repeat am labs -Metastatic esophageal cancer: Management as per oncology -DVT prophylaxis: Lovenox -no code Objective - Vital Signs Vital signs: Vital Signs Temp 97.9 F 02/23/21 08:00 Pulse 113 H 02/23/21 08:00 Resp 18 02/23/21 08:00 BP 104/72 02/23/21 08:00 Pulse Ox 94 L 02/23/21 08:00 Intake & Output 02/22/21 02/23/21 02/23/21 18:59 06:59 18:59 Intake Total 240 Output Total 300 Balance -300 240 Weight 37.5 kg 50 kg Intake: Oral 240 Output: Urine 300 Other: Voiding Method Toilet # Voids 2 1 - Labs CBC & Chem 7: 02/23/21 02:32 02/23/21 02:32 Labs: Abnormal Lab Results - Last 24 Hours (Table) 02/22/21 02/22/21 02/22/21 Range/Units 11:12 14:40 17:33 WBC (3.8-10.6) k/uL RBC (4.30-5.90) m/uL Hgb (13.0-17.5) gm/dL Hct (39.0-53.0) % MCV (80.0-100.0) fL MCHC (31.0-37.0) g/dL RDW (11.5-15.5) % Macrocytosis Sodium (137-145) mmol/L Carbon Dioxide (22-30) mmol/L BUN (9-20) mg/dL Creatinine (0.66-1.25) mg/dL Plasma Lactic Acid Curtis 9.9 H* 8.9 H* 9.5 H* (0.7-2.0) mmol/L Calcium (8.4-10.2) mg/dL Total Bilirubin (0.2-1.3) mg/dL AST (17-59) U/L ALT (4-49) U/L Alkaline Phosphatase (38-126) U/L C-Reactive Protein (<1.0) mg/dL Total Protein (6.3-8.2) g/dL Albumin (3.5-5.0) g/dL Urine Protein (Negative) Urine Ketones (Negative) Urine Bilirubin (Negative) 02/22/21 02/23/21 02/23/21 Range/Units 18:28 02:32 02:32 WBC 14.2 H (3.8-10.6) k/uL RBC 2.60 L (4.30-5.90) m/uL Hgb 8.2 L (13.0-17.5) gm/dL Hct 27.3 L (39.0-53.0) % MCV 104.7 H (80.0-100.0) fL MCHC 30.1 L (31.0-37.0) g/dL RDW 24.9 H (11.5-15.5) % Macrocytosis Marked A Sodium (137-145) mmol/L Carbon Dioxide (22-30) mmol/L BUN (9-20) mg/dL Creatinine (0.66-1.25) mg/dL Plasma Lactic Acid Curtis 8.8 H* (0.7-2.0) mmol/L Calcium (8.4-10.2) mg/dL Total Bilirubin (0.2-1.3) mg/dL AST (17-59) U/L ALT (4-49) U/L Alkaline Phosphatase (38-126) U/L C-Reactive Protein (<1.0) mg/dL Total Protein (6.3-8.2) g/dL Albumin (3.5-5.0) g/dL Urine Protein Trace H (Negative) Urine Ketones Trace H (Negative) Urine Bilirubin 1+ H (Negative) 02/23/21 02/23/21 Range/Units 02:32 07:56 WBC (3.8-10.6) k/uL RBC (4.30-5.90) m/uL Hgb (13.0-17.5) gm/dL Hct (39.0-53.0) % MCV (80.0-100.0) fL MCHC (31.0-37.0) g/dL RDW (11.5-15.5) % Macrocytosis Sodium 133 L (137-145) mmol/L Carbon Dioxide 17 L (22-30) mmol/L BUN 21 H (9-20) mg/dL Creatinine 0.45 L (0.66-1.25) mg/dL Plasma Lactic Acid Curtis 8.3 H* (0.7-2.0) mmol/L Calcium 7.5 L (8.4-10.2) mg/dL Total Bilirubin 4.2 H (0.2-1.3) mg/dL AST 364 H (17-59) U/L ALT 109 H (4-49) U/L Alkaline Phosphatase 553 H (38-126) U/L C-Reactive Protein 8.6 H (<1.0) mg/dL Total Protein 5.1 L (6.3-8.2) g/dL Albumin 1.7 L (3.5-5.0) g/dL Urine Protein (Negative) Urine Ketones (Negative) Urine Bilirubin (Negative)
[2021-02-24] MEDS: PANTOPRAZOLE 40 MG TABLET PO SCH (06:19)
--- NOTE | 2021-02-24 06:43 | PN ---
PROGRESS NOTE DATE OF SERVICE: 02/23/2021 REASON FOR FOLLOWUP: Leukocytosis and possible sepsis. INTERVAL HISTORY: Patient is afebrile, has been complaining of feeling sleepy, weak, lethargic, but denies having any chest pain. No shortness of breath. Occasional cough. No abdominal pain. No vomiting or diarrhea. Oral intake remains to be poor. PHYSICAL EXAMINATION: Blood pressure 101/64, pulse of 104, temperature 98.1. He is 90% on room air. General description is a middle-aged male lying in bed in no distress. Respiratory system: Unlabored breathing, decreased breath sounds in the base. No wheeze. Heart S1, S2. Regular rate and rhythm. Abdomen soft, no tenderness. LABS: Hemoglobin is 8.2 with white count 14.2, creatinine 0.45. Procalcitonin mildly elevated. DIAGNOSTIC IMPRESSION AND PLAN: Patient with elevated white count, possibly reactive in this patient who did have metastatic esophageal cancer with mets to the lungs and the liver. Lactic acid remains to be significantly elevated. Possibility from his malignancy. Underlying infection not entirely excluded. The patient is empirically covered with cefepime to continue while waiting for the culture to finalize. at the bedside, questions answered. MMODL / IJN: [id number] / [facility]EN[facility]
[2021-02-24 07:31] LABS: Anisocytosis Moderate; HCT 23.4 % (39.0-53.0); HGB 7.1 gm/dL (13.0-17.5); Hypochromasia Marked; MCH 31.7 pg (25.0-35.0); MCHC 30.2 g/dL (31.0-37.0); MCV 104.8 fL (80.0-100.0); Macrocytosis Marked; Mean Platelet Volume 8.7; Platelet Count 125 k/uL (150-450); RBC 2.23 m/uL (4.30-5.90); RDW 23.7 % (11.5-15.5); WBC 13.7 k/uL (3.8-10.6)
[2021-02-24 07:41] LABS: INR 1.5 (<1.2); Prothrombin Time 15.2 sec (9.0-12.0)
[2021-02-24] MEDS: ENOXAPARIN 40 MG/0.4 ML SYRINGE SQ SCH (08:42)
[2021-02-24] MEDS: METOPROLOL TARTRATE 12.5 MG TAB PO SCH (08:42)
[2021-02-24] MEDS: NICOTINE 14MG/24HR PATCH TRANSDERM SCH (08:42)
[2021-02-24] MEDS: CEFEPIME 2 GM in SODIUM CHLORIDE 0.9% 100 ML IVPB SCH ×3 (08:42→22:52)
[2021-02-24 09:07] LABS: ALT 116 U/L (4-49); AST 435 U/L (17-59); African American GFR (CKD) >90 (>60 ml/min/1.73 sqM); Albumin 1.5 g/dL (3.5-5.0); Alkaline Phosphatase 434 U/L (38-126); Anion Gap 7 mmol/L; Blood Urea Nitrogen 22 mg/dL (9-20); Calcium 7.1 mg/dL (8.4-10.2); Carbon Dioxide 19 mmol/L (22-30); Chloride 108 mmol/L (98-107); Glucose 60 mg/dL (74-99); Magnesium 2.1 mg/dL (1.6-2.3); Non-African American GFR(CKD) >90 (>60 ml/min/1.73 sqM); Potassium 4.2 mmol/L (3.5-5.1); Sodium 134 mmol/L (137-145); Total Protein 4.7 g/dL (6.3-8.2)
[2021-02-24 12:07] LABS: Eosinophils # (M) 0.14 k/uL (0-0.7); Lymphocytes # (M) 0.27 k/uL (1.0-4.8); Neutrophils # (M) 13.43 k/uL (1.3-7.7); Neutrophils % (M) 98 %; Nucleated Red Blood Cells 0 /100 WBC (0-0); Total Cells Counted 200
[2021-02-24 12:08] LABS: Target Cells Present
--- NOTE | 2021-02-24 16:36 | P.PN ---
Subjective Progress Note Date: 02/24/21 Patient is a pleasant 60-year-old male came in with complaints of confusion although patient appears to have hallucinations at night time and weird dreams as per the patient. Patient is alert oriented 3 when I valid the patient patient although is severely fatigued patient does have history of metastatic esophageal cancer. Patient also bit hyponatremic was on not diuretic therapy at home. Patient is persistently tachycardic. Denied any shortness of breath patient denied any significant pain at this time. Although as per the he was comparing of pain in the leg yesterday. Doppler of lower extremities is negative for DVT. Patient doesn't have any fever does have leukocytosis chest x-ray was read as diffuse hazy reticular pasty Y laterally more confluent in the lung bases but I didn't see any obvious pneumonic infiltrate. Patient denied any UTI symptoms and urinalysis, urine culture blood cultures are being obtained as the infection being considered cause for his delirium although patient is not being started on any antibiotics at this time. Patient is also on temazepam at home. I did obtain ammonia level because of elevated liver enzymes and L elevated INR of 1.3 ammonia level came back within normal limits. 02/23/2021 Patient is seen in follow up this morning and extremely cachectic and lethargic although arousable. Patient being followed by ID and oncology and maintained on IV antibiotics in the form of Maxipime. Patient lactic acid continues to be elevated and maintained on gentle IV fluids. Monitor closely for volume overload. Patient intake is poor and at the bedside. 02/24/2021 Patient is seen and evaluated and follow-up continues to be extremely lethargic and maintained on IV antibiotics prophylactically in the form of cefepime while awaiting for cultures are finalized. Infectious disease following closely along with oncology and recently had chemo infusion pump removed yesterday. Patient continues on IV normal saline at 100 mL per hour. Patient is tachycardic and maintained on metoprolol 12.5 twice daily and will increase the dose and monitor closely. Patient's intake continues to be poor and encouraged oral intake. Patient is afebrile. Patient having worsening shortness of breath currently maintained on 4 L via nasal cannula. Labs: White blood count trending down at 13.7, hemoglobin is 7.1, platelets are 125, INR is 1.5, sodium is 134 and a potassium 4.2, BUN is 22, creatinine 0.39, magnesium is 2.1, AST worsened at 435 and ALT is 116, Review of systems: Constitutional: reports of fatigue, no reports of fever, or chills Cardiovascular: No reports of chest pain or palpitations Respiratory: reports shortness of breath and dyspneic with minimal exertion GI: No reports of nausea, vomiting, or diarrhea, reports loose stool, and poor apetite : No reports of dysuria or retention Neurovascular: Reports generalized weakness Active Medications Docusate Sodium (Docusate 100 Mg Cap) 100 mg PO BID PRN PRN Reason: Constipation Enoxaparin Sodium (Enoxaparin 40 Mg/0.4 Ml Syringe) 40 mg SQ DAILY [facility] Last Admin: 02/24/21 08:42 Dose: 40 mg Documented by: Sodium Chloride (Saline 0.9%) 1,000 mls @ 100 mls/hr IV .Q10H [facility] Last Admin: 02/24/21 05:32 Dose: Not Given Documented by: Cefepime HCl 2 gm/ Sodium (Chloride) 100 mls @ 25 mls/hr IVPB Q8HR [facility] Last Admin: 02/24/21 08:42 Dose: 25 mls/hr Documented by: Metoprolol Tartrate (Metoprolol Tartrate 12.5 Mg Tab) 12.5 mg PO BID [facility] Last Admin: 02/24/21 08:42 Dose: 12.5 mg Documented by: Naloxone HCl (Naloxone 0.4 Mg/Ml 1 Ml Vial) 0.2 mg IV Q2M PRN PRN Reason: Opioid Reversal Nicotine (Nicotine 14mg/24hr Patch) 1 patch TRANSDERM DAILY [facility] Last Admin: 02/24/21 08:42 Dose: 1 patch Documented by: Pantoprazole Sodium (Pantoprazole 40 Mg Tablet) 40 mg PO AC-BRKFST [facility] Last Admin: 02/24/21 06:19 Dose: 40 mg Documented by: PHYSICAL EXAMINATION: GENERAL: The patient is alert and oriented x3. extremely cachectic and fatigues easily although arousable and somewhat more alert and awake today, ill- appearing, thin built temp is 96.7F, pulse is 111, respirations are 20, blood pressure is 103/63, oxygen saturation is 91 on 4 L via nasal cannula. HEENT: Pupils are round and equally reacting to light. EOMI. No scleral icterus. No conjunctival pallor. Normocephalic, atraumatic. No pharyngeal erythema. No thyromegaly. Oral mucosa is dry CARDIOVASCULAR: S1 and S2 muffled, tachycardic PULMONARY: diminished breath sounds laterally with some scattered crackles noted at the bases ABDOMEN: Firm, nontender, distended, normoactive bowel sounds. No palpable organomegaly. MUSCULOSKELETAL: No joint swelling or deformity. EXTREMITIES: No cyanosis, clubbing, or pedal edema. B/l lower extremities with generalized edema noted. NEUROLOGICAL: Gross neurological examination did not reveal any focal deficits. diffusely weak SKIN: No rashes. Assessment: -Altered mental status possible metabolic encephalopathy secondary to cancer metastasis and also a component of toxic encephalopathy related to temazepam -leukocytosis with no clear source of infection home possibly reactive secondary to metastatic esophageal cancer -Possible sepsis, present on admission -Severe protein calorie nutrition secondary to esophageal cancer and poor oral intake with a BMI of 17.1 -Hyperemic hyponatremia secondary to diuretics -Lactic acidosis: Secondary to liver dysfunction and dehydration -Metastatic disease to liver and a possible chronic liver dysfunction with elevated liver enzymes -Metastatic esophageal cancer: Management as per oncology -DVT prophylaxis: Lovenox -GI prophylaxis: Protonix -Continued ongoing nicotine dependence -no code Plan: Recommend to continue with current medications management and symptomatic tr eatment. Oncology and infectious disease following closely. Patient recently had chemo infusion pump removed as he is an extensive history of esophageal cancer with metastasis to the liver. Patient is maintained on empiric antibiotics in the form of cefepime while awaiting for cultures to finalized. Patient is maintained on gentle IV hydration and will continue for now. Will repeat a.m. labs and continue to monitor closely. Will discuss with oncology about possible brain MRI to evaluate for metastasis and treatment plan moving forward. Patient and agreeable and wished to be no code with possible palliative and remains currently active and receiving chemo treatments. Bilateral lower extremities with some swelling and pitting edema noted and recommend compression stockings and elevating lower extremities while at rest. Encouraged increased activity. Due to multiple complex medical issues, prognosis is guarded. Objective - Vital Signs Vital signs: Vital Signs Temp 96.7 F L 02/24/21 08:40 Pulse 111 H 02/24/21 08:40 Resp 20 02/24/21 08:40 BP 103/63 02/24/21 08:40 Pulse Ox 91 L 02/24/21 08:40 Intake & Output 02/23/21 02/24/21 02/24/21 18:59 06:59 18:59 Intake Total 240 180 Output Total 875 1390 Balance -635 -1390 180 Weight 51 kg Intake: Oral 240 180 Output: Urine 875 1390 Other: # Voids 1 5 - Labs CBC & Chem 7: 02/24/21 06:32 02/24/21 06:32 Labs: Abnormal Lab Results - Last 24 Hours (Table) 02/23/21 02/24/21 02/24/21 Range/Units 02:32 06:32 06:32 WBC 13.7 H (3.8-10.6) k/uL RBC 2.23 L (4.30-5.90) m/uL Hgb 7.1 L (13.0-17.5) gm/dL Hct 23.4 L (39.0-53.0) % MCV 104.8 H (80.0-100.0) fL MCHC 30.2 L (31.0-37.0) g/dL RDW 23.7 H (11.5-15.5) % Plt Count 125 L (150-450) k/uL Macrocytosis Marked A PT 15.2 H (9.0-12.0) sec INR 1.5 H (<1.2) Sodium (137-145) mmol/L Chloride (98-107) mmol/L Carbon Dioxide (22-30) mmol/L BUN (9-20) mg/dL Creatinine (0.66-1.25) mg/dL Glucose (74-99) mg/dL Calcium (8.4-10.2) mg/dL Total Bilirubin (0.2-1.3) mg/dL AST (17-59) U/L ALT (4-49) U/L Alkaline Phosphatase (38-126) U/L Total Protein (6.3-8.2) g/dL Albumin (3.5-5.0) g/dL Procalcitonin 1.46 H (0.02-0.09) ng/mL 02/24/21 Range/Units 06:32 WBC (3.8-10.6) k/uL RBC (4.30-5.90) m/uL Hgb (13.0-17.5) gm/dL Hct (39.0-53.0) % MCV (80.0-100.0) fL MCHC (31.0-37.0) g/dL RDW (11.5-15.5) % Plt Count (150-450) k/uL Macrocytosis PT (9.0-12.0) sec INR (<1.2) Sodium 134 L (137-145) mmol/L Chloride 108 H (98-107) mmol/L Carbon Dioxide 19 L (22-30) mmol/L BUN 22 H (9-20) mg/dL Creatinine 0.39 L (0.66-1.25) mg/dL Glucose 60 L (74-99) mg/dL Calcium 7.1 L (8.4-10.2) mg/dL Total Bilirubin 4.0 H (0.2-1.3) mg/dL AST 435 H (17-59) U/L ALT 116 H (4-49) U/L Alkaline Phosphatase 434 H (38-126) U/L Total Protein 4.7 L (6.3-8.2) g/dL Albumin 1.5 L (3.5-5.0) g/dL Procalcitonin (0.02-0.09) ng/mL Microbiology - Last 24 Hours (Table) 02/22/21 11:01 Blood Culture - Preliminary Blood No Growth after 24 hours
--- NOTE | 2021-02-24 17:50 | PN ---
PROGRESS NOTE DATE OF SERVICE: 02/24/2021 REASON FOR FOLLOWUP: Sepsis. INTERVAL HISTORY: Patient is afebrile. The patient is breathing comfortably. Mentioned feeling slightly better today. Denies any chest pain or cough. No abdominal pain. No diarrhea. PHYSICAL EXAMINATION: Blood pressure 108/79 with pulse of 108, temperature 97.7. He is 99% on 4 L nasal cannula. General description is a middle-aged male up in the bed in no distress. Respiratory system: Unlabored breathing, decreased breath sounds in the base. No wheeze. Heart S1, S2. Regular rate and rhythm. Abdomen soft, no tenderness. LABS: Hemoglobin 7.8, white count 13.7, BUN of 22, creatinine 0.39. Blood culture has been negative. DIAGNOSTIC IMPRESSION AND PLAN: Patient admitted to the hospital with weakness in this patient who did have metastatic esophageal cancer. Did have elevated lactic acid, elevated liver enzymes with concern for possible cholangitis as no other obvious focus of infection. Patient on cefepime to continue while waiting for the culture to finalize. at the bedside, questions answered. MMODL / IJN: [id number] / MTDD
--- NOTE | 2021-02-24 19:54 | P.PN ---
Subjective Progress Note Date: 02/24/21 Principal diagnosis: increased LACTIC Metastatic Cancer He is more awake today, alert and oriented x2, at bedside. Liver function mildly improved today. Objective - Vital Signs Vital signs: Vital Signs Temp 97.7 F 02/24/21 12:05 Pulse 108 H 02/24/21 12:05 Resp 18 02/24/21 12:05 BP 110/70 02/24/21 12:05 Pulse Ox 95 02/24/21 12:05 Intake & Output 02/23/21 02/24/21 02/24/21 18:59 06:59 18:59 Intake Total 240 300 Output Total 875 1390 400 Balance -635 -1390 -100 Weight 51 kg 51 kg Intake: Oral 240 300 Output: Urine 875 1390 400 Other: Voiding Method Toilet # Voids 1 5 - Exam Chronically ill appearing Jaundice Mild distress Awakens to stimuli O/P Dry Lungs: Diminshed Abdomen: Firm and distended Ex: Edema - Labs CBC & Chem 7: 02/24/21 06:32 02/24/21 06:32 Labs: Abnormal Lab Results - Last 24 Hours (Table) 02/24/21 02/24/21 02/24/21 Range/Units 06:32 06:32 06:32 WBC 13.7 H (3.8-10.6) k/uL RBC 2.23 L (4.30-5.90) m/uL Hgb 7.1 L (13.0-17.5) gm/dL Hct 23.4 L (39.0-53.0) % MCV 104.8 H (80.0-100.0) fL MCHC 30.2 L (31.0-37.0) g/dL RDW 23.7 H (11.5-15.5) % Plt Count 125 L (150-450) k/uL Neutrophils # (Manual) 13.43 H (1.3-7.7) k/uL Lymphocytes # (Manual) 0.27 L (1.0-4.8) k/uL Macrocytosis Marked A PT 15.2 H (9.0-12.0) sec INR 1.5 H (<1.2) Sodium 134 L (137-145) mmol/L Chloride 108 H (98-107) mmol/L Carbon Dioxide 19 L (22-30) mmol/L BUN 22 H (9-20) mg/dL Creatinine 0.39 L (0.66-1.25) mg/dL Glucose 60 L (74-99) mg/dL Calcium 7.1 L (8.4-10.2) mg/dL Total Bilirubin 4.0 H (0.2-1.3) mg/dL AST 435 H (17-59) U/L ALT 116 H (4-49) U/L Alkaline Phosphatase 434 H (38-126) U/L Total Protein 4.7 L (6.3-8.2) g/dL Albumin 1.5 L (3.5-5.0) g/dL Microbiology - Last 24 Hours (Table) 02/23/21 13:50 Blood Culture - Preliminary Blood No Growth after 24 hours 02/22/21 11:01 Blood Culture - Preliminary Blood No Growth after 48 hours Assessment and Plan (1) Acute encephalopathy Current Visit: Yes Status: Acute Code(s): G93.40 - ENCEPHALOPATHY, UNSPECIFIED SNOMED Code(s): 83805999 (2) Lactic acidosis Current Visit: Yes Status: Acute Code(s): E87.2 - ACIDOSIS SNOMED Code(s): 57977272 (3) Tachycardia Current Visit: Yes Status: Acute Code(s): R00.0 - TACHYCARDIA, UNSPECIFIED SNOMED Code(s): 6834868 (4) Anemia Current Visit: No Status: Acute Priority: High Code(s): D64.9 - ANEMIA, UN SPECIFIED SNOMED Code(s): 343715177 (5) Esophageal carcinoma Current Visit: No Status: Acute Priority: High Code(s): C15.9 - MALIGNANT NEOPLASM OF ESOPHAGUS, UNSPECIFIED SNOMED Code(s): 158492274 (6) Hepatomegaly Current Visit: No Status: Acute Priority: High Code(s): R16.0 - HEPATOMEGALY, NOT ELSEWHERE CLASSIFIED SNOMED Code(s): 57637657 (7) Hyperbilirubinemia Current Visit: No Status: Acute Code(s): E80.6 - OTHER DISORDERS OF BILIRUBIN METABOLISM SNOMED Code(s): 47864534 Plan: Dr. Mckee ID is following Long discussion on the severity of patients status - DNR Blood cultures (port and periph) peripheral neg to date, re-order to draw another from port Monitor CBC, CMP Monitor Coags with decreased PO intake and liver insufficiency Continue to monitor liver function PT/OT for Debility Can hold off on MRI with improved mental status as encephalopathy and acidosis improves Physician attes: I have completed the full history and physical and agree with above dictation, dictated as a scribe.
--- NOTE | 2021-02-24 19:54 | P.PN ---
Subjective Progress Note Date: 02/23/21 Principal diagnosis: increased LACTIC Metastatic Cancer Patient still very ill, lethargic, jaundice. Temperatures are low. Objective - Vital Signs Vital signs: Vital Signs Temp 97.8 F 02/23/21 11:46 Pulse 114 H 02/23/21 11:46 Resp 16 02/23/21 11:46 BP 107/66 02/23/21 11:46 Pulse Ox 93 L 02/23/21 11:46 Intake & Output 02/22/21 02/23/21 02/23/21 18:59 06:59 18:59 Intake Total 240 Output Total 300 625 Balance -300 -385 Weight 37.5 kg 50 kg Intake: Oral 240 Output: Urine 300 625 Other: Voiding Method Toilet # Voids 2 1 - Exam Chronically ill appearing Jaundice Mild distress Awakens to stimuli O/P Dry Lungs: Diminshed Abdomen: Firm and distended Ex: Edema - Labs CBC & Chem 7: 02/23/21 02:32 02/23/21 02:32 Labs: Abnormal Lab Results - Last 24 Hours (Table) 02/22/21 02/22/21 02/22/21 Range/Units 14:40 17:33 18:28 WBC (3.8-10.6) k/uL RBC (4.30-5.90) m/uL Hgb (13.0-17.5) gm/dL Hct (39.0-53.0) % MCV (80.0-100.0) fL MCHC (31.0-37.0) g/dL RDW (11.5-15.5) % Macrocytosis Sodium (137-145) mmol/L Carbon Dioxide (22-30) mmol/L BUN (9-20) mg/dL Creatinine (0.66-1.25) mg/dL Plasma Lactic Acid Curtis 8.9 H* 9.5 H* (0.7-2.0) mmol/L Calcium (8.4-10.2) mg/dL Total Bilirubin (0.2-1.3) mg/dL AST (17-59) U/L ALT (4-49) U/L Alkaline Phosphatase (38-126) U/L C-Reactive Protein (<1.0) mg/dL Total Protein (6.3-8.2) g/dL Albumin (3.5-5.0) g/dL Urine Protein Trace H (Negative) Urine Ketones Trace H (Negative) Urine Bilirubin 1+ H (Negative) 02/23/21 02/23/21 02/23/21 Range/Units 02:32 02:32 02:32 WBC 14.2 H (3.8-10.6) k/uL RBC 2.60 L (4.30-5.90) m/uL Hgb 8.2 L (13.0-17.5) gm/dL Hct 27.3 L (39.0-53.0) % MCV 104.7 H (80.0-100.0) fL MCHC 30.1 L (31.0-37.0) g/dL RDW 24.9 H (11.5-15.5) % Macrocytosis Marked A Sodium 133 L (137-145) mmol/L Carbon Dioxide 17 L (22-30) mmol/L BUN 21 H (9-20) mg/dL Creatinine 0.45 L (0.66-1.25) mg/dL Plasma Lactic Acid Curtis 8.8 H* (0.7-2.0) mmol/L Calcium 7.5 L (8.4-10.2) mg/dL Total Bilirubin 4.2 H (0.2-1.3) mg/dL AST 364 H (17-59) U/L ALT 109 H (4-49) U/L Alkaline Phosphatase 553 H (38-126) U/L C-Reactive Protein 8.6 H (<1.0) mg/dL Total Protein 5.1 L (6.3-8.2) g/dL Albumin 1.7 L (3.5-5.0) g/dL Urine Protein (Negative) Urine Ketones (Negative) Urine Bilirubin (Negative) 02/23/21 Range/Units 07:56 WBC (3.8-10.6) k/uL RBC (4.30-5.90) m/uL Hgb (13.0-17.5) gm/dL Hct (39.0-53.0) % MCV (80.0-100.0) fL MCHC (31.0-37.0) g/dL RDW (11.5-15.5) % Macrocytosis Sodium (137-145) mmol/L Carbon Dioxide (22-30) mmol/L BUN (9-20) mg/dL Creatinine (0.66-1.25) mg/dL Plasma Lactic Acid Curtis 8.3 H* (0.7-2.0) mmol/L Calcium (8.4-10.2) mg/dL Total Bilirubin (0.2-1.3) mg/dL AST (17-59) U/L ALT (4-49) U/L Alkaline Phosphatase (38-126) U/L C-Reactive Protein (<1.0) mg/dL Total Protein (6.3-8.2) g/dL Albumin (3.5-5.0) g/dL Urine Protein (Negative) Urine Ketones (Negative) Urine Bilirubin (Negative) Microbiology - Last 24 Hours (Table) 02/22/21 11:01 Blood Culture - Preliminary Blood No Growth after 24 hours Assessment and Plan (1) Acute encephalopathy Current Visit: Yes Status: Acute Code(s): G93.40 - ENCEPHALOPATHY, UNSPECIFIED SNOMED Code(s): 44158468 (2) Lactic acidosis Current Visit: Yes Status: Acute Code(s): E87.2 - ACIDOSIS SNOMED Code(s): 14238712 (3) Tachycardia Current Visit: Yes Status: Acute Code(s): R00.0 - TACHYCARDIA, UNSPECIFIED SNOMED Code(s): 3607793 (4) Anemia Current Visit: No Status: Acute Priority: High Code(s): D64.9 - ANEMIA, UNSPECIFIED SNOMED Code(s): 116083665 (5) Esophageal carcinoma Current Visit: No Status: Acute Priority: High Code(s): C15.9 - MALIGNANT NEOPLASM OF ESOPHAGUS, UNSPECIFIED SNOMED Code(s): 875554525 (6) Hepatomegaly Current Visit: No Status: Acute Priority: High Code(s): R16.0 - HEPATOMEGALY, NOT ELSEWHERE CLASSIFIED SNOMED Code(s): 58840084 (7) Hyperbilirubinemia Current Visit: No Status: Acute Code(s): E80.6 - OTHER DISORDERS OF BILIRUBIN METABOLISM SNOMED Code(s): 16337769 Plan: Dr. Mckee ID is following Long discussion on the severity of patients status - DNR Blood cultures (port and periph) peripheral neg to date, re-order to draw another from port Monitor CBC, CMP Monitor Coags with decreased PO intake and liver insufficiency
[2021-02-24] MEDS: METOPROLOL TARTRATE 25 MG TAB PO SCH (20:30)
[2021-02-24] MEDS ORDERED: FUROSEMIDE 10 MG/ML 2 ML VIAL IV STA (23:38)
[2021-02-25] MEDS: PANTOPRAZOLE 40 MG TABLET PO SCH (06:51)
--- NOTE | 2021-02-25 07:45 | XR ---
EXAMINATION TYPE: XR chest 1V portable DATE OF EXAM: 02/25/2021 COMPARISON: Chest x-ray 02/21/2021 HISTORY: Dyspnea TECHNIQUE: Single frontal view of the chest is obtained. FINDINGS: Bilateral nodularity, airspace disease present within the lungs as on prior. Right-sided p ort is in place distal tip overlying the superior vena cava. There is no evident pneumothorax or pleu ral effusion. Cardiac mediastinal silhouette is stable. There is underlying emphysema. IMPRESSION: Correlate for metastatic disease, possible pneumonia
[2021-02-25] MEDS: NICOTINE 14MG/24HR PATCH TRANSDERM SCH (08:26)
[2021-02-25] MEDS: METOPROLOL TARTRATE 25 MG TAB PO SCH ×2 (08:27→20:46)
[2021-02-25] MEDS: ENOXAPARIN 40 MG/0.4 ML SYRINGE SQ SCH (08:27)
[2021-02-25] MEDS: CEFEPIME 2 GM in SODIUM CHLORIDE 0.9% 100 ML IVPB SCH ×3 (08:27→23:39)
[2021-02-25] MEDS: SODIUM CHLORIDE 0.9% 1,000 ML IV SCH ×2 (08:29→16:15)
[2021-02-25 09:37] LABS: Anisocytosis Moderate; Basophils % (A) 0 %; Eosinophils % (A) 0 %; HCT 23.2 % (39.0-53.0); HGB 7.1 gm/dL (13.0-17.5); Hypochromasia Marked; Lymphocytes # (A) 0.6 k/uL (1.0-4.8); Lymphocytes % (A) 4 %; MCH 32.3 pg (25.0-35.0); MCHC 30.7 g/dL (31.0-37.0); MCV 105.1 fL (80.0-100.0); Macrocytosis Marked; Mean Platelet Volume 9.3; Monocytes # (A) 0.2 k/uL (0-1.0); Monocytes % (A) 1 %; Neutrophils # (A) 12.3 k/uL (1.3-7.7); Neutrophils % (A) 94 %; Platelet Count 103 k/uL (150-450); RBC 2.21 m/uL (4.30-5.90); RDW 23.5 % (11.5-15.5); WBC 13.1 k/uL (3.8-10.6)
[2021-02-25 09:40] LABS: ALT 107 U/L (4-49); AST 418 U/L (17-59); African American GFR (CKD) >90 (>60 ml/min/1.73 sqM); Albumin 1.6 g/dL (3.5-5.0); Alkaline Phosphatase 371 U/L (38-126); Anion Gap 8 mmol/L; Blood Urea Nitrogen 27 mg/dL (9-20); Calcium 7.3 mg/dL (8.4-10.2); Carbon Dioxide 18 mmol/L (22-30); Chloride 108 mmol/L (98-107); Glucose 63 mg/dL (74-99); Non-African American GFR(CKD) >90 (>60 ml/min/1.73 sqM); Potassium 4.2 mmol/L (3.5-5.1); Sodium 134 mmol/L (137-145); Total Bilirubin 4.8 mg/dL (0.2-1.3); Total Protein 4.8 g/dL (6.3-8.2)
[2021-02-25 12:53] LABS: Glucose,Whole Blood 95 mg/dL (75-99)
--- NOTE | 2021-02-25 14:10 | P.PN ---
Subjective Progress Note Date: 02/25/21 Patient is a pleasant 60-year-old male came in with complaints of confusion although patient appears to have hallucinations at night time and weird dreams as per the patient. Patient is alert oriented 3 when I valid the patient patient although is severely fatigued patient does have history of metastatic esophageal cancer. Patient also bit hyponatremic was on not diuretic therapy at home. Patient is persistently tachycardic. Denied any shortness of breath patient denied any significant pain at this time. Although as per the he was comparing of pain in the leg yesterday. Doppler of lower extremities is negative for DVT. Patient doesn't have any fever does have leukocytosis chest x-ray was read as diffuse hazy reticular pasty Y laterally more confluent in the lung bases but I didn't see any obvious pneumonic infiltrate. Patient denied any UTI symptoms and urinalysis, urine culture blood cultures are being obtained as the infection being considered cause for his delirium although patient is not being started on any antibiotics at this time. Patient is also on temazepam at home. I did obtain ammonia level because of elevated liver enzymes and L elevated INR of 1.3 ammonia level came back within normal limits. 02/23/2021 Patient is seen in follow up this morning and extremely cachectic and lethargic although arousable. Patient being followed by ID and oncology and maintained on IV antibiotics in the form of Maxipime. Patient lactic acid continues to be elevated and maintained on gentle IV fluids. Monitor closely for volume overload. Patient intake is poor and at the bedside. 02/24/2021 Patient is seen and evaluated and follow-up continues to be extremely lethargic and maintained on IV antibiotics prophylactically in the form of cefepime while awaiting for cultures are finalized. Infectious disease following closely along with oncology and recently had chemo infusion pump removed yesterday. Patient continues on IV normal saline at 100 mL per hour. Patient is tachycardic and maintained on metoprolol 12.5 twice daily and will increase the dose and monitor closely. Patient's intake continues to be poor and encouraged oral intake. Patient is afebrile. Patient having worsening shortness of breath currently maintained on 4 L via nasal cannula. 02/25/2021 Patient seen on follow-up he is resting in bed, appears quite frail and fatigued. 5 L nasal cannula, saturating above 90%, blood pressures are marginal 96 with/54, respirations unlabored. Family at bedside, asking questions regarding the plan of care. Review of systems: Constitutional: reports of fatigue, no reports of fever, or chills Cardiovascular: No reports of chest pain or palpitations Respiratory: reports shortness of breath and dyspneic with minimal exertion GI: No reports of nausea, vomiting, or diarrhea, reports loose stool, and poor apetite : No reports of dysuria or retention related Neurovascular: Reports generalized weakness Active Medications Docusate Sodium (Docusate 100 Mg Cap) 100 mg PO BID PRN PRN Reason: Constipation Enoxaparin Sodium (Enoxaparin 40 Mg/0.4 Ml Syringe) 40 mg SQ DAILY [facility] Last Admin: 02/24/21 08:42 Dose: 40 mg Documented by: Sodium Chloride (Saline 0.9%) 1,000 mls @ 100 mls/hr IV .Q10H [facility] Last Admin: 02/24/21 05:32 Dose: Not Given Documented by: Cefepime HCl 2 gm/ Sodium (Chloride) 100 mls @ 25 mls/hr IVPB Q8HR [facility] Last Admin: 02/24/21 08:42 Dose: 25 mls/hr Documented by: Metoprolol Tartrate (Metoprolol Tartrate 12.5 Mg Tab) 12.5 mg PO BID [facility] Last Admin: 02/24/21 08:42 Dose: 12.5 mg Documented by: Naloxone HCl (Naloxone 0.4 Mg/Ml 1 Ml Vial) 0.2 mg IV Q2M PRN PRN Reason: Opioid Reversal Nicotine (Nicotine 14mg/24hr Patch) 1 patch TRANSDERM DAILY [facility] Last Admin: 02/24/21 08:42 Dose: 1 patch Documented by: Pantoprazole Sodium (Pantoprazole 40 Mg Tablet) 40 mg PO AC-BRKFST [facility] Last Admin: 02/24/21 06:19 Dose: 40 mg Documented by: PHYSICAL EXAMINATION: GENERAL: The patient is alert and oriented x3. extremely cachectic and fatigues easily although arousable and somewhat more alert and awake today, ill- appearing, thin built temp is 96.7F, pulse is 111, respirations are 20, blood pressure is 103/63, oxygen saturation is 91 on 4 L via nasal cannula. HEENT: Pupils are round and equally reacting to light. EOMI. No scleral icterus. No conjunctival pallor. Normocephalic, atraumatic. No pharyngeal erythema. No thyromegaly. Oral mucosa is dry CARDIOVASCULAR: S1 and S2 muffled, tachycardic PULMONARY: diminished breath sounds laterally with some scattered crackles noted at the bases ABDOMEN: Firm, nontender, distended, normoactive bowel sounds. No palpable or ganomegaly. MUSCULOSKELETAL: No joint swelling or deformity. EXTREMITIES: No cyanosis, clubbing, or pedal edema. B/l lower extremities with generalized edema noted. NEUROLOGICAL: Gross neurological examination did not reveal any focal deficits. diffusely weak SKIN: No rashes. Assessment: -Altered mental status possible metabolic encephalopathy secondary to cancer metastasis and also a component of toxic encephalopathy related to temazepam -leukocytosis with no clear source of infection home possibly reactive secondary to metastatic esophageal cancer -Possible sepsis, present on admission -Severe protein calorie nutrition secondary to esophageal cancer and poor oral intake with a BMI of 17.1 -Hyperemic hyponatremia secondary to diuretics -Lactic acidosis: Secondary to liver dysfunction and dehydration -Metastatic disease to liver and a possible chronic liver dysfunction with elevated liver enzymes -Metastatic esophageal cancer: Management as per oncology -DVT prophylaxis: Lovenox -GI prophylaxis: Protonix -Continued ongoing nicotine dependence -no code Plan: Recommend to continue with current medications management and symptomatic treatment. Oncology and infectious disease following closely. Patient recently had chemo infusion pump removed as he is an extensive history of esophageal cancer with metastasis to the liver. Continues antimicrobial therapy with cefepime, follow-up with final culture reports. Patient is maintained on gentle IV hydration and will continue for now. Will discuss with oncology about possible brain MRI to evaluate for metastasis and treatment plan moving forward. Patient and agreeable and wished to be no code with possible palliative and remains currently active and receiving chemo treatments. Bilateral lower extremities with some swelling and pitting edema noted and recommend compression stockings and elevating lower extremities while at rest. Encouraged increased activity. Due to multiple complex medical issues, prognosis is guarded. Objective - Vital Signs Vital signs: Vital Signs Temp 97.9 F 02/25/21 11:57 Pulse 94 02/25/21 11:57 Resp 20 02/25/21 11:57 BP 96/64 02/25/21 11:57 Pulse Ox 93 L 02/25/21 11:57 Intake & Output 02/24/21 02/25/21 02/25/21 18:59 06:59 18:59 Intake Total 300 580 Output Total 400 1400 825 Balance -100 -1400 -245 Weight 51 kg 66 kg Intake: IV 240 .9 @ 20 240 Intake, IV Titration 200 Amount Cefepime 2 gm In Sodium 200 Chloride 0.9% 100 ml @ 25 mls/hr IVPB Q8HR [facility] Rx# :[id number] Oral 300 140 Output: Urine 400 1400 825 Other: Voiding Method Toilet Toilet Toilet # Voids 4 1 - Labs CBC & Chem 7: 02/25/21 08:52 02/25/21 08:52 Labs: Abnormal Lab Results - Last 24 Hours (Table) 02/25/21 02/25/21 02/25/21 Range/Units 08:52 08:52 08:52 WBC 13.1 H (3.8-10.6) k/uL RBC 2.21 L (4.30-5.90) m/uL Hgb 7.1 L (13.0-17.5) gm/dL Hct 23.2 L (39.0-53.0) % MCV 105.1 H (80.0-100.0) fL MCHC 30.7 L (31.0-37.0) g/dL RDW 23.5 H (11.5-15.5) % Plt Count 103 L (150-450) k/uL Macrocytosis Marked A Sodium 134 L (137-145) mmol/L Chloride 108 H (98-107) mmol/L Carbon Dioxide 18 L (22-30) mmol/L BUN 27 H (9-20) mg/dL Creatinine 0.42 L (0.66-1.25) mg/dL Glucose 63 L (74-99) mg/dL Plasma Lactic Acid Curtis 7.0 H* (0.7-2.0) mmol/L Calcium 7.3 L (8.4-10.2) mg/dL Total Bilirubin 4.8 H (0.2-1.3) mg/dL AST 418 H (17-59) U/L ALT 107 H (4-49) U/L Alkaline Phosphatase 371 H (38-126) U/L Total Protein 4.8 L (6.3-8.2) g/dL Albumin 1.6 L (3.5-5.0) g/dL Microbiology - Last 24 Hours (Table) 02/22/21 11:01 Blood Culture - Preliminary Blood No Growth after 72 hours 02/23/21 13:50 Blood Culture - Preliminary Blood No Growth after 24 hours
[2021-02-25 14:12] LABS: Crenated RBC Present; Poikilocytosis (M) Present
[2021-02-25 14:13] LABS: Mixed Population RBC Present; RBC Fragments Present
--- NOTE | 2021-02-25 16:56 | PN ---
PROGRESS NOTE DATE OF SERVICE: 02/25/2021 REASON FOR FOLLOWUP: Leukocytosis and a question of infection. INTERVAL HISTORY: Patient is afebrile. He is breathing more comfortably. The patient denies having any chest pain. He is complaining of shortness of breath, cough, but not bringing up sputum. No vomiting. No abdominal pain. PHYSICAL EXAMINATION: Blood pressure 96/64, pulse of 94, temperature is 97.9. He is 93% on room air. General description: The patient is a middle-aged male lying in bed in no distress. Respiratory system: Unlabored breathing, decreased breath sounds in the base. No wheeze. Heart S1, S2. Regular rate and rhythm. Abdomen soft, no tenderness. LABS: Hemoglobin is 7, white count 13.1, creatinine 0.42. Blood culture has been negative so far. Chest x-ray correlate for metastatic disease possible pneumonia. DIAGNOSTIC IMPRESSION AND PLAN: Patient with metastatic esophageal cancer with metastases to the liver and lungs, admitted to the hospital with weakness. Did have elevated white count, could be related to underlying rheumatological disease. Clinically not behaving as an infection with no fever, covered with cefepime to continue. at the bedside, questions answered. MMODL / IJN: [id number] / MTDD
[2021-02-26] MEDS: SODIUM CHLORIDE 0.9% 1,000 ML IV SCH (05:57)
[2021-02-26] MEDS: PANTOPRAZOLE 40 MG TABLET PO SCH (06:45)
[2021-02-26] MEDS: CEFEPIME 2 GM in SODIUM CHLORIDE 0.9% 100 ML IVPB SCH ×3 (08:31→23:26)
[2021-02-26] MEDS: METOPROLOL TARTRATE 25 MG TAB PO SCH ×2 (08:32→20:40)
[2021-02-26] MEDS: ENOXAPARIN 40 MG/0.4 ML SYRINGE SQ SCH (08:32)
[2021-02-26] MEDS: NICOTINE 14MG/24HR PATCH TRANSDERM SCH (08:39)
[2021-02-26 09:46] LABS: Anisocytosis Moderate; Basophils % (A) 0 %; Eosinophils % (A) 0 %; HCT 21.1 % (39.0-53.0); Hypochromasia Marked; Lymphocytes # (A) 0.6 k/uL (1.0-4.8); Lymphocytes % (A) 8 %; MCH 32.9 pg (25.0-35.0); MCHC 30.8 g/dL (31.0-37.0); MCV 106.9 fL (80.0-100.0); Macrocytosis Marked; Mean Platelet Volume 9.3; Monocytes # (A) 0.1 k/uL (0-1.0); Monocytes % (A) 1 %; Neutrophils # (A) 7.4 k/uL (1.3-7.7); Neutrophils % (A) 91 %; RBC 1.97 m/uL (4.30-5.90); RDW 23.4 % (11.5-15.5); WBC 8.2 k/uL (3.8-10.6)
[2021-02-26 09:50] LABS: AST 359 U/L (17-59); African American GFR (CKD) >90 (>60 ml/min/1.73 sqM); Albumin 1.4 g/dL (3.5-5.0); Alkaline Phosphatase 353 U/L (38-126); Anion Gap 8 mmol/L; Blood Urea Nitrogen 28 mg/dL (9-20); Calcium 7.3 mg/dL (8.4-10.2); Carbon Dioxide 19 mmol/L (22-30); Chloride 107 mmol/L (98-107); Glucose 65 mg/dL (74-99); Non-African American GFR(CKD) >90 (>60 ml/min/1.73 sqM); Sodium 134 mmol/L (137-145); Total Protein 4.5 g/dL (6.3-8.2)
[2021-02-26 09:58] LABS: ALT 101 U/L (4-49)
[2021-02-26 10:35] LABS: HGB 6.5 gm/dL (13.0-17.5)
[2021-02-26 12:33] LABS: Poikilocytosis (M) Present; Target Cells Present
[2021-02-26 12:45] LABS: Platelet Count 74 k/uL (150-450)
--- NOTE | 2021-02-26 12:53 | P.PN ---
Subjective Progress Note Date: 02/26/21 Patient is a pleasant 60-year-old male came in with complaints of confusion although patient appears to have hallucinations at night time and weird dreams as per the patient. Patient is alert oriented 3 when I valid the patient patient although is severely fatigued patient does have history of metastatic esophageal cancer. Patient also bit hyponatremic was on not diuretic therapy at home. Patient is persistently tachycardic. Denied any shortness of breath patient denied any significant pain at this time. Although as per the he was comparing of pain in the leg yesterday. Doppler of lower extremities is negative for DVT. Patient doesn't have any fever does have leukocytosis chest x-ray was read as diffuse hazy reticular pasty Y laterally more confluent in the lung bases but I didn't see any obvious pneumonic infiltrate. Patient denied any UTI symptoms and urinalysis, urine culture blood cultures are being obtained as the infection being considered cause for his delirium although patient is not being started on any antibiotics at this time. Patient is also on temazepam at home. I did obtain ammonia level because of elevated liver enzymes and L elevated INR of 1.3 ammonia level came back within normal limits. 02/23/2021 Patient is seen in follow up this morning and extremely cachectic and lethargic although arousable. Patient being followed by ID and oncology and maintained on IV antibiotics in the form of Maxipime. Patient lactic acid continues to be elevated and maintained on gentle IV fluids. Monitor closely for volume overload. Patient intake is poor and at the bedside. 02/24/2021 Patient is seen and evaluated and follow-up continues to be extremely lethargic and maintained on IV antibiotics prophylactically in the form of cefepime while awaiting for cultures are finalized. Infectious disease following closely along with oncology and recently had chemo infusion pump removed yesterday. Patient continues on IV normal saline at 100 mL per hour. Patient is tachycardic and maintained on metoprolol 12.5 twice daily and will increase the dose and monitor closely. Patient's intake continues to be poor and encouraged oral intake. Patient is afebrile. Patient having worsening shortness of breath currently maintained on 4 L via nasal cannula. 02/25/2021 Patient seen on follow-up he is resting in bed, appears quite frail and fatigued. 5 L nasal cannula, saturating above 90%, blood pressures are marginal 96 with/54, respirations unlabored. Family at bedside, asking questions regarding the plan of care. 02/26/2021 Hemoglobin low at 6.5 today, he is being transfused 1 unit of PRBC. He remains on 5 L nasal cannula saturating above 90%, blood pressure is marginal 94/53, he is afebrile. His appearance is very thin, he is cachectic and appears malnourished and weak. Continues antimicrobial therapy of cefepime he is afebrile, no growth on blood cultures. Review of systems: Constitutional: reports of fatigue, no reports of fever, or chills Cardiovascular: No reports of chest pain or palpitations Respiratory: reports shortness of breath and dyspneic with minimal exertion GI: No reports of nausea, vomiting, or diarrhea, reports loose stool, and poor apetite : No reports of dysuria or retention related Neurovascular: Reports generalized weakness Active Medications Docusate Sodium (Docusate 100 Mg Cap) 100 mg PO BID PRN PRN Reason: Constipation Enoxaparin Sodium (Enoxaparin 40 Mg/0.4 Ml Syringe) 40 mg SQ DAILY [facility] Last Admin: 02/24/21 08:42 Dose: 40 mg Documented by: Sodium Chloride (Saline 0.9%) 1,000 mls @ 100 mls/hr IV .Q10H [facility] Last Admin: 02/24/21 05:32 Dose: Not Given Documented by: Cefepime HCl 2 gm/ Sodium (Chloride) 100 mls @ 25 mls/hr IVPB Q8HR [facility] Last Admin: 02/24/21 08:42 Dose: 25 mls/hr Documented by: Metoprolol Tartrate (Metoprolol Tartrate 12.5 Mg Tab) 12.5 mg PO BID [facility] Last Admin: 02/24/21 08:42 Dose: 12.5 mg Documented by: Naloxone HCl (Naloxone 0.4 Mg/Ml 1 Ml Vial) 0.2 mg IV Q2M PRN PRN Reason: Opioid Reversal Nicotine (Nicotine 14mg/24hr Patch) 1 patch TRANSDERM DAILY [facility] Last Admin: 02/24/21 08:42 Dose: 1 patch Documented by: Pantoprazole Sodium (Pantoprazole 40 Mg Tablet) 40 mg PO AC-BRKFST [facility] Last Admin: 02/24/21 06:19 Dose: 40 mg Documented by: PHYSICAL EXAMINATION: GENERAL: The patient is alert and oriented x3. extremely cachectic and fatigues easily although arousable and somewhat more alert and awake today, ill- appearing, thin built temp is 96.7F, pulse is 111, respirations are 20, blood pressure is 103/63, oxygen saturation is 91 on 4 L via nasal cannula. HEENT: Pupils are round and equally reacting to light. EOMI. No scleral icterus. No conjunctival pallor. Normocephalic, atraumatic. No pharyngeal erythema. No thyromegaly. Oral mucosa is dry CARDIOVASCULAR: S1 and S2 muffled, tachycardic PULMONARY: diminished breath sounds laterally with some scattered crackles noted at the bases ABDOMEN: Firm, nontender, distended, normoactive bowel sounds. No palpable org anomegaly. MUSCULOSKELETAL: No joint swelling or deformity. EXTREMITIES: No cyanosis, clubbing, or pedal edema. B/l lower extremities with generalized edema noted. NEUROLOGICAL: Gross neurological examination did not reveal any focal deficits. diffusely weak SKIN: No rashes. Assessment: -Altered mental status possible metabolic encephalopathy secondary to cancer metastasis and also a component of toxic encephalopathy related to temazepam -leukocytosis with no clear source of infection home possibly reactive secondary to metastatic esophageal cancer -Possible sepsis, present on admission -Symptomatic anemia, hemoglobin 6.5 -Severe protein calorie nutrition secondary to esophageal cancer and poor oral intake with a BMI of 17.1 -Hyperemic hyponatremia secondary to diuretics -Lactic acidosis: Secondary to liver dysfunction and dehydration -Metastatic disease to liver and a possible chronic liver dysfunction with elevated liver enzymes -Metastatic esophageal cancer: Management as per oncology -DVT prophylaxis: Lovenox -GI prophylaxis: Protonix -Continued ongoing nicotine dependence -no code Plan: Transfuse 1 unit PRBC for hemoglobin 6.5, recheck hemoglobin level. Continues antimicrobial therapy of cefepime, there is no growth on blood cultures. Receiving gentle IV hydration, monitor volume status. Continue with current medication regimen, encourage adequate oral intake. Oncology is following, we'll wait further recommendations regarding treatment for possible chemotherap y, may need possible MRI of brain to evaluate for metastatic spread. On 4 L nasal cannula, encourage incentive spirometer. Patient's at bedside, plan of care was discussed with her. Continue compression stockings, elevate lower extremities. Activity as tolerated. Prognosis is extremely guarded due to multiple complex medical issues. We will continue to follow, further recommendations pending clinical course DO NOT RESUSCITATE CODE STATUS Objective - Vital Signs Vital signs: Vital Signs Temp 97.8 F 02/26/21 11:49 Pulse 94 02/26/21 11:49 Resp 18 02/26/21 11:49 BP 94/53 02/26/21 11:49 Pulse Ox 91 L 02/26/21 11:49 Intake & Output 02/25/21 02/26/21 02/26/21 18:59 06:59 18:59 Intake Total 600 540 80 Output Total 0706 766 3627 Balance -525 190 -920 Weight 64.2 kg Intake: IV 240 .9 @ 20 240 Intake, IV Titration 200 Amount Cefepime 2 gm In Sodium 200 Chloride 0.9% 100 ml @ 25 mls/hr IVPB Q8HR [facility] Rx# :[id number] Oral 160 540 80 Output: Urine 5133 643 1216 Other: Voiding Method Toilet Toilet Toilet # Voids 1 # Bowel Movements 1 - Labs CBC & Chem 7: 02/26/21 08:41 02/26/21 08:41 Labs: Abnormal Lab Results - Last 24 Hours (Table) 02/25/21 02/26/21 02/26/21 Range/Units 08:52 08:41 08:41 RBC 1.97 L (4.30-5.90) m/uL Hgb 6.5 L* (13.0-17.5) gm/dL Hct 21.1 L (39.0-53.0) % MCV 106.9 H (80.0-100.0) fL MCHC 30.8 L (31.0-37.0) g/dL RDW 23.4 H (11.5-15.5) % Plt Count 74 L (150-450) k/uL Neutrophils # 12.3 H (1.3-7.7) k/uL Lymphocytes # 0.6 L 0.6 L (1.0-4.8) k/uL Macrocytosis Marked A Sodium 134 L (137-145) mmol/L Carbon Dioxide 19 L (22-30) mmol/L BUN 28 H (9-20) mg/dL Creatinine 0.47 L (0.66-1.25) mg/dL Glucose 65 L (74-99) mg/dL Calcium 7.3 L (8.4-10.2) mg/dL Total Bilirubin 5.0 H (0.2-1.3) mg/dL AST 359 H (17-59) U/L ALT 101 H (4-49) U/L Alkaline Phosphatase 353 H (38-126) U/L Total Protein 4.5 L (6.3-8.2) g/dL Albumin 1.4 L (3.5-5.0) g/dL Microbiology - Last 24 Hours (Table) 02/23/21 13:50 Blood Culture - Preliminary Blood No Growth after 48 hours 02/22/21 11:01 Blood Culture - Preliminary Blood No Growth after 72 hours
[2021-02-27] MEDS: SODIUM CHLORIDE 0.9% 1,000 ML IV SCH (02:04)
--- NOTE | 2021-02-27 02:50 | PN ---
PROGRESS NOTE DATE OF SERVICE: 02/26/2021 REASON FOR FOLLOWUP: Leukocytosis and question of infection. INTERVAL HISTORY: Patient is afebrile. The patient is currently breathing comfortably. Still complaining of shortness of breath though. The patient denies any significant cough or sputum production. Nausea, but no vomiting. No abdominal pain. No diarrhea. PHYSICAL EXAMINATION: Blood pressure is 91/57, pulse of 109, temperature 97.9. He is 94% on 4 L nasal cannula. General description is a middle-aged male lying in bed in no distress. Respiratory system: Unlabored breathing, decreased breath sounds in the base. No wheeze. Heart S1, S2. Regular rate and rhythm. Abdomen soft, no tenderness. LABS: Hemoglobin 6.5, white count 8.2, BUN of 28, creatinine 0.47. DIAGNOSTIC IMPRESSION AND PLAN: Patient with leukocytosis which could be related to his underlying metastatic esophageal cancer. Possible component of pneumonia not entirely excluded as he did have mild elevated procalcitonin. The patient's white count responded to cefepime to continue while transitioning to a short course of oral antibiotic on discharge. Continue supportive care. MMODL / IJN: [id number] / FRENCH
[2021-02-27] MEDS: PANTOPRAZOLE 40 MG TABLET PO SCH (06:40)
[2021-02-27 08:56] LABS: Anisocytosis Moderate; Basophils % (A) 0 %; Eosinophils % (A) 0 %; Hypochromasia Marked; Lymphocytes # (A) 0.7 k/uL (1.0-4.8); Lymphocytes % (A) 4 %; MCHC 31.7 g/dL (31.0-37.0); MCV 104.1 fL (80.0-100.0); Macrocytosis Marked; Mean Platelet Volume 10.2; Monocytes # (A) 0.1 k/uL (0-1.0); Monocytes % (A) 1 %; Neutrophils # (A) 14.8 k/uL (1.3-7.7); Neutrophils % (A) 95 %; Poikilocytosis Slight; RBC 2.11 m/uL (4.30-5.90); RDW 23.7 % (11.5-15.5); WBC 15.6 k/uL (3.8-10.6)
[2021-02-27 08:58] LABS: Platelet Count 46 k/uL (150-450)
[2021-02-27 09:22] LABS: AST 355 U/L (17-59); African American GFR (CKD) >90 (>60 ml/min/1.73 sqM); Albumin 1.5 g/dL (3.5-5.0); Alkaline Phosphatase 367 U/L (38-126); Anion Gap 9 mmol/L; Blood Urea Nitrogen 28 mg/dL (9-20); Calcium 7.2 mg/dL (8.4-10.2); Carbon Dioxide 16 mmol/L (22-30); Chloride 108 mmol/L (98-107); Glucose 55 mg/dL (74-99); Non-African American GFR(CKD) >90 (>60 ml/min/1.73 sqM); Potassium 4.3 mmol/L (3.5-5.1); Sodium 133 mmol/L (137-145); Total Bilirubin 5.4 mg/dL (0.2-1.3); Total Protein 4.6 g/dL (6.3-8.2)
[2021-02-27 09:28] LABS: ALT 97 U/L (4-49)
[2021-02-27] MEDS: METOPROLOL TARTRATE 25 MG TAB PO SCH ×2 (09:29→20:56)
[2021-02-27] MEDS: NICOTINE 14MG/24HR PATCH TRANSDERM SCH (09:29)
[2021-02-27] MEDS: ENOXAPARIN 40 MG/0.4 ML SYRINGE SQ SCH (09:29)
[2021-02-27] MEDS: CEFEPIME 2 GM in SODIUM CHLORIDE 0.9% 100 ML IVPB SCH ×3 (09:29→23:30)
[2021-02-27] MEDS ORDERED: FUROSEMIDE 10 MG/ML 4 ML VIAL IV STA (10:58)
--- NOTE | 2021-02-27 11:34 | XR ---
EXAMINATION TYPE: XR chest 1V portable DATE OF EXAM: 02/27/2021 COMPARISON: 02/25/2021 HISTORY: Shortness of breath TECHNIQUE: Single frontal view of the chest is obtained. FINDINGS: Views bilateral infiltrates with micronodular pattern. Mediport catheter seen. Tiny pleura l effusions or thickening. No pneumothorax. Heart size stable. Degenerative change of the spine. Unde rlying COPD noted. IMPRESSION: 1. Diffuse bilateral nodular pattern with interstitial infiltrates and underlying COPD. Differential diagnosis would include numerous pulmonary nodules with superimposed interstitial pneumonitis or lymp hangitic metastases. Correlate clinically.
[2021-02-27 12:10] LABS: INR 1.8 (<1.2); Prothrombin Time 18.2 sec (9.0-12.0)
[2021-02-27 13:39] VITALS: BMI 21.9
[2021-02-27 14:46] LABS: Crenated RBC Present
[2021-02-27 14:47] LABS: RBC Fragments Present
[2021-02-27 14:49] LABS: Hypersegmented Neutrophils Present
--- NOTE | 2021-02-27 15:56 | P.PN ---
Subjective Progress Note Date: 02/27/21 Patient is a pleasant 60-year-old male came in with complaints of confusion although patient appears to have hallucinations at night time and weird dreams as per the patient. Patient is alert oriented 3 when I valid the patient patient although is severely fatigued patient does have history of metastatic esophageal cancer. Patient also bit hyponatremic was on not diuretic therapy at home. Patient is persistently tachycardic. Denied any shortness of breath patient denied any significant pain at this time. Although as per the he was comparing of pain in the leg yesterday. Doppler of lower extremities is negative for DVT. Patient doesn't have any fever does have leukocytosis chest x-ray was read as diffuse hazy reticular pasty Y laterally more confluent in the lung bases but I didn't see any obvious pneumonic infiltrate. Patient denied any UTI symptoms and urinalysis, urine culture blood cultures are being obtained as the infection being considered cause for his delirium although patient is not being started on any antibiotics at this time. Patient is also on temazepam at home. I did obtain ammonia level because of elevated liver enzymes and L elevated INR of 1.3 ammonia level came back within normal limits. 02/23/2021 Patient is seen in follow up this morning and extremely cachectic and lethargic although arousable. Patient being followed by ID and oncology and maintained on IV antibiotics in the form of Maxipime. Patient lactic acid continues to be elevated and maintained on gentle IV fluids. Monitor closely for volume overload. Patient intake is poor and at the bedside. 02/24/2021 Patient is seen and evaluated and follow-up continues to be extremely lethargic and maintained on IV antibiotics prophylactically in the form of cefepime while awaiting for cultures are finalized. Infectious disease following closely along with oncology and recently had chemo infusion pump removed yesterday. Patient continues on IV normal saline at 100 mL per hour. Patient is tachycardic and maintained on metoprolol 12.5 twice daily and will increase the dose and monitor closely. Patient's intake continues to be poor and encouraged oral intake. Patient is afebrile. Patient having worsening shortness of breath currently maintained on 4 L via nasal cannula. 02/25/2021 Patient seen on follow-up he is resting in bed, appears quite frail and fatigued. 5 L nasal cannula, saturating above 90%, blood pressures are marginal 96 with/54, respirations unlabored. Family at bedside, asking questions regarding the plan of care. 02/26/2021 Hemoglobin low at 6.5 today, he is being transfused 1 unit of PRBC. He remains on 5 L nasal cannula saturating above 90%, blood pressure is marginal 94/53, he is afebrile. His appearance is very thin, he is cachectic and appears malnourished and weak. Continues antimicrobial therapy of cefepime he is afebrile, no growth on blood cultures. 02/27/2021 Patient is seen and evaluated and follow-up continues to be extremely fatigued and appears slightly anxious and restless requiring more oxygen. Patient is currently on high flow via nasal cannula at 10 L with oxygen saturation of 92% and states he continues to be dyspneic with minimal exertion. D-dimer was drawn and is 18.32 and will discuss possible CTA. Patient continues to have a cough with minimal phlegm production although unable to expectorate. Oral intake continues to be poor. Chest x-ray today shows diffuse bilateral nodular pattern with interstitial infiltrates and underlying COPD, differential diagnosis would include numerous pulmonary nodules with superimposed interstitial pneumonitis or lymphangitis metastasis. Will give a dose of IV Lasix. Labs: White blood count trending up at 15.6, hemoglobin is 7.0, platelets are 46, INR is 1.8, sodium is 133 and a potassium 4.3, BUN is 28, creatinine 0.36, magnesium is 2.0, LFTs remain elevated Review of systems: Constitutional: reports of fatigue, no reports of fever, or chills Cardiovascular: No reports of chest pain or palpitations Respiratory: reports shortness of breath and dyspneic with minimal exertion GI: No reports of nausea, vomiting, or diarrhea, reports loose stool, and poor appetite : No reports of dysuria or retention Neurovascular: Reports generalized weakness Active Medications Docusate Sodium (Docusate 100 Mg Cap) 100 mg PO BID PRN PRN Reason: Constipation Enoxaparin Sodium (Enoxaparin 40 Mg/0.4 Ml Syringe) 40 mg SQ DAILY [facility] Last Admin: 02/27/21 09:29 Dose: 40 mg Documented by: Sodium Chloride (Saline 0.9%) 1,000 mls @ 20 mls/hr IV .Q24H [facility] Last Admin: 02/27/21 02:04 Dose: 20 mls/hr Documented by: Cefepime HCl 2 gm/ Sodium (Chloride) 100 mls @ 25 mls/hr IVPB Q8HR [facility] Last Admin: 02/27/21 09:29 Dose: 25 mls/hr Documented by: Metoprolol Tartrate (Metoprolol Tartrate 25 Mg Tab) 25 mg PO BID [facility] Last Admin: 02/27/21 09:29 Dose: 25 mg Documented by: Naloxone HCl (Naloxone 0.4 Mg/Ml 1 Ml Vial) 0.2 mg IV Q2M PRN PRN Reason: Opioid Reversal Nicotine (Nicotine 14mg/24hr Patch) 1 patch TRANSDERM DAILY [facility] Last Admin: 02/27/21 09:29 Dose: 1 patch Documented by: Pantoprazole Sodium (Pantoprazole 40 Mg Tablet) 40 mg PO [id number] [facility] Last Admin: 02/27/21 06:40 Dose: 40 mg Documented by: PHYSICAL EXAMINATION: GENERAL: The patient is alert and oriented x3. extremely cachectic and fatigues easily although arousable and somewhat more alert and awake today, ill- appearing, thin built temp is 97.5 F, pulse is 105, respirations are 19, blood pressure is 82/54, oxygen saturation is 92 percent on 10 L via nasal cannula. HEENT: Pupils are round and equally reacting to light. EOMI. No scleral icterus. No conjunctival pallor. Normocephalic, atraumatic. No pharyngeal erythema. No thyromegaly. Oral mucosa is dry CARDIOVASCULAR: S1 and S2 muffled, tachycardic PULMONARY: diminished breath sounds laterally with some scattered crackles noted at the bases, dyspneic, tachypneic on exam ABDOMEN: Firm, nontender, distended, normoactive bowel sounds. No palpable organomegaly. MUSCULOSKELETAL: No joint swelling or deformity. EXTREMITIES: No cyanosis, clubbing, or pedal edema. B/l lower extremities with generalized edema noted. NEUROLOGICAL: Gross neurological examination did not reveal any focal deficits. diffusely weak SKIN: No rashes. Assessment: -Altered mental status possible metabolic encephalopathy secondary to cancer metastasis and also a component of toxic encephalopathy related to temazepam -Acute hypoxic respiratory failure currently on 10 L high flow possibly secondary to COPD acute exacerbation -leukocytosis with no clear source of infection home possibly reactive secondary to metastatic esophageal cancer -Elevated d-dimer of 18.32 -Thrombocytopenia -Possible sepsis, present on admission -Symptomatic anemia, status post 1 unit of PRBC -Severe protein calorie nutrition secondary to esophageal cancer and poor oral intake with a BMI of 22 -Hyperemic hyponatremia secondary to diuretics -Lactic acidosis: Secondary to liver dysfunction and dehydration -Metastatic disease to liver and a possible chronic liver dysfunction with elevated liver enzymes -Metastatic esophageal cancer: Management as per oncology -DVT prophylaxis: Lovenox -GI prophylaxis: Protonix -Continued ongoing nicotine dependence -no code Plan: Recommend to continue with current medications management and symptomatic treatment. Oncology and infectious disease following closely. Patient recently had chemo infusion pump removed as he is an extensive history of esophageal cancer with metastasis to the liver. Patient is maintained on empiric antibiotics in the form of cefepime and cultures remain negative. Infectious disease is following. Patient continues to have shortness of breath which ap pears to be worsening and currently maintained on 10 L high flow and a d-dimer was drawn which is elevated at 18.32 and will consult pulmonary. Will order CTA with possible abdomen CT as well after discussing with oncology and await and appreciate pulmonary input. Will repeat a.m. labs and continue to monitor closely. Patient is status post 1 unit of PRBC and hemoglobin is 7.0 today, white blood count elevated at 15.6, platelets are 46. Due to multiple complex medical issues, prognosis is extremely guarded. Objective - Vital Signs Vital signs: Vital Signs Temp 97.8 F 02/27/21 11:22 Pulse 93 02/27/21 13:52 Resp 20 02/27/21 13:52 BP 94/61 02/27/21 11:22 Pulse Ox 94 L 02/27/21 11:22 Intake & Output 02/26/21 02/27/21 02/27/21 18:59 06:59 18:59 Intake Total 970 260 Output Total 1700 1125 400 Balance -749 -413 -400 Weight 65.5 kg 65.5 kg Intake: IV 240 160 .9 @ 20 240 160 Intake, IV Titration 200 100 Amount Cefepime 2 gm In Sodium 200 100 Chloride 0.9% 100 ml @ 25 mls/hr IVPB Q8HR [facility] Rx# :[id number] Oral 220 Blood Product 310 Rc As-1 Unit 310 [id number] Output: Urine 1700 1125 400 Other: Voiding Method Toilet Toilet Toilet # Voids 2 1 1 - Labs CBC & Chem 7: 02/27/21 08:18 02/27/21 08:18 Labs: Abnormal Lab Results - Last 24 Hours (Table) 02/26/21 02/27/21 02/27/21 Range/Units 11:03 08:18 08:18 WBC 15.6 H (3.8-10.6) k/uL RBC 2.11 L (4.30-5.90) m/uL Hgb 7.0 L (13.0-17.5) gm/dL Hct 22.0 L (39.0-53.0) % MCV 104.1 H (80.0-100.0) fL RDW 23.7 H (11.5-15.5) % Plt Count 46 L (150-450) k/uL Macrocytosis Marked A PT (9.0-12.0) sec INR (<1.2) D-Dimer (<0.60) mg/L FEU Sodium 133 L (137-145) mmol/L Chloride 108 H (98-107) mmol/L Carbon Dioxide 16 L (22-30) mmol/L BUN 28 H (9-20) mg/dL Creatinine 0.36 L (0.66-1.25) mg/dL Glucose 55 L (74-99) mg/dL Calcium 7.2 L (8.4-10.2) mg/dL Total Bilirubin 5.4 H (0.2-1.3) mg/dL AST 355 H (17-59) U/L ALT 97 H (4-49) U/L Alkaline Phosphatase 367 H (38-126) U/L Total Protein 4.6 L (6.3-8.2) g/dL Albumin 1.5 L (3.5-5.0) g/dL Crossmatch See Detail 02/27/21 Range/Units 11:14 WBC (3.8-10.6) k/uL RBC (4.30-5.90) m/uL Hgb (13.0-17.5) gm/dL Hct (39.0-53.0) % MCV (80.0-100.0) fL RDW (11.5-15.5) % Plt Count (150-450) k/uL Macrocytosis PT 18.2 H (9.0-12.0) sec INR 1.8 H (<1.2) D-Dimer 18.32 H (<0.60) mg/L FEU Sodium (137-145) mmol/L Chloride (98-107) mmol/L Carbon Dioxide (22-30) mmol/L BUN (9-20) mg/dL Creatinine (0.66-1.25) mg/dL Glucose (74-99) mg/dL Calcium (8.4-10.2) mg/dL Total Bilirubin (0.2-1.3) mg/dL AST (17-59) U/L ALT (4-49) U/L Alkaline Phosphatase (38-126) U/L Total Protein (6.3-8.2) g/dL Albumin (3.5-5.0) g/dL Crossmatch Microbiology - Last 24 Hours (Table) 02/22/21 11:01 Blood Culture - Preliminary Blood No Growth after 120 hours 02/23/21 13:50 Blood Culture - Preliminary Blood No Growth after 72 hours
--- NOTE | 2021-02-27 16:37 | P.CNPUL ---
History of Present Illness Consult date: 02/27/21 Requesting physician: Clark Abreu Reason for consult: dyspnea, hypoxemia, abnormal CXR/CT Chief complaint: Metastatic esophageal cancer, profound hypoxemia. History of present illness: Pulmonary consultation dated 02/27/2021. 60-year-old male with a history of recently diagnosed esophageal cancer, with liver and lung metastasis, who presents to the emergency room with weakness, shortness of breath, and confusion. He apparently was diagnosed with cancer at the end of December. He apparently was started on chemotherapy in mid January. He apparently has had 2 treatments. His second infusion was canceled due to neutropenia. He was to see his oncologist in the office, on the day of adm ission, but because of fatigue, shortness of breath, poor oral intake and poor appetite, he was evaluated in the emergency department and admitted to the hospital. I was asked to see the patient today, because of profound hypoxemia, currently on 10 L high flow O2, and quite tachypneic and dyspneic. The patient's chest x-ray shows diffuse interstitial changes, and my opinion, most consistent with diffuse lymphangitic carcinomatosis. Laboratory data today includes a white count of 15.6, hemoglobin 7, hematocrit 22, and platelet count of 46,000. PT was 18.2, INR 1.8, and d-dimer 18.32. Sodium was 133, potassium 4.3, chlorides 108, CO2 16, anion gap 9, BUN and creatinine were 28 and 0.36. AST 355, bilirubin 5.4, ALT was 97, and albumin was only 1.5. Saturations are in the low 90s, and blood pressure is only about 80 systolic. Review of Systems REVIEW OF SYSTEMS: CONSTITUTIONAL: Weakness, fatigue, poor oral intake, poor appetite. NEUROLOGIC: [ Negative.] HEENT: [ Negative.] CARDIAC: [Negative.] PULMONARY: Severe shortness of breath. GI: [Negative.] : [Negative.] RHEUMATOLOGIC: [ Negative.] IMMUNOLOGIC: [ Negative.] ENDOCRINE: [Negative. ] DERMATOLOGIC: [Negative.] Past Medical History Past Medical History: No Reported History Additional Past Medical History / Comment(s): esophogeal tumor, liver cancer, possible lung ca History of Any Multi-Drug Resistant Organisms: None Reported Past Surgical History: No Surgical Hx Reported Additional Past Surgical History / Comment(s): EGD with biopsy Past Anesthesia/Blood Transfusion Reactions: No Reported Reaction Past Psychological History: No Psychological Hx Reported Smoking Status: Former smoker - Past Family History Father Family Medical History: Cancer Medications and Allergies Home Medications Medication Instructions Recorded Confirmed Type Acetaminophen Tab [Tylenol] 650 mg PO Q6HR PRN tab 01/21/21 02/21/21 Rx Docusate [Colace] 100 mg PO BID PRN #30 cap 01/21/21 02/21/21 Rx Nicotine 14Mg/24Hr Patch [Habitrol] 1 patch TRANSDERM DAILY #30 patch 01/21/21 02/21/21 Rx Pantoprazole Sodium [Protonix] 40 mg PO DAILY #20 tab 01/21/21 02/21/21 Rx Metoprolol Tartrate 12.5 mg PO BID 02/21/21 02/21/21 History Petrolatum, White [Aquaphor] 1 applic TOPICAL QID 02/21/21 02/21/21 History Saline Mouthwash 1 dose PO 5XD 02/21/21 02/21/21 History Temazepam [Restoril] 15 - 30 mg PO HS 02/22/21 02/22/21 History Allergies Allergy/AdvReac Type Severity Reaction Status Date / Time Penicillins Allergy Rash/Hives Verified 02/21/21 20:06 Physical Exam Osteopathic Statement: *. No significant issues noted on an osteopathic structural exam other than those noted in the History and Physical/Consult. Vitals: Vital Signs Temp Pulse Pulse Resp BP BP Pulse Ox 02/27/21 16:00 97.9 F 103 H 22 83/58 91 L 02/27/21 13:52 93 20 02/27/21 11:22 97.8 F 93 20 94/61 94 L 02/27/21 08:00 97.5 F L 105 H 19 82/54 92 L 02/27/21 04:00 97.8 F 101 H 20 98/63 93 L 02/27/21 02:00 97 20 02/27/21 00:06 92 L 02/26/21 23:46 20 92 L 02/26/21 23:45 98.0 F 97 20 88/52 85 L 02/26/21 20:00 97.9 F 109 H 18 91/57 94 L 02/26/21 17:37 95 02/26/21 17:30 98.1 F 94 20 94/56 91 L Intake and Output 02/27/21 02/27/21 02/27/21 06:59 14:59 22:59 Intake Total 260 Output Total 625 400 Balance -365 -400 Intake: IV 160 .9 @ 20 160 Intake, IV Titration 100 Amount Cefepime 2 gm In Sodium 100 Chloride 0.9% 100 ml @ 25 mls/hr IVPB Q8HR [facility] Rx# :[id number] Output: Urine 625 400 Other: Voiding Method Toilet Toilet # Voids 1 Weight 65.5 kg 65.5 kg Oriented, with significant conversational dyspnea, and use of accessory muscles. HEENT examination is grossly unremarkable. Sclera icterus is noted. Neck supple. Full range of motion. No adenopathy thyromegaly or neck vein distention. Cardiovascular examination reveals regular rhythm rate. S1-S2 normal. No S3 or S4. No discernible murmur noted. Heart sounds are distant. Heart rate 10 3 bpm. Lungs reveal a few some bilateral rhonchi and crackles. Breath sounds equal bilaterally. He does not take deep breaths. Abdomen soft without bowel sounds, masses, or tenderness. Extremities are intact. No cyanosis or clubbing. There is 2+ pitting edema noted in the extremities. Skin is jaundiced. Neurologic examination is brief but nonfocal. Results - Laboratory Findings CBC and BMP: 02/27/21 08:18 02/27/21 08:18 PT/INR, D-dimer PT 18.2 sec (9.0-12.0) H 02/27/21 11:14 INR 1.8 (<1.2) H 02/27/21 11:14 D-Dimer 18.32 mg/L FEU (<0.60) H 02/27/21 11:14 Abnormal lab findings: Abnormal Labs 02/21/21 02/21/21 02/21/21 18:01 18:01 18:01 WBC 10.8 H RBC 3.04 L Hgb 9.6 L Hct 31.9 L MCV 104.9 H MCHC 30.0 L RDW 23.9 H Plt Count Neutrophils # 9.7 H Neutrophils # (Manual) Lymphocytes # 0.6 L Lymphocytes # (Manual) Macrocytosis Marked A PT 12.9 H INR 1.3 H D-Dimer Sodium 130 L Chloride Carbon Dioxide 17 L BUN Creatinine 0.46 L Glucose 123 H Plasma Lactic Acid Curtis Calcium 7.7 L Total Bilirubin 4.2 H Conjugated Bilirubin 0.7 H Delta Bilirubin 2.6 H AST 352 H ALT 114 H Alkaline Phosphatase 541 H Lactate Dehydrogenase 4266 H C-Reactive Protein Total Protein 6.2 L Albumin 2.2 L Procalcitonin Urine Protein Urine Ketones Urine Bilirubin Crossmatch 02/21/21 02/21/21 02/22/21 18:01 21:35 00:37 WBC RBC Hgb Hct MCV MCHC RDW Plt Count Neutrophils # Neutrophils # (Manual) Lymphocytes # Lymphocytes # (Manual) Macrocytosis PT INR D-Dimer Sodium Chloride Carbon Dioxide BUN Creatinine Glucose Plasma Lactic Acid Curtis 8.4 H* 7.9 H* 9.0 H* Calcium Total Bilirubin Conjugated Bilirubin Delta Bilirubin AST ALT Alkaline Phosphatase Lactate Dehydrogenase C-Reactive Protein Total Protein Albumin Procalcitonin Urine Protein Urine Ketones Urine Bilirubin Crossmatch 02/22/21 02/22/21 02/22/21 04:35 04:35 04:35 WBC 16.3 H RBC 2.87 L Hgb 9.1 L Hct 31.4 L MCV 109.1 H MCHC 29.1 L RDW 24.4 H Plt Count Neutrophils # 15.0 H Neutrophils # (Manual) Lymphocytes # 0.7 L Lymphocytes # (Manual) Macrocytosis Marked A PT INR D-Dimer Sodium 133 L Chloride Carbon Dioxide 15 L BUN Creatinine 0.43 L Glucose Plasma Lactic Acid Curtis 10.3 H* Calcium 7.7 L Total Bilirubin 4.3 H Conjugated Bilirubin Delta Bilirubin AST 313 H ALT 96 H Alkaline Phosphatase 479 H Lactate Dehydrogenase C-Reactive Protein Total Protein 5.6 L Albumin 1.9 L Procalcitonin Urine Protein Urine Ketones Urine Bilirubin Crossmatch 02/22/21 02/22/21 02/22/21 08:20 11:12 14:40 WBC RBC Hgb Hct MCV MCHC RDW Plt Count Neutrophils # Neutrophils # (Manual) Lymphocytes # Lymphocytes # (Manual) Macrocytosis PT INR D-Dimer Sodium Chloride Carbon Dioxide BUN Creatinine Glucose Plasma Lactic Acid Curtis 10.8 H* 9.9 H* 8.9 H* Calcium Total Bilirubin Conjugated Bilirubin Delta Bilirubin AST ALT Alkaline Phosphatase Lactate Dehydrogenase C-Reactive Protein Total Protein Albumin Procalcitonin Urine Protein Urine Ketones Urine Bilirubin Crossmatch 02/22/21 02/22/21 02/23/21 17:33 18:28 02:32 WBC RBC Hgb Hct MCV MCHC RDW Plt Count Neutrophils # Neutrophils # (Manual) Lymphocytes # Lymphocytes # (Manual) Macrocytosis PT INR D-Dimer Sodium Chloride Carbon Dioxide BUN Creatinine Glucose Plasma Lactic Acid Curtis 9.5 H* 8.8 H* Calcium Total Bilirubin Conjugated Bilirubin Delta Bilirubin AST ALT Alkaline Phosphatase Lactate Dehydrogenase C-Reactive Protein Total Protein Albumin Procalcitonin Urine Protein Trace H Urine Ketones Trace H Urine Bilirubin 1+ H Crossmatch 02/23/21 02/23/21 02/23/21 02:32 02:32 02:32 WBC 14.2 H RBC 2.60 L Hgb 8.2 L Hct 27.3 L MCV 104.7 H MCHC 30.1 L RDW 24.9 H Plt Count Neutrophils # Neutrophils # (Manual) Lymphocytes # Lymphocytes # (Manual) Macrocytosis Marked A PT INR D-Dimer Sodium 133 L Chloride Carbon Dioxide 17 L BUN 21 H Creatinine 0.45 L Glucose Plasma Lactic Acid Curtis Calcium 7.5 L Total Bilirubin 4.2 H Conjugated Bilirubin Delta Bilirubin AST 364 H ALT 109 H Alkaline Phosphatase 553 H Lactate Dehydrogenase C-Reactive Protein 8.6 H Total Protein 5.1 L Albumin 1.7 L Procalcitonin 1.46 H Urine Protein Urine Ketones Urine Bilirubin Crossmatch 02/23/21 02/24/21 02/24/21 07:56 06:32 06:32 WBC 13.7 H RBC 2.23 L Hgb 7.1 L Hct 23.4 L MCV 104.8 H MCHC 30.2 L RDW 23.7 H Plt Count 125 L Neutrophils # Neutrophils # (Manual) 13.43 H Lymphocytes # Lymphocytes # (Manual) 0.27 L Macrocytosis Marked A PT 15.2 H INR 1.5 H D-Dimer Sodium Chloride Carbon Dioxide BUN Creatinine Glucose Plasma Lactic Acid Curtis 8.3 H* Calcium Total Bilirubin Conjugated Bilirubin Delta Bilirubin AST ALT Alkaline Phosphatase Lactate Dehydrogenase C-Reactive Protein Total Protein Albumin Procalcitonin Urine Protein Urine Ketones Urine Bilirubin Crossmatch 02/24/21 02/25/21 02/25/21 06:32 08:52 08:52 WBC 13.1 H RBC 2.21 L Hgb 7.1 L Hct 23.2 L MCV 105.1 H MCHC 30.7 L RDW 23.5 H Plt Count 103 L Neutrophils # 12.3 H Neutrophils # (Manual) Lymphocytes # 0.6 L Lymphocytes # (Manual) Macrocytosis Marked A PT INR D-Dimer Sodium 134 L 134 L Chloride 108 H 108 H Carbon Dioxide 19 L 18 L BUN 22 H 27 H Creatinine 0.39 L 0.42 L Glucose 60 L 63 L Plasma Lactic Acid Curtis Calcium 7.1 L 7.3 L Total Bilirubin 4.0 H 4.8 H Conjugated Bilirubin Delta Bilirubin AST 435 H 418 H ALT 116 H 107 H Alkaline Phosphatase 434 H 371 H Lactate Dehydrogenase C-Reactive Protein Total Protein 4.7 L 4.8 L Albumin 1.5 L 1.6 L Procalcitonin Urine Protein Urine Ketones Urine Bilirubin Crossmatch 02/25/21 02/26/21 02/26/21 08:52 08:41 08:41 WBC RBC 1.97 L Hgb 6.5 L* Hct 21.1 L MCV 106.9 H MCHC 30.8 L RDW 23.4 H Plt Count 74 L Neutrophils # Neutrophils # (Manual) Lymphocytes # 0.6 L Lymphocytes # (Manual) Macrocytosis Marked A PT INR D-Dimer Sodium 134 L Chloride Carbon Dioxide 19 L BUN 28 H Creatinine 0.47 L Glucose 65 L Plasma Lactic Acid Curtis 7.0 H* Calcium 7.3 L Total Bilirubin 5.0 H Conjugated Bilirubin Delta Bilirubin AST 359 H ALT 101 H Alkaline Phosphatase 353 H Lactate Dehydrogenase C-Reactive Protein Total Protein 4.5 L Albumin 1.4 L Procalcitonin Urine Protein Urine Ketones Urine Bilirubin Crossmatch 02/26/21 02/27/21 02/27/21 11:03 08:18 08:18 WBC 15.6 H RBC 2.11 L Hgb 7.0 L Hct 22.0 L MCV 104.1 H MCHC RDW 23.7 H Plt Count 46 L Neutrophils # 14.8 H Neutrophils # (Manual) Lymphocytes # 0.7 L Lymphocytes # (Manual) Macrocytosis Marked A PT INR D-Dimer Sodium 133 L Chloride 108 H Carbon Dioxide 16 L BUN 28 H Creatinine 0.36 L Glucose 55 L Plasma Lactic Acid Curtis Calcium 7.2 L Total Bilirubin 5.4 H Conjugated Bilirubin Delta Bilirubin AST 355 H ALT 97 H Alkaline Phosphatase 367 H Lactate Dehydrogenase C-Reactive Protein Total Protein 4.6 L Albumin 1.5 L Procalcitonin Urine Protein Urine Ketones Urine Bilirubin Crossmatch See Detail 02/27/21 11:14 WBC RBC Hgb Hct MCV MCHC RDW Plt Count Neutrophils # Neutrophils # (Manual) Lymphocytes # Lymphocytes # (Manual) Macrocytosis PT 18.2 H INR 1.8 H D-Dimer 18.32 H Sodium Chloride Carbon Dioxide BUN Creatinine Glucose Plasma Lactic Acid Curtis Calcium Total Bilirubin Conjugated Bilirubin Delta Bilirubin AST ALT Alkaline Phosphatase Lactate Dehydrogenase C-Reactive Protein Total Protein Albumin Procalcitonin Urine Protein Urine Ketones Urine Bilirubin Crossmatch - Diagnostic Findings Chest x-ray: image reviewed U/S of Legs: image reviewed Assessment and Plan Assessment: Metastatic esophageal cancer, with metastasis to the liver and lung. 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 Acute liver failure with hyperbilirubinemia and profound hypoalbuminemia. Anemia/thrombocytopenia. Non-anion gap metabolic acidosis. Lactic acidemia. Plan: Plan dated 02/27/2021. I did have a chance to speak to his , Christine, for some time on the phone. I called her and her phone number which was [phone]. I told her that from the lung standpoint, there is nothing more to do. 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 I told her that we should focus on comfort. She agreed to have a hospice consultation. Unnecessary medication should be discontinued. The patient should get primarily oxygen therapy, and narcotics. The narcotics especially, will help relieve some of the sensation of dyspnea that he's having. Additional recommendations and suggestions are forthcoming. Prognosis, is obviously very poor. Time with Patient: Greater than 30
--- NOTE | 2021-02-27 16:45 | P.PN ---
Subjective Progress Note Date: 02/27/21 Principal diagnosis: increased LACTIC Metastatic Cancer Patient has worsened over weekend, now on Hi flow requiring 10 liters of oxygen. His CBC trending down, platelets are 48K today and steadily decreasing (infection, liver failure, chemo effect), asked nursing to hold lovenox with less than 50K. Liver Function also worsening. Long >40 minute answering wifes questions today. Re-addressing expectations, goals and current status. Unsure of realism Objective - Vital Signs Vital signs: Vital Signs Temp 97.5 F L 02/27/21 08:00 Pulse 105 H 02/27/21 08:00 Resp 19 02/27/21 08:00 BP 82/54 02/27/21 08:00 Pulse Ox 92 L 02/27/21 08:00 Intake & Output 02/26/21 02/27/21 02/27/21 18:59 06:59 18:59 Intake Total 970 260 Output Total 1700 1125 Balance -730 -865 Weight 65.5 kg Intake: IV 240 160 .9 @ 20 240 160 Intake, IV Titration 200 100 Amount Cefepime 2 gm In Sodium 200 100 Chloride 0.9% 100 ml @ 25 mls/hr IVPB Q8HR [facility] Rx# :[id number] Oral 220 Blood Product 310 Rc As-1 Unit 310 [id number] Output: Urine 1700 1125 Other: Voiding Method Toilet Toilet Toilet # Voids 2 1 1 - Exam Chronically ill appearing 10Liters high flow oxygen Jaundice Mild distress Awakens to stimuli O/P Dry Lungs: Diminshed Abdomen: Firm and distended Ex: Edema - Labs CBC & Chem 7: 02/27/21 08:18 02/27/21 08:18 Labs: Abnormal Lab Results - Last 24 Hours (Table) 02/26/21 02/26/21 02/27/21 Range/Units 08:41 11:03 08:18 WBC 15.6 H (3.8-10.6) k/uL RBC 2.11 L (4.30-5.90) m/uL Hgb 7.0 L (13.0-17.5) gm/dL Hct 22.0 L (39.0-53.0) % MCV 104.1 H (80.0-100.0) fL RDW 23.7 H (11.5-15.5) % Plt Count 74 L 46 L (150-450) k/uL Lymphocytes # 0.6 L (1.0-4.8) k/uL Macrocytosis Marked A Sodium (137-145) mmol/L Chloride (98-107) mmol/L Carbon Dioxide (22-30) mmol/L BUN (9-20) mg/dL Creatinine (0.66-1.25) mg/dL Glucose (74-99) mg/dL Calcium (8.4-10.2) mg/dL Total Bilirubin (0.2-1.3) mg/dL AST (17-59) U/L ALT (4-49) U/L Alkaline Phosphatase (38-126) U/L Total Protein (6.3-8.2) g/dL Albumin (3.5-5.0) g/dL Crossmatch See Detail 02/27/21 Range/Units 08:18 WBC (3.8-10.6) k/uL RBC (4.30-5.90) m/uL Hgb (13.0-17.5) gm/dL Hct (39.0-53.0) % MCV (80.0-100.0) fL RDW (11.5-15.5) % Plt Count (150-450) k/uL Lymphocytes # (1.0-4.8) k/uL Macrocytosis Sodium 133 L (137-145) mmol/L Chloride 108 H (98-107) mmol/L Carbon Dioxide 16 L (22-30) mmol/L BUN 28 H (9-20) mg/dL Creatinine 0.36 L (0.66-1.25) mg/dL Glucose 55 L (74-99) mg/dL Calcium 7.2 L (8.4-10.2) mg/dL Total Bilirubin 5.4 H (0.2-1.3) mg/dL AST 355 H (17-59) U/L ALT 97 H (4-49) U/L Alkaline Phosphatase 367 H (38-126) U/L Total Protein 4.6 L (6.3-8.2) g/dL Albumin 1.5 L (3.5-5.0) g/dL Crossmatch Microbiology - Last 24 Hours (Table) 02/23/21 13:50 Blood Culture - Preliminary Blood No Growth after 72 hours 02/22/21 11:01 Blood Culture - Preliminary Blood No Growth after 96 hours Assessment and Plan (1) Acute encephalopathy Current Visit: Yes Status: Acute Code(s): G93.40 - ENCEPHALOPATHY, UNSPECIFIED SNOMED Code(s): 52630012 (2) Lactic acidosis Current Visit: Yes Status: Acute Code(s): E87.2 - ACIDOSIS SNOMED Code(s): 48469163 (3) Tachycardia Current Visit: Yes Status: Acute Code(s): R00.0 - TACHYCARDIA, UNSPECIFIED SNOMED Code(s): 6578075 (4) Anemia Current Visit: No Status: Acute Priority: High Code(s): D64.9 - ANEMIA, UNSPECIFIED SNOMED Code(s): 021969658 (5) Esophageal carcinoma Current Visit: No Status: Acute Priority: High Code(s): C15.9 - MALIGNANT NEOPLASM OF ESOPHAGUS, UNSPECIFIED SNOMED Code(s): 072299001 (6) Hepatomegaly Current Visit: No Status: Acute Priority: High Code(s): R16.0 - HEPATOMEGALY, NOT ELSEWHERE CLASSIFIED SNOMED Code(s): 40778064 (7) Hyperbilirubinemia Current Visit: No Status: Acute Code(s): E80.6 - OTHER DISORDERS OF BILIRUBIN METABOLISM SNOMED Code(s): 22028817 Plan: Overall prognosis is poor, patient is in respiratory failure Dr. Mckee ID is following Long discussion on the severity of patients status - DNR Blood cultures (port and periph) peripheral neg to date, re-order to draw another from port Monitor CBC, CMP Monitor Coags with decreased PO intake and liver insufficiency We have asked pulm to further evaluate as stated she wants aggressive care just no venitilator or CPR He is unable to adequately eat and liver and lungs appear worsening. Options of hospice care discussed as reasonable. They would like lung doctors to see him, therefore pulmonology has been asked to evaluate.
[2021-02-28] MEDS: PANTOPRAZOLE 40 MG TABLET PO SCH (06:44)
[2021-02-28] MEDS: SODIUM CHLORIDE 0.9% 1,000 ML IV SCH (06:46)
[2021-02-28 08:25] VITALS: BP 105/72; PULSE 107; RESP 38; TEMP 96.7
[2021-02-28] MEDS ORDERED: LORazepam 2 MG/ML INJ IV PRN (08:25)
[2021-02-28 08:40] LABS: African American GFR (CKD) >90 (>60 ml/min/1.73 sqM); Anion Gap 14 mmol/L; Blood Urea Nitrogen 29 mg/dL (9-20); Calcium 7.4 mg/dL (8.4-10.2); Carbon Dioxide 12 mmol/L (22-30); Chloride 108 mmol/L (98-107); Non-African American GFR(CKD) >90 (>60 ml/min/1.73 sqM); Sodium 134 mmol/L (137-145)
[2021-02-28 08:46] LABS: Glucose 23 mg/dL (74-99); Potassium 4.5 mmol/L (3.5-5.1)
[2021-02-28 08:50] LABS: Glucose,Whole Blood 23 mg/dL (75-99)
[2021-02-28] MEDS ORDERED: DEXTROSE 50% SYRINGE 50 ML IVP ONE (08:50)
[2021-02-28 09:08] LABS: Glucose,Whole Blood 124 mg/dL (75-99)
[2021-02-28 09:49] LABS: Anisocytosis Moderate; HCT 21.8 % (39.0-53.0); Hypochromasia Marked; MCH 33.3 pg (25.0-35.0); MCHC 31.8 g/dL (31.0-37.0); MCV 104.8 fL (80.0-100.0); Macrocytosis Marked; Mean Platelet Volume 13.8; Platelet Count 39 k/uL (150-450); Poikilocytosis Slight; RBC 2.08 m/uL (4.30-5.90); RDW 23.9 % (11.5-15.5)
[2021-02-28 10:00] LABS: HGB 6.9 gm/dL (13.0-17.5)
[2021-02-28] MEDS: CEFEPIME 2 GM in SODIUM CHLORIDE 0.9% 100 ML IVPB SCH (10:03)
[2021-02-28] MEDS: NICOTINE 14MG/24HR PATCH TRANSDERM SCH (10:03)
[2021-02-28] MEDS: ENOXAPARIN 40 MG/0.4 ML SYRINGE SQ SCH (10:03)
[2021-02-28] MEDS: METOPROLOL TARTRATE 25 MG TAB PO SCH (10:03)
[2021-02-28] MEDS ORDERED: MORPHINE SULFATE 4 MG/ML SYRINGE IVP STA (10:35)
[2021-02-28 11:36] LABS: Eosinophils # (M) 0.18 k/uL (0-0.7); Lymphocytes # (M) 0.55 k/uL (1.0-4.8); Monocytes # (M) 0.37 k/uL (0-1.0); Neutrophils # (M) 17.39 k/uL (1.3-7.7); Neutrophils % (M) 95 %; Nucleated Red Blood Cells 2 /100 WBC (0-0); Polychromasia Present; Total Cells Counted 200; WBC 18.3 k/uL (3.8-10.6)
[2021-02-28 11:38] LABS: Toxic Vacuolation Present
--- NOTE | 2021-02-28 15:56 | P.PN ---
Subjective Progress Note Date: 02/28/21 Patient is a pleasant 60-year-old male came in with complaints of confusion although patient appears to have hallucinations at night time and weird dreams as per the patient. Patient is alert oriented 3 when I valid the patient patient although is severely fatigued patient does have history of metastatic esophageal cancer. Patient also bit hyponatremic was on not diuretic therapy at home. Patient is persistently tachycardic. Denied any shortness of breath patient denied any significant pain at this time. Although as per the he was comparing of pain in the leg yesterday. Doppler of lower extremities is negative for DVT. Patient doesn't have any fever does have leukocytosis chest x-ray was read as diffuse hazy reticular pasty Y laterally more confluent in the lung bases but I didn't see any obvious pneumonic infiltrate. Patient denied any UTI symptoms and urinalysis, urine culture blood cultures are being obtained as the infection being considered cause for his delirium although patient is not being started on any antibiotics at this time. Patient is also on temazepam at home. I did obtain ammonia level because of elevated liver enzymes and L elevated INR of 1.3 ammonia level came back within normal limits. 02/23/2021 Patient is seen in follow up this morning and extremely cachectic and lethargic although arousable. Patient being followed by ID and oncology and maintained on IV antibiotics in the form of Maxipime. Patient lactic acid continues to be elevated and maintained on gentle IV fluids. Monitor closely for volume overload. Patient intake is poor and at the bedside. 02/24/2021 Patient is seen and evaluated and follow-up continues to be extremely lethargic and maintained on IV antibiotics prophylactically in the form of cefepime while awaiting for cultures are finalized. Infectious disease following closely along with oncology and recently had chemo infusion pump removed yesterday. Patient continues on IV normal saline at 100 mL per hour. Patient is tachycardic and maintained on metoprolol 12.5 twice daily and will increase the dose and monitor closely. Patient's intake continues to be poor and encouraged oral intake. Patient is afebrile. Patient having worsening shortness of breath currently maintained on 4 L via nasal cannula. 02/25/2021 Patient seen on follow-up he is resting in bed, appears quite frail and fatigued. 5 L nasal cannula, saturating above 90%, blood pressures are marginal 96 with/54, respirations unlabored. Family at bedside, asking questions regarding the plan of care. 02/26/2021 Hemoglobin low at 6.5 today, he is being transfused 1 unit of PRBC. He remains on 5 L nasal cannula saturating above 90%, blood pressure is marginal 94/53, he is afebrile. His appearance is very thin, he is cachectic and appears malnourished and weak. Continues antimicrobial therapy of cefepime he is afebrile, no growth on blood cultures. 02/27/2021 Patient is seen and evaluated and follow-up continues to be extremely fatigued and appears slightly anxious and restless requiring more oxygen. Patient is currently on high flow via nasal cannula at 10 L with oxygen saturation of 92% and states he continues to be dyspneic with minimal exertion. D-dimer was drawn and is 18.32 and will discuss possible CTA. Patient continues to have a cough with minimal phlegm production although unable to expectorate. Oral intake continues to be poor. Chest x-ray today shows diffuse bilateral nodular pattern with interstitial infiltrates and underlying COPD, differential diagnosis would include numerous pulmonary nodules with superimposed interstitial pneumonitis or lymphangitis metastasis. Will give a dose of IV Lasix. 02/28/2021 Patient is seen in follow-up continue to deteriorate and patient is currently no code and hospice has been consulted and family is agreeable with hospice in [facility] at the bedside and will continue with comfort measures. Active Medications Docusate Sodium (Docusate 100 Mg Cap) 100 mg PO BID PRN PRN Reason: Constipation Enoxaparin Sodium (Enoxaparin 40 Mg/0.4 Ml Syringe) 40 mg SQ DAILY [facility] Last Admin: 02/27/21 09:29 Dose: 40 mg Documented by: Sodium Chloride (Saline 0.9%) 1,000 mls @ 20 mls/hr IV .Q24H [facility] Last Admin: 02/27/21 02:04 Dose: 20 mls/hr Documented by: Cefepime HCl 2 gm/ Sodium (Chloride) 100 mls @ 25 mls/hr IVPB Q8HR [facility] Last Admin: 02/27/21 09:29 Dose: 25 mls/hr Documented by: Metoprolol Tartrate (Metoprolol Tartrate 25 Mg Tab) 25 mg PO BID [facility] Last Admin: 02/27/21 09:29 Dose: 25 mg Documented by: Naloxone HCl (Naloxone 0.4 Mg/Ml 1 Ml Vial) 0.2 mg IV Q2M PRN PRN Reason: Opioid Reversal Nicotine (Nicotine 14mg/24hr Patch) 1 patch TRANSDERM DAILY [facility] Last Admin: 02/27/21 09:29 Dose: 1 patch Documented by: Pantoprazole Sodium (Pantoprazole 40 Mg Tablet) 40 mg PO [id number] [facility] Last Admin: 02/27/21 06:40 Dose: 40 mg Documented by: PHYSICAL EXAMINATION: GENERAL: The patient is alert and oriented x3. extremely cachectic and minimally responsive, tachypneic HEENT: Pupils are round and equally reacting to light. EOMI. No scleral icterus. No conjunctival pallor. Normocephalic, atraumatic. No pharyngeal erythema. No thyromegaly. Oral mucosa is dry CARDIOVASCULAR: S1 and S2 muffled, tachycardic PULMONARY: diminished breath sounds laterally with some scattered crackles noted at the bases, dyspneic, tachypneic on exam ABDOMEN: Firm, nontender, distended, normoactive bowel sounds. No palpable organomegaly. MUSCULOSKELETAL: No joint swelling or deformity. EXTREMITIES: No cyanosis, clubbing, or pedal edema. B/l lower extremities with generalized edema noted. NEUROLOGICAL: Gross neurological examination did not reveal any focal deficits. diffusely weak SKIN: No rashes. Assessment: -Altered mental status possible metabolic encephalopathy secondary to cancer metastasis and also a component of toxic encephalopathy related to temazepam -Acute hypoxic respiratory failure currently on 10 L high flow possibly secondary to COPD acute exacerbation -leukocytosis with no clear source of infection home possibly reactive secondary to metastatic esophageal cancer -Elevated d-dimer of 18.32 -Thrombocytopenia -Possible sepsis, present on admission -Symptomatic anemia, status post 1 unit of PRBC -Severe protein calorie nutrition secondary to esophageal cancer and poor oral intake with a BMI of 22 -Hyperemic hyponatremia secondary to diuretics -Lactic acidosis: Secondary to liver dysfunction and dehydration -Metastatic disease to liver and a possible chronic liver dysfunction with el evated liver enzymes -Metastatic esophageal cancer: Management as per oncology -DVT prophylaxis: Lovenox -GI prophylaxis: Protonix -Continued ongoing nicotine dependence -no code Plan: Patient has clinically deteriorated and respiratory status continues to worsen and family is agreeable to hospice in [facility] at the bedside and will be transitioning to comfort care measures only and will start necessary medications to keep the patient comfortable. Family and mother at the bedside who are agreeable to this. Continue to monitor closely. Prognosis remains extremely poor and guarded. Objective - Vital Signs Vital signs: Vital Signs Temp 96.7 F L 02/28/21 08:00 Pulse 107 H 02/28/21 08:00 Resp 38 H 02/28/21 08:00 BP 105/72 02/28/21 08:00 Pulse Ox 90 L 02/28/21 08:00 Intake & Output 02/27/21 02/28/21 02/28/21 18:59 06:59 18:59 Intake Total 120 Output Total 1750 300 350 Balance -1750 -300 -230 Weight 65.5 kg Intake: Oral 120 Output: Urine 1750 300 350 Other: Voiding Method Toilet Toilet # Voids 1 1 1 - Labs CBC & Chem 7: 02/28/21 08:00 02/28/21 08:00 Labs: Abnormal Lab Results - Last 24 Hours (Table) 02/27/21 02/27/21 02/27/21 Range/Units 08:18 08:18 11:14 WBC 15.6 H (3.8-10.6) k/uL RBC 2.11 L (4.30-5.90) m/uL Hgb 7.0 L (13.0-17.5) gm/dL Hct 22.0 L (39.0-53.0) % MCV 104.1 H (80.0-100.0) fL RDW 23.7 H (11.5-15.5) % Plt Count 46 L (150-450) k/uL Neutrophils # 14.8 H (1.3-7.7) k/uL Lymphocytes # 0.7 L (1.0-4.8) k/uL Macrocytosis Marked A PT 18.2 H (9.0-12.0) sec INR 1.8 H (<1.2) D-Dimer 18.32 H (<0.60) mg/L FEU Sodium 133 L (137-145) mmol/L Chloride 108 H (98-107) mmol/L Carbon Dioxide 16 L (22-30) mmol/L BUN 28 H (9-20) mg/dL Creatinine 0.36 L (0.66-1.25) mg/dL Glucose 55 L (74-99) mg/dL Calcium 7.2 L (8.4-10.2) mg/dL Total Bilirubin 5.4 H (0.2-1.3) mg/dL AST 355 H (17-59) U/L ALT 97 H (4-49) U/L Alkaline Phosphatase 367 H (38-126) U/L Total Protein 4.6 L (6.3-8.2) g/dL Albumin 1.5 L (3.5-5.0) g/dL Microbiology - Last 24 Hours (Table) 02/23/21 13:50 Blood Culture - Preliminary Blood No Growth after 96 hours 02/22/21 11:01 Blood Culture - Preliminary Blood No Growth after 120 hours
[2021-03-01 04:35] LABS: Vitamin B12 >2000.0 pg/mL (200.0-944.0)
--- NOTE | 2021-03-03 13:20 | CDI ---
Documentation Clarification Form Date: 03/03/2021 01:08:53 PM From: Baldev Fuentes Admit Date: 02/21/2021 07:48:00 PM Patient Name: Yoav Monge Visit Number: [id number] Discharge Date: 02/28/2021 11:14:00 AM ATTENTION: The Clinical Documentation Specialists (CDI) and [facility] Coding Staff appreciate your assistance in clarifying documentation. Please respond to the clarification below the line at the bottom and electronically sign. The CDI & [facility] Coding staff will review the response and follow-up if needed. Please note: Queries are made part of the Legal Health Record. If you have any questions, please contact the author of this message via ITS. Dr. Anthony Ho The patients principal diagnosis the diagnosis that was chiefly responsible for the admission - has not been clearly identified and clarification is requested. The patient presented with altered mental status. H+P states AMS most probably due to temazepam. Last progress note indicates possible sepsis. History/Risk factors: AMS, possible sepsis, temazepam use Clinical Indicators: Lab findings: Radiology findings: Vital Signs: Treatment: Consults: In your professional opinion, can you please clarify which diagnosis, after study, was the reason chiefly responsible for the admission? [ ] toxic encephalopathy only [ ] sepsis [ ] adverse effect of temazepam from proper use [ ] poisoning from temazepam accidental poisoning [ ] poisoning from temazepam intentional for self-harm [ ] poisoning from temazepam intention unknown It is clearly documented in my note the patient was admitted with toxic encephalopathy from temazepam MTDD
== END 2021-02-28 11:14 | disposition hospice, inpatient (51) | DRG 91 ==
LOC: EC 16:49 → 3SCARD 19:48
PROVIDERS: ADMIT Hospitalist; ATTEND Hospitalist
PROC: 5A0945A Assistance with Respiratory Ventilation, 24-96 Consecutive Hours, High Flow/Velocity Cannula (ICD-10-PCS; principal; 2021-02-25)
PROC: 30233N1 Transfusion of Nonautologous Red Blood Cells into Peripheral Vein, Percutaneous Approach (ICD-10-PCS; 2021-02-26)
DX: G92.9 Unspecified toxic encephalopathy (principal); A41.9 Sepsis, unspecified organism; J96.01 Acute respiratory failure with hypoxia; K72.00 Acute and subacute hepatic failure without coma; G93.41 Metabolic encephalopathy; C15.9 Malignant neoplasm of esophagus, unspecified; C77.9 Secondary and unspecified malignant neoplasm of lymph node, unspecified; C78.00 Secondary malignant neoplasm of unspecified lung; C78.7 Secondary malignant neoplasm of liver and intrahepatic bile duct; E87.1 Hypo-osmolality and hyponatremia; E87.2 Acidosis; R64 Cachexia; Z68.1 Body mass index [BMI] 19.9 or less, adult; J44.1 Chronic obstructive pulmonary disease with (acute) exacerbation; D64.9 Anemia, unspecified; D69.6 Thrombocytopenia, unspecified; D70.9 Neutropenia, unspecified; E86.0 Dehydration; E88.09 Other disorders of plasma-protein metabolism, not elsewhere classified; F17.200 Nicotine dependence, unspecified, uncomplicated; Z20.822 Contact with and (suspected) exposure to COVID-19; Z66 Do not resuscitate; Z51.5 Encounter for palliative care; K59.00 Constipation, unspecified; T50.2X5A Adverse effect of carbonic-anhydrase inhibitors, benzothiadiazides and other diuretics, initial encounter; Z79.899 Other long term (current) drug therapy; Z85.01 Personal history of malignant neoplasm of esophagus; Z85.05 Personal history of malignant neoplasm of liver; Z88.0 Allergy status to penicillin; T42.4X5A Adverse effect of benzodiazepines, initial encounter
CPT/HCPCS: 36415; 70450; 71045; 71046; 80048; 80053; 81003; 82140; 82248; 82607; 83605; 83615; 83735; 83880; 84100; 84145; 84484; 85025; 85027; 85379; 85384; 85610; 85652; 85730; 86140; 86850; 86900; 86901; 86920; 87040; 87635; 93005; 93970; 99285

== ENCOUNTER 2021-02-28 11:06 | Inpatient (IN) | payer MEDICAID ==
[2021-02-28] MEDS ORDERED: ACETAMINOPHEN SUPPOSITORY 650 MG SUPP RECTAL PRN (11:09)
[2021-02-28] MEDS ORDERED: HALOPERIDOL LACTATE 5 MG/ML 1 ML VIAL IM PRN (11:09)
[2021-02-28] MEDS ORDERED: GLYCOPYRROLATE 0.2 MG/ML 2 ML VIAL IVP PRN (11:09)
[2021-02-28] MEDS ORDERED: ATROPINE OPHTH SOLN 1% 5ML BTL SUBLINGUAL PRN (11:09)
[2021-02-28] MEDS ORDERED: MORPHINE SULFATE 2 MG/ML SYRINGE IV PRN (11:09)
[2021-02-28] MEDS ORDERED: ONDANSETRON 4 MG/2 ML VIAL IVP PRN (11:09)
[2021-02-28] MEDS ORDERED: LORazepam 2 MG/ML INJ IV PRN (11:09)
[2021-02-28] MEDS ORDERED: MORPHINE SULFATE (100 MG/2 ML) 100 MG in SODIUM CHLORIDE 0.9% 100 ML IV SCH (11:15)
[2021-02-28] MEDS ORDERED: SCOPOLAMINE 1.5MG/72HR PATCH TRANSDERM SCH (12:00)
[2021-02-28 13:58] VITALS: BP 130/67; PULSE 106; RESP 28
--- NOTE | 2021-02-28 16:04 | P.PN ---
Subjective Progress Note Date: 02/28/21 Principal diagnosis: Metastatic esophageal cancer, for found hypoxemia 60-year-old male with a history of recently diagnosed esophageal cancer, with liver and lung metastasis, who presents to the emergency room with weakness, shortness of breath, and confusion. He apparently was diagnosed with cancer at the end of December. He apparently was started on chemotherapy in mid January. He apparently has had 2 treatments. His second infusion was canceled due to neutropenia. He was to see his oncologist in the office, on the day of admission, but because of fatigue, shortness of breath, poor oral intake and poor appetite, he was evaluated in the emergency department and admitted to the hospital. I was asked to see the patient today, because of profound hypoxemia, currently on 10 L high flow O2, and quite tachypneic and dyspneic. The patient's chest x-ray shows diffuse interstitial changes, and my opinion, most consistent with diffuse lymphangitic carcinomatosis. Laboratory data today includes a white count of 15.6, hemoglobin 7, hematocrit 22, and platelet count of 46,000. PT was 18.2, INR 1.8, and d-dimer 18.32. Sodium was 133, potassium 4.3, chlorides 108, CO2 16, anion gap 9, BUN and creatinine were 28 and 0.36. AST 355, bilirubin 5.4, ALT was 97, and albumin was only 1.5. Saturations are in the low 90s, and blood pressure is only about 80 systolic. On 02/28/2021 patient seen in follow-up on selective care unit, his and his mother are at the bedside, overnight his condition had further deteriorated, his now poorly responsive, he is using accessory muscles of respiration, retracting neck and abdominal muscles. He is currently on 10 L of oxygen his pulse ox is 89-90%. His chest x-ray yesterday showed diffuse bilateral nodular pattern with interstitial infiltrates and underlying COPD. Yesterday we saw the patient for the first time, and our impression based on exam, interview, and diagnostics was metastatic esophageal lung cancer, with lymphangitic carcinomatosis. Today's labs have been reviewed, his white blood cell count is 18.3, hemoglobin 6.9, INR was 1.8, d-dimer was 18.3, sodium was 134, potassium is 4.5, chloride is 108, CO2 was 12, BUN was 29, creatinine was 0.4. Dr. Kent had a conversation with his on the phone last night, and he gave her his thoughts on patient's current condition, and prognosis which is very poor at this time, current CODE STATUS is DO NOT RESUSCITATE. Yesterday we spoke to the patient himself, was awake and alert, oriented 3, he understood his poor prognosis, however he felt that his was reluctant to make the decision or allow him to come home today because she felt helpless at home trying to caring for a dying person. Medical oncology has been following the patient. Patient has been treated with antibiotics, diuretics, Pegfilgrastim. Despite the medical treatment his condition continued to deteriorate. Last night patient's family decided on no mechanical ventilator or aggressive life support. After the conversation with Dr. Kent the has decided on hospice, hospice was asked to come in and see the patient. Today nursing staff reports continued deterioration of his clinical status, level of consciousness, breathing, and vital signs. It appears that he is in active stages of dying, however seems to be significantly short of breath, and for that reason comfort care measures have been started and morphine drip is being initiated to ease patient's air hunger, and dyspnea Objective - Vital Signs Vital signs: Vital Signs Temp Pulse 106 H 02/28/21 14:00 Resp 28 H 02/28/21 14:00 BP 130/67 02/28/21 12:00 Pulse Ox 89 L 02/28/21 12:00 Intake & Output 02/27/21 02/28/21 02/28/21 18:59 06:59 18:59 Intake Total 1.037 Output Total 500 Balance -498.963 Weight 65.5 kg Intake: Intake, IV Titration 1.037 Amount Morphine Sulfate (100 mg/ 1.037 2 ml) 100 mg In Sodium Chloride 0.9% 100 ml @ 1 MG/HR 1.02 mls/hr IV . Q24H [facility] Rx#:[id number] Output: Urine 500 Other: Voiding Method Indwelling Catheter - Exam GENERAL EXAM: Poorly responsive, 60-year-old white male, in acute rest or distress, on 10 L of oxygen, hypoxic, using accessory muscles of breathing comfortable in no apparent distress. HEAD: Normocephalic/atraumatic. EYES: Normal reaction of pupils, equal size. Conjunctiva pink, sclera white. NOSE: Clear with pink turbinates. THROAT: No erythema or exudates. NECK: No masses, no JVD, no thyroid enlargement, no adenopathy. CHEST: No chest wall deformity. Symmetrical expansion. LUNGS: Equal air entry with no crackles, wheeze, rhonchi or dullness. CVS: Regular rate and rhythm, normal S1 and S2, no gallops, no murmurs, no rubs ABDOMEN: Soft, nontender. No hepatosplenomegaly, normal bowel sounds, no guarding or rigidity. EXTREMITIES: No clubbing, no edema, no cyanosis, 2+ pulses and upper and lower extremities. MUSCULOSKELETAL: Muscle strength and tone normal. SPINE: No scoliosis or deformity SKIN: No rashes CENTRAL NERVOUS SYSTEM: Lethargic, poorly responsive No focal deficits, tone is normal in all 4 extremities. Assessment and Plan Plan: Assessment: #1. Metastatic esophageal cancer with metastasis to the liver and lungs #2. Acute hypoxic rest she failure secondary to lymphangitic carcinomatosis #3. Acute liver failure with hyperbilirubinemia and profound hypoalbuminemia #4. Anemia/thrombocytopenia, related to chemotherapy, possible infection, and acute liver failure #5. Non-anion gap metabolic acidosis #6. Lactic acidemia Plan: Family is at the bedside Overnight patient's condition continued to deteriorate It appears that he is an active stages of dying He is poorly responsive, there is increased work of breathing, and dyspnea At this point it was agreed that comfort care will be started Morphine drip is being initiated Pulmonary critical care will sign off and follow on an as-needed basis I performed a history & physical examination of the patient and discussed their management with my nurse practitioner, Julita Moctezuma. I reviewed the nurse practitioner's note and agree with the documented findings and plan of care. Lung sounds are positive for diminished breath sounds throughout the lung gomez. The findings and the impression was discussed with the patient. I attest to the documentation by the nurse practitioner. Time with Patient: Less than 30
--- NOTE | 2021-02-28 23:25 | P.DS ---
Providers Date of admission: 02/28/21 11:18 Expected date of discharge: 02/28/21 Attending physician: Clark Abreu Primary care physician: Stated None Hospital Course: Final Diagnosis -Altered mental status possible metabolic encephalopathy secondary to cancer metastasis and also a component of toxic encephalopathy related to temazepam -Acute hypoxic respiratory failure possibly secondary to COPD acute exacerbation -leukocytosis with no clear source of infection home possibly reactive secondary to metastatic esophageal cancer -Elevated d-dimer of 18.32 -Thrombocytopenia -Possible sepsis, present on admission -Symptomatic anemia -Severe protein calorie nutrition secondary to esophageal cancer and poor oral intake with a BMI of 22 -Hyperemic hyponatremia secondary to diuretics -Lactic acidosis: Secondary to liver dysfunction and dehydration -Metastatic disease to liver and a possible chronic liver dysfunction with elevated liver enzymes -Metastatic esophageal cancer -DVT prophylaxis -GI prophylaxis -Continued ongoing nicotine dependence -no code Preliminary Cause of Esophageal cancer with metastasis Discharge disposition Patient has . According to nursing documentation time of was 1512 Hospital Course Patient was a pleasant 60-year-old male came in with complaints of confusion, increased lethargy, dehydration, and plasma lactic acidosis. Patient was being closely followed by oncology, pulmonary, and infectious disease. Patient developed increasing shortness of breath and required high flow nasal cannula. Patient clinical status continued to worsen and patient more lethargic and unresponsive. Hospice was consulted and family agreeable to proceed with [facility] with comfort measures only. Patient made inpatient comfort care. Patient at 1512 per nursing documentation. Please refer to previous dictations for further HPI. Patient Condition at Discharge: Poor Plan - Discharge Summary Discharge Rx Participant: No New Discharge Prescriptions: No Action Pantoprazole Sodium [Protonix] 40 mg PO DAILY #20 tab Acetaminophen Tab [Tylenol] 650 mg PO Q6HR PRN tab PRN Reason: Fever And/ Or Pain Temazepam [Restoril] 15 - 30 mg PO HS Docusate [Colace] 100 mg PO BID PRN #30 cap PRN Reason: Constipation Nicotine 14Mg/24Hr Patch [Habitrol] 1 patch TRANSDERM DAILY #30 patch Metoprolol Tartrate 12.5 mg PO BID Petrolatum, White [Aquaphor] 1 applic TOPICAL QID Saline Mouthwash 1 dose PO 5XD Discharge Medication List Acetaminophen Tab [Tylenol] 650 mg PO Q6HR PRN tab 01/21/21 [Rx] Docusate [Colace] 100 mg PO BID PRN #30 cap 01/21/21 [Rx] Nicotine 14Mg/24Hr Patch [Habitrol] 1 patch TRANSDERM DAILY #30 patch 01/21/21 [Rx] Pantoprazole Sodium [Protonix] 40 mg PO DAILY #20 tab 01/21/21 [Rx] Metoprolol Tartrate 12.5 mg PO BID 02/21/21 [History] Petrolatum, White [Aquaphor] 1 applic TOPICAL QID 02/21/21 [History] Saline Mouthwash 1 dose PO 5XD 02/21/21 [History] Temazepam [Restoril] 15 - 30 mg PO HS 02/22/21 [History] Discharge Disposition: - Preliminary Cause of Preliminary Cause of : Esophageal Cancer with metastasis
== END 2021-02-28 17:35 | disposition expired | DRG 951 ==
LOC: 3SCARD 11:18
PROVIDERS: ADMIT Hospitalist; ATTEND Hospitalist
DX: Z51.5 Encounter for palliative care (principal); J96.01 Acute respiratory failure with hypoxia; K72.00 Acute and subacute hepatic failure without coma; G92.8 Other toxic encephalopathy; C15.9 Malignant neoplasm of esophagus, unspecified; E87.1 Hypo-osmolality and hyponatremia; C78.7 Secondary malignant neoplasm of liver and intrahepatic bile duct; E87.2 Acidosis; C78.00 Secondary malignant neoplasm of unspecified lung; C77.9 Secondary and unspecified malignant neoplasm of lymph node, unspecified; D69.59 Other secondary thrombocytopenia; Z66 Do not resuscitate; E86.0 Dehydration; T42.4X5A Adverse effect of benzodiazepines, initial encounter; T50.2X5A Adverse effect of carbonic-anhydrase inhibitors, benzothiadiazides and other diuretics, initial encounter; Z71.6 Tobacco abuse counseling; Z79.899 Other long term (current) drug therapy; Z87.891 Personal history of nicotine dependence; Z80.9 Family history of malignant neoplasm, unspecified; J44.9 Chronic obstructive pulmonary disease, unspecified; E88.09 Other disorders of plasma-protein metabolism, not elsewhere classified; D64.81 Anemia due to antineoplastic chemotherapy; T45.1X5A Adverse effect of antineoplastic and immunosuppressive drugs, initial encounter; D72.829 Elevated white blood cell count, unspecified